=== PATIENT | male | born 1945 | race Caucasian/White ===

== ENCOUNTER 2020-09-02 09:21 | Outpatient (NON) | payer MEDICARE, SELFPAY ==
[2020-09-04 18:20] LABS: SARS-CoV-2 RNA PCR Negative
== END 2020-09-02 09:22 ==
PROVIDERS: PCP Family Medicine; Visit Provider Family Medicine
DX: Z20.828 Contact with and (suspected) exposure to other viral communicable diseases (principal); J06.9 Acute upper respiratory infection, unspecified
CPT/HCPCS: 87635; C9803; U0003

== ENCOUNTER 2021-10-31 19:15 | Emergency (ER) | payer MEDICARE, SELFPAY ==
--- NOTE | 2021-10-31 19:25 | ED.NAVMDI ---
HPI - Nausea/Vomiting/Diarrhea General Chief complaint: Nausea/Vomiting/Diarrhea Stated complaint: Diarrhea Time Seen by Provider: 10/31/21 19:25 Source: patient and RN notes reviewed Mode of arrival: ambulatory Limitations: no limitations History of Present Illness HPI Narrative: Hunter is a 75-year-old male patient who ambulated into the [facility]. Patient states he has had been having bouts of diarrhea since before . Patient states he usually has diarrhea for couple days, then will go several days without diarrhea and the cycle repeats. Patient states he is had no change in his medications. No change in eating and drinking. He has denies any health issues except for hypertension and high cholesterol. Patient states he has not went to his primary care physician. Patient denies any abdominal pain. Patient states his diarrhea is normal in color. He denies any tarry or red stools. MD elicited complaint: diarrhea Related Data Home Medications Medication Instructions Recorded Confirmed citalopram 20 mg PO DAILY 10/31/21 10/31/21 lisinopril-hydrochlorothiazide 1 tablet PO DAILY 10/31/21 10/31/21 simvastatin 40 mg PO DAILY 10/31/21 10/31/21 Allergies Allergy/AdvReac Type Severity Reaction Status Date / Time BLUEBERRIES Allergy Severe Anaphylactic Uncoded 10/31/21 19:22 Shock GOOSBERRIES Allergy Severe Anaphylactic Uncoded 10/31/21 19:22 Shock Review of Systems Review of Systems: CONSTITUTIONAL: Denies body aches, fever, chills, or sweats. EYES: Denies visual changes, redness, or discharge. ENT: Denies rhinorrhea, congestion, sore throat, or otalgia. CARDIOVASCULAR: Denies chest pain, palpitations, or edema. RESPIRATORY: Denies cough or dyspnea. GASTROINTESTINAL: Denies abdominal pain, nausea, vomiting, + diarrhea. GENITOURINARY: Denies dysuria or hematuria. SKIN: Denies rash, itching, or wounds. MUSCULOSKELETAL: Denies back pain, joint pain, or myalgia. NEUROLOGIC: Denies headache, numbness, tingling, or weakness. PSYCH: Denies depression or anxiety. All systems reviewed & are unremarkable except as noted in HPI and below PMFSH Comments At time of signature, I have reviewed and agree with nursing past medical, surgical, social and family history unless otherwise noted. Please see nursing chart for further information. There is no relevant family history pertinent to the presenting complaint Exam Narrative: GENERAL: Well-appearing, well-nourished, and in no acute distress. HEAD: Normocephalic, atraumatic. EYES: EOMI. No redness or drainage. Conjunctivae normal. ENT: Mucous membranes pink and moist. Nares clear. No rhinorrhea. TMs normal bilaterally. Throat normal. Uvula midline. NECK: Normal AROM. Supple. No lymphadenopathy. CHEST: No respiratory distress. Clear to auscultation. HEART: Regular rate and rhythm. No murmur appreciated. Normal peripheral pulses. ABDOMEN: Soft, nontender, nondistended, hyperactive bowel sounds. MUSCULOSKELETAL: No bony tenderness. EXTREMITIES: Normal range of motion. No edema. SKIN: Warm, dry, no rash. Capillary refill normal. Normal skin turgor. NEURO: No focal deficits. Alert and oriented x3. Gait steady. PSYCH: Normal affect. No signs of depression or anxiety. Course Vital Signs Vital signs: Vital Signs Temperature 36.6 C 10/31/21 19:26 Pulse Rate 68 10/31/21 19:26 Respiratory Rate 16 10/31/21 19:26 Blood Pressure 171/60 H 10/31/21 19:26 Pulse Oximetry 98 10/31/21 19:26 Temperature 36.6 C 10/31/21 19:26 Pulse Rate 68 10/31/21 19:26 Respiratory Rate 16 10/31/21 19:26 Blood Pressure 171/60 H 10/31/21 19:26 Pulse Oximetry 98 10/31/21 19:26 Reviewed. Pt has been instructed to follow up with his PCP regarding his elevated blood pressure today. MDM - Nausea/Vomiting/Diarrhea MDM Narrative Medical decision making narrative: Patient has had ongoing episodes of diarrhea since before Thanksgiving. Patient de
[2021-10-31 19:26] VITALS: BP 171/60; PULSE 68; RESP 16; TEMP 36.6; O2SAT 98
== END 2021-10-31 19:40 | disposition home or self-care (01) ==
PROVIDERS: Emergency Provider Nurse Practitioner Family; PCP Family Medicine
DX: R19.7 Diarrhea, unspecified (principal)
CPT/HCPCS: 99211; G0463

== ENCOUNTER 2021-11-18 01:17 | Day surgery (SDC) | payer MEDICARE, SELFPAY ==
[2021-11-06 14:03] VITALS: BMI 26.6
[2021-11-18 07:16] VITALS: BP 125/65; PULSE 55; RESP 18; TEMP 36.6; O2SAT 99
[2021-11-18] MEDS: LACTATED RINGERS 1,000 ML 150 ML IV CONT (07:18)
--- NOTE | 2021-11-18 07:34 | WPDANESEPPF ---
Anes - Initial Pre Proc Eval Procedure: Operation Date: 11/18/21 08:30 Proposed Procedures p Colonoscopy - Jamarcus Joshi MD Date/Time: 11/18/21 07:34 Surgeon: Jamarcus Joshi MD Pre Op Diagnosis: diarrhea Patient Data Age: 75 Gender: M Height: 1.75 m Weight: 80.1 kg Last Vital Signs Temp 36.6 C 11/18/21 07:16 Pulse 55 L 11/18/21 07:16 Resp 18 11/18/21 07:16 BP 125/65 11/18/21 07:16 Pulse Ox 99 11/18/21 07:16 Allergies Allergy/AdvReac Type Severity Reaction Status Date / Time BLUEBERRIES Allergy Severe Anaphylactic Uncoded 11/18/21 07:15 Shock GOOSBERRIES Allergy Severe Anaphylactic Uncoded 11/18/21 07:15 Shock Home Medications Medication Instructions Recorded Confirmed Type citalopram 20 mg PO DAILY 10/31/21 11/18/21 History lisinopril-hydrochlorothiazide 1 tablet PO DAILY 10/31/21 11/18/21 History simvastatin 40 mg PO DAILY 10/31/21 11/18/21 History triamcinolone acetonide 1 applic TOPICAL BID PRN 11/06/21 11/18/21 History Patient hx anesthesia problems: none Family hx anesthesia problems: none Results Review: All pre-operative results and documents have been reviewed as part of the pre-operative evaluation. [facility] Past Medical History Medical History (Updated 11/18/21 @ 07:35 by Rey Hair MD) HTN (hypertension) Hyperlipidemia Rheumatoid arthritis Social History Social History (Updated 11/18/21 @ 07:35 by Rey Hair MD) Smoking status: Former smoker Alcohol intake: former Substance use: never Substance use type: does not use Living arrangements: with family Spiritual care concerns: No Anes - Eval Final PreProcedure Day of Procedure 11/18/21 07:34 Patient weight: normal Heart: regular rate and rhythm Lungs: clear to auscultation Airway: Mallampati scale class II Neurological: alert and oriented Last oral intake: >/= 8 hours ASA classification: III Emergent: no Anesthetic plan: proceed Anesthesia type and monitoring: general GIVS and standard monitoring Results Review: All pre-operative results and documents have been reviewed as part of the pre-operative evaluation. Informed Consent: The patient's anesthetic plan and its attendant risks and benefits were discussed with the patient/family/POA. Questions were solicited and answers provided to the satisfaction of the patient/family/POA.
--- NOTE | 2021-11-18 07:53 | WPDGICN ---
Assessment and Plan Assessment and plan (1) History of colon polyps: Code(s): Z86.010 - Personal history of colonic polyps Status: Acute Assessment and Plan: Patient has a history of colon polyps most recently 5 years ago. Plan is for surveillance colonoscopy at this time. Further recommendations will be given after endoscopy. (2) Diarrhea: Code(s): R19.7 - Diarrhea, unspecified Status: Acute Assessment and Plan: Patient had recent bout of diarrhea that is now resolved. This will be assessed as well at the time of colonoscopy. High-fiber diet is advised. Further recommendations will be given after endoscopy. GI Consult Note Consult date/time: 11/18/21 07:53 HPI: Sebastian De La O is a 75 year old male Presents for colonoscopy. Patient has a history of colon polyps 5 years ago. For this reason he presents for screening colonoscopy. Patient reports that he had episode of diarrhea that began in September. He went to the emergency room for this in October. He initially noticed this intermittently in the more persistently until it resolved over the last several weeks. He states that his most recent bowel movements have been normal. He denies any pain. He has had no bleeding. Family history is noncontributory. Patient denies any recent change in medicines. He has had no recent travel. Patient is referred for surveillance colonoscopy because of colon polyps but also because of this recent episode of diarrhea. Review of Systems Review of Systems: All systems reviewed & are unremarkable except as noted in HPI and below PMFSH Past Medical History Medical History (Updated 11/18/21 @ 07:55 by Jamarcus Joshi MD) HTN (hypertension) Hyperlipidemia Rheumatoid arthritis Social History Social History (Updated 11/18/21 @ 07:35 by Rey Hair MD) Smoking status: Former smoker Alcohol intake: former Substance use: never Substance use type: does not use Living arrangements: with family Spiritual care concerns: No Meds Home Medications and Allergies Home Medications Medication Instructions Recorded Confirmed Type citalopram 20 mg PO DAILY 10/31/21 11/18/21 History lisinopril-hydrochlorothiazide 1 tablet PO DAILY 10/31/21 11/18/21 History simvastatin 40 mg PO DAILY 10/31/21 11/18/21 History triamcinolone acetonide 1 applic TOPICAL BID PRN 11/06/21 11/18/21 History Allergies Allergy/AdvReac Type Severity Reaction Status Date / Time BLUEBERRIES Allergy Severe Anaphylactic Uncoded 11/18/21 07:15 Shock GOOSBERRIES Allergy Severe Anaphylactic Uncoded 11/18/21 07:15 Shock Vital Signs Vital Signs - 24 hr 11/18/21 07:16 Temperature 98 F Pulse Rate 55 L Respiratory Rate 18 Blood Pressure 125/65 Pulse Oximetry 99 Exam Narrative: Physical exam reveals patient to be alert. Vital signs stable. HEENT exam is unremarkable. Patient is anicteric. Lungs are clear. Chest is somewhat barrel chested. Abdomen bowel sounds are present soft nontender with no organomegaly. Digital external rectal exam is normal.
[2021-11-18 08:45] VITALS: BP 94/52; PULSE 69; RESP 21; O2SAT 96
[2021-11-18 08:55] VITALS: BP 149/67; PULSE 69; RESP 24; O2SAT 100
[2021-11-18 09:05] VITALS: BP 137/73; PULSE 62; RESP 19; O2SAT 98
== END 2021-11-18 09:22 | disposition home or self-care (01) ==
PROVIDERS: PCP Family Medicine; Visit Provider Internal Medicine Gastroenterology
PROC: 0DJD8ZZ Inspection of Lower Intestinal Tract, Via Natural or Artificial Opening Endoscopic (ICD-10-PCS; CPT 45378; principal; 2021-11-18 08:30)
DX: R19.7 Diarrhea, unspecified (principal); K64.8 Other hemorrhoids; K52.89 Other specified noninfective gastroenteritis and colitis; Z86.010 Personal history of colon polyps; I10 Essential (primary) hypertension; E78.5 Hyperlipidemia, unspecified; M06.9 Rheumatoid arthritis, unspecified; Z87.891 Personal history of nicotine dependence
CPT/HCPCS: 45380; 88305; J2704; J7120

== ENCOUNTER 2024-01-20 11:15 | Outpatient (CLI) | payer MEDICARE, SELFPAY ==
[2024-01-20 11:57] LABS: Parathyroid Intact 97.8 pg/mL (7.5-53.5)
[2024-01-20 12:14] LABS: Vitamin D 25 Hydroxy 27.4 ng/mL
== END 2024-01-20 11:16 | disposition home or self-care (01) ==
LOC: ANHLAB 11:18
PROVIDERS: PCP Family Medicine; Visit Provider Family Medicine
DX: E83.52 Hypercalcemia (principal)
CPT/HCPCS: 36415; 82306; 83970

== ENCOUNTER 2024-01-26 08:37 | Outpatient (CLI) | payer MEDICARE, SELFPAY ==
--- NOTE | ~2024-01-26 | NM_ITS ---
EXAMINATION: NM parathyroid imaging w spect DATE: 01/26/2024 12:33 INDICATION: Hyperparathyroidism, unspecified. TECHNIQUE: 19.43 mCi Tc99m sestamibi was administered intravenously. Anterior images of the neck were obtained immediately. Delayed images could not be obtained because of the patient's condition. COMPARISON: CT cervical spine 01/26/2024 FINDINGS: There is focal increased activity overlying the right thyroid lobe correlating with the are a of a 13 x 12 mm mass in right tracheoesophageal groove seen by CT. IMPRESSION: 1. Focal increased activity overlying the right thyroid lobe correlating with the area of a 13 x 12 m m mass in right tracheoesophageal groove seen by CT, which may be a parathyroid adenoma. Specificity is decreased by the lack of delayed images. Reviewed, dictated and finalized at location A. IMPRESSION: 1. Focal increased activity overlying the right thyroid lobe correlating with t he area of a 13 x 12 mm mass in right tracheoesophageal groove seen by CT, whic h may be a parathyroid adenoma. Specificity is decreased by the lack of delayed images.
[2024-01-26 09:47] VITALS: BP 178/62; RESP 16; O2SAT 100
== END 2024-01-26 08:38 | disposition home or self-care (01) ==
PROVIDERS: PCP Family Medicine; Visit Provider Family Medicine
DX: E21.3 Hyperparathyroidism, unspecified (principal)
CPT/HCPCS: 78071; A9500

== ENCOUNTER 2024-01-26 09:39 | Emergency (ER) | payer MEDICARE, SELFPAY ==
[2024-01-26] VITALS (12 sets, daily range): BP systolic 148–168; BP diastolic 66–85; PULSE 43–64; RESP 14–20; TEMP 36.8; O2SAT 96–100
--- NOTE | ~2024-01-26 | CT_ITS ---
EXAMINATION: CT brain wo con DATE: 01/26/2024 10:38 INDICATION: Status post fall. TECHNIQUE: Computed tomography (CT) of the head was performed without intravenous contrast. The dose- length product was 681.00 mGy-cm. Automated exposure control and iterative reconstruction technique w ere employed. COMPARISON: None FINDINGS: Hyperdensity along the interhemispheric fissure is most likely related to calcification or vascularity rather than hemorrhage. Normal brain parenchymal volume. No ventriculomegaly or midline s hift. There are scattered mild periventricular and subcortical white matter changes, most likely rela flynn to small vessel ischemic disease (microangiopathy). There is intracranial atherosclerosis. Basila r cisterns are patent. There is mucosal thickening of the maxillary, ethmoid and frontal sinuses. Mas toids are pneumatized. No depressed skull fractures. There is subtle area of ill-defined hyperdensity in the left frontal lobe, axial image 47. IMPRESSION: 1. Subtle focal hyperdensity left frontal lobe, image 47. Focal parenchymal mass or hemorrhage is not excluded. Irregular hyperdense appearance to the interhemispheric fissure, most likely benign calcif ication or vascularity. Hemorrhage is less favored. Consider correlation with MRI of the brain. 2: Reviewed, dictated and finalized at location B. IMPRESSION: 1. Subtle focal hyperdensity left frontal lobe, image 47. Focal parenchymal mas s or hemorrhage is not excluded. Irregular hyperdense appearance to the interhe mispheric fissure, most likely benign calcification or vascularity. Hemorrhage is less favored. Consider correlation with MRI of the brain. 2:
--- NOTE | ~2024-01-26 | XR_ITS ---
XR chest 2V 01/26/2024 10:42 Indication: Syncope. Status post fall. Procedure: AP and lateral views of the chest Comparison: 04/09/2007 Findings: Heart size normal. No focal air space disease, pulmonary edema, pleural effusion or suspect ed pneumothorax. Impression: 1: No acute cardiopulmonary disease. Reviewed, dictated and finalized at location B. Impression: 1: No acute cardiopulmonary disease.
--- NOTE | ~2024-01-26 | CT_ITS ---
EXAMINATION: CT cervical spine wo con DATE: 01/26/2024 10:39 INDICATION: Head injury. TECHNIQUE: Computed tomography (CT) of the cervical spine was performed without intravenous contrast. Automated exposure control and iterative reconstruction technique were employed. The dose-length pro duct was 462.23 mGy-cm. COMPARISON: None FINDINGS: There are nodules in the thyroid measuring up to 2.2 cm. There is 5 degrees dextrocurvature of cervical spine. There are bridging endplate osteophytes from C2 to C4 and from C7 to at least T2, consistent with diffuse idiopathic skeletal hyperostosis (DISH). There is a benign bone island in T1 . There is moderately decreased disc height at C4-C5 and C5-C6. The following disc levels are specifi enma discussed: C2-C3: There is no uncovertebral joint hypertrophy. There is ankylosis of the facet joints without hy pertrophy. There is no neural foraminal stenosis. There is no central canal stenosis. C3-C4: There is mild bilateral uncovertebral joint hypertrophy. There is ankylosis of the facet joint s without hypertrophy. There is mild right neural foraminal stenosis. There is no central canal steno sis. C4-C5: There is severe bilateral uncovertebral joint osteoarthritis. There is severe bilateral facet joint osteoarthritis. There is mild bilateral neural foraminal stenosis. There is mild central canal stenosis. C5-C6: There is severe bilateral uncovertebral joint osteoarthritis. There is severe bilateral facet joint osteoarthritis. There is mild bilateral neural foraminal stenosis. There is mild central canal stenosis. C6-C7: There is no uncovertebral joint osteoarthritis. There is moderate bilateral facet joint osteoa rthritis. There is no neural foraminal stenosis. There is no central canal stenosis. C7-T1: There is no uncovertebral joint osteoarthritis. There is mild right and severe left facet join t osteoarthritis. There is mild left neural foraminal stenosis. There is no central canal stenosis. IMPRESSION: 1. No fracture. 2. Moderate cervical spondylosis. 3. DISH. 4. Multinodular goiter. Consider thyroid ultrasound for risk stratification. Reviewed, dictated and finalized at location A.
--- NOTE | 2024-01-26 09:47 | ECG_ITS ---
Measurements Intervals [place] Rate: 54 P: 257 IA: 146 QRS: 66 QRSD: 134 T: 55 QT: 449 QTc: 428 Interpretive Statements ECTOPIC ATRIAL BRADYCARDIA ATRIAL PREMATURE COMPLEX RIGHT BUNDLE BRANCH BLOCK ABNORMAL ECG NO PREVIOUS ECG AVAILABLE FOR COMPARISON Electronically Signed On 01-26-2024 10:20:11 CDT by Leonel Kowalski D.O.
--- NOTE | 2024-01-26 09:51 | ED.FALL ---
HPI - Fall General Chief Complaint: Fall Stated Complaint: fall Time Seen by Provider: 01/26/24 09:48 Source: patient and other (RN) Mode of arrival: other (rapid response from NM) Limitations: altered mental status History of Present Illness HPI Narrative: This is a 78 year old male that presents to the ER for a syncopal episode today. Patient had a parathyroid nuclear medicine scan at our hospital. After this scan he stood up and they report he looked confused, he then passed out and hit his head. Alert soon after, although patient is confused. Unsure why he is in the hospital. Does not remember what happened. Denies chest pain, shortness of breath. Related Data Home Medications Medication Instructions Recorded Confirmed triamcinolone acetonide 0.1 % 1 applic topical BID PRN Rash 11/06/21 01/20/24 topical cream Allergies Allergy/AdvReac Type Severity Reaction Status Date / Time BLUEBERRIES Allergy Severe Anaphylactic Uncoded 01/20/24 10:00 Shock GOOSBERRIES Allergy Severe Anaphylactic Uncoded 01/20/24 10:00 Shock Review of Systems Review of Systems: ROS unobtainable: Yes unobtainable due to mental status PMFSH Past Medical History Medical History Arthropathic psoriasis, unspecified GERD (gastroesophageal reflux disease) HTN (hypertension) Hypercalcemia Hyperlipidemia Major depressive disorder, recurrent, in partial remission Other abnormal glucose Paresthesia of both feet Psoriasis, unspecified Pure hypercholesterolemia, unspecified Rheumatoid arthritis Urge incontinence of urine Surgical History Surgical History History of appendectomy History of hernia repair left abdomen 12/06/2003 right abdomen 08/2011 History of tonsillectomy and adenoidectomy Family History Family History Father Heart disease Mother Diabetes mellitus Grandparent Heart disease Social History Social History (Updated 01/20/24 @ 10:03 by Nataly Horowitz MA) Smoking status: Former smoker Tobacco type: cigarettes Second hand tobacco smoke exposure: No Alcohol intake: former Substance use: never Substance use type: does not use Do You Feel Safe in your Home?: Yes Lack of Transportation: No Lack of Food: Never True Current Housing: I Have Housing Concerned About Future Housing: No Difficulty Paying Gas/Electric Bills: No Difficulty Paying for Meds: No Currently Unemployed: YES Education: High School Diploma/GED Difficulty w/ Childcare or Family Care: No Living arrangements: with family Occupation/Education: retired Gender identity (if verbalized by the patient): Male Sexual Orientation (if Verbalized by the Patient): Straight or Heterosexual Spiritual care concerns: No Exam Narrative: GENERAL: Well-appearing, well-nourished, and in no acute distress. HEAD: Normocephalic. 3cm linear laceration into subcutaneous tissue to the posterior scalp EYES: PERRLA and EOMI. ENT: Nares clear, no rhinorrhea or epistaxis. Mucous membranes moist. Oropharynx without tonsillar hypertrophy exudate or other lesions. Bilateral TMs pearly vega non-bulging NECK: Supple. No adenopathy or masses. C collar in place CHEST: Clear to auscultation. No respiratory distress. No wheezes rales or rhonchi HEART: Regular rate and rhythm. No murmur heard. Normal peripheral pulses. ABDOMEN: Soft, nontender, nondistended, normal active bowel sounds. EXTREMITIES: Normal range of motion. No edema. SKIN: Warm, dry, no rash. NEURO: No focal deficits. Alert and oriented x1. CN II-XII grossly intact PSYCH: Normal mood and affect Course Course Emergency Course: I was able to eventually get ahold of patient's son and update him on his father Consultations Consultation #1: Dr. Morrell at [facility] accepts patient to th
[2024-01-26 10:14] LABS: Basophils Percent Auto 0.3 % (0.2-1.2); Eosinophils Absolute Auto 0.1 K/mm3 (0-0.3); Eosinophils Percent Auto 1.9 % (0-4.4); Hematocrit 48.7 % (42.0-52.0); Hemoglobin 15.8 g/dL (14.0-18.0); Immature Granulocyte Absolute 0.03 K/mm3 (0.00-0.031); Immature Granulocyte Percent A 0.4 % (0-0.5); Lymphocytes Absolute Auto 1.95 K/mm3 (0.9-3.2); Lymphocytes Percent Auto 26.4 % (18.3-44.2); Mean Corpuscular HGB Conc 32.4 g/dl (32-36); Mean Corpuscular Hemoglobin 28.5 pg (26-34); Mean Corpuscular Volume 87.9 fl (80-100); Mean Platelet Volume 11.5 fl (7.4-10.4); Monocytes Absolute Auto 0.8 K/mm3 (0.1-0.6); Monocytes Percent Auto 10.4 % (2.6-8.5); Neutrophils Absolute Auto 4.5 K/mm3 (1.3-6.7); Neutrophils Percent Auto 60.6 % (45.5-73.1); Platelet Count Result 201 k/mm3 (150-375); Red Blood Count 5.54 M/mm3 (4.6-6.20); Red Cell Distribution Width 13.6 % (11.5-14.5); White Blood Count 7.4 K/mm3 (4.5-10.0)
[2024-01-26] MEDS: TETANUS,DIPHTHERIA,AC PERTUSSIS ADULT (0.5 ML) BOOSTRIX IM (10:15)
[2024-01-26 10:28] LABS: Alanine Aminotransferase 19 U/L (6-50); Albumin Level 4.7 g/dL (3.5-5.1); Alkaline Phosphatase 108 U/L (38-126); Anion Gap 7 mmol/L (4-12); Aspartate Amino Transferase 27 U/L (17-59); Bilirubin,Total 0.7 mg/dL (0.2-1.3); Blood Urea Nitrogen 24 mg/dL (9-20); Calcium 11.3 mg/dL (8.4-10.2); Carbon Dioxide 32 mmol/L (22-30); Chloride 99 mmol/L (98-107); Estimated CRCL calculation 63 ml/min; Estimated Glomerular Filt Rate > 60; Glucose 99 mg/dL (65-110); Potassium 4.2 mmol/L (3.4-5.0); Sodium 138 mmol/L (137-145)
[2024-01-26 10:31] LABS: INR 0.9; Prothrombin Time 12.8 Seconds (11.1-14.7)
[2024-01-26 10:32] LABS: Partial Thromboplastin Time 28.4 Seconds (22.3-36.8)
[2024-01-26 10:39] LABS: Troponin I < 0.012 ng/mL (0.000-0.034)
== END 2024-01-26 12:28 | disposition short-term general hospital (02) ==
PROVIDERS: Emergency Medicine; Emergency Provider Physician Assistant; PCP Family Medicine
DX: R55 Syncope and collapse (principal); S01.01XA Laceration without foreign body of scalp, initial encounter; R93.0 Abnormal findings on diagnostic imaging of skull and head, not elsewhere classified; Z23 Encounter for immunization; I10 Essential (primary) hypertension; E78.00 Pure hypercholesterolemia, unspecified; M06.9 Rheumatoid arthritis, unspecified; L40.50 Arthropathic psoriasis, unspecified; K21.9 Gastro-esophageal reflux disease without esophagitis; Z87.891 Personal history of nicotine dependence; M47.812 Spondylosis without myelopathy or radiculopathy, cervical region; E04.2 Nontoxic multinodular goiter; M48.12 Ankylosing hyperostosis [Forestier], cervical region; M48.13 Ankylosing hyperostosis [Forestier], cervicothoracic region; I49.1 Atrial premature depolarization; I45.10 Unspecified right bundle-branch block; W18.39XA Other fall on same level, initial encounter
CPT/HCPCS: 12002; 36415; 70450; 71046; 72125; 78071; 80053; 84484; 85025; 85610; 85730; 90471; 90715; 93005; 99285; A9500; L0140

== ENCOUNTER 2024-03-01 14:36 | Emergency (ER) | payer MEDICARE, SELFPAY ==
[2024-03-01] VITALS (16 sets, daily range): BP systolic 103–141; BP diastolic 40–64; PULSE 55–83; RESP 12–21; TEMP 36.2–36.8; O2SAT 97–100
--- NOTE | 2024-03-01 14:41 | ECG_ITS ---
SEE SCANNED COPY FOR CONFIRMED REPORT. MTDD
[2024-03-01 15:07] LABS: Basophils Absolute Auto 0.1 K/mm3 (0.0-0.1); Basophils Percent Auto 0.9 % (0.2-1.2); Eosinophils Absolute Auto 0.2 K/mm3 (0-0.3); Eosinophils Percent Auto 2.6 % (0-4.4); Hematocrit 41.2 % (42.0-52.0); Hemoglobin 13.5 g/dL (14.0-18.0); Immature Granulocyte Absolute 0.02 K/mm3 (0.00-0.031); Immature Granulocyte Percent A 0.3 % (0-0.5); Lymphocytes Absolute Auto 1.19 K/mm3 (0.9-3.2); Lymphocytes Percent Auto 20.7 % (18.3-44.2); Mean Corpuscular HGB Conc 32.8 g/dl (32-36); Mean Corpuscular Hemoglobin 28.8 pg (26-34); Mean Corpuscular Volume 87.8 fl (80-100); Mean Platelet Volume 11.7 fl (7.4-10.4); Monocytes Absolute Auto 0.7 K/mm3 (0.1-0.6); Neutrophils Absolute Auto 3.7 K/mm3 (1.3-6.7); Neutrophils Percent Auto 63.5 % (45.5-73.1); Platelet Count Result 192 k/mm3 (150-375); Red Blood Count 4.69 M/mm3 (4.6-6.20); Red Cell Distribution Width 13.5 % (11.5-14.5); White Blood Count 5.8 K/mm3 (4.5-10.0)
[2024-03-01] MEDS: MECLIZINE HCL 25 MG TABLET PO (15:08)
[2024-03-01 15:17] LABS: Alanine Aminotransferase 19 U/L (6-50); Albumin Level 4.6 g/dL (3.5-5.1); Alkaline Phosphatase 108 U/L (38-126); Anion Gap 11 mmol/L (4-12); Aspartate Amino Transferase 26 U/L (17-59); Bilirubin,Total 0.5 mg/dL (0.2-1.3); Blood Urea Nitrogen 25 mg/dL (9-20); Calcium 10.8 mg/dL (8.4-10.2); Carbon Dioxide 24 mmol/L (22-30); Chloride 103 mmol/L (98-107); Estimated CRCL calculation 67 ml/min; Estimated Glomerular Filt Rate > 60; Glucose 77 mg/dL (65-110); Potassium 3.8 mmol/L (3.4-5.0); Sodium 138 mmol/L (137-145)
[2024-03-01 15:18] LABS: Prothrombin Time 13.4 Seconds (11.1-14.7)
[2024-03-01 15:20] LABS: Partial Thromboplastin Time 25.6 Seconds (22.3-36.8)
[2024-03-01] MEDS: SODIUM CHLORIDE 0.9% IV 1,000 ML 999 ML IV CONT (15:56)
--- NOTE | 2024-03-01 17:10 | PC.NURSE ---
updated orthostatic bp per MD verbal order: 1700; hr 70 and bp 120/54 1705; hr 74 and bp 122/56 1707; hr 78 and bp 122/55 states dizziness and feeling slighting off balance. denies sense of room spinning, n/v, or vision changes
--- NOTE | 2024-03-01 17:11 | ED.GENADULT ---
HPI - General Adult General Chief complaint: Arrhythmia/Palpitations Stated complaint: unknown Time Seen by Provider: 03/01/24 14:40 History of Present Illness HPI narrative: Patient is a 78-year-old male who presents ER with dizziness spinning and makes him unsteady. Worse with lying back or standing up. No loss of consciousness. No numbness or weakness in an arm or leg. No chest pain/chest pressure. No racing of the heart. No ringing in the ears. No weakness or numbness to an arm or leg. Related Data Home Medications Medication Instructions Recorded Confirmed triamcinolone acetonide 0.1 % 1 applic topical BID PRN Rash 11/06/21 01/31/24 topical cream meclizine 25 mg tablet 25 mg PO BID PRN 01/31/24 01/31/24 pantoprazole 40 mg tablet,delayed 40 mg PO QAM 01/31/24 01/31/24 release Allergies Allergy/AdvReac Type Severity Reaction Status Date / Time BLUEBERRIES Allergy Severe Anaphylactic Uncoded 01/31/24 15:25 Shock GOOSBERRIES Allergy Severe Anaphylactic Uncoded 01/31/24 15:25 Shock Review of Systems Review of Systems: All systems reviewed & are unremarkable except as noted in HPI and below Constitutional: Constitutional: Reports no additional constitutional complaints ENT: Reports dizziness, Denies nasal congestion and Denies sore throat Cardiovascular: Cardiovascular: Reports no additional cardiovascular complaints Respiratory: Respiratory: Reports no additional respiratory complaints Gastrointestinal: Gastrointestinal: Reports no additional gastrointestinal complaints Musculoskeletal: Musculoskeletal: Reports no additional musculoskeletal complaints [facility] Past Medical History Medical History Arthropathic psoriasis, unspecified GERD (gastroesophageal reflux disease) HTN (hypertension) Hypercalcemia Hyperlipidemia Major depressive disorder, recurrent, in partial remission Other abnormal glucose Paresthesia of both feet Psoriasis, unspecified Pure hypercholesterolemia, unspecified Rheumatoid arthritis Urge incontinence of urine Surgical History Surgical History History of appendectomy History of hernia repair left abdomen 12/06/2003 right abdomen 08/2011 History of tonsillectomy and adenoidectomy Family History Family History Father Heart disease Mother Diabetes mellitus Grandparent Heart disease Social History Social History (Updated 01/20/24 @ 10:03 by Nataly Horowitz MA) Smoking status: Former smoker Tobacco type: cigarettes Second hand tobacco smoke exposure: No Alcohol intake: former Substance use: never Substance use type: does not use Do You Feel Safe in your Home?: Yes Lack of Transportation: No Lack of Food: Never True Current Housing: I Have Housing Concerned About Future Housing: No Difficulty Paying Gas/Electric Bills: No Difficulty Paying for Meds: No Currently Unemployed: YES Education: High School Diploma/GED Difficulty w/ Childcare or Family Care: No Living arrangements: with family Occupation/Education: retired Gender identity (if verbalized by the patient): Male Sexual Orientation (if Verbalized by the Patient): Straight or Heterosexual Spiritual care concerns: No Exam Narrative: GENERAL: Well-appearing, well-nourished, and in no acute distress. HEAD: Normocephalic, atraumatic. EYES: PERRL and EOMI. ENT: Mucous membranes moist. TMs normal bilaterally. NECK: Supple. CHEST: Clear to auscultation. No respiratory distress. HEART: Regular rate and rhythm. Normal peripheral pulses. ABDOMEN: Soft, nontender, nondistended. EXTREMITIES: Normal range of motion. No edema. SKIN: Warm, dry, no rash. NEURO: Alert and oriented x3. PSYCH: Normal mood and affect. Course Course Emergency Course: Patient
== END 2024-03-01 18:05 | disposition home or self-care (01) ==
PROVIDERS: Emergency Provider Emergency Medicine; PCP Family Medicine
DX: R42 Dizziness and giddiness (principal); I95.1 Orthostatic hypotension; I10 Essential (primary) hypertension; E78.00 Pure hypercholesterolemia, unspecified; M06.9 Rheumatoid arthritis, unspecified; L40.50 Arthropathic psoriasis, unspecified; K21.9 Gastro-esophageal reflux disease without esophagitis; Z87.891 Personal history of nicotine dependence; I45.10 Unspecified right bundle-branch block; R94.31 Abnormal electrocardiogram [ECG] [EKG]
CPT/HCPCS: 36415; 80053; 85025; 85610; 85730; 93005; 96360; 99283; A9270; J7030

== ENCOUNTER 2024-03-03 13:25 | Emergency (ER) | payer MEDICARE, SELFPAY ==
[2024-03-03] VITALS (12 sets, daily range): BP systolic 97–167; BP diastolic 55–81; PULSE 66–79; RESP 13–20; TEMP 36.3–36.6; O2SAT 97–100
--- NOTE | ~2024-03-03 | XR_ITS ---
XR chest 2V 03/03/2024 14:16 Indication: AICD fired. Procedure: 2 view chest Comparison: 01/26/2024 Findings: Heart size normal. No focal air space disease, pulmonary edema, pleural effusion or suspect ed pneumothorax. The lungs are hyperinflated which is consistent with, but not diagnostic of chronic obstructive pulmonary disease. No acute osseous abnormality. Impression: 1: No acute cardiopulmonary disease. Reviewed, dictated and finalized at location B. Impression: 1: No acute cardiopulmonary disease.
--- NOTE | 2024-03-03 13:54 | ECG_ITS ---
SEE SCANNED COPY FOR CONFIRMED REPORT MTDD
[2024-03-03 14:07] LABS: Basophils Percent Auto 0.5 % (0.2-1.2); Eosinophils Absolute Auto 0.2 K/mm3 (0-0.3); Hematocrit 38.8 % (42.0-52.0); Hemoglobin 13.1 g/dL (14.0-18.0); Immature Granulocyte Absolute 0.02 K/mm3 (0.00-0.031); Immature Granulocyte Percent A 0.4 % (0-0.5); Lymphocytes Absolute Auto 0.93 K/mm3 (0.9-3.2); Lymphocytes Percent Auto 16.4 % (18.3-44.2); Mean Corpuscular HGB Conc 33.8 g/dl (32-36); Mean Corpuscular Hemoglobin 29.2 pg (26-34); Mean Corpuscular Volume 86.6 fl (80-100); Mean Platelet Volume 11.9 fl (7.4-10.4); Monocytes Absolute Auto 0.6 K/mm3 (0.1-0.6); Monocytes Percent Auto 10.1 % (2.6-8.5); Neutrophils Absolute Auto 3.9 K/mm3 (1.3-6.7); Neutrophils Percent Auto 69.6 % (45.5-73.1); Platelet Count Result 193 k/mm3 (150-375); Red Blood Count 4.48 M/mm3 (4.6-6.20); Red Cell Distribution Width 13.3 % (11.5-14.5); White Blood Count 5.7 K/mm3 (4.5-10.0)
[2024-03-03 14:19] LABS: Alanine Aminotransferase 19 U/L (6-50); Albumin Level 4.4 g/dL (3.5-5.1); Alkaline Phosphatase 97 U/L (38-126); Anion Gap 8 mmol/L (4-12); Aspartate Amino Transferase 24 U/L (17-59); Bilirubin,Total 0.6 mg/dL (0.2-1.3); Blood Urea Nitrogen 21 mg/dL (9-20); Calcium 10.9 mg/dL (8.4-10.2); Carbon Dioxide 26 mmol/L (22-30); Chloride 105 mmol/L (98-107); Estimated CRCL calculation 67 ml/min; Estimated Glomerular Filt Rate > 60; Glucose 116 mg/dL (65-110); Sodium 139 mmol/L (137-145)
[2024-03-03 14:26] LABS: INR 1.1; Partial Thromboplastin Time 28.9 Seconds (22.3-36.8); Prothrombin Time 14.2 Seconds (11.1-14.7)
[2024-03-03 14:28] LABS: NT Pro B Type Natriuretic Pept 460 pg/mL (19.9-100)
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
[2024-03-03 15:42] LABS: Troponin I < 0.012 ng/mL (0.000-0.034)
[2024-03-03 17:09] LABS: Troponin I 0.013 ng/mL (0.000-0.034)
== END 2024-03-03 18:30 | disposition short-term general hospital (02) ==
PROVIDERS: Emergency Provider Emergency Medicine; PCP Family Medicine
DX: I49.5 Sick sinus syndrome (principal); I10 Essential (primary) hypertension; E78.00 Pure hypercholesterolemia, unspecified; M06.9 Rheumatoid arthritis, unspecified; L40.50 Arthropathic psoriasis, unspecified; K21.9 Gastro-esophageal reflux disease without esophagitis; N39.41 Urge incontinence; Z87.891 Personal history of nicotine dependence; Z95.810 Presence of automatic (implantable) cardiac defibrillator; I45.10 Unspecified right bundle-branch block
CPT/HCPCS: 36415; 71046; 80053; 83880; 84484; 85025; 85610; 85730; 93005; 99285

== ENCOUNTER 2024-03-11 10:30 | Emergency (ER) | payer MEDICARE, SELFPAY ==
--- NOTE | ~2024-03-11 | XR_ITS ---
XR chest 1V portable DATE: 03/11/2024 12:27 INDICATION: Dizziness. Pacemaker insertion. TECHNIQUE: Portable upright AP chest on 03/11/2024 at 1218 hours COMPARISON: 03/20/2024 PA and lateral chest FINDINGS: Right-sided dual-lead transvenous pacemaker device has been placed since 03/03/2024. One lead overlies the right atrium, the other the central mid to upper heart, not necessarily in position whe re one might expect overlying the right ventricular apex. Clinical correlation is advised. More accur ate determination of pacemaker leads may be obtained by CT thorax if clinically indicated. Normal heart size. No pulmonary infiltrate or consolidation, pleural effusion or pulmonary vascular congestion or pneumo thorax. There is osteopenia. Bilateral rotator cuff atrophy is suggested. IMPRESSION: Right-sided pacemaker placement since 03/03/2024; recommend clinical correlation and possib le CT thorax for assessment of pacemaker lead position No active cardiopulmonary disease Reviewed, dictated and finalized at location A. IMPRESSION: Right-sided pacemaker placement since 03/03/2024; recommend clinical correlation and possible CT thorax for assessment of pacemaker lead position No active cardiopulmonary disease
[2024-03-11 10:35] VITALS: BP 130/68; PULSE 69; PULSE 78; RESP 17; TEMP 36.6; O2SAT 100
--- NOTE | 2024-03-11 10:44 | ECG_ITS ---
SEE SCANNED COPY FOR CONFIRMED REPORT MTDD
[2024-03-11 11:07] LABS: Basophils Percent Auto 0.6 % (0.2-1.2); Eosinophils Absolute Auto 0.1 K/mm3 (0-0.3); Eosinophils Percent Auto 2.5 % (0-4.4); Hematocrit 41.6 % (42.0-52.0); Hemoglobin 13.5 g/dL (14.0-18.0); Immature Granulocyte Absolute 0.02 K/mm3 (0.00-0.031); Immature Granulocyte Percent A 0.4 % (0-0.5); Lymphocytes Absolute Auto 0.78 K/mm3 (0.9-3.2); Lymphocytes Percent Auto 15.3 % (18.3-44.2); Mean Corpuscular HGB Conc 32.5 g/dl (32-36); Mean Corpuscular Volume 89.3 fl (80-100); Mean Platelet Volume 11.8 fl (7.4-10.4); Monocytes Absolute Auto 0.7 K/mm3 (0.1-0.6); Monocytes Percent Auto 13.1 % (2.6-8.5); Neutrophils Absolute Auto 3.5 K/mm3 (1.3-6.7); Neutrophils Percent Auto 68.1 % (45.5-73.1); Platelet Count Result 173 k/mm3 (150-375); Red Blood Count 4.66 M/mm3 (4.6-6.20); Red Cell Distribution Width 13.2 % (11.5-14.5); White Blood Count 5.1 K/mm3 (4.5-10.0)
[2024-03-11 11:24] LABS: Alanine Aminotransferase 34 U/L (6-50); Albumin Level 4.4 g/dL (3.5-5.1); Alkaline Phosphatase 90 U/L (38-126); Anion Gap 7 mmol/L (4-12); Aspartate Amino Transferase 29 U/L (17-59); Bilirubin,Total 0.6 mg/dL (0.2-1.3); Blood Urea Nitrogen 31 mg/dL (9-20); Calcium 11.6 mg/dL (8.4-10.2); Carbon Dioxide 31 mmol/L (22-30); Chloride 101 mmol/L (98-107); Estimated CRCL calculation 60 ml/min; Estimated Glomerular Filt Rate > 60; Glucose 93 mg/dL (65-110); Potassium 4.6 mmol/L (3.4-5.0); Sodium 139 mmol/L (137-145)
--- NOTE | 2024-03-11 11:26 | ED.DIZZY ---
HPI - Dizziness General Chief Complaint: Dizziness Stated Complaint: sent by dietetic technician Time Seen by Provider: 03/11/24 10:45 Source: patient Mode of arrival: ambulatory Limitations: no limitations History of Present Illness HPI Narrative: This is a 78-year-old male who presents to the ED with chief complaint of dizziness ongoing since late December and continuing this week. Patient reports he was at [facility] this week for pacemaker placement on Wednesday for sick sinus syndrome. He reports that the dizziness continues despite having the pacemaker in place. He called his doctor there and they encouraged him to go to the ER since the pacemaker should be helping with dizziness if it was due to the sick sinus syndrome. He reports he has been told he has heart murmur in the past but is unsure what this is. Denies any associated chest pain or shortness of breath. He states the dizziness gets worse when he gets up in takes his 1st few steps. Denies syncope, numbness or weakness of the extremities, speech change or vision change. Denies any falls. Denies fevers, chills, abdominal pain, nausea, vomiting, diarrhea. Related Data Home Medications Medication Instructions Recorded Confirmed triamcinolone acetonide 0.1 % 1 applic topical BID PRN Rash 11/06/21 01/31/24 topical cream meclizine 25 mg tablet 25 mg PO BID PRN 01/31/24 01/31/24 pantoprazole 40 mg tablet,delayed 40 mg PO QAM 01/31/24 01/31/24 release Allergies Allergy/AdvReac Type Severity Reaction Status Date / Time BLUEBERRIES Allergy Severe Anaphylactic Uncoded 01/31/24 15:25 Shock GOOSBERRIES Allergy Severe Anaphylactic Uncoded 01/31/24 15:25 Shock Review of Systems Review of Systems: All systems as dictated in HPI [facility] Past Medical History Medical History Arthropathic psoriasis, unspecified GERD (gastroesophageal reflux disease) HTN (hypertension) Hypercalcemia Hyperlipidemia Major depressive disorder, recurrent, in partial remission Other abnormal glucose Paresthesia of both feet Psoriasis, unspecified Pure hypercholesterolemia, unspecified Rheumatoid arthritis Urge incontinence of urine Surgical History Surgical History History of appendectomy History of hernia repair left abdomen 12/06/2003 right abdomen 08/2011 History of tonsillectomy and adenoidectomy Family History Family History Father Heart disease Mother Diabetes mellitus Grandparent Heart disease Social History Social History (Updated 01/20/24 @ 10:03 by Nataly Horowitz MA) Smoking status: Former smoker Tobacco type: cigarettes Second hand tobacco smoke exposure: No Alcohol intake: former Substance use: never Substance use type: does not use Do You Feel Safe in your Home?: Yes Lack of Transportation: No Lack of Food: Never True Current Housing: I Have Housing Concerned About Future Housing: No Difficulty Paying Gas/Electric Bills: No Difficulty Paying for Meds: No Currently Unemployed: YES Education: High School Diploma/GED Difficulty w/ Childcare or Family Care: No Living arrangements: with family Occupation/Education: retired Gender identity (if verbalized by the patient): Male Sexual Orientation (if Verbalized by the Patient): Straight or Heterosexual Spiritual care concerns: No Exam Narrative: GENERAL: Well-appearing, well-nourished, and in no acute distress. HEAD: Normocephalic, atraumatic. EYES: PERRLA and EOMI. ENT: Nares clear, no rhinorrhea or epistaxis. Mucous membranes moist. Oropharynx without tonsillar hypertrophy exudate or other lesions. NECK: Supple. No adenopathy or masses. CHEST: No respiratory distress. Clear to auscultation. No wheezes rales or rhonchi HEART: Regular rate and rhythm. Loud sys
[2024-03-11 12:28] LABS: NT Pro B Type Natriuretic Pept 102 pg/mL (19.9-100)
--- NOTE | 2024-03-11 12:30 | ECG_ITS ---
SEE SCANNED COPY FOR CONFIRMED REPORT MTDD
[2024-03-11 12:40] VITALS: BP 106/68; PULSE 73; RESP 18; O2SAT 100
[2024-03-11] MEDS: SODIUM CHLORIDE 0.9% IV 1,000 ML 999 ML IV CONT (12:40)
[2024-03-11 14:22] VITALS: BP 135/57; PULSE 66; RESP 16; O2SAT 98
[2024-03-11 15:16] VITALS: BP 132/57; PULSE 77; RESP 17; O2SAT 100
[2024-03-11 16:25] VITALS: BP 132/61; PULSE 75; RESP 18; TEMP 36.8; O2SAT 98
--- NOTE | 2024-03-11 16:33 | PC.NURSE ---
Yady at [facility] called for report, states they will return phone call in 30 minutes for report
== END 2024-03-11 17:17 | disposition short-term general hospital (02) ==
PROVIDERS: Family Medicine; Emergency Provider Physician Assistant; PCP Family Medicine
DX: R55 Syncope and collapse (principal); I49.5 Sick sinus syndrome; I35.0 Nonrheumatic aortic (valve) stenosis; I10 Essential (primary) hypertension; E78.00 Pure hypercholesterolemia, unspecified; M06.9 Rheumatoid arthritis, unspecified; L40.50 Arthropathic psoriasis, unspecified; K21.9 Gastro-esophageal reflux disease without esophagitis; N39.41 Urge incontinence; Z95.0 Presence of cardiac pacemaker; Z87.891 Personal history of nicotine dependence; I45.10 Unspecified right bundle-branch block; I44.0 Atrioventricular block, first degree
CPT/HCPCS: 36415; 71045; 80053; 83880; 85025; 93005; 96360; 99285; J7030

== ENCOUNTER 2024-10-04 21:42 | Emergency (ER) | payer MEDICARE, SELFPAY ==
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
[2024-10-04 21:51] VITALS: BP 174/82; PULSE 89; RESP 20; TEMP 36.7; O2SAT 97
[2024-10-05 01:21] VITALS: BP 186/79; PULSE 79; RESP 17; O2SAT 99
--- NOTE | 2024-10-05 02:17 | PC.NURSE ---
Dolores with xray, stated pt refused xray of knees. LOU Garner notified. No further orders at this time.
[2024-10-05 04:00] VITALS: BP 136/74; PULSE 80; RESP 18; O2SAT 99
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
[2024-10-05 06:16] VITALS: BP 133/54; PULSE 62; RESP 17; O2SAT 98
== END 2024-10-05 07:23 | disposition home or self-care (01) ==
PROVIDERS: Emergency Provider Emergency Medicine; PCP Family Medicine
DX: S20.211A Contusion of right front wall of thorax, initial encounter (principal); I35.0 Nonrheumatic aortic (valve) stenosis; Q23.81 Bicuspid aortic valve; I10 Essential (primary) hypertension; E78.5 Hyperlipidemia, unspecified; M06.9 Rheumatoid arthritis, unspecified; K21.9 Gastro-esophageal reflux disease without esophagitis; N39.41 Urge incontinence; Z95.0 Presence of cardiac pacemaker; Z87.891 Personal history of nicotine dependence; Z79.84 Long term (current) use of oral hypoglycemic drugs; Z79.899 Other long term (current) drug therapy; W01.198A Fall on same level from slipping, tripping and stumbling with subsequent striking against other object, initial encounter
CPT/HCPCS: 71250; 74176; 99284

== ENCOUNTER 2024-12-31 08:17 | Emergency (ER) | payer MEDICARE, SELFPAY ==
[2024-12-31 08:53] VITALS: PULSE 80; RESP 19; TEMP 36.6; O2SAT 100
[2024-12-31 09:04] LABS: Basophils Percent Auto 0.4 % (0.2-1.2); Eosinophils Absolute Auto 0.1 K/mm3 (0-0.3); Eosinophils Percent Auto 1.9 % (0-4.4); Hematocrit 45.5 % (42.0-52.0); Hemoglobin 15.3 g/dL (14.0-18.0); Immature Granulocyte Absolute 0.02 K/mm3 (0.00-0.031); Immature Granulocyte Percent A 0.4 % (0-0.5); Lymphocytes Absolute Auto 0.64 K/mm3 (0.9-3.2); Lymphocytes Percent Auto 13.4 % (18.3-44.2); Mean Corpuscular HGB Conc 33.6 g/dl (32-36); Mean Corpuscular Hemoglobin 28.9 pg (26-34); Monocytes Absolute Auto 0.3 K/mm3 (0.1-0.6); Monocytes Percent Auto 6.5 % (2.6-8.5); Neutrophils Absolute Auto 3.7 K/mm3 (1.3-6.7); Neutrophils Percent Auto 77.4 % (45.5-73.1); Platelet Count Result 178 k/mm3 (150-375); Red Blood Count 5.29 M/mm3 (4.6-6.20); Red Cell Distribution Width 14.2 % (11.5-14.5); White Blood Count 4.8 K/mm3 (4.5-10.0)
[2024-12-31] MEDS: MECLIZINE HCL 25 MG TABLET PO (09:12)
--- NOTE | 2024-12-31 09:12 | PC.NURSE ---
CT notified that pt. is ready for scan and an extra green top is at bedside.
[2024-12-31 09:13] LABS: Alanine Aminotransferase 21 U/L (6-50); Albumin Level 4.2 g/dL (3.5-5.1); Alkaline Phosphatase 146 U/L (38-126); Anion Gap 9 mmol/L (4-12); Aspartate Amino Transferase 21 U/L (17-59); Bilirubin,Total 0.6 mg/dL (0.2-1.3); Blood Urea Nitrogen 16 mg/dL (9-20); Calcium 10.9 mg/dL (8.4-10.2); Carbon Dioxide 29 mmol/L (22-30); Chloride 103 mmol/L (98-107); Estimated CRCL calculation 94 ml/min; Estimated Glomerular Filt Rate > 60; Glucose 100 mg/dL (65-110); Partial Thromboplastin Time 27.2 Seconds (22.3-36.8); Potassium 4.4 mmol/L (3.4-5.0); Prothrombin Time 13.7 Seconds (11.1-14.7); Sodium 141 mmol/L (137-145)
[2024-12-31 09:24] LABS: Troponin I < 0.012 ng/mL (0.000-0.034)
--- NOTE | 2024-12-31 10:49 | ED.GENADULT ---
HPI - General Adult General Chief complaint: Dizziness Stated complaint: heart is acting up again Time Seen by Provider: 12/31/24 08:25 History of Present Illness HPI narrative: Patient is a 79-year-old male who presents ER with dizziness. Woke up this morning around 7:00 a.m. and had dizziness that lasted persistently for over an hour. Reports he has had this intermittently over last 3 days. He is concerned he may be having issues with his heart because before he got his pacemaker he would have similar symptoms. No chest pain or chest pressure. No weakness or numbness in arm or leg. Denies history of CVA. Has known aortic stenosis. Related Data Home Medications ?Medication ?Instructions ?Recorded ?Confirmed ?Last Taken ?Type triamcinolone acetonide 0.1 % 1 applic topical BID PRN Rash 11/06/21 11/28/24 Unknown History topical cream empagliflozin 10 mg tablet 10 mg PO DAILY 03/28/24 11/28/24 Unknown History (Jardiance) Allergies Allergy/AdvReac Type Severity Reaction Status Date / Time COVID-19 (SARS-CoV-2) AdvReac Fatigued Verified 12/31/24 08:57 vaccine, taina BLUEBERRIES Allergy Severe Anaphylactic Uncoded 12/31/24 08:57 Shock GOOSBERRIES Allergy Severe Anaphylactic Uncoded 12/31/24 08:57 Shock Review of Systems Review of Systems: All systems reviewed & are unremarkable except as noted in HPI and below Constitutional: Constitutional: Reports no additional constitutional complaints Cardiovascular: Cardiovascular: Reports no additional cardiovascular complaints Respiratory: Respiratory: Reports no additional respiratory complaints Gastrointestinal: Gastrointestinal: Reports no additional gastrointestinal complaints Neurologic: Reports system reviewed and no additional complaints, except as documented [facility] Past Medical History Medical History Aortic stenosis due to bicuspid aortic valve Presence of permanent cardiac pacemaker Urge incontinence of urine Hypercalcemia Paresthesia of both feet GERD (gastroesophageal reflux disease) Arthropathic psoriasis, unspecified Pure hypercholesterolemia, unspecified Other abnormal glucose Psoriasis, unspecified Major depressive disorder, recurrent, in partial remission Hyperlipidemia HTN (hypertension) Rheumatoid arthritis Surgical History Surgical History History of hernia repair left abdomen 12/06/2003 right abdomen 08/2011 History of appendectomy History of tonsillectomy and adenoidectomy Family History Family History Father Heart disease Mother Diabetes mellitus Grandparent Heart disease Social History Social History Smoking status: Former smoker Tobacco type: cigarettes Second hand tobacco smoke exposure: No Alcohol intake: former Substance use: never Substance use type: does not use Do You Feel Safe in your Home?: Yes Lack of Transportation: No Lack of Food: Never True Current Housing: I Have Housing Concerned About Future Housing: No Difficulty Paying Gas/Electric Bills: No Difficulty Paying for Meds: No Currently Unemployed: YES Education: High School Diploma/GED Difficulty w/ Childcare or Family Care: No Living arrangements: with family Occupation/Education: retired Gender identity (if verbalized by the patient): Male Sexual Orientation (if Verbalized by the Patient): Straight or Heterosexual Spiritual care concerns: No Exam Narrative: GENERAL: Well-appearing, well-nourished, and in no acute distress. HEAD: Normocephalic, atraumatic. EYES: PERRL and EOMI. ENT: Mucous membranes moist. CHEST: Clear to auscultation. No respiratory distress. HEART: Regular rate and rhythm. Normal peripheral pulses. ABDOMEN: Soft, nontender, nondistended. EXTREMITIES: Normal range of motion. No edema. SKIN: Warm, dry, no rash. NEURO: No focal deficits. See NIH stroke scale. Alert and oriented x3. PSYCH: Normal mood and affect. Course Course Emergency Course: 1053: Dr. Kee with [facility] neurology contacted due to TIA sx and abnormal CTA. NIHSS 0 at this time and has no symptoms. Recommends giving the patient a full-dose aspirin here in then starting him on a baby aspirin for home. Patient should continue simvastatin. They will contact the patient to schedule outpatient follow-up. He does not feel patient needs admission or observation. Patient feels comfortable with this plan. Vital Signs Vital signs: Vital Signs Temperature 98 F 12/31/24 08:53 Pulse Rate 80 12/31/24 08:53 Respiratory Rate 19 12/31/24 08:53 Pulse Oximetry 100 12/31/24 08:53 Oxygen Delivery Room Air 12/31/24 08:53 Temperature 98 F 12/31/24 08:53 Pulse Rate 80 12/31/24 08:53 Respiratory Rate 19 12/31/24 08:53 Pulse Oximetry 100 12/31/24 08:53 Oxygen Delivery Room Air 12/31/24 08:53 Medical Decision Making Vital Signs Vital Signs: Vital Signs Temperature 98 F 12/31/24 08:53 Pulse Rate 80 12/31/24 08:53 Respiratory Rate 19 12/31/24 08:53 Pulse Oximetry 100 12/31/24 08:53 Oxygen Delivery Room Air 12/31/24 08:53 Temperature 98 F 12/31/24 08:53 Pulse Rate 80 12/31/24 08:53 Respiratory Rate 19 12/31/24 08:53 Pulse Oximetry 100 12/31/24 08:53 Oxygen Delivery Room Air 12/31/24 08:53 Lab Data 12/31/24 08:53 12/31/24 08:53 Labs: Lab Results 12/31/24 Range/Units 08:53 WBC 4.8 (4.5-10.0) K/mm3 RBC 5.29 (4.6-6.20) M/mm3 Hgb 15.3 (14.0-18.0) g/dL Hct 45.5 (42.0-52.0) % MCV 86.0 (80-100) fl MCH 28.9 (26-34) pg MCHC 33.6 (32-36) g/dl RDW 14.2 (11.5-14.5) % Plt Count 178 (150-375) k/mm3 MPV 11.0 H (7.4-10.4) fl Immature Gran % (Auto) 0.4 (0-0.5) % Neut % (Auto) 77.4 H (45.5-73.1) % Lymph % (Auto) 13.4 L (18.3-44.2) % Cecil % (Auto) 6.5 (2.6-8.5) % Eos % (Auto) 1.9 (0-4.4) % Baso % (Auto) 0.4 (0.2-1.2) % Lymph # (Auto) 0.64 L (0.9-3.2) K/mm3 Cecil # (Auto) 0.3 (0.1-0.6) K/mm3 Eos # (Auto) 0.1 (0-0.3) K/mm3 Baso # (Auto) 0.0 (0.0-0.1) K/mm3 Abs Immat Gran (auto) 0.02 (0.00-0.031) K/mm3 Absolute Neuts (auto) 3.7 (1.3-6.7) K/mm3 Absolute Nucleated RBC 0.000 (0.0-0.012) K/mm3 Nucleated RBC % 0.0 (0.0-0.2) % PT 13.7 (11.1-14.7) Seconds INR 1.0 APTT 27.2 (22.3-36.8) Seconds Sodium 141 (137-145) mmol/L Potassium 4.4 (3.4-5.0) mmol/L Chloride 103 (98-107) mmol/L Carbon Dioxide 29 (22-30) mmol/L Anion Gap 9 (4-12) mmol/L BUN 16 D (9-20) mg/dL Creatinine 0.64 L (0.7-1.3) mg/dL Estim Creat Clear Calc 94 ml/min Estimated GFR > 60 (59 - ) Glucose 100 (65-110) mg/dL Calcium 10.9 H (8.4-10.2) mg/dL Total Bilirubin 0.6 (0.2-1.3) mg/dL AST 21 (17-59) U/L ALT 21 (6-50) U/L Alkaline Phosphatase 146 H (38-126) U/L Troponin I < 0.012 (0.000-0.034) ng/mL Total Protein 7.0 (6.3-8.2) g/dL Albumin 4.2 (3.5-5.1) g/dL Imaging Data Radiologist's impression: ITS Impressions Head/Neck CTA 12/31/24 09:43 Impression: Focal 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 No No significant stenosis. No large vessel occlusion. Chest X-Ray 12/31/24 10:13 Impression: Clear lungs. Pacemaker device. ECG Data EKG #1: ECG completion date: 12/31/24 ECG completion time: 09:02 EKG Interpretation: normal rate (67), RBBB and other (Atrial pacemaker) Discharge Plan Discharge Clinical Impression: Brain TIA Patient Disposition: Home, Self-Care Condition: Stable Instructions: Transient Ischemic Attack (ED) Additional Instructions: If you develop recurrent dizziness, you have weakness or numbness in arm or leg, or you have any additional concerns as recommended he return to the ER. Specifically you would likely receive better care at [facility] given her history of a narrowed aortic valve, they also have the ability to perform MRIs on patient's with pacemakers. Patient Language: Cook Islander Prescriptions: New aspirin 81 mg capsule 81 mg PO DAILY Qty: 60 0RF No Action Jardiance 10 mg tablet 10 mg PO DAILY citalopram 20 mg tablet 20 mg PO DAILY Qty: 90 1RF simvastatin 40 mg tablet 40 mg PO DAILY Qty: 90 1RF triamcinolone acetonide 0.1 % cream 1 applic TOPICAL BID PRN (Reason: Rash) Patient Comments: for psoriasis Follow-up/Referrals: franci kee [Other] - 1 Week Baljit Conley MD [Primary Care Provider] - Quality Stroke Scale Stroke Scale 1: Stroke scale date:: 12/31/24 Stroke scale time:: 08:45 1a Level of consciousness: alert-0 1b Level of consciousness questions: answers both correctly-0 1c Level of consciousness commands: obeys both correctly-0 2 Best gaze: normal-0 3 Visual: no visual loss-0 4 Facial palsy: normal-0 5a Motor: left arm: no drift-0 5b Motor: right arm: no drift-0 6a Motor: left leg: no drift-0 6b Motor: right leg: no drift-0 7 Limb ataxia: absent-0 8 Sensory: normal-0 9 Best language: no aphasia-0 10 Dysarthria: normal-0 11 Extinction and inattention: no abnormality-0 Level:: 0
[2024-12-31 11:03] LABS: Estimated CRCL calculation 86 ml/min; Estimated Glomerular Filt Rate > 60
[2024-12-31] MEDS: ASPIRIN 325 MG TABLET PO (11:23)
[2024-12-31 11:32] VITALS: BP 138/76; PULSE 72; RESP 18; TEMP 36.8; O2SAT 100
[2024-12-31 11:33] VITALS: BP 138/76; PULSE 72; RESP 18; O2SAT 100
[2024-12-31 11:54] VITALS: BP 138/76; PULSE 72; RESP 18; TEMP 36.8; O2SAT 100
== END 2024-12-31 11:54 | disposition home or self-care (01) ==
PROVIDERS: Emergency Provider Emergency Medicine; PCP Family Medicine
DX: G45.9 Transient cerebral ischemic attack, unspecified (principal); I35.0 Nonrheumatic aortic (valve) stenosis; I10 Essential (primary) hypertension; E78.00 Pure hypercholesterolemia, unspecified; L40.50 Arthropathic psoriasis, unspecified; M06.9 Rheumatoid arthritis, unspecified; K21.9 Gastro-esophageal reflux disease without esophagitis; Q23.81 Bicuspid aortic valve; Z95.0 Presence of cardiac pacemaker; Z87.891 Personal history of nicotine dependence; Z79.84 Long term (current) use of oral hypoglycemic drugs; Z79.899 Other long term (current) drug therapy; I45.10 Unspecified right bundle-branch block
CPT/HCPCS: 36415; 70496; 70498; 71046; 80053; 84484; 85025; 85610; 85730; 93005; 99284; A9270; Q9967

== ENCOUNTER 2025-01-07 08:57 | Observation (INO) | payer MEDICARE, SELFPAY ==
[2025-01-07] VITALS (21 sets, daily range): BP systolic 107–157; BP diastolic 52–86; PULSE 60–84; RESP 12–20; TEMP 36.4–37.2; O2SAT 94–100; BMI 22.2
--- NOTE | ~2025-01-07 | NM_ITS ---
EXAMINATION: NM parathyroid imaging w spect DATE: 01/10/2025 12:48 INDICATION: Hyperparathyroidism. TECHNIQUE: 21.1 mCi Tc99m sestamibi was administered intravenously. Anterior images of the neck were obtained immediately and at 3 hours. SPECT images of the neck were obtained. COMPARISON: Ultrasound 01/09/2025, parathyroid scintigraphy 01/26/2024, CTA 12/31/2024 FINDINGS: There is persistent activity in the area of the thyroid bilaterally that is slightly greate r on the right. IMPRESSION: 1. Persistent activity in the area of the thyroid bilaterally that is slightly greater on the right. This finding may be seen with parathyroid hyperplasia or bilateral adenomas. Reviewed, dictated and finalized at location B.
--- NOTE | ~2025-01-07 | XR_ITS ---
Clinical Indication: Dizziness PA and lateral views of the chest: Comparison: 12/31/2024 Findings: The lungs are clear, without evidence of focal consolidation or pleural effusion. Cardiome diastinal silhouette is stable, with pacemaker device. Bones and soft tissues are unremarkable. Impression: Clear lungs. Reviewed, dictated and finalized at location . Impression: Clear lungs.
--- NOTE | ~2025-01-07 | US_ITS ---
EXAMINATION: US soft tissue head and neck DATE: 01/09/2025 11:50 INDICATION: Hypercalcemia. Hyperparathyroidism. TECHNIQUE: Multiple grayscale and Doppler ultrasound images of the head and neck were obtained. COMPARISON: Neck CTA 12/31/24, parathyroid scintigraphy 01/26/2024 FINDINGS: Posterior to the right thyroid lobe, there is a 12 x 10 x 11 mm hypoechoic mass. At the pos terior margin of the left thyroid lobe, there is a 12 mm mixed cystic and solid, isoechoic, wider emerita n tall nodule with ill-defined margin without echogenic foci (TR2). In the right thyroid lobe, there is a 2.1 cm mixed cystic and solid, hypoechoic, taller than wide nodule with ill-defined margin and m acrocalcifications (TI-RADS TR4). IMPRESSION: 1. 12 mm mass posterior to the right thyroid lobe suspicious for a parathyroid adenoma. Consider para thyroid scintigraphy. 2. Thyroid nodules. Consider ultrasound-guided fine-needle aspiration of the 2.1 cm right thyroid nod ule. Reviewed, dictated and finalized at location B. IMPRESSION: 1. 12 mm mass posterior to the right thyroid lobe suspicious for a parathyroid adenoma. Consider parathyroid scintigraphy. 2. Thyroid nodules. Consider ultrasound-guided fine-needle aspiration of the 2. 1 cm right thyroid nodule.
--- NOTE | ~2025-01-07 | CT_ITS ---
Non-contrast Head CT History: Dizziness COMPARISON: 12/31/2024 Technique: Axial non-contrast imaging of the brain was performed. Dose reduction technique was used on this scan by utilizing automated exposure control and iterative reconstruction technique. The dose -length product (DLP) was 681.00 mGy-cm. Findings: There is no evidence of intracranial hemorrhage, mass lesion, or acute infarct. There is m ild is hypodensity in the periventricular white matter. The ventricles and subarachnoid spaces are n ormal in size. The calvarium appears normal. There is mild bilateral maxillary sinus disease. The re maining visualized paranasal sinuses and mastoid air cells are clear. Impression: No acute abnormality seen. Mild chronic microvascular ischemic change in the periventricular white matter. Reviewed, dictated and finalized at location . Impression: No acute abnormality seen. Mild chronic microvascular ischemic change in the periventricular white matter.
--- OUTSIDE RECORDS SUMMARY | 2025-01-07 08:59 | XMS_ITS | Referral Summary ---
Author Organization [facility] Address [address] [place] [address] Care Team Providers Care Governor Assembler Hydraulic Name Role Phone Baljit Conley MD Primary Care Provider [phone] Source Comments [facility],non-owned Affiliates and Associated Physician Practices is amultiple site organization consisting of ambulatory clinics and hospital sitesin [place], [place], [place] and [place]. This disclosure is being madepursuant to the Care Everywhere program and may not contain all information available regarding this patient. Last updated 18.[facility] Encounters Date Type Department Care Team Description 12/12/2024 1:10 PM MAINTENANCE MGR Clinical Support [facility] - Cardiology [address] [facility] [address] [place] [address] SSS (sick sinus syndrome) ([facility]) 11/03/2024 Telephone [facility] - Centralized Scheduling [address] [place] [address] Ro Rodriguez MD Reschedule Appointment (Dr. Ro Rodriguez closed the clinic on this date. Please reschedule to the first available. Left a voicemail message to call [phone] to reschedule. 11/03/24 JLM/) from Last 3 Months Allergies Active Allergy Reactions Criticality Noted Date Comments Blueberry Flavor Other 01/26/2024 Body Turns red gooseberry [Other] Itching Medications * Be aware that medications may not be up to date on this document. Alwaysverify current medications with the patient. Medication Sig Dispensed Refills Start Date End Date Status triamcinolone acetonide (Kenalog) 0.1 % cream Apply to affected area 2 times daily as needed for Other (psoriasis rash) Active lisinopril-hydroC HLOROthiazide (Prinzide; Zestoretic) 20-25 MG tablet Take 1 (one) tablet by mouth once daily Active empagliflozin (Jardiance) 10 MG tabletIndications :Diastolic dysfunction,Prima ry hypertension,Bicu spid aortic valve Take 1 (one) tablet by mouth once daily 90 tablet 3 03/16/2024 Active citalopram (CeleXA) 20 MG tablet TAKE ONE TABLET BY MOUTH ONCE DAILY 30 tablet 01/28/2024 01/27/2025 Active simvastatin (Zocor) 40 MG tablet TAKE ONE TABLET BY MOUTH AT BEDTIME 30 tablet 01/28/2024 01/27/2025 Active meclizine (Antivert) 25 MG tablet TAKE ONE TABLET BY MOUTH 2 TIMES A DAY NEEDED FOR DIZZINESS 60 tablet 01/28/2024 01/27/2025 Active pantoprazole EC (Protonix) 40 MG tablet Take 1 (one) tablet by mouth once daily for 30 days 30 tablet 03/07/2024 06/15/2024 Discontinued (No Pharm No AVS) Active Problems Problem Noted Date Diagnosed Date SSS (sick sinus syndrome) 04/02/2024 Bicuspid aortic valve 04/02/2024 Dyslipidemia 04/02/2024 S/P placement of cardiac pacemaker 04/02/2024 Assessment & Plan (06/15/2024 3:51 PM CDT): Remote transmissions are working. Latest transmission with appropriate function. In person devic check in 3 months. Moderate aortic stenosis 03/11/2024 Assessment & Plan (06/15/2024 3:36 PM CDT): Moderately severe stenosis. Last echo 05/17/[address] Rodriguez. He has declined to participate in the EXPAND study. Currently asymptomatic. Will repeat the echo in 6 months. Sinus arrhythmia 03/03/2024 Scalp laceration 01/27/2024 Hematemesis with nausea 01/26/2024 HTN (hypertension) Assessment & Plan (06/15/2024 3:50 PM CDT): Near goal. Pt states he is not currently taking any antihypertensive medications. Depression Syncope Head trauma Hypercalcemia Social History Tobacco Use Types Packs/Day Years Used Date Smoking Tobacco: Former Cigarettes 1 7 Smokeless Tobacco: Never Tobacco Cessation:Counseling Given: Not Answered Alcohol Use Standard Drinks/Week Comments Not Currently 0 (1 standard drink = 0.6 oz pur e alcohol) AUDIT-C Answer Date Recorded Q1: How often do you have a drink containing alcohol? Never 03/11/2024 Q2: How many drinks containi ng alcohol do you have on a typical day when you are drinking? Patient does not drink Q3: How often do you have si x or more drinks on one occasion? Never 03/11/2024 Overall Financial Resource Strain (CARDIA) Answe r Date Recorded How hard is it for you to pa y for the very basics like food, housing, medical care, and heating? Not hard at all 03/11/2024 [facility] Occupat ional Health - Occupational Stress Questionnaire Answer Date Recorded Do you feel stress - tense, restless, nervous, or anxious, or unable to sleep at night because your mind is troubled all the time - these days? Not at all 03/11/2024 Hunger Vital Sign Answer Date Recorded Within the past 12 months, y ou worried that your food would run out before you got the money to buy more. Never true 03/11/20 24 Within the past 12 months, t he food you bought just didn't last and you didn't have money to get more. Never true 03/11/2024 PRAPARE - Transportation Answer Date Re corded In the past 12 months, has l ack of transportation kept you from medical appointments or from getting medications? No 03/01 In the past 12 months, has l ack of transportation kept you from meetings, work, or from getting things needed for daily living? No 03/11/2024 Housing Stability Vital Sign Answer Michele e Recorded In the last 12 months, was t here a time when you were not able to pay the mortgage or rent on time? No 03/11/2024 In the last 12 months, how many places have you lived? 1 03/11/2024 In the last 12 months, was t here a time when you did not have a steady place to sleep or slept in a usp (including now)? No 03/11/2024 Sex and Gender Information Value Date Recorded Sex Assigned at Not on file Gender Identity Not on file Sexual Orientation Not on file Last Filed Vital Signs Vital Sign Reading Time Taken Comments Blood Pressure 138/70 09/13/2024 10:30 AM MAINTENANCE MGR Pulse 90 09/13/2024 10:30 AM MAINTENANCE MGR Temperature 36.8 C (98.3 F) 03/13/2024 11:47 AM CDT Respiratory Rate 20 03/13/2024 11:47 AM CDT Oxygen Saturation 96% 09/13/2024 10:30 AM MAINTENANCE MGR Inhaled Oxygen Concentration - - Weight 77.1 kg (170 lb) 09/13/2024 10:30 AM MAINTENANCE MGR Height 175.3 cm (5' 9 ) 09/13/2024 10:30 AM MAINTENANCE MGR Body Mass Index 25.1 09/13/2024 10:30 AM MAINTENANCE MGR Functional Status Functional Status Response Date of Assess ment Is person deaf or have serious hearing difficult y? Yes 03/11/2024 Is person blind or have serious difficulty seein g? No 03/11/2024 Does person have serious dif ficulty walking/climbing stairs? Yes 03/11/2024 Does person have difficulty dressing/bathing? No 03/11/2024 Does person have difficulty doing errands alone? No 03/11/2024 Cognitive Status Response Date of Assessm ent Does person have difficulty concentrating/remembering/making decisions? No 03/11/2024 Plan of Treatment Upcoming Encounters Date Type Department Care Team (Late st Contact Info) Description 03/09/2025 11:20 AM CDT Office Visit [facility] - Cardiology [facility], [address] [phone] [facility] [address] 03/13/2025 1:10 AM CDT Clinical Support [facility] - Cardiology [address] [place] [address], [address] [phone] 03/29/2025 11:00 AM CDT [facility] [address] [place] [address], [address] [phone] Omid May MD [address] [place] [address] 06/12/2025 1:10 AM CDT Clinical Support [facility] - Cardiology [address] [place] [phone] Medical Devices Implanted Type Area Residential Installer Device Identifier Shelf Expiration Date Model / Serial / Lot Lead Cp Nv Pace 52cm Strd Elut Pltn Nina - [id number] Implanted:Qty: 1 on 03/06/2024 by Omid May MD at [facility] [employer] [id number] 10/21/2025 5076-52 / [id number] / NA Lead Cp Nv Pace 45cm Strd Elut Pltn Nina - [id number] Implanted:Qty: 1 on 03/06/2024 by Omid May MD at [facility] [employer] [id number] 11/29/2025 5076-45 / [id number] / NA Pacemkr [place] [employer] Crd - [id number] Implanted:Qty: 1 on 03/06/2024 by Omid May MD at [facility] Right: Chest [employer] [id number] 07/29/2025 [id number] / [id number] / NA Procedures Procedure Name Priority Date/Time Associated Diagnosis Comments [place] PM/ICD REMOTE TECH SERV Routine 12/17/2024 6:48 PM MAINTENANCE MGR SSS (sick sinus syndrome) (HCC) [place] PM DEVICE INTERROGATE REMOTE Routine 12/17/2024 6:48 PM MAINTENANCE MGR SSS (sick sinus syndrome) (HCC) CARDIAC PROCEDURE ORDER 12/10/2024 from Last 3 Months Results * [place] PM DEVICE INTERROGATE REMOTE, [place] PM/ICD REMOTE TECH SERV (12/17/2024 6:48 PM MAINTENANCE MGR) Narrative Omid May MD - 12/17/2024 6:48 PM MAINTENANCE MGR Omid May MD 12/17/2024 6:50 PM Dear Sebastian De La O, I reviewed the remote interrogation of your device. Your device's sensing and capture thresholds are appropriate and stable. Lead impedances for your device: Atrial lead: 456 ohms RV lead: 418 ohms You are currently paced: Atrial: 99.6 % Ventricle: 0.3 % During this most recent monitored period (09/10/2024 to 12/10/2024), you had no sustained arrhythmias. The estimated remaining battery life for your device is 12.1 years. Device function is normal, and no programming changes are required. Please call our offices if you have any further questions. Sincerely, Omid May 12/17/2024 Omid May MD PROCEDURE/MINOR SURG ICAL ORDERABLES * CARDIAC PROCEDURE ORDER (12/10/2024) Narrative 12/10/2024 Ordered by an unspecified provider. Scanned Document CARDIAC SERVICES ORD ERABLES from Last 3 Months Advance Directives * Full Code (Latest Code Status on File) Date Activated Date Inactivated Comments 03/11/2024 7:51 PM 03/13/2024 1:57 PM * Full Code Date Activated Date Inactivated Comments 03/03/2024 8:04 PM 03/07/2024 12:02 PM * Full Code Date Activated Date Inactivated Comments 01/26/2024 11:17 PM 01/28/2024 6:00 PM Care Teams Governor Assembler Hydraulic Relationship Specialty Start Date End Date Baljit Conley MD [address] [place] [id number] PCP - General 11/19/21
--- OUTSIDE RECORDS SUMMARY | 2025-01-07 08:59 | XMS_ITS | Referral Summary ---
Author Organization [facility] [address] Address [address] [place] [address] Care Team Providers Care Millwork Estimator Name Role Phone Baljit Conley MD Primary Care Provider [phone] Allergies Active Allergy Reactions Criticality Noted Date Comments Blueberry Itching Low 04/24/2024 Covid-19 Vacc,Mrna(Moderna)-Pf Other (See comments) Low 04/24/2024 Passed out x 17 hrs Emblica Officinalis (Malaysian Gooseberry) Itching Low 04/24/2024 Medications citalopram (CeleXA) 20 mg tablet Take 1 tablet (20 mg total) by mouth daily Active Jardiance 10 mg tablet Take 1 tablet (10 mg total) by mouth daily Active lisinopril-hydr oCHLOROthiazide (ZESTORETIC) 20-25 mg per tablet Take 1 tablet by mouth daily Active simvastatin (ZOCOR) 40 mg tablet Take 1 tablet (40 mg total) by mouth daily Active triamcinolone (KENALOG) 0.1 % cream Apply topically 2 (two) times a day as needed Active Active Problems Problem Noted Date Diagnosed Date Sensorineural hearing loss (SNHL) of both ears 0 04/24/2024 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 Gender Identity Not on file Sexual Orientation Not on file Last Filed Vital Signs Vital Sign Reading Time Taken Comments Blood Pressure - - Pulse - - Temperature - - Respiratory Rate 20 04/24/2024 10:43 AM CDT Oxygen Saturation - - Inhaled Oxygen Concentration - - Weight 73.5 kg (162 lb) 04/24/2024 10:43 AM CDT Height 175.3 cm (5' 9 ) 04/24/2024 10:43 AM CDT Body Mass Index 23.92 04/24/2024 10:43 AM CDT Plan of Treatment Not on file Insurance MEDICARE [employer] [facility] MEDICARE Address: [facility] [address] [place] [address] Care Teams Millwork Estimator Relationship Specialty Start Date End Date Baljit Conley MD [address] [place] [address] [place] [address] PCP - General Family Medicine 03/30/24
--- OUTSIDE RECORDS SUMMARY | 2025-01-07 08:59 | XMS_ITS | Clinical Summary ---
Author Organization [facility] Address [address] [place] [address] Care Team Providers Care Shot Examiner Name Role Phone Baljit Conley MD Primary Care Provider [phone] Source Comments [facility],non-owned Affiliates and Associated Physician Practices is amultiple site organization consisting of ambulatory clinics and hospital sitesin [place], [place], [place] and [place]. This disclosure is being madepursuant to the Care Everywhere program and may not contain all information available regarding this patient. Last updated 18.[facility] Allergies Active Allergy Reactions Criticality Noted Date [...] antihypertensive medications. 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 Ro Rodriguez closed the clinic on this date. Please reschedule to the first available. Left a voicemail message to call [phone] to reschedule. 11/03/24 JLM/) from Last 3 Months Family History Medical History Relation Name Comments CAD (Coronary Artery Disease) Father Diabetes - Type 1 Mother Relation Name Status Comments Father Mother Social History Tobacco Use Types Packs/Day Years [...] and heating? Not hard at all 03/11/2024 [facility] [place] [facility] - Occupational Stress [...] place to sleep or slept in a nursing home (including now)? No 03/11/2024 Sex and Gender Information Value Date Recorded Sex Assigned at Not on file Gender Identity Not on file Sexual Orientation Not on file Last Filed Vital Signs Vital Sign Reading Time Taken Comments Blood Pressure 138/70 09/13/2024 10:30 AM ELECTRIC MOTOR ASSEMBLER Pulse 90 09/13/2024 10:30 AM ELECTRIC MOTOR ASSEMBLER Temperature 36.8 C (98.3 F) 03/13/2024 11:47 AM CDT Respiratory Rate 20 03/13/2024 11:47 AM CDT Oxygen Saturation 96% 09/13/2024 10:30 AM ELECTRIC MOTOR ASSEMBLER Inhaled Oxygen Concentration - - Weight 77.1 kg (170 lb) 09/13/2024 10:30 AM ELECTRIC MOTOR ASSEMBLER Height 175.3 cm (5' 9 ) 09/13/2024 10:30 AM ELECTRIC MOTOR ASSEMBLER Body Mass Index 25.1 09/13/2024 10:30 AM ELECTRIC MOTOR ASSEMBLER Plan of Treatment Upcoming Encounters Date Type Department Care Team (Late st Contact Info) Description 03/09/2025 11:20 AM CDT [facility] [address] [place] [address], [address] [phone] Ro Rodriguez MD [address] [place] [id number] 03/13/2025 1:10 AM CDT Clinical Support [facility] - Cardiology [facility] [address] [facility], [address] [phone] 03/29/2025 11:00 AM CDT Office Visit [facility] - Cardiology [facility] [address] [facility], [address] [phone] Omid May MD [facility] [address] [facility], [address] [address] 06/12/2025 1:10 AM CDT Clinical Support [facility] - Cardiology [address] [place] [address], [address] [address] Health Maintenance Due Date Last Done Comments HEPATITIS C SCREENING 11/25/1964 DTAP/TDAP/TD VACCINES (1 - Tdap) 1965 PNEUMOCOCCAL VACCINE 50+ (1 of 1 - PCV) 1996 ZOSTER VACCINE (1 of 2) 1996 Respiratory Syncytial Virus (RSV) Vaccine Pt: or over 60 yrs (1 - 1-dose 75+ series) 2021 COVID-19 VACCINE ( season) 2024 08/19/2023, 07/24/2022, 02/05/2022, Additional history exists INFLUENZA VACCINE (#1) 2024 , 07/17/2022, 08/11/2021, Additional history exists DEPRESSION SCREENING 11/01/2024 MEDICARE AWV CALENDAR YEAR 2024 HEPATITIS B VACCINE Aged Out No longe r eligible based on patient's age to complete this topic HIB VACCINE Aged Out No longer eligi ble based on patient's age to complete this topic HPV VACCINE Aged Out No longer eligi ble based on patient's age to complete this topic MENINGOCOCCAL (Group B) VACCINE Aged Out No longer eligible based on patient's age to complete this topic MENINGOCOCCAL VACCINE Aged Out No dar emre eligible based on patient's age to complete this topic Medical Devices Implanted Type Area Utility Sales Representative Device Identifier Shelf Expiration Date Model / Serial / Lot Lead Cp Nv Pace 52cm Strd Elut Pltn Nina - [id number] Implanted:Qty: 1 on 03/06/2024 by Omid May MD at [facility] [employer] [id number] 10/21/2025 5076-52 / [id number] / NA Lead Cp Nv Pace 45cm Strd Elut Pltn Nina - [id number] Implanted:Qty: 1 on 03/06/2024 by Omid May MD at [facility] [employer] [id number] 11/29/2025 5076-45 / [id number] / NA [employer] [place] [employer] [facility] - [id number] Implanted:Qty: 1 on 03/06/2024 by Omid May MD at [facility] Right: Chest [employer] [id number] 07/29/2025 [id number] / [id number] / NA Procedures Procedure Name Priority Date/Time Associated Diagnosis Comments CA PM/ICD REMOTE TECH SERV Routine 12/17/2024 6:48 PM ELECTRIC MOTOR ASSEMBLER SSS (sick sinus syndrome) (HCC) CA PM DEVICE INTERROGATE REMOTE Routine 12/17/2024 6:48 PM ELECTRIC MOTOR ASSEMBLER SSS (sick sinus syndrome) (HCC) CARDIAC PROCEDURE ORDER 12/10/2024 from Last 3 Months Results * CA PM DEVICE INTERROGATE REMOTE, CA PM/ICD REMOTE TECH SERV (12/17/2024 6:48 PM ELECTRIC MOTOR ASSEMBLER) Narrative Omid May MD - 12/17/2024 6:48 PM ELECTRIC MOTOR ASSEMBLER Omid May MD 12/17/2024 6:50 PM Dear Sebastian De La O I reviewed the remote interrogation of your [...] 11:17 PM 01/28/2024 6:00 PM Care Teams Shot Examiner Relationship Specialty Start Date End Date Baljit Conley MD [address] [place] [address] [place] [address] PCP - General 11/19/21
--- OUTSIDE RECORDS SUMMARY | 2025-01-07 08:59 | XMS_ITS | Patient Health Summary ---
Author Organization [facility] Address [address] [place] [address] Care Team Providers Care Automation Test Engineer Name Role Phone Baljit Conley MD Primary Care Provider [phone] Note from [facility],non-owned Affiliates and Associated Physician Practices is amultiple site organization consisting of ambulatory clinics and hospital sitesin [place], [place], [place] and [place]. This disclosure is being madepursuant to the Care Everywhere program and may not contain all information available regarding this patient. Last updated 18.[facility] [place] Allergies * Blueberry Flavor(Other) * gooseberry [Other](Itching) Medications * Be aware that medications may not be up to date on this document. Alwaysverify current medications with the patient. * triamcinolone acetonide (Kenalog) 0.1 % cream Apply to affected area 2 times daily as needed for Other (psoriasis rash) * lisinopril-hydroCHLOROthiazide (Prinzide; Zestoretic) 20-25 MG tablet Take 1 (one) tablet by mouth once daily * empagliflozin (Jardiance) 10 MG tablet(Started 03/16/2024) Take 1 (one) tablet by mouth once daily 3 refills by 03/16/2025 * citalopram (CeleXA) 20 MG tablet(Started 01/28/2024) TAKE ONE TABLET BY MOUTH ONCE DAILY * simvastatin (Zocor) 40 MG tablet(Started 01/28/2024) TAKE ONE TABLET BY MOUTH AT BEDTIME * meclizine (Antivert) 25 MG tablet(Started 01/28/2024) TAKE ONE TABLET BY MOUTH 2 TIMES A DAY NEEDED FOR DIZZINESS Ended Medications* pantoprazole EC (Protonix) 40 MG tablet(Started 03/07/2024) (Discontinued) Take 1 (one) tablet by mouth once daily for 30 days Active Problems Problem Noted Date Diagnosed Date SSS (sick sinus syndrome) 04/02/2024 Bicuspid aortic valve 04/02/2024 Dyslipidemia 04/02/2024 S/P placement of cardiac pacemaker 04/02/2024 Moderate aortic stenosis 03/11/2024 Sinus arrhythmia 03/03/2024 Scalp laceration 01/27/2024 Hematemesis with nausea 01/26/2024 HTN (hypertension) Depression Syncope Head trauma Hypercalcemia Social History [...] and heating? Not hard at all 03/11/2024 [facility] - Occupational Stress [...] place to sleep or slept in a prison (including now)? No 03/11/2024 Sex and Gender Information Value Date Recorded Sex Assigned at Not on file Gender Identity Not on file Sexual Orientation Not on file Last Filed Vital Signs Vital Sign Reading Time Taken Comments Blood Pressure 138/70 09/13/2024 10:30 AM DISTILLERY LABORER Pulse 90 09/13/2024 10:30 AM DISTILLERY LABORER Temperature 36.8 C (98.3 F) 03/13/2024 11:47 AM CDT Respiratory Rate 20 03/13/2024 11:47 AM CDT Oxygen Saturation 96% 09/13/2024 10:30 AM DISTILLERY LABORER Inhaled Oxygen Concentration - - Weight 77.1 kg (170 lb) 09/13/2024 10:30 AM DISTILLERY LABORER Height 175.3 cm (5' 9 ) 09/13/2024 10:30 AM DISTILLERY LABORER Body Mass Index 25.1 09/13/2024 10:30 AM DISTILLERY LABORER Medical Devices Implanted Type Area Insole Department Worker Device Identifier Shelf Expiration Date Model / Serial / Lot Lead Cp Nv Pace 52cm Strd Elut Pltn Nina - [id number] Implanted:Qty: 1 on 03/06/2024 by Omid May MD at [facility] [employer] [id number] 10/21/2025 5076-52 / [id number] / NA Lead Cp Nv Pace 45cm Strd Elut Pltn Nina - [id number] Implanted:Qty: 1 on 03/06/2024 by Omid May MD at [facility] [employer] [id number] 11/29/2025 5076-45 / [id number] / NA Pacemkr [place] [employer] [facility] - [id number] Implanted:Qty: 1 on 03/06/2024 by Omid May MD at [facility] Right: Chest [employer] [id number] 07/29/2025 [id number] / [id number] / NA Procedures * MO PM/ICD REMOTE TECH SERV(Performed 12/17/2024) Performed for SSS (sick sinus syndrome) (HCC) * MO PM DEVICE INTERROGATE REMOTE(Performed 12/17/2024) Performed for SSS (sick sinus syndrome) (HCC) * CARDIAC PROCEDURE ORDER(Performed 12/10/2024) * MO PM/ICD REMOTE TECH SERV(Performed 09/15/2024) Performed for SSS (sick sinus syndrome) (HCC) * MO PM DEVICE INTERROGATE REMOTE(Performed 09/15/2024) Performed for SSS (sick sinus syndrome) (HCC) * ECHO COMPLETE(Performed 09/13/2024) Performed for Bicuspid aortic valve, Severe aortic stenosis, S/P placement of cardiac pacemaker * CARDIAC PROCEDURE ORDER(Performed 09/10/2024) * ECHO COMPLETE(Performed 05/17/2024) Performed for Bicuspid aortic valve (HCC), Diastolic dysfunction * CARDIAC PROCEDURE ORDER(Performed 04/06/2024) * MO REMOTE 30 DAY ECG REV/REPORT(Performed 03/20/2024) Performed for Syncope, unspecified syncope type * PROC IMPLANT WEAR CARDIAC DEVICE EVAL(Performed 03/16/2024) Performed for Pacemaker * GLUCOSE - POINT OF CARE(Performed 03/13/2024) * MAGNESIUM BLOOD(Performed 03/13/2024) * RENAL FUNCTION PANEL(Performed 03/13/2024) * CBC W/O DIFFERENTIAL(Performed 03/13/2024) * EKG 12-LEAD(Performed 03/12/2024) Performed for Severe aortic stenosis * XR CHEST 1VW PORTABLE(Performed 03/12/2024) Performed for Severe aortic stenosis * PHOSPHORUS BLOOD(Performed 03/12/2024) * MAGNESIUM BLOOD(Performed 03/12/2024) * CBC W/O DIFFERENTIAL(Performed 03/12/2024) * BASIC METABOLIC PANEL (CALCIUM TOTAL)(Performed 03/12/2024) * TROPONIN-I HIGH SENSITIVE REFLEX 1HOUR(Performed 03/11/2024) * TROPONIN-I HIGH SENSITIVE BASELINE + 1HR(Performed 03/11/2024) * B-TYPE NATRIURETIC PEPTIDE(Performed 03/11/2024) * PHOSPHORUS BLOOD(Performed 03/11/2024) * MAGNESIUM BLOOD(Performed 03/11/2024) * CBC W AUTO DIFFERENTIAL(Performed 03/11/2024) * COMPREHENSIVE METABOLIC PANEL(Performed 03/11/2024) * EKG 12-LEAD(Performed 03/11/2024) Performed for Severe aortic stenosis * CARDIAC PROCEDURE ORDER(Performed 03/08/2024) * CARDIAC PROCEDURE ORDER(Performed 03/08/2024) * CBC W/O DIFFERENTIAL(Performed 03/07/2024) * MAGNESIUM BLOOD(Performed 03/07/2024) * RENAL FUNCTION PANEL(Performed 03/07/2024) * ELECTROPHYSIOLOGY PROCEDURE(Performed 03/06/2024) Performed for Sinus arrhythmia * CBC W/O DIFFERENTIAL(Performed 03/06/2024) * MAGNESIUM BLOOD(Performed 03/06/2024) * RENAL FUNCTION PANEL(Performed 03/06/2024) * CBC W/O DIFFERENTIAL(Performed 03/05/2024) * MAGNESIUM BLOOD(Performed 03/05/2024) * RENAL FUNCTION PANEL(Performed 03/05/2024) * CBC W/O DIFFERENTIAL(Performed 03/04/2024) * MAGNESIUM BLOOD(Performed 03/04/2024) * RENAL FUNCTION PANEL(Performed 03/04/2024) * XR CHEST 1VW PORTABLE(Performed 03/03/2024) Performed for Sinus arrhythmia * CBC W AUTO DIFFERENTIAL(Performed 03/03/2024) * PHOSPHORUS BLOOD(Performed 03/03/2024) * MAGNESIUM BLOOD(Performed 03/03/2024) * COMPREHENSIVE METABOLIC PANEL(Performed 03/03/2024) * EKG 12-LEAD(Performed 03/03/2024) Performed for Sinus arrhythmia * CARDIAC PROCEDURE ORDER(Performed 03/03/2024) * CARDIAC PROCEDURE ORDER(Performed 03/03/2024) * CARDIAC PROCEDURE ORDER(Performed 03/03/2024) * CARDIAC PROCEDURE ORDER(Performed 03/03/2024) * CARDIAC PROCEDURE ORDER(Performed 03/03/2024) * CARDIAC PROCEDURE ORDER(Performed 03/03/2024) * CARDIAC PROCEDURE ORDER(Performed 03/02/2024) * CARDIAC PROCEDURE ORDER(Performed 03/01/2024) * CARDIAC PROCEDURE ORDER(Performed 02/29/2024) * CARDIAC PROCEDURE ORDER(Performed 02/28/2024) * CARDIAC PROCEDURE ORDER(Performed 02/28/2024) * CARDIAC PROCEDURE ORDER(Performed 02/28/2024) * CARDIAC PROCEDURE ORDER(Performed 02/28/2024) * CARDIAC PROCEDURE ORDER(Performed 02/28/2024) * CARDIAC PROCEDURE ORDER(Performed 02/28/2024) * CARDIAC PROCEDURE ORDER(Performed 02/28/2024) * CARDIAC PROCEDURE ORDER(Performed 02/28/2024) * CARDIAC PROCEDURE ORDER(Performed 02/28/2024) * CARDIAC PROCEDURE ORDER(Performed 02/28/2024) * CARDIAC PROCEDURE ORDER(Performed 02/28/2024) * CARDIAC PROCEDURE ORDER(Performed 02/28/2024) * CARDIAC PROCEDURE ORDER(Performed 02/28/2024) * CARDIAC PROCEDURE ORDER(Performed 02/28/2024) * CARDIAC PROCEDURE ORDER(Performed 02/28/2024) * CARDIAC PROCEDURE ORDER(Performed 02/28/2024) * CARDIAC PROCEDURE ORDER(Performed 02/28/2024) * CARDIAC PROCEDURE ORDER(Performed 02/28/2024) * CARDIAC PROCEDURE ORDER(Performed 02/28/2024) * CARDIAC PROCEDURE ORDER(Performed 02/28/2024) * CARDIAC PROCEDURE ORDER(Performed 02/25/2024) * CARDIAC PROCEDURE ORDER(Performed 02/25/2024) * CARDIAC PROCEDURE ORDER(Performed 02/25/2024) * CARDIAC PROCEDURE ORDER(Performed 02/24/2024) * CARDIAC PROCEDURE ORDER(Performed 02/24/2024) * CARDIAC PROCEDURE ORDER(Performed 02/24/2024) * CARDIAC PROCEDURE ORDER(Performed 02/22/2024) * CARDIAC PROCEDURE ORDER(Performed 02/21/2024) * CARDIAC PROCEDURE ORDER(Performed 02/21/2024) * CARDIAC PROCEDURE ORDER(Performed 02/21/2024) * CARDIAC PROCEDURE ORDER(Performed 02/16/2024) * CARDIAC PROCEDURE ORDER(Performed 02/16/2024) * CARDIAC PROCEDURE ORDER(Performed 02/04/2024) * TSH REFLEX FREE T4(Performed 01/28/2024) Performed for Syncope, unspecified syncope type * CBC W AUTO DIFFERENTIAL(Performed 01/28/2024) Performed for Hematemesis with nausea * MAGNESIUM BLOOD(Performed 01/28/2024) Performed for Hematemesis with nausea * PHOSPHORUS BLOOD(Performed 01/28/2024) Performed for Hematemesis with nausea * BASIC METABOLIC PANEL (CALCIUM TOTAL)(Performed 01/28/2024) Performed for Hematemesis with nausea * CBC W/O DIFFERENTIAL(Performed 01/27/2024) Performed for Hematemesis with nausea * EKG 12-LEAD(Performed 01/27/2024) Performed for Syncope, unspecified syncope type * ECHO COMPLETE W CONTRAST W BUBBLE STUDY(Performed 01/27/2024) Performed for Fall, initial encounter * EKG 12-LEAD(Performed 01/27/2024) Performed for Fall, initial encounter * BLOOD TYPE VERIFICATION(Performed 01/27/2024) * CBC W AUTO DIFFERENTIAL(Performed 01/27/2024) Performed for Hematemesis with nausea * MAGNESIUM BLOOD(Performed 01/27/2024) Performed for Hematemesis with nausea * PHOSPHORUS BLOOD(Performed 01/27/2024) Performed for Hematemesis with nausea * BASIC METABOLIC PANEL (CALCIUM TOTAL)(Performed 01/27/2024) Performed for Hematemesis with nausea * PHOSPHORUS BLOOD(Performed 01/27/2024) Performed for Hematemesis with nausea * MAGNESIUM BLOOD(Performed 01/27/2024) Performed for Hematemesis with nausea * COMPREHENSIVE METABOLIC PANEL(Performed 01/27/2024) Performed for Hematemesis with nausea * CBC W AUTO DIFFERENTIAL(Performed 01/27/2024) Performed for Hematemesis with nausea * LDH BLOOD(Performed 01/27/2024) * LIPASE BLOOD(Performed 01/27/2024) * TEG 6S PLATELET MAPPING(Performed 01/27/2024) * MRI BRAIN WO CONTRAST(Performed 01/26/2024) Performed for Fall, initial encounter * EKG 12-LEAD(Performed 01/26/2024) Performed for Fall, initial encounter * CT LUMBAR SPINE WO CONTRAST(Performed 01/26/2024) Performed for Fall, initial encounter * CT THORACIC SPINE WO CONTRAST(Performed 01/26/2024) Performed for Fall, initial encounter * CT CHEST ABDOMEN PELVIS W CONT(Performed 01/26/2024) Performed for Fall, initial encounter * CT CERVICAL SPINE WO CONTRAST(Performed 01/26/2024) Performed for Fall, initial encounter * CT HEAD WO CONTRAST(Performed 01/26/2024) Performed for Fall, initial encounter * XR PELVIS 1 OR 2VW(Performed 01/26/2024) Performed for Fall, initial encounter * XR CHEST 1VW PORTABLE(Performed 01/26/2024) Performed for Fall, initial encounter * TYPE + SCREEN PANEL(Performed 01/26/2024) * TEG 6 GLOBAL HEMOSTASIS W/ LYSIS(Performed 01/26/2024) * PT-INR SLH(Performed 01/26/2024) * CBC W AUTO DIFFERENTIAL(Performed 01/26/2024) * ALCOHOL ETHYL BLOOD(Performed 01/26/2024) Results * MO PM DEVICE INTERROGATE REMOTE, MO PM/ICD REMOTE TECH SERV (12/17/2024 6:48 PM DISTILLERY LABORER) Narrative Omid May MD - 12/17/2024 6:48 PM DISTILLERY LABORER Omid May MD 12/17/2024 6:50 PM Dear [...] ICAL ORDERABLES * CARDIAC PROCEDURE ORDER (12/10/2024) Only the most recent of47 resultswithin the time period is included. Narrative 12/10/2024 Ordered by an unspecified provider. Scanned Document CARDIAC SERVICES ORD ERABLES * MO PM DEVICE INTERROGATE REMOTE, MO PM/ICD REMOTE TECH SERV (09/15/2024 3:34 AM DISTILLERY LABORER) Narrative Omid May MD - 09/15/2024 3:34 AM DISTILLERY LABORER Omid May MD 09/15/2024 3:35 AM Dear Sebastian De La O, I reviewed the remote interrogation of your device. Your device's sensing and capture thresholds are appropriate and stable. Lead impedances for your device: Atrial lead: 456 ohms RV lead: 418 ohms You are currently paced 97.1% in the atrial and 0.5% in the ventricle. During this most recent monitored period (05/19/2024 to 09/10/2024), you had no sustained arrhythmias. The estimated remaining battery life for your device is 12.4 years. Device function is normal, and no programming changes are required. Please call our offices if you have any further questions. Sincerely, Omid May 09/15/2024 Omid May MD PROCEDURE/MINOR SURG ICAL ORDERABLES * ECHO COMPLETE (09/13/2024 10:38 AM DISTILLERY LABORER) Only the most recent of3 resultswithin the time period is included. RVOT diam Doppler 2.513 cm SSM CV FUJI PACS PV VTI 24.326 cm SSM CV FUJ I PACS Aortic annulus 2.395 cm SSM C V FUJI PACS MO VTI 59.192 cm SSM CV FUJ I PACS LA size 4.759 cm SSM CV FUJ I PACS ST junction 3.607 cm SSM CV F UJI PACS RV-ramirez basal diam 3.078 cm SSM CV FUJI PACS RV-ramirez mid diam 3.125 cm SSM CV FUJI PACS MO Decel [place] 194.153 cm/s2 SSM C V FUJI PACS MO PEAK END DIASTOLIC VELOCITY 159.174 cm/s SSM CV FUJI PACS LA vol index 0.05 l/m SSM CV FUJI PACS Myocardial strain charge 2 unitless SSM CV FUJI PACS MV lat a' nils 11.828 cm/s SSM CV FUJI PACS MV lat S' nils 7.933 cm/s SSM CV FUJI PACS IVSd 2D 1.495 cm SSM CV FUJ I PACS LVIDd 4.996 cm SSM CV FUJ I PACS LVIDs 3.369 cm SSM CV FUJ I PACS LVOT diam 2.15 cm SSM CV FUJ I PACS LVPWd 1.405 cm SSM CV FUJ I PACS LV biplane EF 68.944 % SSM CV FUJI PACS LV A2C EF 69.054 % SSM CV FUJ I PACS LV A4C EF 69.669 % SSM CV FUJ I PACS LV EDV A2C 126.282 ml SSM CV FU JI PACS LV EDV A4C 126.835 ml SSM CV FU JI PACS LV ESV A2C 39.079 ml SSM CV FU JI PACS LV ESV A4C 38.471 ml SSM CV FU JI PACS LVOT pk nils 109.857 cm/s SSM CV F UJI PACS LVOT VTI 24.258 cm SSM CV [facility] I PACS RVIDd 2.99 cm SSM CV [facility] I PACS RVOT pk nils 104.261 cm/s SSM CV F UJI PACS RVOT VTI 18.95 cm SSM CV [facility] I PACS LA vol BP 97.729 ml SSM CV [facility] I PACS RA area 18.229 cm [facility] AR DECEL TIME 3.221 s [facility] AV PHT 0.934 s SSM CV [facility] I PACS AV pk nils regurg 269.083 cm/s [facility] mn grad 17.004 mmHg SSM CV FU PACS AV pk nils 285.193 cm/s SSM CV [facility] I PACS AV VTI 66.968 cm SSM CV [facility] I PACS MV A pk nils 100.15 cm/s SSM CV F U PACS MV E pk nils 81.633 cm/s SSM CV F U PACS MV E' lateral nils 5.825 cm/s [facility] MV mn grad 1.246 mmHg SSM CV FU PACS MV VTI 25.201 cm SSM CV [facility] I PACS PV pk nils 117.682 cm/s SSM CV [facility] I PACS TAPSE 1.816 cm SSM CV [facility] I PACS TR pk nils 237.99 cm/s SSM CV [facility] I PACS Ascending aorta 3.576 cm [facility] IVC Diam Expiration 1.652 cm [facility] Sinus of Valsalva 3.646 cm SSM CV FUJI PACS Anatomical Region Laterality Modality Ultrasound 09/13/2024 11:1 1 AM DISTILLERY LABORER Narrative 09/13/2024 10:42 PM DISTILLERY LABORER Summary * Findings consistent with calcified AV, functionally bicuspid AV, moderate not severe , satisfactory mitral valve function, normal LV systolic dysfunction, diastolic dysfunction, large LA, and elevated pressures, fair pulmonary vascular function, normal RV, modest TR and MO and mild mixed PAH. Demand pacemaker noted. * Compared to the study from 09/14/2023, is newly recognized. AV is bicuspid. is moderate. AR is minimal. Other structures and function unchanged. * The left ventricle is normal in size, with normal systolic function and an estimated ejection fraction of 64 % by biplane method of disks. Left ventricular wall motion is normal. * Right ventricle is normal in size with normal systolic function. * The left ventricle is normal in size. * Left ventricular systolic function is normal with an estimated ejection fraction of 64 % by biplane method of disks. * Left ventricular segmental wall motion is normal. * The left ventricular mass is moderately increased with concentric hypertrophy. Mass index 157 gm/M2. RWT 0.56. * The left ventricular diastolic function is consistent with grade II diastolic dysfunction and increased left atrial filling pressure. Average E/e' ratio > 17. * The right ventricle is normal in size. * Right ventricular systolic function is normal. * Right ventricular wall thickness is normal. * A pacemaker wire is seen in the right ventricle. No clots or debris. * The left atrium is moderately-severely dilated with a left atrial volume index of 50 ml/m2 by BP MOD. * The right atrium is normal in size. * The aortic valve is functionally bicuspid and moderately calcified. * Moderate decreased mobility of the coronary cusps. * There is moderate aortic valve stenosis with a peak velocity of 3 m/s, mean gradient of 17 mmHg, and aortic valve area of 1.31 cm2. Valve area index 0.7 cm2/M2. Stroke volume index 45 ml/M2. Cardiac index 3 L/min/M2. * There is no aortic valve regurgitation. * The mitral valve is thickened and displaying restricted posterior leaflet motion. * Mitral valve area by 2D Planimetry is 3.99 cm2. * There is trace mitral valve regurgitation. * Mitral valve regurgitant volume by pulsed Doppler quantitative flow method is 0.15 ml. * Tricuspid valve area by Pressure Halftime Method is 5.67 cm2. * There is trace tricuspid valve regurgitation. * No pulmonary hypertension, estimated pulmonary arterial systolic pressure is 26 mmHg. Normal PVR of 1.5 Wood units. * There is mild pulmonic regurgitation. * Pulmonary valve regurgitant volume by PISA is mild, 6 ml. * Pulmonary valve area by Continuity Equation is 3.9 cm2. * Estimated pulmonary arterial end diastolic pressure 13 mmHg. * Estimated pulmonary arterial mean pressure 21 mmHg. * The ascending aorta is normal in size measuring 3.6 cm with an index of 1.8 cm/m2. * Normal inferior vena cava with < 50% collapse upon inspiration consistent with normal right atrial pressure, 3 mmHg. * There is no pericardial effusion. Patient Info Name: Sebastian De La O Age: 78 years : 1945 Gender: Male Ht: 69 in Wt: 170 lb BSA: 1.95 m2 HR: 60 bpm BP: 142 / 72 mmHg Exam Date: 09/13/2024 11:11 AM Patient Status: O Study Site: [facility] Primary Location: [facility] Info Exam Type: ECHO COMPLETE Indications Q23.81 - Bicuspid aortic valve Z95.0 - S/P placement of cardiac pacemaker I35.0 - Severe aortic stenosis Procedure(s) * A complete 2D, color Doppler, spectral Doppler, and M-Mode transthoracic echocardiogram was performed. Staff Referring Physician: Jarad Araiza Ordering Provider: Jarad Araiza Chair: Grace Du Left Ventricle The left ventricle is normal in size. Left ventricular systolic function is normal with an estimated ejection fraction of 64 % by biplane method of disks. Left ventricular segmental wall motion is normal. The left ventricular mass is moderately increased with concentric hypertrophy. Mass index 157 gm/M2. RWT 0.56. The left ventricular diastolic function is consistent with grade II diastolic dysfunction and increased left atrial filling pressure. Average E/e' ratio > 17. Right Ventricle The right ventricle is normal in size. Right ventricular systolic function is normal. Right ventricular wall thickness is normal. A pacemaker wire is seen in the right ventricle. No clots or debris. Ventricular Septum Intact interventricular septum visualized by 2D and color Doppler imaging. Left Atrium The left atrium is moderately-severely dilated with a left atrial volume index of 50 ml/m2 by BP MOD. No mass or thrombus formation in the left atrium. Right Atrium The right atrium is normal in size. No mass or thrombus formation in the right atrium. Atrial Septum Intact interatrial septum visualized by 2D and color Doppler imaging. Aortic Valve The aortic valve is functionally bicuspid and moderately calcified. Moderate decreased mobility of the coronary cusps. There is no aortic valve regurgitation. There is moderate aortic valve stenosis with a peak velocity of 3 m/s, mean gradient of 17 mmHg, and aortic valve area of 1.31 cm2. Valve area index 0.7 cm2/M2. Stroke volume index 45 ml/M2. Cardiac index 3 L/min/M2. Pulmonic Valve The pulmonic valve is normal. There is no pulmonic valve stenosis. There is mild pulmonic regurgitation. Pulmonary valve area by Continuity Equation is 3.9 cm2. Estimated pulmonary arterial end diastolic pressure 13 mmHg. Estimated pulmonary arterial mean pressure 21 mmHg. Pulmonary valve effective regurgitant orifice by PISA is mild, 0.10 cm2. Pulmonary valve regurgitant volume by PISA is mild, 6 ml. Mitral Valve The mitral valve is thickened and displaying restricted posterior leaflet motion. There is no mitral valve stenosis. There is trace mitral valve regurgitation. Mitral valve diastolic mean gradient is 1 mmHg. Mitral valve area by 2D Planimetry is 3.99 cm2. Mitral valve regurgitant volume by pulsed Doppler quantitative flow method is 0.15 ml. Mitral valve regurgitant fraction by pulsed Doppler quantitative flow method is 0 %. Tricuspid Valve The tricuspid valve is normal. There is trace tricuspid valve regurgitation. There is no significant tricuspid valve stenosis. Tricuspid valve diastolic mean gradient is 1 mmHg. Tricuspid valve area by Pressure Halftime Method is 5.67 cm2. No pulmonary hypertension, estimated pulmonary arterial systolic pressure is 26 mmHg. Normal PVR of 1.5 Wood units. Inferior Vena Cava The inferior vena cava is normal in size (< 2.1 cm). Normal inferior vena cava with < 50% collapse upon inspiration consistent with normal right atrial pressure, 3 mmHg. Pericardium/Pleural There is no pericardial effusion. Aorta The aortic root at the sinus of Valsalva is normal in size. The ascending aorta is normal in size. The aortic root at the sinus of Valsalva is normal in size measuring 3.6 cm with an index of 1.9 cm/m2. The ascending aorta is normal in size measuring 3.6 cm with an index of 1.8 cm/m2. The descending aortic arch is normal in size measuring 3.0 cm. Wall Motion Scoring Index: 1.00 Measurements Left Ventricular Outflow Tract Name Value Normal LVOT 2D LVOT Diameter 2.1 cm LVOT Area 3.6 cm2 LVOT Doppler LVOT Peak Velocity 1.1 m/s LVOT Peak Gradient 5 mmHg LVOT Mean Velocity 79.40 cm/s LVOT Mean Gradient 3 mmHg LVOT VTI 24.3 cm LVOT VTI/AV VTI Ratio 0.4 LVOT Stroke Volume 88 ml LVOT Stroke Volume Index 45 ml/m2 35-58 LVOT CO 4.7 l/min LVOT CI 2.4 l/min/m2 Pulmonic Valve Name Value Normal PV 2D RVOT Diameter (2D) 2.5 cm 1.7-2.7 RVOT Doppler RVOT Peak Velocity 1.0 m/s RVOT Peak Gradient 4 mmHg RVOT Mean Gradient 3 mmHg PV Doppler PV Peak Velocity 1.2 m/s PV Peak Gradient 6 mmHg PV Mean Gradient 3 mmHg PV Area (Cont Eq VTI) 3.86 cm2 PV Area Index (Cont Eq VTI) 1.98 cm2/m2 PV Area (Cont Eq Nils) 4.4 cm2 PV Area Index (Cont Eq Nils) 2.26 cm2/m2 PV Accel Time 51.38 ms PV Regurgitation Doppler MO End Diastolic Velocity 1.6 m/s MO End Diastolic Gradient 10 mmHg Mitral Valve Name Value Normal MV 2D/MM MV Area (Planimetry) 3.99 cm2 4.00-5.00 MV Annulus Diameter (PLAX) 2.2 cm MV Annulus Diameter (2C) 3.0 cm MV Annulus Diameter (4C) 3.0 cm <=4.4 MV Doppler MV Peak Gradient 4 mmHg MV Mean Gradient 1 mmHg MV DI (VTI) 1.04 MV Decel Time (CW) 256 ms MV PHT 74 ms MV Area (PHT) 2.97 cm2 4.00-5.00 MV Area (Cont Eq VTI) 3.49 cm2 MV Regurgitation Doppler MR Volume (Cont Eq) 0 ml MR Fraction (Cont Eq) 0 % MV Diastolic Function MV E Peak Velocity 0.8 m/sec MV A Peak Velocity 1.0 m/sec MV E/A 0.8 MV Decel Time (PW) 256 ms MV A Wave Duration 148 ms MV Annular TDI MV Septal s' Velocity 7 cm/s MV Septal e' Velocity 4 cm/s >=8 MV Septal a' Velocity 8 cm/s MV E/e' (Septal) 20 <=8 MV A/a' (Septal) 12 MV Lateral s' Velocity 8 cm/s MV Lateral e' Velocity 6 cm/s >=10 MV Lateral a' Velocity 12 cm/s MV E/e' (Lateral) 14 <=8 MV A/a' (Lateral) 8 MV e' Average 5 cm/s MV E/e' (Average) 17 Tricuspid Valve Name Value Normal TV 2D TV Annulus Diameter (4C) 2.7 cm TV Doppler TV Peak Velocity 0.7 m/s TV Peak Gradient 2 mmHg TV Mean Gradient 1 mmHg TV PHT 39 ms TV Area (PHT) 5.67 cm2 TV Regurgitation Doppler TR Peak Velocity 2.4 m/s TR Peak Gradient 23 mmHg TR ERO (PISA) 0.04 cm2 TR Volume (PISA) 3 ml Estimated PAP/RSVP RA Pressure 3 mmHg <=5 PA Systolic Pressure 26 mmHg <35 RV Systolic Pressure 26 mmHg <36 TV Diastolic Function TV E Peak Velocity 0.7 m/sec TV A Peak Velocity 0.7 m/sec TV E/A 1.0 0.8-2.0 TV Decel Time 134 ms >=120 TV Annular TDI TV Lateral Marija s' Velocity 13 cm/s 10-19 Pulmonary Vessels Name Value Normal Pulmonary Artery Doppler PA End Diastolic Pressure for MO 13 mmHg Pulmonary Veins Pulm Vein Peak Systolic Velocity 43.9 cm/s Pulm Vein Peak Diastolic Velocity 39.1 cm/s Pulm Vein S/D Velocity Ratio 1 Pulm Vein Ar Velocity 21.9 cm/s Pulm Vein Ar Dur - MV A Dur 39 ms Aorta Name Value Normal Ascending Aorta Ao Annulus Diameter 2.4 cm 2.3-2.9 Ao Annulus Diam Index 1.2 cm/m2 1.2-1.4 Sinus of Valsalva Diameter 3.6 cm 2.8-4.0 Sinus of Valsalva Index 1.9 cm/m2 1.3-2.1 Ao Sinotub Junction Diameter 3.6 cm 2.6-3.2 Asc Ao Diameter 3.6 cm 2.2-3.8 Asc Ao Diameter Index 1.8 cm/m2 1.1-1.9 Mid Asc Ao Diameter 3.6 cm Thoracic Aorta Ao Arch Diameter 3.1 cm Distal Transverse Arch Diameter 3.0 cm Desc Ao Diameter 2.4 cm Septae/Shunt/Generic Name Value Normal Qp/Qs Qp/Qs 1.1 Miscellaneous Measurements CW Doppler of antegrade systolic flow in proximal descending aorta VTI 25.47 cm CW Doppler of antegrade systolic flow in proximal descending aorta Mean Velocity 80.76 cm/s CW Doppler of antegrade systolic flow in proximal descending aorta Peak Gradient 7 mmHg PW Doppler of antegrade systolic flow in proximal descending aorta Peak Velocity 61.15 cm/s PW Doppler of antegrade systolic flow in proximal descending aorta Mean Gradient 1 mmHg CW Doppler of antegrade systolic flow in proximal descending aorta Peak Velocity 131.25 cm/s CW Doppler of antegrade systolic flow in proximal descending aorta Mean Gradient 3 mmHg PW Doppler of antegrade systolic flow in proximal descending aorta VTI 17.64 cm PW Doppler of antegrade systolic flow in proximal descending aorta Mean Velocity 44.75 cm/s PW Doppler of antegrade systolic flow in proximal descending aorta Peak Gradient 1 mmHg Venous Name Value Normal IVC/SVC IVC Diameter 1.7 cm <=2.1 IVC Diameter (Insp 2D) 0.7 cm IVC Diameter Percent Change (2D) 55 % >=50 Aortic Valve Name Value Normal AV 2D/MM AV Area (Planimetry) 1.32 cm2 >=3.00 AV Cusp Sep (MM) 0.6 cm AV Doppler AV Peak Velocity 2.85 m/s AV Peak Gradient 33 mmHg AV Mean Gradient 17 mmHg AV VTI 67 cm AV Area (Cont Eq VTI) 1.31 cm2 >=2.00 AV Area (Cont Eq Nils) 1.40 cm2 AV DI (VTI) 0.36 AV DI (Nils) 0.39 AV Regurgitation 2D AR Jet Height 0.4 cm LVOT Area 3.63 cm2 AV Regurgitation Doppler AR Decel Time 3,221 ms AR PHT 934 ms AR Vena Contracta 3.25 mm AR Fraction (Cont Eq) 0 % AR Volume (Cont Eq) 0 ml Ventricles Name Value Normal LV Dimensions 2D/MM IVS Diastolic Thickness (2D) 1.5 cm 0.6-1.0 LVID Diastole (2D) 5.0 cm 4.2-5.8 LVPW Diastolic Thickness (2D) 1.4 cm 0.6-1.0 LVID Systole (2D) 3.4 cm 2.5-4.0 LV Systolic Endo Area 7 cm2 LV Diastolic Endo Area 28 cm2 LV Systolic Epic Area 34 cm2 LV Diastolic Epic Area 62 cm2 LV Mass (2D Cubed) 306 g 88-224 LV Mass Index (2D Cubed) 157 g/m2 49-115 Relative Wall Thickness (2D) 0.56 <=0.42 LV Fractional Shortening/Ejection Fraction 2D/MM LV Fractional Shortening (2D) 33 % 25-43 LV EF (2D Teicholz) 61 % 52-72 LV Diastolic Volume (4C MOD) 127 ml LV EF (4C MOD) 70 % LV Diastolic Volume (2C MOD) 126 ml LV EF (2C MOD) 69 % LV Diastolic Volume (BP MOD) 130 ml 62-150 LV Diastolic Volume Index (BP MOD) 67 ml/m2 34-74 LV Systolic Volume (BP MOD) 40 ml 21-61 LV Systolic Volume Index (BP MOD) 21 ml/m2 11-31 LV EF (BP MOD) 69 % 52-72 LV Diastolic Length (4C) 9.3 cm LV Systolic Length (4C) 7.4 cm LV End Diastolic Volume (BP A-L) 217 ml LV End Systolic Volume (BP A-L) 42 ml LV EF (BP A-L) 80 % LV Stroke Volume (4C MOD) 88 ml RV Dimensions 2D/MM RVID Diastole (2D) 3.0 cm 2.5-3.5 RVID Systole (2D) 1.9 cm RV Diastolic Wall Thickness (2D) 0.6 cm 0.1-0.5 RV Systolic Wall Thickness (2D) 0.8 cm RV Basal Diastolic Dimension 3.1 cm 2.5-4.1 RV Mid-Cavity Diastolic Dimension 3.1 cm 1.9-3.5 RV Diastolic Length (4C) 8.2 cm 5.9-8.3 RV Diastolic Area (4C) 19 cm2 10-24 RV Systolic Area (4C) 9 cm2 3-15 TAPSE 1.8 cm >=1.7 RV Fractional Shortening 2D RV FAC (4C) 53 % >=35 Atria Name Value Normal LA Dimensions LA Dimension (2D) 4.8 cm 3.0-4.1 LA Dimen Index (2D) 2.4 cm/m2 LA Volume (BP MOD) 98 ml LA Volume Index (BP MOD) 50 ml/m2 16-34 RA Dimensions RA Area (4C) 18 cm2 <=18 RA Area (4C) Index 9 cm2/m2 RA ESV (4C MOD) 51 ml 18-32 RA ESV Index (4C MOD) 26 ml/m2 16-34 Report Signatures Finalized by Rudolph Groves MD on 09/13/2024 10:42 PM Procedure Note Rudolph Groves MD - 09/13/2024 Summary * Findings consistent with calcified AV, functionally bicuspid AV,moderate not severe , satisfactory mitral valve function, normal LV systolic dysfunction, diastolic dysfunction, large LA, and elevated pressures,fair pulmonary vascular function, normal RV, modest TR and MO and mild mixedPAH. Demand pacemaker noted. * Compared to the study from 09/14/2023, is newly recognized. Yury bicuspid. is moderate. AR is minimal. Other structures and function unchanged. * The left ventricle is normal in size, with normal systolic functionand an estimated ejection fraction of 64 % by biplane method of disks. Left ventricular wall motion is normal. * Right ventricle is normal in size with normal systolic function. * The left ventricle is normal in size. * Left ventricular systolic function is normal with an estimatedejection fraction of 64 % by biplane method of disks. * Left ventricular segmental wall motion is normal. * The left ventricular mass is moderately increased with concentric hypertrophy. Mass index 157 gm/M2. RWT 0.56. * The left ventricular diastolic function is consistent with grade II diastolic dysfunction and increased left atrial filling pressure. AverageE/e' ratio > 17. * The right ventricle is normal in size. * Right ventricular systolic function is normal. * Right ventricular wall thickness is normal. * A pacemaker wire is seen in the right ventricle. No clots or debris. * The left atrium is moderately-severely dilated with a left atrialvolume index of 50 ml/m2 by BP MOD. * The right atrium is normal in size. * The aortic valve is functionally bicuspid and moderately calcified. * Moderate decreased mobility of the coronary cusps. * There is moderate aortic valve stenosis with a peak velocity of 3m/s, mean gradient of 17 mmHg, and aortic valve area of 1.31 cm2. Valve areaindex 0.7 cm2/M2. Stroke volume index 45 ml/M2. Cardiac index 3 L/min/M2. * There is no aortic valve regurgitation. * The mitral valve is thickened and displaying restricted posteriorleaflet motion. * Mitral valve area by 2D Planimetry is 3.99 cm2. * There is trace mitral valve regurgitation. * Mitral valve regurgitant volume by pulsed Doppler quantitative flowmethod is 0.15 ml. * Tricuspid valve area by Pressure Halftime Method is 5.67 cm2. * There is trace tricuspid valve regurgitation. * No pulmonary hypertension, estimated pulmonary arterial systolicpressure is 26 mmHg. Normal PVR of 1.5 Wood units. * There is mild pulmonic regurgitation. * Pulmonary valve regurgitant volume by PISA is mild, 6 ml. * Pulmonary valve area by Continuity Equation is 3.9 cm2. * Estimated pulmonary arterial end diastolic pressure 13 mmHg. * Estimated pulmonary arterial mean pressure 21 mmHg. * The ascending aorta is normal in size measuring 3.6 cm with an indexof 1.8 cm/m2. * Normal inferior vena cava with < 50% collapse upon inspirationconsistent with normal right atrial pressure, 3 mmHg. * There is no pericardial effusion. Patient Info Name: Sebastian De La O Age: 78 years : 1945 Gender: Male Ht: 69 in Wt: 170 lb BSA: 1.95 m2 HR: 60 bpm BP: 142 / 72 mmHg Exam Date: 09/13/2024 11:11 AM Patient Status: O Study Site: [facility] Primary Location: [facility] Info Exam Type: ECHO COMPLETE Indications Q23.81 - Bicuspid aortic valve Z95.0 - S/P placement of cardiac pacemaker I35.0 - Severe aortic stenosis Procedure(s) * A complete 2D, color Doppler, spectral Doppler, and M-Modetransthoracic echocardiogram was performed. Staff Referring Physician: Jarad Araiza Ordering Provider: Jarad Araiza Chair: Grace Du Left Ventricle The left ventricle is normal in size. Left ventricular systolic functionis normal with an estimated ejection fraction of 64 % by biplane method ofdisks. Left ventricular segmental wall motion is normal. The left ventricularmass is moderately increased with concentric hypertrophy. Mass index 157 gm/M2.RWT 0.56. The left ventricular diastolic function is consistent with gradeII diastolic dysfunction and increased left atrial filling pressure. AverageE/e' ratio > 17. Right Ventricle The right ventricle is normal in size. Right ventricular systolicfunction is normal. Right ventricular wall thickness is normal. A pacemaker wireis seen in the right ventricle. No clots or debris. Ventricular Septum Intact interventricular septum visualized by 2D and color Dopplerimaging. Left Atrium The left atrium is moderately-severely dilated with a left atrialvolume index of 50 ml/m2 by BP MOD. No mass or thrombus formation in the leftatrium. Right Atrium The right atrium is normal in size. No mass or thrombus formation inthe right atrium. Atrial Septum Intact interatrial septum visualized by 2D and color Doppler imaging. Aortic Valve The aortic valve is functionally bicuspid and moderately calcified.Moderate decreased mobility of the coronary cusps. There is no aortic valve regurgitation. There is moderate aortic valve stenosis with a peakvelocity of 3 m/s, mean gradient of 17 mmHg, and aortic valve area of 1.31 cm2. Valvearea index 0.7 cm2/M2. Stroke volume index 45 ml/M2. Cardiac index 3L/min/M2. Pulmonic Valve The pulmonic valve is normal. There is no pulmonic valve stenosis. Thereis mild pulmonic regurgitation. Pulmonary valve area by Continuity Equationis 3.9 cm2. Estimated pulmonary arterial end diastolic pressure 13 mmHg. Estimated pulmonary arterial mean pressure 21 mmHg. Pulmonary valveeffective regurgitant orifice by PISA is mild, 0.10 cm2. Pulmonary valveregurgitant volume by PISA is mild, 6 ml. Mitral Valve The mitral valve is thickened and displaying restricted posteriorleaflet motion. There is no mitral valve stenosis. There is trace mitral valve regurgitation. Mitral valve diastolic mean gradient is 1 mmHg. Mitralvalve area by 2D Planimetry is 3.99 cm2. Mitral valve regurgitant volume bypulsed Doppler quantitative flow method is 0.15 ml. Mitral valve regurgitantfraction by pulsed Doppler quantitative flow method is 0 %. Tricuspid Valve The tricuspid valve is normal. There is trace tricuspid valveregurgitation. There is no significant tricuspid valve stenosis. Tricuspid valvediastolic mean gradient is 1 mmHg. Tricuspid valve area by Pressure Halftime Methodis 5.67 cm2. No pulmonary hypertension, estimated pulmonary arterialsystolic pressure is 26 mmHg. Normal PVR of 1.5 Wood units. Inferior Vena Cava The inferior vena cava is normal in size (< 2.1 cm). Normal inferiorvena cava with < 50% collapse upon inspiration consistent with normal rightatrial pressure, 3 mmHg. Pericardium/Pleural There is no pericardial effusion. Aorta The aortic root at the sinus of Valsalva is normal in size. Theascending aorta is normal in size. The aortic root at the sinus of Valsalva isnormal in size measuring 3.6 cm with an index of 1.9 cm/m2. The ascending aorta is normal in size measuring 3.6 cm with an index of 1.8 cm/m2. Thedescending aortic arch is normal in size measuring 3.0 cm. Wall Motion Scoring Index: 1.00 Measurements Left Ventricular Outflow Tract Name Value Normal LVOT 2D LVOT Diameter 2.1 cm LVOT Area 3.6 cm2 LVOT Doppler LVOT Peak Velocity 1.1 m/s LVOT Peak Gradient 5 mmHg LVOT Mean Velocity 79.40 cm/s LVOT Mean Gradient 3 mmHg LVOT VTI 24.3 cm LVOT VTI/AV VTI Ratio 0.4 LVOT Stroke Volume 88 ml LVOT Stroke Volume Index 45 ml/m2 35-58 LVOT CO 4.7 l/min LVOT CI 2.4 l/min/m2 Pulmonic Valve Name Value Normal PV 2D RVOT Diameter (2D) 2.5 cm 1.7-2.7 RVOT Doppler RVOT Peak Velocity 1.0 m/s RVOT Peak Gradient 4 mmHg RVOT Mean Gradient 3 mmHg PV Doppler PV Peak Velocity 1.2 m/s PV Peak Gradient 6 mmHg PV Mean Gradient 3 mmHg PV Area (Cont Eq VTI) 3.86 cm2 PV Area Index (Cont Eq VTI) 1.98 cm2/m2 PV Area (Cont Eq Nils) 4.4 cm2 PV Area Index (Cont Eq Nils) 2.26 cm2/m2 PV Accel Time 51.38 ms PV Regurgitation Doppler MO End Diastolic Velocity 1.6 m/s MO End Diastolic Gradient 10 mmHg Mitral Valve Name Value Normal MV 2D/MM MV Area (Planimetry) 3.99 cm2 4.00-5.00 MV Annulus Diameter (PLAX) 2.2 cm MV Annulus Diameter (2C) 3.0 cm MV Annulus Diameter (4C) 3.0 cm <=4.4 MV Doppler MV Peak Gradient 4 mmHg MV Mean Gradient 1 mmHg MV DI (VTI) 1.04 MV Decel Time (CW) 256 ms MV PHT 74 ms MV Area (PHT) 2.97 cm2 4.00-5.00 MV Area (Cont Eq VTI) 3.49 cm2 MV Regurgitation Doppler MR Volume (Cont Eq) 0 ml MR Fraction (Cont Eq) 0 % MV Diastolic Function MV E Peak Velocity 0.8 m/sec MV A Peak Velocity 1.0 m/sec MV E/A 0.8 MV Decel Time (PW) 256 ms MV A Wave Duration 148 ms MV Annular TDI MV Septal s' Velocity 7 cm/s MV Septal e' Velocity 4 cm/s >=8 MV Septal a' Velocity 8 cm/s MV E/e' (Septal) 20 <=8 MV A/a' (Septal) 12 MV Lateral s' Velocity 8 cm/s MV Lateral e' Velocity 6 cm/s >=10 MV Lateral a' Velocity 12 cm/s MV E/e' (Lateral) 14 <=8 MV A/a' (Lateral) 8 MV e' Average 5 cm/s MV E/e' (Average) 17 Tricuspid Valve Name Value Normal TV 2D TV Annulus Diameter (4C) 2.7 cm TV Doppler TV Peak Velocity 0.7 m/s TV Peak Gradient 2 mmHg TV Mean Gradient 1 mmHg TV PHT 39 ms TV Area (PHT) 5.67 cm2 TV Regurgitation Doppler TR Peak Velocity 2.4 m/s TR Peak Gradient 23 mmHg TR ERO (PISA) 0.04 cm2 TR Volume (PISA) 3 ml Estimated PAP/RSVP RA Pressure 3 mmHg <=5 PA Systolic Pressure 26 mmHg <35 RV Systolic Pressure 26 mmHg <36 TV Diastolic Function TV E Peak Velocity 0.7 m/sec TV A Peak Velocity 0.7 m/sec TV E/A 1.0 0.8-2.0 TV Decel Time 134 ms >=120 TV Annular TDI TV Lateral Marija s' Velocity 13 cm/s 10-19 Pulmonary Vessels Name Value Normal Pulmonary Artery Doppler PA End Diastolic Pressure for MO 13 mmHg Pulmonary Veins Pulm Vein Peak Systolic Velocity 43.9 cm/s Pulm Vein Peak Diastolic Velocity 39.1 cm/s Pulm Vein S/D Velocity Ratio 1 Pulm Vein Ar Velocity 21.9 cm/s Pulm Vein Ar Dur - MV A Dur 39 ms Aorta Name Value Normal Ascending Aorta Ao Annulus Diameter 2.4 cm 2.3-2.9 Ao Annulus Diam Index 1.2 cm/m2 1.2-1.4 Sinus of Valsalva Diameter 3.6 cm 2.8-4.0 Sinus of Valsalva Index 1.9 cm/m2 1.3-2.1 Ao Sinotub Junction Diameter 3.6 cm 2.6-3.2 Asc Ao Diameter 3.6 cm 2.2-3.8 Asc Ao Diameter Index 1.8 cm/m2 1.1-1.9 Mid Asc Ao Diameter 3.6 cm Thoracic Aorta Ao Arch Diameter 3.1 cm Distal Transverse Arch Diameter 3.0 cm Desc Ao Diameter 2.4 cm Septae/Shunt/Generic Name Value Normal Qp/Qs Qp/Qs 1.1 Miscellaneous Measurements CW Doppler of antegrade systolic flow in proximal descending aorta VTI 25.47 cm CW Doppler of antegrade systolic flow in proximal descending aorta Mean Velocity 80.76 cm/s CW Doppler of antegrade systolic flow in proximal descending aorta Peak Gradient 7 mmHg PW Doppler of antegrade systolic flow in proximal descending aorta Peak Velocity 61.15 cm/s PW Doppler of antegrade systolic flow in proximal descending aorta Mean Gradient 1 mmHg CW Doppler of antegrade systolic flow in proximal descending aorta Peak Velocity 131.25 cm/s CW Doppler of antegrade systolic flow in proximal descending aorta Mean Gradient 3 mmHg PW Doppler of antegrade systolic flow in proximal descending aorta VTI 17.64 cm PW Doppler of antegrade systolic flow in proximal descending aorta Mean Velocity 44.75 cm/s PW Doppler of antegrade systolic flow in proximal descending aorta Peak Gradient 1 mmHg Venous Name Value Normal IVC/SVC IVC Diameter 1.7 cm <=2.1 IVC Diameter (Insp 2D) 0.7 cm IVC Diameter Percent Change (2D) 55 % >=50 Aortic Valve Name Value Normal AV 2D/MM AV Area (Planimetry) 1.32 cm2 >=3.00 AV Cusp Sep (MM) 0.6 cm AV Doppler AV Peak Velocity 2.85 m/s AV Peak Gradient 33 mmHg AV Mean Gradient 17 mmHg AV VTI 67 cm AV Area (Cont Eq VTI) 1.31 cm2 >=2.00 AV Area (Cont Eq Nils) 1.40 cm2 AV DI (VTI) 0.36 AV DI (Nils) 0.39 AV Regurgitation 2D AR Jet Height 0.4 cm LVOT Area 3.63 cm2 AV Regurgitation Doppler AR Decel Time 3,221 ms AR PHT 934 ms AR Vena Contracta 3.25 mm AR Fraction (Cont Eq) 0 % AR Volume (Cont Eq) 0 ml Ventricles Name Value Normal LV Dimensions 2D/MM IVS Diastolic Thickness (2D) 1.5 cm 0.6-1.0 LVID Diastole (2D) 5.0 cm 4.2-5.8 LVPW Diastolic Thickness (2D) 1.4 cm 0.6-1.0 LVID Systole (2D) 3.4 cm 2.5-4.0 LV Systolic Endo Area 7 cm2 LV Diastolic Endo Area 28 cm2 LV Systolic Epic Area 34 cm2 LV Diastolic Epic Area 62 cm2 LV Mass (2D Cubed) 306 g 88-224 LV Mass Index (2D Cubed) 157 g/m2 49-115 Relative Wall Thickness (2D) 0.56 <=0.42 LV Fractional Shortening/Ejection Fraction 2D/MM LV Fractional Shortening (2D) 33 % 25-43 LV EF (2D Teicholz) 61 % 52-72 LV Diastolic Volume (4C MOD) 127 ml LV EF (4C MOD) 70 % LV Diastolic Volume (2C MOD) 126 ml LV EF (2C MOD) 69 % LV Diastolic Volume (BP MOD) 130 ml 62-150 LV Diastolic Volume Index (BP MOD) 67 ml/m2 34-74 LV Systolic Volume (BP MOD) 40 ml 21-61 LV Systolic Volume Index (BP MOD) 21 ml/m2 11-31 LV EF (BP MOD) 69 % 52-72 LV Diastolic Length (4C) 9.3 cm LV Systolic Length (4C) 7.4 cm LV End Diastolic Volume (BP A-L) 217 ml LV End Systolic Volume (BP A-L) 42 ml LV EF (BP A-L) 80 % LV Stroke Volume (4C MOD) 88 ml RV Dimensions 2D/MM RVID Diastole (2D) 3.0 cm 2.5-3.5 RVID Systole (2D) 1.9 cm RV Diastolic Wall Thickness (2D) 0.6 cm 0.1-0.5 RV Systolic Wall Thickness (2D) 0.8 cm RV Basal Diastolic Dimension 3.1 cm 2.5-4.1 RV Mid-Cavity Diastolic Dimension 3.1 cm 1.9-3.5 RV Diastolic Length (4C) 8.2 cm 5.9-8.3 RV Diastolic Area (4C) 19 cm2 10-24 RV Systolic Area (4C) 9 cm2 3-15 TAPSE 1.8 cm >=1.7 RV Fractional Shortening 2D RV FAC (4C) 53 % >=35 Atria Name Value Normal LA Dimensions LA Dimension (2D) 4.8 cm 3.0-4.1 LA Dimen Index (2D) 2.4 cm/m2 LA Volume (BP MOD) 98 ml LA Volume Index (BP MOD) 50 ml/m2 16-34 RA Dimensions RA Area (4C) 18 cm2 <=18 RA Area (4C) Index 9 cm2/m2 RA ESV (4C MOD) 51 ml 18-32 RA ESV Index (4C MOD) 26 ml/m2 16-34 Report Signatures Finalized by Rudolph Groves MD on 09/13/2024 10:42 PM Jarad Araiza APRN-[employer] * MO REMOTE 30 DAY ECG REV/REPORT (03/20/2024 3:23 PM CDT) Narrative Omid May MD - 03/20/2024 3:23 PM CDT Omid May MD 03/20/2024 3:28 PM Read Date: 03/20/2024 Patient name: Sebastian De La O Patient : 1945 Patient Age: [age] year old EVENT MONITOR REPORT: Indication for placement: Syncope and collapse Requesting MD: Omid May Duration of monitorin02/04/2024 to 03/04/2024 Available tracings are adequate for interpretation for 25d 21h 29m. 1. The mean average HR overall was: 63 bpm 2. The fastest HR noted was: 139 bpm 3. The slowest HR noted was: 38 bpm and occurred on 02/14 at 1106 pm 4. 27,747 premature ventricular complexes (PVCs) occurred (1% of 2.3 million complexes). 25,222 premature atrial contractions (PACs) occurred 1% of the time. 5. Atrial fibrillation was not detected. Atrial fibrillation burden was 0 %. 6. Numerous pauses > 3 seconds Patient transmitted 52 manually-triggered recordings and reported rapid or fast heart beat, flutter or skipped beats, lightheadedness, passed out, and chest pain or pressure and these tracings demonstrated sinus rhythm with rare ventricular ectopy. Other recordings demonstrated sinus rhythm with with long sinus pauses. Final Interpretation: No sustained arrhythmias. Numerous pauses, at times in early afternoon. Omid May MD PROCEDURE/MINOR SURG ICAL ORDERABLES * Implant Device Check (Office) (03/16/2024 11:37 AM CDT) Narrative Sil Rojas APRN-CNP - 03/16/2024 11:37 AM CDT Sil Rojas APRN-CNP 03/16/2024 11:49 AM Sil Rojas APRN-BOBY PROCEDURE/SHERRI R SURGICAL ORDERABLES * GLUCOSE - POINT OF CARE (03/13/2024 8:33 AM CDT) Glucose WB/POC 106 70 - 115 mg/dL 03/13/2024 10:58 AM CDT [facility] Specimen Type Cap Fingerstick 2023 10:58 AM CDT [facility] Blood BLOOD SPECIMEN / Unknown 03/13/2024 8:33 AM CDT 03/13/2024 10:58 AM CDT Mj Curry MD LAB - POINT OF CARE ORDERABLES Performing Organization Address City/[facility]/ZIP Co de Phone Number [facility] [address] [place] [address], [facility] [phone] * (ABNORMAL) CBC W/O DIFFERENTIAL (03/13/2024 2:59 AM CDT) Only the most recent of7 resultswithin the time period is included. WBC 5.3 4.0 - 10.7 x10E9/L 03/13/2024 4:31 AM [facility] RBC Count 4.27(L) 4.30 - 5.80 x10E12/L 03/13/2024 4:31 AM [facility] Hemoglobin 12.3(L) 13.3 - 17.5 g/dL 03/13/2024 4:31 AM [facility] Hematocrit 36.5(L) 38.7 - 51.1 % 03/13/2024 4:31 AM [facility] MCV 85.5 80.0 - 98.0 fL 03/13/2024 4:31 AM [facility] MCH 28.8 26.7 - 33.6 pg 03/13/2024 4:31 AM [facility] MCHC 33.7 31.7 - 36.3 g/dL 03/13/2024 4:31 AM [facility] RDW-CV 13.2 11.3 - 14.8 % 03/13/2024 4:31 AM [facility] Platelet Count 149(L) 150 - 420 x10E9/L 03/13/2024 4:31 AM [facility] MPV 11.6(H) 7.8 - 11.4 fL 03/13/2024 4:31 AM [facility] Blood BLOOD SPECIMEN / Unknown Lab Venipuncture / Unknown 03/13/2024 2:59 AM CDT 03/13/2024 3:51 AM CDT Mj Curry MD LAB - HEMATO LOGY ORDERABLES [facility] [address] [place] [address] [phone] * (ABNORMAL) RENAL FUNCTION PANEL (03/13/2024 2:59 AM CDT) Only the most recent of5 resultswithin the time period is included. BUN 21 7 - 26 mg/dL 03/13/2024 4:25 AM [facility] Creatinine 0.88 0.71 - 1.16 mg/dL 03/13/2024 4:25 AM [facility] Sodium 139 136 - 145 mmol/L 03/13/2024 4:25 AM [facility] Potassium 3.7 3.5 - 4.5 mmol/L 03/13/2024 4:25 AM [facility] Chloride 105 98 - 107 mmol/L 03/13/2024 4:25 AM [facility] CO2 24 22 - 29 mmol/L 03/13/2024 4:25 AM [facility] Glucose 114 70 - 115 mg/dL 03/13/2024 4:25 AM [facility] Albumin 3.1(L) 3.4 - 5.0 g/dL 03/13/2024 4:25 AM [facility] Calcium 10.7(H) 8.4 - 10.2 mg/dL 03/13/2024 4:25 AM [facility] Phosphorus 2.8 2.8 - 5.1 mg/dL 03/13/2024 4:25 AM [facility] Anion Gap 10 6 - 16 03/13/2024 4:25 AM [facility] BUN/Creatinine Ratio 24(H) 7 - 23 03/13/2024 4:25 AM [facility] Osmolality Calculated 292 275 - 295 mOsm/kg 03/13/2024 4:25 AM [facility] eGFR by CKD-EPI 89(L) >=90 mL/min/1.7 3 m2 03/13/2024 4:25 AM [facility] Blood BLOOD SPECIMEN / Unknown Lab Venipuncture / Unknown 03/13/2024 2:59 AM CDT 03/13/2024 3:51 AM CDT Mj Curry MD LAB - CHEMIS TRY ORDERABLES [address] [address], [facility] [phone] * MAGNESIUM BLOOD (03/13/2024 2:59 AM CDT) Only the most recent of11 resultswithin the time period is included. Magnesium 1.7 1.6 - 2.6 mg/dL 03/13/2024 4:25 AM CDT [facility] Blood BLOOD SPECIMEN / Unknown Lab Venipuncture / Unknown 03/13/2024 2:59 AM CDT 03/13/2024 3:51 AM CDT Mj Curry MD LAB - CHEMIS TRY ORDERABLES Performing Organization Address City/[facility]/ZIP Co de Phone Number [address] [address], [facility] [phone] * EKG 12-LEAD (03/12/2024 8:20 AM CDT) Only the most recent of6 resultswithin the time period is included. Ventricular Rate 66 BPM [facility] Atrial Rate 66 BPM [facility] P-R Interval 232 ms [facility] QRS Duration ms 130 ms [facility] Q-T Interval ms 430 ms [facility] QTC Calculation (Bezet) 450 ms [facility] Calculated P [place] 18 degrees [facility] MUSE Calculated R [place] 57 degrees [facility] MUSE Calculated T [place] 33 degrees [facility] MUSE Interpretation EKG SINUS RHYTHM WITH SINUS ARRHYTHMIA WITH 1ST DEGREE A-V BLOCK RIGHT BUNDLE BRANCH BLOCK ABNORMAL ECG WHEN COMPARED WITH ECG OF 11-MAR-2024 18:13, No change from last ECG Confirmed by JAY CASAS MD ([id number]) on 03/12/2024 8:52:51 PM [facility] 03/12/2024 8:20 AM CDT 03/12/2024 8:52 PM CDT Mj Curry MD ECG ORDERABL ES [facility] MUSE * XR CHEST 1VW PORTABLE (03/12/2024 5:56 AM CDT) Only the most recent of3 resultswithin the time period is included. Anatomical Region Laterality Modality Chest Radiographic Jessica ging 03/13/2024 7:24 AM CDT Narrative 03/13/2024 4:53 PM CDT PROCEDURE: XR CHEST 1VW PORTABLE, DATE/TIME OF EXAM: 03/12/2024 5:56 AM, LOCATION [facility] INDICATION: I35.0: Severe aortic stenosis ADDITIONAL CLINICAL INFORMATION: Ordering Provider Reason For Exam: sob COMPARISON: Chest radiograph dated 03/03/2024. FINDINGS/IMPRESSION: *Interval placement of right chest wall electronic cardiac device with 2 subclavian approach leads terminating in the right atrium and right ventricle. There is no focal consolidation, pleural effusion, or pneumothorax. The superior mediastinal contours and cardiac silhouette are normal. No acute osseous abnormality. Report dictated by Angel Perez MD, (residential worker). Carolyn Hogue MD have personally reviewed and interpreted this examination/study. > Interpreting Provider: Carolyn Dickens MD on 03/13/2024 4:53 PM Procedure Note Carolyn Dickens MD - 03/13/2024 PROCEDURE: XR CHEST 1VW PORTABLE, DATE/TIME OF EXAM: 03/12/2024 5:56AM, LOCATION [facility] INDICATION: I35.0: Severe aortic stenosis ADDITIONAL CLINICAL INFORMATION: Ordering Provider Reason For Exam: sob COMPARISON: Chest radiograph dated 03/03/2024. FINDINGS/IMPRESSION: *Interval placement of right chest wall electronic cardiac device with 2 subclavian approach leads terminating in the right atrium and right ventricle. There is no focal consolidation, pleural effusion, or pneumothorax. The superior mediastinal contours and cardiac silhouette are normal. No acute osseous abnormality. Report dictated by Angel Perez MD, (residential worker). Carolyn Hogue MD have personally reviewed and interpreted this examination/study. > Interpreting Provider: Carolyn Dickens MD on 03/13/2024 4:53 PM Mj Curry MD DIAGNOSTIC I MAGING ORDERABLES * (ABNORMAL) BASIC METABOLIC PANEL (CALCIUM TOTAL) (03/12/2024 4:44 AM CDT) Only the most recent of3 resultswithin the time period is included. BUN 23 7 - 26 mg/dL 03/12/2024 5:47 AM [facility] Creatinine 0.82 0.71 - 1.16 mg/dL 03/12/2024 5:47 AM [facility] Sodium 141 136 - 145 mmol/L 03/12/2024 5:47 AM [facility] Potassium 4.0 3.5 - 4.5 mmol/L 03/12/2024 5:47 AM [facility] Chloride 108(H) 98 - 107 mmol/L 03/12/2024 5:47 AM [facility] CO2 25 22 - 29 mmol/L 03/12/2024 5:47 AM [facility] Glucose 103 70 - 115 mg/dL 03/12/2024 5:47 AM [facility] Calcium 10.5(H) 8.4 - 10.2 mg/dL 03/12/2024 5:47 AM [facility] Anion Gap 8 6 - 16 03/12/2024 5:47 AM [facility] BUN/Creatinine Ratio 28(H) 7 - 23 03/12/2024 5:47 AM [facility] Osmolality Calculated 296(H) 275 - 295 mOsm/kg 03/12/2024 5:47 AM [facility] eGFR by CKD-EPI 90 >=90 mL/min/1.7 3 m2 03/12/2024 5:47 AM [facility] Blood BLOOD SPECIMEN / Unknown Lab Venipuncture / Unknown 03/12/2024 4:44 AM CDT 03/12/2024 5:18 AM T Mj Curry MD LAB - CHEMIS TRY ORDERABLES [facility] [address] [place] [phone], [facility] [phone] * PHOSPHORUS BLOOD (03/12/2024 4:44 AM CDT) Only the most recent of6 resultswithin the time period is included. Phosphorus 3.4 2.8 - 5.1 mg/dL 03/12/2024 6:14 AM CDT [facility] Blood BLOOD SPECIMEN / Unknown Lab Venipuncture / Unknown 03/12/2024 4:44 AM CDT 03/12/2024 5:18 AM CDT Mj Curry MD LAB - CHEMIS TRY ORDERABLES [address] [address], [facility] [phone] * TROPONIN-I HIGH SENSITIVE REFLEX 1HOUR (03/11/2024 9:37 PM CDT) Troponin I High Sensitive 21 <=35 ng/L 03/11/2024 10:20 PM CDT [facility] Delta Troponin I HS 2 <6 ng/L 03/11/2024 10:20 PM CDT [facility] Blood BLOOD SPECIMEN / Unknown Lab Venipuncture / Unknown 03/11/2024 9:37 PM CDT 03/11/2024 9:45 PM CDT Mj Curry MD LAB - CHEMIS TRY ORDERABLES [address] [address], [facility] [phone] * TROPONIN-I HIGH SENSITIVE BASELINE + 1HR (03/11/2024 8:26 PM CDT) Troponin I High Sensitive 19 <=35 ng/L 03/11/2024 9:32 PM CDT [facility] Blood BLOOD SPECIMEN / Unknown Lab Venipuncture / Unknown 03/11/2024 8:26 PM CDT 03/11/2024 8:56 PM CDT Mj Curry MD LAB - CHEMIS TRY ORDERABLES [facility] [address] [place] [address], [facility] [phone] * (ABNORMAL) CBC W AUTO DIFFERENTIAL (03/11/2024 8:26 PM CDT) Only the most recent of6 resultswithin the time period is included. WBC 5.7 4.0 - 10.7 x10E9/L 03/11/2024 9:07 PM [facility] RBC Count 4.39 4.30 - 5.80 x10E12/L 03/11/2024 9:07 PM [facility] Hemoglobin 12.7(L) 13.3 - 17.5 g/dL 03/11/2024 9:07 PM [facility] Hematocrit 37.0(L) 38.7 - 51.1 % 03/11/2024 9:07 PM [facility] MCV 84.3 80.0 - 98.0 fL 03/11/2024 9:07 PM [facility] MCH 28.9 26.7 - 33.6 pg 03/11/2024 9:07 PM [facility] MCHC 34.3 31.7 - 36.3 g/dL 03/11/2024 9:07 PM [facility] RDW-CV 13.0 11.3 - 14.8 % 03/11/2024 9:07 PM [facility] Platelet Count 164 150 - 420 x10E9/L 03/11/2024 9:07 PM [facility] MPV 11.7(H) 7.8 - 11.4 fL 03/11/2024 9:07 PM [facility] Neutrophil % 61.5 41.0 - 74.0 % 03/11/2024 9:07 PM [facility] Lymphocyte % 20.5 17.0 - 47.0 % 03/11/2024 9:07 PM [facility] Monocyte % 13.6(H) 3.0 - 11.0 % 03/11/2024 9:07 PM [facility] Eosinophil % 3.4 0.0 - 7.0 % 03/11/2024 9:07 PM [facility] Basophil % 0.5 0.0 - 1.6 % 03/11/2024 9:07 PM [facility] Immature Granulocytes % 0.5 0.0 - 1.0 % 03/11/2024 9:07 PM [facility] Neutrophil Absolute 3.48 1.60 - 7.50 x10E9/L 03/11/2024 9:07 PM [facility] Lymphocyte Absolute 1.16 1.00 - 4.40 x10E9/L 03/11/2024 9:07 PM [facility] Monocyte Absolute 0.77 0.15 - 1.00 x10E9/L 03/11/2024 9:07 PM [facility] Eosinophil Absolute 0.19 0.00 - 0.60 x10E9/L 03/11/2024 9:07 PM [facility] Basophil Absolute 0.03 0.00 - 0.13 x10E9/L 03/11/2024 9:07 PM [facility] Blood BLOOD SPECIMEN / Unknown Lab Venipuncture / Unknown 03/11/2024 8:26 PM CDT 03/11/2024 8:57 PM CDT Mj Curry MD LAB - HEMATO LOGY ORDERABLES [facility] [address] [place] [address] [phone] * B-TYPE NATRIURETIC PEPTIDE (03/11/2024 8:26 PM CDT) BNP 64 <100 pg/mL 03/11/2024 9:43 PM [facility] Comment: A decision threshold of 100 pg/mL has been demonstrated to provide the maximal combination of sensitivity, specificity and predictive value for the diagnosis of congestive heart failure (CHF). Virtually all patients with no evidence of CHF have BNP values less than 100 pg/mL. A BNP value greater than 100 pg/mL is consistent with the diagnosis of CHF in the appropriate clinical setting. In a study of 693 patients (male and female) with diagnosed CHF, the following values were determined based on the NYHA functional classification system: NYHA Functional Class Mean Valule (pg/mL) % >100 pg/mL I 320 58.1 II 432 73.0 III 656 79.0 IV 1635 98.3 Blood BLOOD SPECIMEN / Unknown Lab Venipuncture / Unknown 03/11/2024 8:26 PM CDT 03/11/2024 8:56 PM CDT Mj Curry MD LAB - CHEMIS TRY ORDERABLES [facility] [address] [place] [address], [facility] [phone] * (ABNORMAL) COMPREHENSIVE METABOLIC PANEL (03/11/2024 8:26 PM CDT) Only the most recent of3 resultswithin the time period is included. BUN 24 7 - 26 mg/dL 03/11/2024 9:28 PM [facility] Creatinine 0.75 0.71 - 1.16 mg/dL 03/11/2024 9:28 PM [facility] Sodium 140 136 - 145 mmol/L 03/11/2024 9:28 PM [facility] Potassium 4.2 3.5 - 4.5 mmol/L 03/11/2024 9:28 PM [facility] Chloride 106 98 - 107 mmol/L 03/11/2024 9:28 PM [facility] CO2 23 22 - 29 mmol/L 03/11/2024 9:28 PM [facility] Glucose 70 70 - 115 mg/dL 03/11/2024 9:28 PM [facility] Calcium 10.7(H) 8.4 - 10.2 mg/dL 03/11/2024 9:28 PM [facility] Protein Total 6.3 6.0 - 8.3 g/dL 03/11/2024 9:28 PM [facility] Albumin 3.5 3.4 - 5.0 g/dL 03/11/2024 9:28 PM [facility] Bilirubin Total 0.5 0.2 - 1.2 mg/dL 03/11/2024 9:28 PM [facility] Alkaline Phosphatase 85 40 - 150 U/L 03/11/2024 9:28 PM [facility] ALT 25 5 - 55 U/L 03/11/2024 9:28 PM [facility] AST 21 5 - 34 U/L 03/11/2024 9:28 PM [facility] Anion Gap 11 6 - 16 03/11/2024 9:28 PM [facility] BUN/Creatinine Ratio 32(H) 7 - 23 03/11/2024 9:28 PM [facility] Osmolality Calculated 292 275 - 295 mOsm/kg 03/11/2024 9:28 PM [facility] Albumin/Globulin Ratio 1.3 1.1 - 2.3 03/11/2024 9:28 PM [facility] eGFR by CKD-EPI >90 >=90 mL/min/1.7 3 m2 03/11/2024 9:28 PM [facility] Blood BLOOD SPECIMEN / Unknown Lab Venipuncture / Unknown 03/11/2024 8:26 PM CDT 03/11/2024 8:56 PM CDT Mj Curry MD LAB - CHEMIS TRY ORDERABLES [facility] [address] [place] [phone], [facility] [phone] * CCL PACEMAKER IMPLANT DUAL CHAMBER (03/06/2024 11:11 AM CDT) Anatomical Region Laterality Modality X-Ray Angiograph y Narrative 03/06/2024 11:22 AM CDT . Procedure Details Estimated Blood Loss: 10 mL Procedure Details and Comments: ELECTROPHYSIOLOGY STUDY REPORT: Dual Chamber PPM Procedures performed: 1. Dual chamber pacemaker implantation Indications: 1. Sinus Node Dysfunction Risks and benefits of the procedure were discussed with the patient and informed consent was obtained. Medications given: 1) Ancef 2 g IV Operators: Dr. Omid May Procedure time: 1 hour 7 min Fluoroscopic time: 8.8 min Procedure Description: Using fluoroscopic guidance the axillary vein was punctured percutaneously under ultrasound guidance and cannulated using the modified Seldinger technique, leaving a guidewire in place. A 4cm long oblique incision was made through the skin and subcutaneous tissue, exposing the pectoral fascia and muscle beneath. A pocket was fashioned for the pulse generator in the subcutaneous space. Hemostasis was readily achieved with electrocautery. Another access was then obtained under fluoroscopic guidance. A peel-away sheath was inserted over one guidewire and the ventricular lead was positioned in the RV apex using fluoroscopic guidance and subsequently screwed into place; satisfactory pacing thresholds and R waves were obtained as described below. A second peel-away sheath was inserted over the remaining guidewire and the atrial lead was then positioned and screwed into place within the right atrial appendage; satisfactory pacing thresholds and P waves were obtained as described below. The leads were secured in place at their entry to the vein using 0-0 Ethibond suture. Ten-volt pacing was used temporarily and assessment made for diaphragmatic stimulation; there was none. The previously-formed pocket was irrigated with antibiotic saline solution as was the rest of the incision. After this, the leads were connected securely to the pulse generator and wrapped carefully behind the generator, and the generator placed in the pocket. A securing suture was used to affix the generator to the subjacent tissue. Hemostasis was assured one last time and the pocket closed. The pectoral fascia was closed with 2-0 Vicryl suture in a running mattress fashion. The subcutaneous and subcuticular layers were closed with 2-0 and 4-0 Vicryl suture using a running stitch. Mastisol and Steri-strips were used to cover the incision. Sponge and needle counts were correct at the end. Generator: [employer] Model: W1DR01 SN: [id number] Atrial lead: Model: 5076-45 SN: [id number] Ventricular: Model: 5076-52 SN: [id number] Measured data: Amplitude: Threshold @ 0.4 ms: Impedance: RA: 3.5 mV 0.75 Volts 589 Ohms RV: 15.0 mV 0.75 Volts 1026 Ohms Final pacemaker parameter programming: The pacing mode is set to AAIR<->DDDR, with lower rate of 60 ppm, upper tracking rate of 130 ppm, upper activity rate of 130 ppm, paced/sensed AV delay of 180/150 ms, respectively. Outputs are as follows: atrial: 3.5V @ 0.4 ms, 0.3 mV sensitivity; ventricular: 3.5V @ 0.4 ms, 1.2 mV sensitivity. Complications: None Summary: 1. Successful implant of a dual chamber permanent pacemaker. Recommendations: 1. Arm immobilization overnight 2. IV antibiotics overnight, then Keflex 500mg PO TID X 3 days 3. Chest X-ray today and in the morning. 4. Device interrogation in the morning. 5. Follow up for wound check in 1 week. Mj Curry MD CV ELECTROPH YSIOLOGY CUPID PROCS * TSH REFLEX FREE T4 (01/28/2024 4:03 AM CDT) TSH 0.793 0.350 - 4.940 uIU/mL 01/28/2024 5:34 AM CDT [facility] Blood BLOOD SPECIMEN / Unknown Lab Venipuncture / Unknown 01/28/2024 4:03 AM CDT 01/28/2024 4:46 AM CDT Jersey Martins MD LAB - CHEMISTRY [facility] [address] [place] [address], [place] [phone] * BLOOD TYPE VERIFICATION (01/27/2024 4:24 AM CDT) ABO Rh O NEG 01/27/2024 4:5 4 AM CDT [facility] Blood Bank BLOOD SPECIMEN / Unknown Lab Venipuncture / Unknown 01/27/2024 4:24 AM CDT 01/27/2024 4:28 AM CDT Jamarcus Nelson MD LAB - BLOOD BANK ORD TAWNYA [facility] [address] [place] [phone], [place] [phone] * TEG 6S PLATELET MAPPING (01/27/2024 12:40 AM CDT) TEGPLM (Max Amplitude) [place] 64.9 53.0 - 68.0 mm 01/27/2024 1:49 AM CDT [facility] TEGPLM (Max Amplitude) ACTF 16.2 2.0 - 19.0 mm 01/27/2024 1:49 AM CDT [facility] TEGPLM (Max Amplitude) ADP 63.3 45.0 - 69.0 mm 01/27/2024 1:49 AM CDT [facility] TEGPLM (Max Amplitude) AA 64.7 51.0 - 71.0 mm 01/27/2024 1:49 AM CDT [facility] TEGPLM %Inhibition ADP 3.3 0.0 - 17.0 % 01/27/2024 1:49 AM CDT [facility] TEGPLM %Inhibition AA 0.4 0.0 - 11.0 % 01/27/2024 1:49 AM CDT [facility] TEGPLM %Aggregation ADP 96.7 83.0 - 100.0 % 01/27/2024 1:49 AM CDT [facility] TEGPLM % Aggregation AA 99.6 89.0 - 100.0 % 01/27/2024 1:49 AM CDT [facility] Blood BLOOD SPECIMEN / Unknown Venipuncture / Unknown 01/27/2024 12:40 AM CDT 01/27/2024 12:45 AM CDT Sree Delgadillo MD LAB - HEMATOLOGY ORD ERABLES [facility] [address] [place] [phone], [facility] [phone] * LIPASE BLOOD (01/27/2024 12:40 AM CDT) Lipase 15 8 - 78 U/L 01/27/2024 1:15 AM CDT [facility] Blood BLOOD SPECIMEN / Unknown Venipuncture / Unknown 01/27/2024 12:40 AM CDT 01/27/2024 12:46 AM CDT Narrative [facility] - 01/27/2024 1:15 AM CDT Lipase results from the [employer] Alinity analyzer may not be comparable with other methodologies. Mason Jerome MD LAB - CHEMISTRY [facility] Performing Organization Address City/[facility]/ZIP Co de Phone Number [facility] [address] [place] [phone], [place] [phone] * LDH BLOOD (01/27/2024 12:40 AM CDT) LDH Total 156 125 - 243 Units/L 01/27/2024 1:15 AM CDT [facility] Blood BLOOD SPECIMEN / Unknown Venipuncture / Unknown 01/27/2024 12:40 AM CDT 01/27/2024 12:46 AM CDT Mason Jerome MD LAB - CHEMISTRY [facility] Performing Organization Address [facility] Co de Phone Number [address] [address], [place] [phone] * MRI BRAIN WO CONTRAST (01/26/2024 8:56 PM CDT) Anatomical Region Laterality Modality Head Magnetic Resonan ce 01/27/2024 6:21 AM CDT Impressions 01/27/2024 6:25 AM CDT IMPRESSION: 1. No evidence of restricted diffusion to suggest an acute infarction. > Interpreting Provider: Velia Espitia MD on 01/27/2024 6:25 AM Narrative 01/27/2024 6:25 AM CDT PROCEDURE: MRI BRAIN WO CONTRAST, DATE/TIME OF EXAM: 01/26/2024 8:56 PM, LOCATION [facility] INDICATION: W19.XXXA: Fall, initial encounter ADDITIONAL CLINICAL INFORMATION: Ordering Provider Reason For Exam: ABNL CT, ? mass Technologist Note: None. Additional: None. EXAMINATION: Magnetic resonance imaging (MRI) of the brain without contrast TECHNIQUE: MRI of the brain was performed without contrast according to standard protocol. COMPARISON: CT of the head from 01/26/2024. FINDINGS: No evidence of acute or chronic hemorrhage is identified. No evidence of acute cerebral infarction is seen. There is mild cerebral volume loss with associated ex vacuo ventricular dilatation. No mass effect or midline shift is seen. Periventricular, subcortical, and pontine white matter FLAIR hyperintensities likely represent sequelae of chronic small vessel ischemic disease. The pituitary height measures approximately 4.6 mm. The corpus callosum and sella appear otherwise grossly unremarkable. The posterior fossa, brainstem, and craniocervical junction appear grossly unremarkable. The visualized portions of the orbits appear grossly unremarkable. Retained secretions with minimal bubbly appearance and air-fluid level in the maxillary sinuses. Opacification of a few and ethmoid air cells. Mild mucosal thickening in the remaining paranasal sinuses. Suspected trace fluid signal in few mastoid air cells on the left. The remaining mastoid air cells appear grossly clear. Normal flow voids are demonstrated in the carotid arteries and basilar artery. The calvarium and visualized cervical spine appear normal. Procedure Note Velia Espitia MD - 01/27/2024 PROCEDURE: MRI BRAIN WO CONTRAST, DATE/TIME OF EXAM: 01/26/2024 8:56PM, LOCATION [facility] INDICATION: W19.XXXA: Fall, initial encounter ADDITIONAL CLINICAL INFORMATION: Ordering Provider Reason For Exam: ABNL CT, ? mass Technologist Note: None. Additional: None. EXAMINATION: Magnetic resonance imaging (MRI) of the brain withoutcontrast TECHNIQUE: MRI of the brain was performed without contrast according to standard protocol. COMPARISON: CT of the head from 01/26/2024. FINDINGS: No evidence of acute or chronic hemorrhage is identified. No evidence of acute cerebral infarction is seen. There is mild cerebral volume losswith associated ex vacuo ventricular dilatation. No mass effect or midlineshift is seen. Periventricular, subcortical, and pontine white matter FLAIR hyperintensities likely represent sequelae of chronic small vesselischemic disease. The pituitary height measures approximately 4.6 mm. The corpus callosum and sella appear otherwise grossly unremarkable. The posterior fossa, brainstem, and craniocervical junction appear grosslyunremarkable. The visualized portions of the orbits appear grossly unremarkable.Retained secretions with minimal bubbly appearance and air-fluid level in the maxillary sinuses. Opacification of a few and ethmoid air cells. Mild mucosal thickening in the remaining paranasal sinuses. Suspected trace fluid signal in few mastoid air cells on the left. The remaining mastoid air cells appear grossly clear. Normal flow voids are demonstrated inthe carotid arteries and basilar artery. The calvarium and visualizedcervical spine appear normal. IMPRESSION: 1. No evidence of restricted diffusion to suggest an acute infarction. > Interpreting Provider: Velia Espitia MD on 01/27/2024 6:25 AM Jamarcus Nelson MD MR ORDERABLES * CT CHEST ABDOMEN PELVIS W CONT - Abdomen-pelvis trauma, blunt or penetrating (01/26/2024 1:36 PM CDT) Anatomical Region Laterality Modality Chest, Abdomen, Pelvis Computed Tomography 01/26/2024 1:36 PM CDT Impressions 01/26/2024 6:35 PM CDT Impression: 1.Subtle left gluteal soft tissue stranding consistent with contusion. 2.No other acute visceral, vascular, or osseus injury identified in the chest, abdomen, or pelvis. 3.Multiple thyroid nodules, with the largest measuring up to 1.9 cm in the right lobe. Consider thyroid ultrasound for further characterization if clinically indicated. 4.Focal gallbladder wall thickening may represent adenomyomatosis. Underlying neoplasm cannot be excluded. Recommend right upper quadrant ultrasound as an outpatient for further characterization. 5.Increased trabeculation of the bilateral iliac bones may represent early Paget disease. 6.Prostatomegaly. Recommend correlation with PSA. > Dictated by Emmett Hernandez MD(residential worker). > Dictated by Emmett Hernandez MD (Commercial Cleaner) 01/26/2024 1:36 PM IJennifer MD have personally reviewed and interpreted this examination/study. > Interpreting Provider: Jennifer Guy MD on 01/26/2024 6:35 PM Narrative 01/26/2024 6:35 PM CDT PROCEDURE: CT CHEST ABDOMEN PELVIS W CONT, DATE/TIME OF EXAM: 01/26/2024 1:38 PM, LOCATION [facility] INDICATION: Trauma ADDITIONAL CLINICAL INFORMATION: Syncopal episode with subsequent ground-level fall. COMPARISON: None. TECHNIQUE: CT of the chest, abdomen, and pelvis was performed after the uneventful administration of 100 mL of Isovue 370 intravenous contrast according to standard protocol. Findings: Chest: Lower Neck and Axillae: 1.9 cm heterogenous nodule with peripheral calcification in the right thyroid lobe (series 3 image 15). Multiple, other subcentimeter hypoattenuating predominant nodules are seen in the bilateral thyroid lobes. No axillary or supraclavicular lymphadenopathy. Lungs: No pulmonary parenchymal or airway process is present. No suspicious pulmonary nodules are identified. No pleural fluid or pneumothorax is present. Calcified granuloma in the right upper lobe. Heart and Pericardium: The cardiac chambers are normal in size. No pericardial fluid or thickening is present. The coronary arteries are mildly atherosclerotic. Aortic valve is atherosclerotic. Mediastinum and Ghazal: No mediastinal mass or hemorrhage is present. Mildly prominent subcentimeter mediastinal lymph nodes are seen; however, there are no enlarged lymph nodes are present. There is a calcified paratracheal lymph node. Thoracic Vasculature: Mild scattered atherosclerosis of the thoracic aorta. Abdomen/pelvis: Liver: Normal. Gallbladder and Bile Ducts: Focal wall thickening of the gallbladder wall at the fundus (series 10 image 56). No gallstones. No pericholecystic fluid. Spleen: Normal. Pancreas: Normal. Adrenals: Normal. Kidneys: Multiple subcentimeter hypoattenuating lesions in both kidneys are too small to characterize, but likely represent cysts. Gastrointestinal: Small hiatal hernia. The stomach is partially decompressed. The small and large bowel are unremarkable. Mesentery/Peritoneum/Retroperitoneum: No free intraperitoneal air. No free fluid in the abdomen or pelvis. Tiny calcification is seen inferior to the gallbladder and may represent a calcified lymph node. Bladder: Normal. Reproductive Organs: The prostate is enlarged, measuring up to 6 cm transversely. Abdominal Vasculature: Atherosclerotic calcification of the aorta and its branch vessels. Bones: Bone windows demonstrate no suspicious lytic or blastic lesions. The visible osseous structures are intact. Degenerative changes are seen in the spine. Increased trabeculation in the bilateral iliac bones. Soft tissues: Subtle left gluteal soft tissue stranding. No hematoma. Multiple surgical clips are seen along the anterior abdomen. Procedure Note Erlinda Guy MD - 01/26/2024 PROCEDURE: CT CHEST ABDOMEN PELVIS W CONT, DATE/TIME OF EXAM:01/26/2024 1:38 PM, LOCATION [facility] INDICATION: Trauma ADDITIONAL CLINICAL INFORMATION: Syncopal episode with subsequent ground-level fall. COMPARISON: None. TECHNIQUE: CT of the chest, abdomen, and pelvis was performed after the uneventful administration of 100 mL of Isovue 370 intravenous contrast according to standard protocol. Findings: Chest: Lower Neck and Axillae: 1.9 cm heterogenous nodule with peripheral calcification in the right thyroid lobe (series 3 image 15). Multiple, other subcentimeter hypoattenuating predominant nodules are seen in the bilateral thyroid lobes. No axillary or supraclavicular lymphadenopathy. Lungs: No pulmonary parenchymal or airway process is present. No suspicious pulmonary nodules are identified. No pleural fluid or pneumothorax is present. Calcified granuloma in the right upper lobe. Heart and Pericardium: The cardiac chambers are normal in size. No pericardial fluid orthickening is present. The coronary arteries are mildly atherosclerotic. Aorticvalve is atherosclerotic. Mediastinum and Ghazal: No mediastinal mass or hemorrhage is present. Mildly prominent subcentimeter mediastinal lymph nodes are seen; however, there are no enlarged lymph nodes are present. There is a calcified paratracheallymph node. Thoracic Vasculature: Mild scattered atherosclerosis of the thoracic aorta. Abdomen/pelvis: Liver: Normal. Gallbladder and Bile Ducts: Focal wall thickening of the gallbladder wall at the fundus (series 10 image 56). No gallstones. No pericholecystic fluid. Spleen: Normal. Pancreas: Normal. Adrenals: Normal. Kidneys: Multiple subcentimeter hypoattenuating lesions in both kidneys are too small to characterize, but likely represent cysts. Gastrointestinal: Small hiatal hernia. The stomach is partially decompressed. The smalland large bowel are unremarkable. Mesentery/Peritoneum/Retroperitoneum: No free intraperitoneal air. No free fluid in the abdomen or pelvis.Tiny calcification is seen inferior to the gallbladder and may represent a calcified lymph node. Bladder: Normal. Reproductive Organs: The prostate is enlarged, measuring up to 6 cm transversely. Abdominal Vasculature: Atherosclerotic calcification of the aorta and its branch vessels. Bones: Bone windows demonstrate no suspicious lytic or blastic lesions. The visible osseous structures are intact. Degenerative changes are seen inthe spine. Increased trabeculation in the bilateral iliac bones. Soft tissues: Subtle left gluteal soft tissue stranding. No hematoma. Multiplesurgical clips are seen along the anterior abdomen. Impression: 1.Subtle left gluteal soft tissue stranding consistent with contusion. 2.No other acute visceral, vascular, or osseus injury identified in the chest, abdomen, or pelvis. 3.Multiple thyroid nodules, with the largest measuring up to 1.9 cm inthe right lobe. Consider thyroid ultrasound for further characterization if clinically indicated. 4.Focal gallbladder wall thickening may represent adenomyomatosis. Underlying neoplasm cannot be excluded. Recommend right upper quadrant ultrasound as an outpatient for further characterization. 5.Increased trabeculation of the bilateral iliac bones may representearly Paget disease. 6.Prostatomegaly. Recommend correlation with PSA. > Dictated by Emmett Hernandez MD(residential worker). > Dictated by Emmett Hernandez MD (Commercial Cleaner) 01/26/2024 1:36 PM Jennifer Hogue MD have personally reviewed and interpreted this examination/study. > Interpreting Provider: Jennifer Guy MD on 01/26/2024 6:35 PM Sree Delgadillo MD CT ORDERABLES * CT LUMBAR SPINE WO CONTRAST - T/L-spine trauma, Spine fracture (01/26/2024 1:36 PM CDT) Anatomical Region Laterality Modality Spine Computed Tomogra phy 01/26/2024 1:41 PM CDT Impressions 01/26/2024 2:35 PM CDT IMPRESSION: 1.Right parieto-occipital scalp hematoma. 2.No acute intracranial process. 3.No evidence of acute fracture in the cervical, thoracic, or lumbar spine. 4.A partially calcified 1.8 cm nodule in the right lobe of the thyroid gland. Recommend a nonemergent thyroid sonogram to further evaluate. > Dictated by Isac Shafer DO (resident advisor) Steve Hogue MD have personally reviewed and interpreted this examination/study. > Interpreting Provider: Steve Neumann MD on 01/26/2024 2:35 PM Narrative 01/26/2024 2:35 PM CDT PROCEDURE: CT HEAD WO CONTRAST, CT LUMBAR SPINE WO CONTRAST, CT THORACIC SPINE WO CONTRAST, CT CERVICAL SPINE WO CONTRAST, DATE/TIME OF EXAM: 01/26/2024 1:38 PM, LOCATION [facility] INDICATION: Trauma COMPARISON: None. TECHNIQUE: CT of the head and cervical spine was performed without contrast according to standard protocol. Reformatted axial, sagittal, and coronal images of the thoracic and lumbar spine were obtained by the technologist from a concurrently performed body CT and sent to the workstation for review. FINDINGS: Head: No acute intra- or extra-axial fluid collections are identified. There is mild cerebral volume loss with associated ex vacuo ventricular dilatation. The basilar cisterns are patent. No mass effect or midline shift is seen. The vega-white matter differentiation is normal. Periventricular white matter hypoattenuation is indicative of chronic small vessel ischemic disease. There is vascular calcification of the carotid siphons. No acute calvarial fracture is identified. The orbits appear normal. Frothy secretions noted within the maxillary sinuses bilaterally. Partial opacification of the ethmoid air cells. The frontal and sphenoid sinuses are clear. The mastoid air cells are clear. Right parieto-occipital scalp hematoma. Cervical spine: Grade 1 anterolisthesis of 6 on C7. Vertebral bodies are normal in height without evidence of acute fracture. Other than middle atlantoaxial joint osteoarthritis, the craniocervical junction appears normal. There is mild to moderate degenerative disc disease. No central canal stenosis is seen. There are varying degrees of advanced facet osteoarthritis. There are varying degrees of advanced uncovertebral joint osteoarthritis with the same degree of neural foraminal stenosis at these levels. There is a partially calcified nodule in the right lobe of thyroid gland measuring approximately 1.8 cm. Recommend a thyroid sonogram to further evaluate. Thoracic spine: Following ossification anterior to the thoracic vertebral bodies consistent with diffuse idiopathic skeletal hyperostosis. Slightly nodular thoracic kyphosis. Vertebral bodies are normal in height without evidence of acute fracture. There is mild degenerative disc disease. No central canal stenosis is seen. There is mild facet osteoarthritis at multiple levels. No neural foraminal stenosis is seen. There is atherosclerotic calcification of the thoracic aorta and its branch vessels. There is a 5 mm calcified nodule in the right upper lobe of the lung. Lumbar spine: Mild levocurvature. Vertebral bodies are normal in height without evidence of acute fracture. There is mild degenerative disc disease. No central canal stenosis is seen. There is mild facet osteoarthritis at multiple levels. There are varying degrees of neural foraminal stenosis at multiple levels. Atherosclerosis of the aorta and its branches. 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 Procedure Note Steve Neumann MD - 01/26/2024 PROCEDURE: CT HEAD WO CONTRAST, CT LUMBAR SPINE WO CONTRAST, CTTHORACIC SPINE WO CONTRAST, CT CERVICAL SPINE WO CONTRAST, DATE/TIME OF EXAM: 01/26/2024 1:38 PM, LOCATION [facility] INDICATION: Trauma COMPARISON: None. TECHNIQUE: CT of the head and cervical spine was performed withoutcontrast according to standard protocol. Reformatted axial, sagittal, and coronal images of the thoracic and lumbar spine were obtained by thetechnologist from a concurrently performed body CT and sent to the workstation for review. FINDINGS: Head: No acute intra- or extra-axial fluid collections are identified. Thereis mild cerebral volume loss with associated ex vacuo ventriculardilatation. The basilar cisterns are patent. No mass effect or midline shift isseen. The vega-white matter differentiation is normal. Periventricular white matter hypoattenuation is indicative of chronic small vessel ischemic disease. There is vascular calcification of the carotid siphons. Noacute calvarial fracture is identified. The orbits appear normal. Frothy secretions noted within the maxillary sinuses bilaterally. Partial opacification of the ethmoid air cells. The frontal and sphenoid sinuses are clear. The mastoid air cells are clear. Right parieto-occipital scalp hematoma. Cervical spine: Grade 1 anterolisthesis of 6 on C7. Vertebral bodies are normal inheight without evidence of acute fracture. Other than middle atlantoaxial joint osteoarthritis, the craniocervical junction appears normal. There ismild to moderate degenerative disc disease. No central canal stenosis isseen. There are varying degrees of advanced facet osteoarthritis. There are varying degrees of advanced uncovertebral joint osteoarthritis with the same degree of neural foraminal stenosis at these levels. There is a partially calcified nodule in the right lobe of thyroid gland measuring approximately 1.8 cm. Recommend a thyroid sonogram to further evaluate. Thoracic spine: Following ossification anterior to the thoracic vertebral bodiesconsistent with diffuse idiopathic skeletal hyperostosis. Slightly nodular thoracic kyphosis. Vertebral bodies are normal in height without evidence ofacute fracture. There is mild degenerative disc disease. No central canal stenosis is seen. There is mild facet osteoarthritis at multiple levels.No neural foraminal stenosis is seen. There is atheroscleroticcalcification of the thoracic aorta and its branch vessels. There is a 5 mm calcified nodule in the right upper lobe of the lung. Lumbar spine: Mild levocurvature. Vertebral bodies are normal in height withoutevidence of acute fracture. There is mild degenerative disc disease. No central canal stenosis is seen. There is mild facet osteoarthritis at multiple levels. There are varying degrees of neural foraminal stenosis atmultiple levels. Atherosclerosis of the aorta and its branches. 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 IMPRESSION: 1.Right parieto-occipital scalp hematoma. 2.No acute intracranial process. 3.No evidence of acute fracture in the cervical, thoracic, or lumbarspine. 4.A partially calcified 1.8 cm nodule in the right lobe of the thyroid gland. Recommend a nonemergent thyroid sonogram to further evaluate. > Dictated by Isac Shafer DO (resident advisor) Steve Hogue MD have personally reviewed and interpreted this examination/study. > Interpreting Provider: Steve Neumann MD on 01/26/2024 2:35 PM Sree Delgadillo MD CT ORDERABLES * CT THORACIC SPINE WO CONTRAST - T/L-spine trauma, spine fracture (01/26/2024 1:36 PM CDT) Anatomical Region Laterality Modality Spine Computed Tomogra phy 01/26/2024 1:41 PM CDT Impressions 01/26/2024 2:35 PM CDT IMPRESSION: 1.Right parieto-occipital scalp hematoma. 2.No acute intracranial process. 3.No evidence of acute fracture in the cervical, thoracic, or lumbar spine. 4.A partially calcified 1.8 cm nodule in the right lobe of the thyroid gland. Recommend a nonemergent thyroid sonogram to further evaluate. > Dictated by Isac Shafer DO (resident advisor) Steve Hogue MD have personally reviewed and interpreted this examination/study. > Interpreting Provider: Steve Neumann MD on 01/26/2024 2:35 PM Narrative 01/26/2024 2:35 PM CDT PROCEDURE: CT HEAD WO CONTRAST, CT LUMBAR SPINE WO CONTRAST, CT THORACIC SPINE WO CONTRAST, CT CERVICAL SPINE WO CONTRAST, DATE/TIME OF EXAM: 01/26/2024 1:38 PM, LOCATION [facility] INDICATION: Trauma COMPARISON: None. TECHNIQUE: CT of the head and cervical spine was performed without contrast according to standard protocol. Reformatted axial, sagittal, and coronal images of the thoracic and lumbar spine were obtained by the technologist from a concurrently performed body CT and sent to the workstation for review. FINDINGS: Head: No acute intra- or extra-axial fluid collections are identified. There is mild cerebral volume loss with associated ex vacuo ventricular dilatation. The basilar cisterns are patent. No mass effect or midline shift is seen. The vega-white matter differentiation is normal. Periventricular white matter hypoattenuation is indicative of chronic small vessel ischemic disease. There is vascular calcification of the carotid siphons. No acute calvarial fracture is identified. The orbits appear normal. Frothy secretions noted within the maxillary sinuses bilaterally. Partial opacification of the ethmoid air cells. The frontal and sphenoid sinuses are clear. The mastoid air cells are clear. Right parieto-occipital scalp hematoma. Cervical spine: Grade 1 anterolisthesis of 6 on C7. Vertebral bodies are normal in height without evidence of acute fracture. Other than middle atlantoaxial joint osteoarthritis, the craniocervical junction appears normal. There is mild to moderate degenerative disc disease. No central canal stenosis is seen. There are varying degrees of advanced facet osteoarthritis. There are varying degrees of advanced uncovertebral joint osteoarthritis with the same degree of neural foraminal stenosis at these levels. There is a partially calcified nodule in the right lobe of thyroid gland measuring approximately 1.8 cm. Recommend a thyroid sonogram to further evaluate. Thoracic spine: Following ossification anterior to the thoracic vertebral bodies consistent with diffuse idiopathic skeletal hyperostosis. Slightly nodular thoracic kyphosis. Vertebral bodies are normal in height without evidence of acute fracture. There is mild degenerative disc disease. No central canal stenosis is seen. There is mild facet osteoarthritis at multiple levels. No neural foraminal stenosis is seen. There is atherosclerotic calcification of the thoracic aorta and its branch vessels. There is a 5 mm calcified nodule in the right upper lobe of the lung. Lumbar spine: Mild levocurvature. Vertebral bodies are normal in height without evidence of acute fracture. There is mild degenerative disc disease. No central canal stenosis is seen. There is mild facet osteoarthritis at multiple levels. There are varying degrees of neural foraminal stenosis at multiple levels. Atherosclerosis of the aorta and its branches. 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 Procedure Note Steve Neumann MD - 01/26/2024 PROCEDURE: CT HEAD WO CONTRAST, CT LUMBAR SPINE WO CONTRAST, CTTHORACIC SPINE WO CONTRAST, CT CERVICAL SPINE WO CONTRAST, DATE/TIME OF EXAM: 01/26/2024 1:38 PM, LOCATION [facility] INDICATION: Trauma COMPARISON: None. TECHNIQUE: CT of the head and cervical spine was performed withoutcontrast according to standard protocol. Reformatted axial, sagittal, and coronal images of the thoracic and lumbar spine were obtained by thetechnologist from a concurrently performed body CT and sent to the workstation for review. FINDINGS: Head: No acute intra- or extra-axial fluid collections are identified. Thereis mild cerebral volume loss with associated ex vacuo ventriculardilatation. The basilar cisterns are patent. No mass effect or midline shift isseen. The vega-white matter differentiation is normal. Periventricular white matter hypoattenuation is indicative of chronic small vessel ischemic disease. There is vascular calcification of the carotid siphons. Noacute calvarial fracture is identified. The orbits appear normal. Frothy secretions noted within the maxillary sinuses bilaterally. Partial opacification of the ethmoid air cells. The frontal and sphenoid sinuses are clear. The mastoid air cells are clear. Right parieto-occipital scalp hematoma. Cervical spine: Grade 1 anterolisthesis of 6 on C7. Vertebral bodies are normal inheight without evidence of acute fracture. Other than middle atlantoaxial joint osteoarthritis, the craniocervical junction appears normal. There ismild to moderate degenerative disc disease. No central canal stenosis isseen. There are varying degrees of advanced facet osteoarthritis. There are varying degrees of advanced uncovertebral joint osteoarthritis with the same degree of neural foraminal stenosis at these levels. There is a partially calcified nodule in the right lobe of thyroid gland measuring approximately 1.8 cm. Recommend a thyroid sonogram to further evaluate. Thoracic spine: Following ossification anterior to the thoracic vertebral bodiesconsistent with diffuse idiopathic skeletal hyperostosis. Slightly nodular thoracic kyphosis. Vertebral bodies are normal in height without evidence ofacute fracture. There is mild degenerative disc disease. No central canal stenosis is seen. There is mild facet osteoarthritis at multiple levels.No neural foraminal stenosis is seen. There is atheroscleroticcalcification of the thoracic aorta and its branch vessels. There is a 5 mm calcified nodule in the right upper lobe of the lung. Lumbar spine: Mild levocurvature. Vertebral bodies are normal in height withoutevidence of acute fracture. There is mild degenerative disc disease. No central canal stenosis is seen. There is mild facet osteoarthritis at multiple levels. There are varying degrees of neural foraminal stenosis atmultiple levels. Atherosclerosis of the aorta and its branches. 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 IMPRESSION: 1.Right parieto-occipital scalp hematoma. 2.No acute intracranial process. 3.No evidence of acute fracture in the cervical, thoracic, or lumbarspine. 4.A partially calcified 1.8 cm nodule in the right lobe of the thyroid gland. Recommend a nonemergent thyroid sonogram to further evaluate. > Dictated by Isac Shafer DO (resident advisor) Steve Hogue MD have personally reviewed and interpreted this examination/study. > Interpreting Provider: Steve Neumann MD on 01/26/2024 2:35 PM Sree Delgadillo MD CT ORDERABLES * CT CERVICAL SPINE WO CONTRAST - C-Spine Trauma, Spine fracture (01/26/2024 1:36 PM CDT) Anatomical Region Laterality Modality Spine Computed Tomogra phy 01/26/2024 1:41 PM CDT Impressions 01/26/2024 2:35 PM CDT IMPRESSION: 1.Right parieto-occipital scalp hematoma. 2.No acute intracranial process. 3.No evidence of acute fracture in the cervical, thoracic, or lumbar spine. 4.A partially calcified 1.8 cm nodule in the right lobe of the thyroid gland. Recommend a nonemergent thyroid sonogram to further evaluate. > Dictated by Isac Shafer DO (resident advisor) Steve Hogue MD have personally reviewed and interpreted this examination/study. > Interpreting Provider: Steve Neumann MD on 01/26/2024 2:35 PM Narrative 01/26/2024 2:35 PM CDT PROCEDURE: CT HEAD WO CONTRAST, CT LUMBAR SPINE WO CONTRAST, CT THORACIC SPINE WO CONTRAST, CT CERVICAL SPINE WO CONTRAST, DATE/TIME OF EXAM: 01/26/2024 1:38 PM, LOCATION [facility] INDICATION: Trauma COMPARISON: None. TECHNIQUE: CT of the head and cervical spine was performed without contrast according to standard protocol. Reformatted axial, sagittal, and coronal images of the thoracic and lumbar spine were obtained by the technologist from a concurrently performed body CT and sent to the workstation for review. FINDINGS: Head: No acute intra- or extra-axial fluid collections are identified. There is mild cerebral volume loss with associated ex vacuo ventricular dilatation. The basilar cisterns are patent. No mass effect or midline shift is seen. The vega-white matter differentiation is normal. Periventricular white matter hypoattenuation is indicative of chronic small vessel ischemic disease. There is vascular calcification of the carotid siphons. No acute calvarial fracture is identified. The orbits appear normal. Frothy secretions noted within the maxillary sinuses bilaterally. Partial opacification of the ethmoid air cells. The frontal and sphenoid sinuses are clear. The mastoid air cells are clear. Right parieto-occipital scalp hematoma. Cervical spine: Grade 1 anterolisthesis of 6 on C7. Vertebral bodies are normal in height without evidence of acute fracture. Other than middle atlantoaxial joint osteoarthritis, the craniocervical junction appears normal. There is mild to moderate degenerative disc disease. No central canal stenosis is seen. There are varying degrees of advanced facet osteoarthritis. There are varying degrees of advanced uncovertebral joint osteoarthritis with the same degree of neural foraminal stenosis at these levels. There is a partially calcified nodule in the right lobe of thyroid gland measuring approximately 1.8 cm. Recommend a thyroid sonogram to further evaluate. Thoracic spine: Following ossification anterior to the thoracic vertebral bodies consistent with diffuse idiopathic skeletal hyperostosis. Slightly nodular thoracic kyphosis. Vertebral bodies are normal in height without evidence of acute fracture. There is mild degenerative disc disease. No central canal stenosis is seen. There is mild facet osteoarthritis at multiple levels. No neural foraminal stenosis is seen. There is atherosclerotic calcification of the thoracic aorta and its branch vessels. There is a 5 mm calcified nodule in the right upper lobe of the lung. Lumbar spine: Mild levocurvature. Vertebral bodies are normal in height without evidence of acute fracture. There is mild degenerative disc disease. No central canal stenosis is seen. There is mild facet osteoarthritis at multiple levels. There are varying degrees of neural foraminal stenosis at multiple levels. Atherosclerosis of the aorta and its branches. 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 Procedure Note Steve Neumann MD - 01/26/2024 PROCEDURE: CT HEAD WO CONTRAST, CT LUMBAR SPINE WO CONTRAST, CTTHORACIC SPINE WO CONTRAST, CT CERVICAL SPINE WO CONTRAST, DATE/TIME OF EXAM: 01/26/2024 1:38 PM, LOCATION [facility] INDICATION: Trauma COMPARISON: None. TECHNIQUE: CT of the head and cervical spine was performed withoutcontrast according to standard protocol. Reformatted axial, sagittal, and coronal images of the thoracic and lumbar spine were obtained by thetechnologist from a concurrently performed body CT and sent to the workstation for review. FINDINGS: Head: No acute intra- or extra-axial fluid collections are identified. Thereis mild cerebral volume loss with associated ex vacuo ventriculardilatation. The basilar cisterns are patent. No mass effect or midline shift isseen. The vega-white matter differentiation is normal. Periventricular white matter hypoattenuation is indicative of chronic small vessel ischemic disease. There is vascular calcification of the carotid siphons. Noacute calvarial fracture is identified. The orbits appear normal. Frothy secretions noted within the maxillary sinuses bilaterally. Partial opacification of the ethmoid air cells. The frontal and sphenoid sinuses are clear. The mastoid air cells are clear. Right parieto-occipital scalp hematoma. Cervical spine: Grade 1 anterolisthesis of 6 on C7. Vertebral bodies are normal inheight without evidence of acute fracture. Other than middle atlantoaxial joint osteoarthritis, the craniocervical junction appears normal. There ismild to moderate degenerative disc disease. No central canal stenosis isseen. There are varying degrees of advanced facet osteoarthritis. There are varying degrees of advanced uncovertebral joint osteoarthritis with the same degree of neural foraminal stenosis at these levels. There is a partially calcified nodule in the right lobe of thyroid gland measuring approximately 1.8 cm. Recommend a thyroid sonogram to further evaluate. Thoracic spine: Following ossification anterior to the thoracic vertebral bodiesconsistent with diffuse idiopathic skeletal hyperostosis. Slightly nodular thoracic kyphosis. Vertebral bodies are normal in height without evidence ofacute fracture. There is mild degenerative disc disease. No central canal stenosis is seen. There is mild facet osteoarthritis at multiple levels.No neural foraminal stenosis is seen. There is atheroscleroticcalcification of the thoracic aorta and its branch vessels. There is a 5 mm calcified nodule in the right upper lobe of the lung. Lumbar spine: Mild levocurvature. Vertebral bodies are normal in height withoutevidence of acute fracture. There is mild degenerative disc disease. No central canal stenosis is seen. There is mild facet osteoarthritis at multiple levels. There are varying degrees of neural foraminal stenosis atmultiple levels. Atherosclerosis of the aorta and its branches. 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 IMPRESSION: 1.Right parieto-occipital scalp hematoma. 2.No acute intracranial process. 3.No evidence of acute fracture in the cervical, thoracic, or lumbarspine. 4.A partially calcified 1.8 cm nodule in the right lobe of the thyroid gland. Recommend a nonemergent thyroid sonogram to further evaluate. > Dictated by Isac Shafer DO (resident advisor) Steve Hogue MD have personally reviewed and interpreted this examination/study. > Interpreting Provider: Steve Neumann MD on 01/26/2024 2:35 PM Sree Delgadillo MD CT ORDERABLES * CT HEAD WO CONTRAST - Head Trauma, CSF leak, mental status changes (01/26/2024 1:36 PM CDT) Anatomical Region Laterality Modality Head Computed Tomogra phy 01/26/2024 1:41 PM CDT Impressions 01/26/2024 2:35 PM CDT IMPRESSION: 1.Right parieto-occipital scalp hematoma. 2.No acute intracranial process. 3.No evidence of acute fracture in the cervical, thoracic, or lumbar spine. 4.A partially calcified 1.8 cm nodule in the right lobe of the thyroid gland. Recommend a nonemergent thyroid sonogram to further evaluate. > Dictated by Isac Shafer DO (resident advisor) Steve Hogue MD have personally reviewed and interpreted this examination/study. > Interpreting Provider: Steve Neumann MD on 01/26/2024 2:35 PM Narrative 01/26/2024 2:35 PM CDT PROCEDURE: CT HEAD WO CONTRAST, CT LUMBAR SPINE WO CONTRAST, CT THORACIC SPINE WO CONTRAST, CT CERVICAL SPINE WO CONTRAST, DATE/TIME OF EXAM: 01/26/2024 1:38 PM, LOCATION [facility] INDICATION: Trauma COMPARISON: None. TECHNIQUE: CT of the head and cervical spine was performed without contrast according to standard protocol. Reformatted axial, sagittal, and coronal images of the thoracic and lumbar spine were obtained by the technologist from a concurrently performed body CT and sent to the workstation for review. FINDINGS: Head: No acute intra- or extra-axial fluid collections are identified. There is mild cerebral volume loss with associated ex vacuo ventricular dilatation. The basilar cisterns are patent. No mass effect or midline shift is seen. The vega-white matter differentiation is normal. Periventricular white matter hypoattenuation is indicative of chronic small vessel ischemic disease. There is vascular calcification of the carotid siphons. No acute calvarial fracture is identified. The orbits appear normal. Frothy secretions noted within the maxillary sinuses bilaterally. Partial opacification of the ethmoid air cells. The frontal and sphenoid sinuses are clear. The mastoid air cells are clear. Right parieto-occipital scalp hematoma. Cervical spine: Grade 1 anterolisthesis of 6 on C7. Vertebral bodies are normal in height without evidence of acute fracture. Other than middle atlantoaxial joint osteoarthritis, the craniocervical junction appears normal. There is mild to moderate degenerative disc disease. No central canal stenosis is seen. There are varying degrees of advanced facet osteoarthritis. There are varying degrees of advanced uncovertebral joint osteoarthritis with the same degree of neural foraminal stenosis at these levels. There is a partially calcified nodule in the right lobe of thyroid gland measuring approximately 1.8 cm. Recommend a thyroid sonogram to further evaluate. Thoracic spine: Following ossification anterior to the thoracic vertebral bodies consistent with diffuse idiopathic skeletal hyperostosis. Slightly nodular thoracic kyphosis. Vertebral bodies are normal in height without evidence of acute fracture. There is mild degenerative disc disease. No central canal stenosis is seen. There is mild facet osteoarthritis at multiple levels. No neural foraminal stenosis is seen. There is atherosclerotic calcification of the thoracic aorta and its branch vessels. There is a 5 mm calcified nodule in the right upper lobe of the lung. Lumbar spine: Mild levocurvature. Vertebral bodies are normal in height without evidence of acute fracture. There is mild degenerative disc disease. No central canal stenosis is seen. There is mild facet osteoarthritis at multiple levels. There are varying degrees of neural foraminal stenosis at multiple levels. Atherosclerosis of the aorta and its branches. 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 Procedure Note Steve Neumann MD - 01/26/2024 PROCEDURE: CT HEAD WO CONTRAST, CT LUMBAR SPINE WO CONTRAST, CTTHORACIC SPINE WO CONTRAST, CT CERVICAL SPINE WO CONTRAST, DATE/TIME OF EXAM: 01/26/2024 1:38 PM, LOCATION [facility] INDICATION: Trauma COMPARISON: None. TECHNIQUE: CT of the head and cervical spine was performed withoutcontrast according to standard protocol. Reformatted axial, sagittal, and coronal images of the thoracic and lumbar spine were obtained by thetechnologist from a concurrently performed body CT and sent to the workstation for review. FINDINGS: Head: No acute intra- or extra-axial fluid collections are identified. Thereis mild cerebral volume loss with associated ex vacuo ventriculardilatation. The basilar cisterns are patent. No mass effect or midline shift isseen. The vega-white matter differentiation is normal. Periventricular white matter hypoattenuation is indicative of chronic small vessel ischemic disease. There is vascular calcification of the carotid siphons. Noacute calvarial fracture is identified. The orbits appear normal. Frothy secretions noted within the maxillary sinuses bilaterally. Partial opacification of the ethmoid air cells. The frontal and sphenoid sinuses are clear. The mastoid air cells are clear. Right parieto-occipital scalp hematoma. Cervical spine: Grade 1 anterolisthesis of 6 on C7. Vertebral bodies are normal inheight without evidence of acute fracture. Other than middle atlantoaxial joint osteoarthritis, the craniocervical junction appears normal. There ismild to moderate degenerative disc disease. No central canal stenosis isseen. There are varying degrees of advanced facet osteoarthritis. There are varying degrees of advanced uncovertebral joint osteoarthritis with the same degree of neural foraminal stenosis at these levels. There is a partially calcified nodule in the right lobe of thyroid gland measuring approximately 1.8 cm. Recommend a thyroid sonogram to further evaluate. Thoracic spine: Following ossification anterior to the thoracic vertebral bodiesconsistent with diffuse idiopathic skeletal hyperostosis. Slightly nodular thoracic kyphosis. Vertebral bodies are normal in height without evidence ofacute fracture. There is mild degenerative disc disease. No central canal stenosis is seen. There is mild facet osteoarthritis at multiple levels.No neural foraminal stenosis is seen. There is atheroscleroticcalcification of the thoracic aorta and its branch vessels. There is a 5 mm calcified nodule in the right upper lobe of the lung. Lumbar spine: Mild levocurvature. Vertebral bodies are normal in height withoutevidence of acute fracture. There is mild degenerative disc disease. No central canal stenosis is seen. There is mild facet osteoarthritis at multiple levels. There are varying degrees of neural foraminal stenosis atmultiple levels. Atherosclerosis of the aorta and its branches. 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 IMPRESSION: 1.Right parieto-occipital scalp hematoma. 2.No acute intracranial process. 3.No evidence of acute fracture in the cervical, thoracic, or lumbarspine. 4.A partially calcified 1.8 cm nodule in the right lobe of the thyroid gland. Recommend a nonemergent thyroid sonogram to further evaluate. > Dictated by Isac Shafer DO (resident advisor) Steve Hogue MD have personally reviewed and interpreted this examination/study. > Interpreting Provider: Steve Neumann MD on 01/26/2024 2:35 PM Sree Delgadillo MD CT ORDERABLES * XR PELVIS 1 OR 2VW (01/26/2024 1:15 PM CDT) Anatomical Region Laterality Modality Pelvis Radiographic Jessica ging 01/26/2024 1:23 PM CDT Impressions 01/26/2024 2:48 PM CDT IMPRESSION: No acute fracture identified. Report dictated by José Grimes DO (residential worker). Carolina Hogue MD have personally reviewed and interpreted this examination/study. > Interpreting Provider: Carolina Draper MD on 01/26/2024 2:48 PM Narrative 01/26/2024 2:48 PM CDT PROCEDURE: XR PELVIS 1 OR 2VW, DATE/TIME OF EXAM: 01/26/2024 1:18 PM, LOCATION [facility] INDICATION: Trauma Fracture suspected ADDITIONAL CLINICAL INFORMATION: Ordering Provider Reason For Exam: Technologist Note: Additional: None. COMPARISON: None. FINDINGS: Herniorrhaphy tacks superimposes the pelvis. No acute fracture is identified. The femoral heads appear well-seated within their respective acetabula. The pubic symphysis is intact. Bone density and texture are normal. The sacroiliac joints are normal. Procedure Note Carolina Draper MD - 01/26/2024 PROCEDURE: XR PELVIS 1 OR 2VW, DATE/TIME OF EXAM: 01/26/2024 1:18 PM, LOCATION [facility] INDICATION: Trauma Fracture suspected ADDITIONAL CLINICAL INFORMATION: Ordering Provider Reason For Exam: Technologist Note: Additional: None. COMPARISON: None. FINDINGS: Herniorrhaphy tacks superimposes the pelvis. No acute fracture is identified. The femoral heads appear well-seated within their respective acetabula. The pubic symphysis is intact. Bone density and texture are normal. The sacroiliac joints are normal. IMPRESSION: No acute fracture identified. Report dictated by José Grimes DO (residential worker). ICarolina MD have personally reviewed and interpreted this examination/study. > Interpreting Provider: Carolina Draper MD on 01/26/2024 2:48 PM Sree Delgadillo MD DIAGNOSTIC IMAGING O RDERABLES * TEG 6 GLOBAL HEMOSTASIS W/ LYSIS (01/26/2024 1:12 PM CDT) Citrated Kaolin R (Reaction Time) 7.3 4.6 - 9.1 min 01/26/2024 2:32 PM CDT [facility] Citrated Kaolin LY30 (Lysis) 0.6 0.0 - 2.6 % 01/26/2024 2:32 PM CDT [facility] Citrated Functional Fibrinogen MA (Max Amplitude) 22.5 15.0 - 32.0 mm 01/26/2024 2:32 PM CDT [facility] Citrated RapidTEG MA (Max Amplitude) 65.3 52.0 - 70.0 mm 01/26/2024 2:32 PM CDT [facility] Blood BLOOD SPECIMEN / Unknown Venipuncture / Unknown 01/26/2024 1:12 PM CDT 01/26/2024 1:19 PM CDT Sree Delgadillo MD LAB - HEMATOLOGY ORD ERABLES [address] [address], [place] [phone] * PT-INR [facility] (01/26/2024 1:12 PM CDT) [facility] PT 13.0 12.1 - 14.8 Seconds 01/26/2024 1:46 PM CDT [facility] INR 1.0 See Comment 01/26/2024 1:46 PM CDT [facility] Comment:The suggested therap eutic range for standard coumadin (warfarin) therapy is an INR of 2.0-3.0. For high-risk patients (Mechanical Mitral Valve Prosthesis, etc.), the suggested prophylactic therapeutic range is an INR of 2.5-3.5. Blood BLOOD SPECIMEN / Unknown Venipuncture / Unknown 01/26/2024 1:12 PM CDT 01/26/2024 1:15 PM CDT Sree Delgadillo MD LAB - COAGULATION OR DERABLES [address] [address], [place] [phone] * TYPE + SCREEN PANEL (01/26/2024 1:12 PM CDT) [facility] Antibody Screen NEG 2:18 PM CDT [facility] LAB ABO Rh O NEG 01/26/2024 2:18 PM CDT [facility] Blood Bank BLOOD SPECIMEN / Unknown Venipuncture / Unknown 01/26/2024 1:12 PM CDT 01/26/2024 1:22 PM CDT Sree Delgadillo MD LAB - BLOOD BANK ORD ERABLES [facility] [address] [place] [address], [facility] [phone] * ALCOHOL ETHYL BLOOD (01/26/2024 1:12 PM CDT) [facility] Ethanol (mg/dL) <10 <10 mg/dL 1:47 PM CDT [facility] Ethanol Calculated (g/dL) <0.010 <=0.010 g/dL 01/26/2024 1:47 PM CDT [facility] Blood BLOOD SPECIMEN / Unknown Venipuncture / Unknown 01/26/2024 1:12 PM CDT 01/26/2024 1:26 PM CDT Narrative [facility] - 01/26/2024 1:47 PM CDT Ethanol Interp <10: None Detected. Depression of HOT BLAST WORKER: >100 mg/dl Potentially Critical: >250 mg/dl Potentially Fatal >400 mg/dl Ethanol in the patient's blood will contribute to the osmolar gap. Ethanol's contribution to the osmolar gap can be estimated by dividing the concentration of ethanol in mg/dL by 4.6. This test is for clinical use only and does not equal a DAVID for legal purposes. Sree Delgadillo MD LAB - CHEMISTRY [facility] Organization Address City/State/ZIP Co de Phone Number [facility] [address] [place] [address], [facility] [phone] Care Teams Automation Test Engineer Relationship Specialty Start Date End Date Baljit Conley MD [address] [place] [id number] PCP - General 11/19/21
--- OUTSIDE RECORDS SUMMARY | 2025-01-07 08:59 | XMS_ITS | Clinical Summary ---
Author Organization 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 Machine Operator Name Role Phone Baljit Conley MD Primary Care Provider [phone] Allergies Active Allergy Reactions Criticality Noted Date Comments Blueberry Itching Low 04/24/2024 Covid-19 Vacc,Mrna(Moderna)-Pf Other (See comments) Low 04/24/2024 Passed out x 17 hrs Emblica Officinalis (Bhutanese Gooseberry) Itching Low 04/24/2024 Medications citalopram (CeleXA) [...] with arthropathy 03/17/2014 Overview (02/05/2017): PSORIATIC ARTHROPATHY Surgical History Surgery Date Site/Laterality Comments TONSILLECTOMY Tonsillectomy APPENDECTOMY Appendectomy HERNIA REPAIR CARDIAC PACEMAKER PLACEMENT Medical History Medical History Date Comments Peptic ulcer peptic ulcer dis ease HL (hearing loss) Voice disorder Allergic rhinitis Anxiety Heart disease Tinnitus Dizziness Family History Medical History Relation Name Comments Diabetes Sister Relation Name Status Comments Sister Social History Tobacco Use Types Packs/Day Years [...] on file 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 Gender Identity Not on file Sexual Orientation Not on file Obstetrics History Last Filed Vital Signs Vital Sign Reading [...] 04/24/2024 10:43 AM CDT Plan of Treatment Health Maintenance Due Date Last Done Comments Depression Screening 1945 Fall Risk Assessment 1945 Hepatitis C Screening 1945 Hepatitis B Screening 1964 Zoster Vaccine (1 of 2) 1996 Well Visit 65+ 2011 Pneumococcal vaccine 65+ (2 of 2 - PPSV23) 05/14/2017 05/14/2016, 10/22/2015, 10/17/2015 Covid-19 Vaccine (2023-2 5 season) 2024 08/19/2023, 07/24/2022, 02/05/2022, Additional history exists Influenza Vaccine (#1) 2024 , 07/17/2022, 08/11/2021, Additional history exists DTaP/Tdap/Td Vaccine (2 - Td or Tdap) 01/25/2034 01/26/2024 Insurance [employer] Care Teams Black Top Spreader Machine Operator Relationship Specialty Start Date End Date Baljit Conley MD [address] [place] [address] [place] [id number] PCP - General Family Medicine 03/30/24
--- NOTE | 2025-01-07 09:10 | ECG_ITS ---
Test Date: 2025-01-07 09:33:58 Measurements Intervals [place] Rate: 62 P: 96 FL: 287 QRS: 61 QRSD: 139 T: 57 QT: 407 QTc: 415 Interpretive Statements ELECTRONIC ATRIAL PACEMAKER RIGHT BUNDLE BRANCH BLOCK [120+ ms QRS DURATION, UPRIGHT V1, 40+ ms S IN I/aVL/V4/V5/V6] POSSIBLE SEPTAL MYOCARDIAL INFARCTION , PROBABLY OLD [30 ms Q WAVE IN V1/V2] Compared to ECG 12/31/2024 09:02:41 Myocardial infarct finding now present Electronically Signed On 01-08-2025 11:10:18 CDT by Camden Copeland M.D.
--- OUTSIDE RECORDS SUMMARY | 2025-01-07 09:31 | XMS_ITS | Patient Health Summary ---
Author Organization [facility] Address [address] [place] [address] Care Team Providers Care Dictionary Editor Name Role Phone Baljit oCnley MD Primary Care Provider [phone] Note from [facility],non-owned Affiliates and Associated Physician Practices is amultiple site organization consisting of ambulatory clinics and hospital sitesin [place], [place], [place] and [place]. This disclosure is being madepursuant to the Care Everywhere program and may not contain all information available regarding this patient. Last updated 18.[facility] Evince Allergies * Blueberry Flavor(Other) * gooseberry [Other](Itching) [...] and heating? Not hard at all 03/11/2024 [facility] - Occupational Stress [...] place to sleep or slept in a long-term (including now)? No 03/11/2024 Sex and Gender Information Value Date Recorded Sex Assigned at Not on file Gender Identity Not on file Sexual Orientation Not on file Last Filed Vital Signs Vital Sign Reading Time Taken Comments Blood Pressure 138/70 09/13/2024 10:30 AM SURGICAL NURSE Pulse 90 09/13/2024 10:30 AM SURGICAL NURSE Temperature 36.8 C (98.3 F) 03/13/2024 11:47 AM CDT Respiratory Rate 20 03/13/2024 11:47 AM CDT Oxygen Saturation 96% 09/13/2024 10:30 AM SURGICAL NURSE Inhaled Oxygen Concentration - - Weight 77.1 kg (170 lb) 09/13/2024 10:30 AM SURGICAL NURSE Height 175.3 cm (5' 9 ) 09/13/2024 10:30 AM SURGICAL NURSE Body Mass Index 25.1 09/13/2024 10:30 AM SURGICAL NURSE Medical Devices Implanted Type Area Collar Separator Device Identifier Shelf Expiration Date Model / Serial / Lot Lead Cp Nv Pace 52cm Strd Elut Pltn Nina - [id number] Implanted:Qty: 1 on 03/06/2024 by Omid May MD at [facility] [employer] [id number] 10/21/2025 5076-52 / [id number] / NA Lead Cp Nv Pace 45cm Strd Elut Pltn Nina - [id number] Implanted:Qty: 1 on 03/06/2024 by Omid May MD at [facility] [employer] [id number] 11/29/2025 5076-45 / [id number] / NA Pacemkr [place] Wirelessly [facility] - [id number] Implanted:Qty: 1 on 03/06/2024 by Omid May MD at [facility] Right: Chest [employer] [id number] 07/29/2025 [id number] / [id number] / NA Procedures * UT PM/ICD REMOTE TECH SERV(Performed 12/17/2024) Performed for SSS (sick sinus syndrome) (HCC) * UT PM DEVICE INTERROGATE REMOTE(Performed 12/17/2024) Performed for SSS (sick sinus syndrome) (HCC) * CARDIAC PROCEDURE ORDER(Performed 12/10/2024) * UT PM/ICD REMOTE TECH SERV(Performed 09/15/2024) Performed for SSS (sick sinus syndrome) (HCC) * UT PM DEVICE INTERROGATE REMOTE(Performed 09/15/2024) Performed for SSS (sick sinus syndrome) (HCC) * ECHO COMPLETE(Performed 09/13/2024) Performed for Bicuspid aortic valve, Severe aortic stenosis, S/P placement of cardiac pacemaker * CARDIAC PROCEDURE ORDER(Performed 09/10/2024) * ECHO COMPLETE(Performed 05/17/2024) Performed for Bicuspid aortic valve (HCC), Diastolic dysfunction * CARDIAC PROCEDURE ORDER(Performed 04/06/2024) * UT REMOTE 30 DAY ECG REV/REPORT(Performed 03/20/2024) Performed [...] * ALCOHOL ETHYL BLOOD(Performed 01/26/2024) Results * UT PM DEVICE INTERROGATE REMOTE, UT PM/ICD REMOTE TECH SERV (12/17/2024 6:48 PM SURGICAL NURSE) Narrative Omid May MD - 12/17/2024 6:48 PM SURGICAL NURSE Omid May MD 12/17/2024 6:50 PM Dear [...] further questions. Sincerely, Omid May 12/17/2024 Omid Mya MD PROCEDURE/MINOR SURG ICAL ORDERABLES * CARDIAC PROCEDURE ORDER (12/10/2024) Only the most recent of47 resultswithin the time period is included. Narrative 12/10/2024 Ordered by an unspecified provider. Scanned Document CARDIAC SERVICES ORD ERABLES * UT PM DEVICE INTERROGATE REMOTE, UT PM/ICD REMOTE TECH SERV (09/15/2024 3:34 AM SURGICAL NURSE) Narrative Omid May MD - 09/15/2024 3:34 AM SURGICAL NURSE Omid May MD 09/15/2024 3:35 AM Dear [...] ORDERABLES * ECHO COMPLETE (09/13/2024 10:38 AM SURGICAL NURSE) Only the most recent of3 resultswithin the time period is included. RVOT diam Doppler 2.513 cm SSM CV FUJI PACS PV VTI 24.326 cm SSM CV FUJ I PACS Aortic annulus 2.395 cm SSM C V FUJI PACS UT VTI 59.192 cm SSM CV FUJ I PACS LA size 4.759 cm SSM CV FUJ I PACS ST junction 3.607 cm SSM CV F UJI PACS RV-ramirez basal diam 3.078 cm SSM CV FUJI PACS RV-ramirez mid diam 3.125 cm SSM CV FUJI PACS UT Decel Sullivan 194.153 cm/s2 SSM C V FUJI PACS UT PEAK END DIASTOLIC VELOCITY 159.174 cm/s SSM [...] PACS LVOT VTI 24.258 cm SSM CV [facility] I PACS RVIDd 2.99 cm SSM CV [facility] I PACS RVOT pk nils 104.261 cm/s SSM CV F UJI PACS RVOT VTI 18.95 cm SSM CV [facility] I PACS LA vol BP 97.729 ml SSM CV [facility] I PACS RA area 18.229 cm [facility] AR DECEL TIME 3.221 s [facility] P[facility] AV PHT 0.934 s SSM CV [facility] I PACS AV pk nils regurg 269.083 cm/s [facility] AV mn grad 17.004 mmHg SSM CV FU PACS AV pk nils 285.193 cm/s SSM CV [facility] I PACS AV VTI 66.968 cm SSM CV [facility] I PACS MV A pk nils 100.15 cm/s SSM CV F U PACS MV E pk nils 81.633 cm/s SSM CV F U PACS MV E' lateral nils 5.825 cm/s [facility] P[facility] MV mn grad 1.246 mmHg SSM CV FU PACS MV VTI 25.201 cm SSM CV [facility] I PACS PV pk nils 117.682 cm/s SSM CV [facility] I PACS TAPSE 1.816 cm SSM CV [facility] I PACS TR pk nils 237.99 cm/s SSM CV [facility] I PACS Ascending aorta 3.576 cm [facility] CV [facility] P[facility] IVC Diam Expiration 1.652 cm [facility] CV [facility] P[facility] Sinus of Valsalva 3.646 cm SSM CV FUJI PACS Anatomical Region Laterality Modality Ultrasound 09/13/2024 11:1 1 AM SURGICAL NURSE Narrative 09/13/2024 10:42 PM SURGICAL NURSE Summary * Findings consistent with calcified AV, functionally bicuspid AV, moderate not severe , satisfactory mitral valve function, normal LV systolic dysfunction, diastolic dysfunction, large LA, and elevated pressures, fair pulmonary vascular function, normal RV, modest TR and UT and mild mixed PAH. Demand pacemaker noted. [...] 11:11 AM Patient Status: O Study Site: [facility] Primary Location: [facility] Info Exam Type: ECHO COMPLETE Indications Q23.81 - Bicuspid aortic valve Z95.0 - S/P placement of cardiac pacemaker I35.0 - Severe aortic stenosis Procedure(s) * A complete 2D, color Doppler, spectral Doppler, and M-Mode transthoracic echocardiogram was performed. Staff Referring Physician: Jarad Araiza Ordering Provider: Jarad Araiza Acid Tank Liner: Grace Du Left Ventricle The left ventricle [...] Accel Time 51.38 ms PV Regurgitation Doppler UT End Diastolic Velocity 1.6 m/s UT End Diastolic Gradient 10 mmHg Mitral Valve [...] Artery Doppler PA End Diastolic Pressure for UT 13 mmHg Pulmonary Veins Pulm Vein Peak [...] vascular function, normal RV, modest TR and UT and mild mixedPAH. Demand pacemaker noted. * [...] 11:11 AM Patient Status: O Study Site: [facility] Primary Location: [facility] Info Exam Type: ECHO COMPLETE Indications Q23.81 - Bicuspid aortic valve Z95.0 - S/P placement of cardiac pacemaker I35.0 - Severe aortic stenosis Procedure(s) * A complete 2D, color Doppler, spectral Doppler, and M-Modetransthoracic echocardiogram was performed. Staff Referring Physician: Jarad Araiza Ordering Provider: Jarad Araiza Acid Tank Liner: Grace Du Left Ventricle The left ventricle [...] Accel Time 51.38 ms PV Regurgitation Doppler UT End Diastolic Velocity 1.6 m/s UT End Diastolic Gradient 10 mmHg Mitral Valve [...] Artery Doppler PA End Diastolic Pressure for UT 13 mmHg Pulmonary Veins Pulm Vein Peak [...] MD on 09/13/2024 10:42 PM Jarad Araiza APRN-[employer] MACHINE ASSEMBLER ECHO CUPID * UT REMOTE 30 DAY ECG REV/REPORT (03/20/2024 3:23 [...] - 115 mg/dL 03/13/2024 10:58 AM CDT [facility] Specimen Type Cap Fingerstick 2023 10:58 AM CDT [facility] Blood BLOOD SPECIMEN / Unknown 03/13/2024 8:33 AM CDT 03/13/2024 10:58 AM CDT Mj Curry MD LAB - POINT OF CARE ORDERABLES Performing Organization Address City/[facility]/ZIP Co de Phone Number [facility] [address] [place] [address], [facility] [phone] * (ABNORMAL) CBC W/O DIFFERENTIAL (03/13/2024 2:59 AM CDT) Only the most recent of7 resultswithin the time period is included. WBC 5.3 4.0 - 10.7 x10E9/L 03/13/2024 4:31 AM [facility] RBC Count 4.27(L) 4.30 - 5.80 x10E12/L 03/13/2024 4:31 AM [facility] Hemoglobin 12.3(L) 13.3 - 17.5 g/dL 03/13/2024 4:31 AM [facility] Hematocrit 36.5(L) 38.7 - 51.1 % 03/13/2024 4:31 AM [facility] MCV 85.5 80.0 - 98.0 fL 03/13/2024 4:31 AM [facility] MCH 28.8 26.7 - 33.6 pg 03/13/2024 4:31 AM [facility] MCHC 33.7 31.7 - 36.3 g/dL 03/13/2024 4:31 AM [facility] RDW-CV 13.2 11.3 - 14.8 % 03/13/2024 4:31 AM [facility] Platelet Count 149(L) 150 - 420 x10E9/L 03/13/2024 4:31 AM [facility] MPV 11.6(H) 7.8 - 11.4 fL 03/13/2024 4:31 AM [facility] Blood BLOOD SPECIMEN / Unknown Lab Venipuncture / Unknown 03/13/2024 2:59 AM CDT 03/13/2024 3:51 AM CDT Mj Curry MD LAB - HEMATO LOGY ORDERABLES [facility] [address] [place] [address] [phone] * (ABNORMAL) RENAL FUNCTION PANEL (03/13/2024 2:59 AM CDT) Only the most recent of5 resultswithin the time period is included. BUN 21 7 - 26 mg/dL 03/13/2024 4:25 AM [facility] Creatinine 0.88 0.71 - 1.16 mg/dL 03/13/2024 4:25 AM [facility] Sodium 139 136 - 145 mmol/L 03/13/2024 4:25 AM [facility] Potassium 3.7 3.5 - 4.5 mmol/L 03/13/2024 4:25 AM [facility] Chloride 105 98 - 107 mmol/L 03/13/2024 4:25 AM [facility] CO2 24 22 - 29 mmol/L 03/13/2024 4:25 AM [facility] Glucose 114 70 - 115 mg/dL 03/13/2024 4:25 AM [facility] Albumin 3.1(L) 3.4 - 5.0 g/dL 03/13/2024 4:25 AM [facility] Calcium 10.7(H) 8.4 - 10.2 mg/dL 03/13/2024 4:25 AM [facility] Phosphorus 2.8 2.8 - 5.1 mg/dL 03/13/2024 4:25 AM [facility] Anion Gap 10 6 - 16 03/13/2024 4:25 AM [facility] BUN/Creatinine Ratio 24(H) 7 - 23 03/13/2024 4:25 AM [facility] Osmolality Calculated 292 275 - 295 mOsm/kg 03/13/2024 4:25 AM [facility] eGFR by CKD-EPI 89(L) >=90 mL/min/1.7 3 m2 03/13/2024 4:25 AM [facility] Blood BLOOD SPECIMEN / Unknown Lab Venipuncture / Unknown 03/13/2024 2:59 AM CDT 03/13/2024 3:51 AM CDT Mj Curry MD LAB - CHEMIS TRY ORDERABLES [address] [address], [facility] [phone] * MAGNESIUM BLOOD (03/13/2024 2:59 AM CDT) Only the most recent of11 resultswithin the time period is included. Magnesium 1.7 1.6 - 2.6 mg/dL 03/13/2024 4:25 AM CDT [facility] Blood BLOOD SPECIMEN / Unknown Lab Venipuncture / Unknown 03/13/2024 2:59 AM CDT 03/13/2024 3:51 AM CDT Mj Curry MD LAB - CHEMIS TRY ORDERABLES Performing Organization Address City/[facility]/ZIP Co de Phone Number [address] [address], [facility] [phone] * EKG 12-LEAD (03/12/2024 8:20 AM CDT) Only the most recent of6 resultswithin the time period is included. Ventricular Rate 66 BPM [facility] MUSE Atrial Rate 66 BPM [facility] MUSE P-R Interval 232 ms [facility] MUSE QRS Duration ms 130 ms [facility] MUSE Q-T Interval ms 430 ms [facility] MUSE QTC Calculation (Bezet) 450 ms [facility] MUSE Calculated P [place] 18 degrees [facility] MUSE Calculated R [place] 57 degrees [facility] MUSE Calculated T [place] 33 degrees [facility] MUSE Interpretation EKG SINUS RHYTHM WITH SINUS ARRHYTHMIA WITH 1ST DEGREE A-V BLOCK RIGHT BUNDLE BRANCH BLOCK ABNORMAL ECG WHEN COMPARED WITH ECG OF 11-MAR-2024 18:13, No change from last ECG Confirmed by JAY CASAS MD ([id number]) on 03/12/2024 8:52:51 PM [facility] MUSE 03/12/2024 8:20 AM CDT 03/12/2024 [...] DATE/TIME OF EXAM: 03/12/2024 5:56 AM, LOCATION [facility] INDICATION: I35.0: Severe aortic stenosis ADDITIONAL CLINICAL [...] abnormality. Report dictated by Angel Perez MD, (sales vice president). Carolyn Hogue MD have personally reviewed and interpreted this examination/study. > Interpreting Provider: Carolyn Dickens MD on 03/13/2024 4:53 PM Procedure Note Carolyn Dickens MD - 03/13/2024 PROCEDURE: XR CHEST 1VW PORTABLE, DATE/TIME OF EXAM: 03/12/2024 5:56AM, LOCATION [facility] INDICATION: I35.0: Severe aortic stenosis ADDITIONAL CLINICAL [...] abnormality. Report dictated by Angel Perez MD, (sales vice president). Carolyn Hogue MD have personally reviewed and interpreted this examination/study. > Interpreting Provider: Carolyn Dickens MD on 03/13/2024 4:53 PM Mj Curry MD DIAGNOSTIC I MAGING ORDERABLES * (ABNORMAL) BASIC METABOLIC PANEL (CALCIUM TOTAL) (03/12/2024 4:44 AM CDT) Only the most recent of3 resultswithin the time period is included. BUN 23 7 - 26 mg/dL 03/12/2024 5:47 AM [facility] Creatinine 0.82 0.71 - 1.16 mg/dL 03/12/2024 5:47 AM [facility] Sodium 141 136 - 145 mmol/L 03/12/2024 5:47 AM [facility] Potassium 4.0 3.5 - 4.5 mmol/L 03/12/2024 5:47 AM [facility] Chloride 108(H) 98 - 107 mmol/L 03/12/2024 5:47 AM [facility] CO2 25 22 - 29 mmol/L 03/12/2024 5:47 AM [facility] Glucose 103 70 - 115 mg/dL 03/12/2024 5:47 AM [facility] Calcium 10.5(H) 8.4 - 10.2 mg/dL 03/12/2024 5:47 AM [facility] Anion Gap 8 6 - 16 03/12/2024 5:47 AM [facility] BUN/Creatinine Ratio 28(H) 7 - 23 03/12/2024 5:47 AM [facility] Osmolality Calculated 296(H) 275 - 295 mOsm/kg 03/12/2024 5:47 AM [facility] eGFR by CKD-EPI 90 >=90 mL/min/1.7 3 m2 03/12/2024 5:47 AM [facility] Blood BLOOD SPECIMEN / Unknown Lab Venipuncture / Unknown 03/12/2024 4:44 AM CDT 03/12/2024 5:18 AM T Mj Curry MD LAB - CHEMIS TRY ORDERABLES [facility] [address] [place] [address], [facility] [phone] * PHOSPHORUS BLOOD (03/12/2024 4:44 AM CDT) Only the most recent of6 resultswithin the time period is included. Phosphorus 3.4 2.8 - 5.1 mg/dL 03/12/2024 6:14 AM CDT [facility] Blood BLOOD SPECIMEN / Unknown Lab Venipuncture / Unknown 03/12/2024 4:44 AM CDT 03/12/2024 5:18 AM CDT Mj Curry MD LAB - CHEMIS TRY ORDERABLES [address] [address], [facility] [phone] * TROPONIN-I HIGH SENSITIVE REFLEX 1HOUR (03/11/2024 9:37 PM CDT) Troponin I High Sensitive 21 <=35 ng/L 03/11/2024 10:20 PM CDT [facility] Delta Troponin I HS 2 <6 ng/L 03/11/2024 10:20 PM CDT [facility] Blood BLOOD SPECIMEN / Unknown Lab Venipuncture / Unknown 03/11/2024 9:37 PM CDT 03/11/2024 9:45 PM CDT Mj Curry MD LAB - CHEMIS TRY ORDERABLES [address] [address], [facility] [phone] * TROPONIN-I HIGH SENSITIVE BASELINE + 1HR (03/11/2024 8:26 PM CDT) Troponin I High Sensitive 19 <=35 ng/L 03/11/2024 9:32 PM CDT [facility] Blood BLOOD SPECIMEN / Unknown Lab Venipuncture / Unknown 03/11/2024 8:26 PM CDT 03/11/2024 8:56 PM CDT Mj Curry MD LAB - CHEMIS TRY ORDERABLES [facility] [address] [place] [address], [facility] [phone] * (ABNORMAL) CBC W AUTO DIFFERENTIAL (03/11/2024 8:26 PM CDT) Only the most recent of6 resultswithin the time period is included. WBC 5.7 4.0 - 10.7 x10E9/L 03/11/2024 9:07 PM [facility] RBC Count 4.39 4.30 - 5.80 x10E12/L 03/11/2024 9:07 PM [facility] Hemoglobin 12.7(L) 13.3 - 17.5 g/dL 03/11/2024 9:07 PM [facility] Hematocrit 37.0(L) 38.7 - 51.1 % 03/11/2024 9:07 PM [facility] MCV 84.3 80.0 - 98.0 fL 03/11/2024 9:07 PM [facility] MCH 28.9 26.7 - 33.6 pg 03/11/2024 9:07 PM [facility] MCHC 34.3 31.7 - 36.3 g/dL 03/11/2024 9:07 PM [facility] RDW-CV 13.0 11.3 - 14.8 % 03/11/2024 9:07 PM [facility] Platelet Count 164 150 - 420 x10E9/L 03/11/2024 9:07 PM [facility] MPV 11.7(H) 7.8 - 11.4 fL 03/11/2024 9:07 PM [facility] Neutrophil % 61.5 41.0 - 74.0 % 03/11/2024 9:07 PM [facility] Lymphocyte % 20.5 17.0 - 47.0 % 03/11/2024 9:07 PM [facility] Monocyte % 13.6(H) 3.0 - 11.0 % 03/11/2024 9:07 PM [facility] Eosinophil % 3.4 0.0 - 7.0 % 03/11/2024 9:07 PM [facility] Basophil % 0.5 0.0 - 1.6 % 03/11/2024 9:07 PM [facility] Immature Granulocytes % 0.5 0.0 - 1.0 % 03/11/2024 9:07 PM [facility] Neutrophil Absolute 3.48 1.60 - 7.50 x10E9/L 03/11/2024 9:07 PM [facility] Lymphocyte Absolute 1.16 1.00 - 4.40 x10E9/L 03/11/2024 9:07 PM [facility] Monocyte Absolute 0.77 0.15 - 1.00 x10E9/L 03/11/2024 9:07 PM [facility] Eosinophil Absolute 0.19 0.00 - 0.60 x10E9/L 03/11/2024 9:07 PM [facility] Basophil Absolute 0.03 0.00 - 0.13 x10E9/L 03/11/2024 9:07 PM [facility] Blood BLOOD SPECIMEN / Unknown Lab Venipuncture / Unknown 03/11/2024 8:26 PM CDT 03/11/2024 8:57 PM CDT Mj Curry MD LAB - HEMATO LOGY ORDERABLES [facility] [address] [place] [address] [phone] * B-TYPE NATRIURETIC PEPTIDE (03/11/2024 8:26 PM CDT) BNP 64 <100 pg/mL 03/11/2024 9:43 PM [facility] Comment: A decision threshold of 100 [...] Curry MD LAB - CHEMIS TRY ORDERABLES [facility] [address] [place] [address], [facility] [phone] * (ABNORMAL) COMPREHENSIVE METABOLIC PANEL (03/11/2024 8:26 PM CDT) Only the most recent of3 resultswithin the time period is included. BUN 24 7 - 26 mg/dL 03/11/2024 9:28 PM [facility] Creatinine 0.75 0.71 - 1.16 mg/dL 03/11/2024 9:28 PM [facility] Sodium 140 136 - 145 mmol/L 03/11/2024 9:28 PM [facility] Potassium 4.2 3.5 - 4.5 mmol/L 03/11/2024 9:28 PM [facility] Chloride 106 98 - 107 mmol/L 03/11/2024 9:28 PM [facility] CO2 23 22 - 29 mmol/L 03/11/2024 9:28 PM [facility] Glucose 70 70 - 115 mg/dL 03/11/2024 9:28 PM [facility] Calcium 10.7(H) 8.4 - 10.2 mg/dL 03/11/2024 9:28 PM [facility] Protein Total 6.3 6.0 - 8.3 g/dL 03/11/2024 9:28 PM [facility] Albumin 3.5 3.4 - 5.0 g/dL 03/11/2024 9:28 PM [facility] Bilirubin Total 0.5 0.2 - 1.2 mg/dL 03/11/2024 9:28 PM [facility] Alkaline Phosphatase 85 40 - 150 U/L 03/11/2024 9:28 PM [facility] ALT 25 5 - 55 U/L 03/11/2024 9:28 PM [facility] AST 21 5 - 34 U/L 03/11/2024 9:28 PM [facility] Anion Gap 11 6 - 16 03/11/2024 9:28 PM [facility] BUN/Creatinine Ratio 32(H) 7 - 23 03/11/2024 9:28 PM [facility] Osmolality Calculated 292 275 - 295 mOsm/kg 03/11/2024 9:28 PM [facility] Albumin/Globulin Ratio 1.3 1.1 - 2.3 03/11/2024 9:28 PM [facility] eGFR by CKD-EPI >90 >=90 mL/min/1.7 3 m2 03/11/2024 9:28 PM [facility] Blood BLOOD SPECIMEN / Unknown Lab Venipuncture / Unknown 03/11/2024 8:26 PM CDT 03/11/2024 8:56 PM CDT Mj Curry MD LAB - CHEMIS TRY ORDERABLES [facility] [address] [place] [phone], [facility] [phone] * CCL PACEMAKER IMPLANT DUAL CHAMBER (03/06/2024 [...] counts were correct at the end. Generator: Ikro Model: [id number] SN: [id number] Atrial lead: Model: 5076-45 SN: [id number] Ventricular: Model: 5076-52 SN: [id number] Measured data: Amplitude: Threshold @ 0.4 ms: [...] - 4.940 uIU/mL 01/28/2024 5:34 AM CDT [facility] Blood BLOOD SPECIMEN / Unknown Lab Venipuncture / Unknown 01/28/2024 4:03 AM CDT 01/28/2024 4:46 AM CDT Jersey Martins MD LAB - CHEMISTRY RISHI GREENE [facility] [address] [place] [address], [place] [phone] * BLOOD TYPE VERIFICATION (01/27/2024 4:24 AM CDT) ABO Rh O NEG 01/27/2024 4:5 4 AM CDT [facility] Blood Bank BLOOD SPECIMEN / Unknown Lab Venipuncture / Unknown 01/27/2024 4:24 AM CDT 01/27/2024 4:28 AM CDT Jamarcus Nelson MD LAB - BLOOD BANK ORD TAWNYA [facility] [address] [place] [address], [place] [phone] * TEG 6S PLATELET MAPPING (01/27/2024 12:40 AM CDT) TEGPLM (Max Amplitude) Koalin 64.9 53.0 - 68.0 mm 01/27/2024 1:49 AM CDT [facility] TEGPLM (Max Amplitude) ACTF 16.2 2.0 - 19.0 mm 01/27/2024 1:49 AM CDT [facility] TEGPLM (Max Amplitude) ADP 63.3 45.0 - 69.0 mm 01/27/2024 1:49 AM CDT [facility] TEGPLM (Max Amplitude) AA 64.7 51.0 - 71.0 mm 01/27/2024 1:49 AM CDT [facility] TEGPLM %Inhibition ADP 3.3 0.0 - 17.0 % 01/27/2024 1:49 AM CDT [facility] TEGPLM %Inhibition AA 0.4 0.0 - 11.0 % 01/27/2024 1:49 AM CDT [facility] TEGPLM %Aggregation ADP 96.7 83.0 - 100.0 % 01/27/2024 1:49 AM CDT [facility] TEGPLM % Aggregation AA 99.6 89.0 - 100.0 % 01/27/2024 1:49 AM CDT [facility] Blood BLOOD SPECIMEN / Unknown Venipuncture / Unknown 01/27/2024 12:40 AM CDT 01/27/2024 12:45 AM CDT Sree Delgadillo MD LAB - HEMATOLOGY ORD ERABLES [facility] [address] [place] [id number], [facility] [phone] * LIPASE BLOOD (01/27/2024 12:40 AM CDT) Lipase 15 8 - 78 U/L 01/27/2024 1:15 AM CDT [facility] Blood BLOOD SPECIMEN / Unknown Venipuncture / Unknown 01/27/2024 12:40 AM CDT 01/27/2024 12:46 AM CDT Narrative [facility] - 01/27/2024 1:15 AM CDT Lipase results from the [employer] Al[employer] analyzer may not be comparable with other methodologies. Mason Jerome MD LAB - CHEMISTRY [facility] Performing Organization Address City/[facility]/ZIP Co de Phone Number [facility] [address] [place] [phone], [place] [phone] * LDH BLOOD (01/27/2024 12:40 AM CDT) LDH Total 156 125 - 243 Units/L 01/27/2024 1:15 AM CDT [facility] Blood BLOOD SPECIMEN / Unknown Venipuncture / Unknown 01/27/2024 12:40 AM CDT 01/27/2024 12:46 AM CDT Mason Jerome MD LAB - CHEMISTRY RISHI [facility]ENE Performing Organization Address [facility] Co de Phone Number [address] [address], [place] [phone] * MRI BRAIN WO CONTRAST (01/26/2024 8:56 [...] DATE/TIME OF EXAM: 01/26/2024 8:56 PM, LOCATION [facility] INDICATION: W19.XXXA: Fall, initial encounter ADDITIONAL CLINICAL [...] CONTRAST, DATE/TIME OF EXAM: 01/26/2024 8:56PM, LOCATION [facility] INDICATION: W19.XXXA: Fall, initial encounter ADDITIONAL CLINICAL [...] with PSA. > Dictated by Emmett Hernandez MD(sales vice president). > Dictated by Emmett Hernandez MD (Sawmill Manager) 01/26/2024 1:36 PM IJennifer MD have personally reviewed and interpreted this examination/study. > Interpreting Provider: Jennifer Guy MD on 01/26/2024 6:35 PM Narrative 01/26/2024 6:35 PM CDT PROCEDURE: CT CHEST ABDOMEN PELVIS W CONT, DATE/TIME OF EXAM: 01/26/2024 1:38 PM, LOCATION [facility] INDICATION: Trauma ADDITIONAL CLINICAL INFORMATION: Syncopal episode [...] CONT, DATE/TIME OF EXAM:01/26/2024 1:38 PM, LOCATION [facility] INDICATION: Trauma ADDITIONAL CLINICAL INFORMATION: Syncopal episode [...] with PSA. > Dictated by Emmett Hernandez MD(sales vice president). > Dictated by Emmett Hernandez MD (Sawmill Manager) 01/26/2024 1:36 PM Jennifer Hogue MD have [...] evaluate. > Dictated by Isac Shafer DO (residential support worker) Steve Hogue MD have personally reviewed and interpreted this examination/study. > Interpreting Provider: Steve Neumann MD on 01/26/2024 2:35 PM Narrative 01/26/2024 2:35 PM CDT PROCEDURE: CT HEAD WO CONTRAST, CT LUMBAR SPINE WO CONTRAST, CT THORACIC SPINE WO CONTRAST, CT CERVICAL SPINE WO CONTRAST, DATE/TIME OF EXAM: 01/26/2024 1:38 PM, LOCATION [facility] INDICATION: Trauma COMPARISON: None. TECHNIQUE: CT of [...] DATE/TIME OF EXAM: 01/26/2024 1:38 PM, LOCATION [facility] INDICATION: Trauma COMPARISON: None. TECHNIQUE: CT of [...] evaluate. > Dictated by Isac Shafer DO (residential support worker) Steve Hogue MD have personally reviewed and [...] evaluate. > Dictated by Isac Shafer DO (residential support worker) Steve Hogue MD have personally reviewed and interpreted this examination/study. > Interpreting Provider: Steve Neumann MD on 01/26/2024 2:35 PM Narrative 01/26/2024 2:35 PM CDT PROCEDURE: CT HEAD WO CONTRAST, CT LUMBAR SPINE WO CONTRAST, CT THORACIC SPINE WO CONTRAST, CT CERVICAL SPINE WO CONTRAST, DATE/TIME OF EXAM: 01/26/2024 1:38 PM, LOCATION [facility] INDICATION: Trauma COMPARISON: None. TECHNIQUE: CT of [...] DATE/TIME OF EXAM: 01/26/2024 1:38 PM, LOCATION [facility] INDICATION: Trauma COMPARISON: None. TECHNIQUE: CT of [...] evaluate. > Dictated by Isac Shafer DO (residential support worker) Steve Hogue MD have personally reviewed and [...] evaluate. > Dictated by Isac Shafer DO (residential support worker) Steve Hogue MD have personally reviewed and interpreted this examination/study. > Interpreting Provider: Steve Neumann MD on 01/26/2024 2:35 PM Narrative 01/26/2024 2:35 PM CDT PROCEDURE: CT HEAD WO CONTRAST, CT LUMBAR SPINE WO CONTRAST, CT THORACIC SPINE WO CONTRAST, CT CERVICAL SPINE WO CONTRAST, DATE/TIME OF EXAM: 01/26/2024 1:38 PM, LOCATION [facility] INDICATION: Trauma COMPARISON: None. TECHNIQUE: CT of [...] DATE/TIME OF EXAM: 01/26/2024 1:38 PM, LOCATION [facility] INDICATION: Trauma COMPARISON: None. TECHNIQUE: CT of [...] evaluate. > Dictated by Isac Shafer DO (residential support worker) Steve Hogue MD have personally reviewed and [...] evaluate. > Dictated by Isac Shafer DO (residential support worker) Steve Hogue MD have personally reviewed and interpreted this examination/study. > Interpreting Provider: Steve Neumann MD on 01/26/2024 2:35 PM Narrative 01/26/2024 2:35 PM CDT PROCEDURE: CT HEAD WO CONTRAST, CT LUMBAR SPINE WO CONTRAST, CT THORACIC SPINE WO CONTRAST, CT CERVICAL SPINE WO CONTRAST, DATE/TIME OF EXAM: 01/26/2024 1:38 PM, LOCATION [facility] INDICATION: Trauma COMPARISON: None. TECHNIQUE: CT of [...] DATE/TIME OF EXAM: 01/26/2024 1:38 PM, LOCATION [facility] INDICATION: Trauma COMPARISON: None. TECHNIQUE: CT of [...] evaluate. > Dictated by Isac Shafer DO (residential support worker) Steve Hogue MD have personally reviewed and interpreted this examination/study. > Interpreting Provider: Steve Neumann MD on 01/26/2024 2:35 PM Sree Delgadillo MD CT ORDERABLES * XR PELVIS 1 OR 2VW (01/26/2024 1:15 PM CDT) Anatomical Region Laterality Modality Pelvis Radiographic Jessica ging 01/26/2024 1:23 PM CDT Impressions 01/26/2024 2:48 PM CDT IMPRESSION: No acute fracture identified. Report dictated by José Grimes DO (sales vice president). Carolina Hogue MD have personally reviewed and interpreted this examination/study. > Interpreting Provider: Carolina Draper MD on 01/26/2024 2:48 PM Narrative 01/26/2024 2:48 PM CDT PROCEDURE: XR PELVIS 1 OR 2VW, DATE/TIME OF EXAM: 01/26/2024 1:18 PM, LOCATION [facility] INDICATION: Trauma Fracture suspected ADDITIONAL CLINICAL INFORMATION: [...] DATE/TIME OF EXAM: 01/26/2024 1:18 PM, LOCATION [facility] INDICATION: Trauma Fracture suspected ADDITIONAL CLINICAL INFORMATION: [...] identified. Report dictated by José Grimes DO (sales vice president). ICarolina MD have personally reviewed and interpreted this examination/study. > Interpreting Provider: Carolina Draper MD on 01/26/2024 2:48 PM Sree Delgadillo MD DIAGNOSTIC IMAGING O RDERABLES * TEG 6 GLOBAL HEMOSTASIS W/ LYSIS (01/26/2024 1:12 PM CDT) Citrated Kaolin R (Reaction Time) 7.3 4.6 - 9.1 min 01/26/2024 2:32 PM CDT [facility] Citrated Kaolin LY30 (Lysis) 0.6 0.0 - 2.6 % 01/26/2024 2:32 PM CDT [facility] Citrated Functional Fibrinogen MA (Max Amplitude) 22.5 15.0 - 32.0 mm 01/26/2024 2:32 PM CDT [facility] Citrated RapidTEG MA (Max Amplitude) 65.3 52.0 - 70.0 mm 01/26/2024 2:32 PM CDT [facility] Blood BLOOD SPECIMEN / Unknown Venipuncture / Unknown 01/26/2024 1:12 PM CDT 01/26/2024 1:19 PM CDT Sree Delgadillo MD LAB - HEMATOLOGY ORD ERABLES [address] [address], [place] [phone] * PT-INR [facility] (01/26/2024 1:12 PM CDT) [facility] PT 13.0 12.1 - 14.8 Seconds 01/26/2024 1:46 PM CDT [facility] INR 1.0 See Comment 01/26/2024 1:46 PM CDT [facility] Comment:The suggested therap eutic range for standard coumadin (warfarin) therapy is an INR of 2.0-3.0. For high-risk patients (Mechanical Mitral Valve Prosthesis, etc.), the suggested prophylactic therapeutic range is an INR of 2.5-3.5. Blood BLOOD SPECIMEN / Unknown Venipuncture / Unknown 01/26/2024 1:12 PM CDT 01/26/2024 1:15 PM CDT Sree Delgadillo MD LAB - COAGULATION OR DERABLES [address] [address], [place] [phone] * TYPE + SCREEN PANEL (01/26/2024 1:12 PM CDT) [facility] Antibody Screen NEG 2:18 PM CDT [facility] BLOOD BANK LAB ABO Rh O NEG 01/26/2024 2:18 PM CDT [facility] BLOOD BANK LAB Blood Bank BLOOD SPECIMEN / Unknown Venipuncture / Unknown 01/26/2024 1:12 PM CDT 01/26/2024 1:22 PM CDT Sree Delgadillo MD LAB - BLOOD BANK ORD ERABLES [facility] BLOOD BANK LAB [address] [place] [phone], [facility] [phone] * ALCOHOL ETHYL BLOOD (01/26/2024 1:12 PM CDT) [facility] Ethanol (mg/dL) <10 <10 mg/dL 1:47 PM CDT [facility] Ethanol Calculated (g/dL) <0.010 <=0.010 g/dL 01/26/2024 1:47 PM CDT [facility] Blood BLOOD SPECIMEN / Unknown Venipuncture / Unknown 01/26/2024 1:12 PM CDT 01/26/2024 1:26 PM CDT Narrative [facility] - 01/26/2024 1:47 PM CDT Ethanol Interp <10: None Detected. Depression of SAFETY SPEC: >100 mg/dl Potentially Critical: >250 mg/dl Potentially [...] Delgadillo MD LAB - CHEMISTRY [facility] Organization Address City/State/ZIP Co de Phone Number [facility] [address] [place] [address], [facility] [phone] Care Teams Dictionary Editor Relationship Specialty Start Date End Date Baljit Conley MD [address] [place] [id number] PCP - General 11/19/21
--- OUTSIDE RECORDS SUMMARY | 2025-01-07 09:31 | XMS_ITS | Referral Summary ---
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
--- OUTSIDE RECORDS SUMMARY | 2025-01-07 09:31 | XMS_ITS | Clinical Summary ---
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
--- OUTSIDE RECORDS SUMMARY | 2025-01-07 09:31 | XMS_ITS | Clinical Summary ---
Author Organization [facility] [place]: [place] Address [address] [place] [address] Care Team Providers Care Cargo Services Coordinator Name Role Phone Baljit Conley MD Primary Care Provider [phone] Source Comments [facility]: [place],non-owned Affiliates and Associated Physician Practices is amultiple site organization consisting of ambulatory clinics and hospital sitesin [place], [place], [place] and [place]. This disclosure is being madepursuant to the Care Everywhere program and may not contain all information available regarding this patient. Last updated 18.[facility]: [place] Allergies Active Allergy Reactions Criticality Noted Date [...] Department Care Team Description 12/12/2024 1:10 PM CLIENT DELIVERY SPECIALIST Clinical Support [facility] - Cardiology [address] [facility], [facility] [address] [place] [address] SSS (sick sinus syndrome) ([facility]) 11/03/2024 Telephone [facility] - Centralized Scheduling [address] [place] [address] Ro Rodriguez MD Reschedule Appointment (Dr. Ro Rodriguez closed the clinic on this date. Please reschedule to the first available. Left a voicemail message to call [phone] to reschedule. 11/03/24 JLM/) from Last 3 [...] and heating? Not hard at all 03/11/2024 [facility] [place] of Occupat ional Health - Occupational Stress [...] place to sleep or slept in a residential (including now)? No 03/11/2024 Sex and Gender Information Value Date Recorded Sex Assigned at Not on file Gender Identity Not on file Sexual Orientation Not on file Last Filed Vital Signs Vital Sign Reading Time Taken Comments Blood Pressure 138/70 09/13/2024 10:30 AM CLIENT DELIVERY SPECIALIST Pulse 90 09/13/2024 10:30 AM CLIENT DELIVERY SPECIALIST Temperature 36.8 C (98.3 F) 03/13/2024 11:47 AM CDT Respiratory Rate 20 03/13/2024 11:47 AM CDT Oxygen Saturation 96% 09/13/2024 10:30 AM CLIENT DELIVERY SPECIALIST Inhaled Oxygen Concentration - - Weight 77.1 kg (170 lb) 09/13/2024 10:30 AM CLIENT DELIVERY SPECIALIST Height 175.3 cm (5' 9 ) 09/13/2024 10:30 AM CLIENT DELIVERY SPECIALIST Body Mass Index 25.1 09/13/2024 10:30 AM CLIENT DELIVERY SPECIALIST Plan of Treatment Upcoming Encounters Date Type Department Care Team (Late st Contact Info) Description 03/09/2025 11:20 AM CDT [facility] [address] [place] [address], [address] [address] Ro Rodriguez MD [address] [place] [address] 03/13/2025 1:10 AM CDT Clinical Support [facility] - Cardiology [facility] [address] [facility], [address] [address] 03/29/2025 11:00 AM CDT Office Visit [facility] - Cardiology [facility] [address] [facility], [address] [address] Omid May MD [facility], [address] [address] 06/12/2025 1:10 AM CDT Clinical Support [facility] - Cardiology [address] [place] [address], [address] [address] Health Maintenance Due Date Last Done Comments [...] this topic Medical Devices Implanted Type Area Editor Map Device Identifier Shelf Expiration Date Model / Serial / Lot Lead Cp Nv Pace 52cm Strd Elut Pltn Nina - [id number] Implanted:Qty: 1 on 03/06/2024 by Omid May MD at [facility] [employer] [id number] 10/21/2025 5076-52 / [id number] / NA Lead Cp Nv Pace 45cm Strd Elut Pltn Nina - [id number] Implanted:Qty: 1 on 03/06/2024 by Omid May MD at [facility] [employer] [id number] 11/29/2025 5076-45 / [id number] / NA [employer] [place] [employer]lessly [facility] - [id number] Implanted:Qty: 1 on 03/06/2024 by Omid May MD at [facility] Right: Chest [employer] [id number] 07/29/2025 [id number] / [id number] / NA Procedures Procedure Name Priority Date/Time Associated Diagnosis Comments [place] PM/ICD REMOTE TECH SERV Routine 12/17/2024 6:48 PM CLIENT DELIVERY SPECIALIST SSS (sick sinus syndrome) (HCC) [place] PM DEVICE INTERROGATE REMOTE Routine 12/17/2024 6:48 PM CLIENT DELIVERY SPECIALIST SSS (sick sinus syndrome) (HCC) CARDIAC PROCEDURE ORDER 12/10/2024 from Last 3 Months Results * [place] PM DEVICE INTERROGATE REMOTE, [place] PM/ICD REMOTE TECH SERV (12/17/2024 6:48 PM CLIENT DELIVERY SPECIALIST) Narrative Omid May MD - 12/17/2024 6:48 PM CLIENT DELIVERY SPECIALIST Omid May MD 12/17/2024 6:50 PM Dear [...] 11:17 PM 01/28/2024 6:00 PM Care Teams Cargo Services Coordinator Relationship Specialty Start Date End Date Baljit Conley MD [address] [place] [address] [place] [address] PCP - General 11/19/21
--- OUTSIDE RECORDS SUMMARY | 2025-01-07 09:31 | XMS_ITS | Referral Summary ---
Author Organization [facility] [place] Address [address] [place] [address] Care Team Providers Care Calibration Engineer Name Role Phone Baljit Conley MD Primary Care Provider [phone] Source Comments [facility] [place],non-owned Affiliates and Associated Physician Practices is amultiple site organization consisting of ambulatory clinics and hospital sitesin [place], [place], [place] and [place]. This disclosure is being madepursuant to the Care Everywhere program and may not contain all information available regarding this patient. Last updated 18.[facility] [place] Encounters Date Type Department Care Team Description 12/12/2024 1:10 PM PROMOTIONAL MARKETING ANALYST Clinical Support [facility] - Cardiology [address] [facility] [address] [place] [address] SSS (sick sinus syndrome) ([facility]) 11/03/2024 Telephone [facility] - Centralized Scheduling [address] [place] [address] Ro Rodriguez MD Reschedule Appointment (Dr. Ro Rodriguez closed the clinic on this date. Please reschedule to the first available. Left a voicemail message to call [phone] to reschedule. 11/03/24 JLM/) from Last 3 [...] and heating? Not hard at all 03/11/2024 [facility] [place] of Occupat ional Health - Occupational Stress [...] place to sleep or slept in a senior care (including now)? No 03/11/2024 Sex and Gender Information Value Date Recorded Sex Assigned at Not on file Gender Identity Not on file Sexual Orientation Not on file Last Filed Vital Signs Vital Sign Reading Time Taken Comments Blood Pressure 138/70 09/13/2024 10:30 AM PROMOTIONAL MARKETING ANALYST Pulse 90 09/13/2024 10:30 AM PROMOTIONAL MARKETING ANALYST Temperature 36.8 C (98.3 F) 03/13/2024 11:47 AM CDT Respiratory Rate 20 03/13/2024 11:47 AM CDT Oxygen Saturation 96% 09/13/2024 10:30 AM PROMOTIONAL MARKETING ANALYST Inhaled Oxygen Concentration - - Weight 77.1 kg (170 lb) 09/13/2024 10:30 AM PROMOTIONAL MARKETING ANALYST Height 175.3 cm (5' 9 ) 09/13/2024 10:30 AM PROMOTIONAL MARKETING ANALYST Body Mass Index 25.1 09/13/2024 10:30 AM PROMOTIONAL MARKETING ANALYST Functional Status Functional Status Response Date of [...] Office Visit [facility] - Cardiology [facility], [address] [phone] Ro Rodriguez MD [facility] [address] 03/13/2025 1:10 AM CDT Clinical Support [facility] - Cardiology [address] [place] [address], [address] [address] 03/29/2025 11:00 AM CDT [facility] [address] [place] [address], [address] [phone] Omid May MD [address] [place] [address] 06/12/2025 1:10 AM CDT Clinical Support [facility] - Cardiology [address] [place] [phone] Medical Devices Implanted Type Area Medical Csr Device Identifier Shelf Expiration Date Model / Serial / Lot Lead Cp Nv Pace 52cm Strd Elut Pltn Nina - [id number] Implanted:Qty: 1 on 03/06/2024 by Omid May MD at [facility] [employer] [id number] 10/21/2025 5076-52 / [id number] / NA Lead Cp Nv Pace 45cm Strd Elut Pltn Nina - [id number] Implanted:Qty: 1 on 03/06/2024 by Omid May MD at [facility] [employer] [id number] 11/29/2025 5076-45 / [id number] / NA [employer] [place] [employer] Crd - [id number] Implanted:Qty: 1 on 03/06/2024 by Omid May MD at [facility] Right: Chest [employer] [id number] 07/29/2025 [id number] / [id number] / NA Procedures Procedure Name Priority Date/Time Associated Diagnosis Comments [place] PM/ICD REMOTE TECH SERV Routine 12/17/2024 6:48 PM PROMOTIONAL MARKETING ANALYST SSS (sick sinus syndrome) (HCC) [place] PM DEVICE INTERROGATE REMOTE Routine 12/17/2024 6:48 PM PROMOTIONAL MARKETING ANALYST SSS (sick sinus syndrome) (HCC) CARDIAC PROCEDURE ORDER 12/10/2024 from Last 3 Months Results * [place] PM DEVICE INTERROGATE REMOTE, [place] PM/ICD REMOTE TECH SERV (12/17/2024 6:48 PM PROMOTIONAL MARKETING ANALYST) Narrative Omid May MD - 12/17/2024 6:48 PM PROMOTIONAL MARKETING ANALYST Omid May MD 12/17/2024 6:50 PM Dear [...] 11:17 PM 01/28/2024 6:00 PM Care Teams Calibration Engineer Relationship Specialty Start Date End Date Baljit Conley MD [address] [place] [address] PCP - General 11/19/21
[2025-01-07 09:39] LABS: Basophils Percent Auto 0.6 % (0.2-1.2); Eosinophils Absolute Auto 0.2 K/mm3 (0-0.3); Eosinophils Percent Auto 3.8 % (0-4.4); Hematocrit 45.5 % (42.0-52.0); Hemoglobin 14.9 g/dL (14.0-18.0); Immature Granulocyte Absolute 0.02 K/mm3 (0.00-0.031); Immature Granulocyte Percent A 0.4 % (0-0.5); Lymphocytes Percent Auto 21.3 % (18.3-44.2); Mean Corpuscular HGB Conc 32.7 g/dl (32-36); Mean Corpuscular Hemoglobin 28.9 pg (26-34); Mean Corpuscular Volume 88.3 fl (80-100); Mean Platelet Volume 11.2 fl (7.4-10.4); Monocytes Absolute Auto 0.5 K/mm3 (0.1-0.6); Monocytes Percent Auto 11.1 % (2.6-8.5); Neutrophils Absolute Auto 2.9 K/mm3 (1.3-6.7); Neutrophils Percent Auto 62.8 % (45.5-73.1); Platelet Count Result 184 k/mm3 (150-375); Red Blood Count 5.15 M/mm3 (4.6-6.20); Red Cell Distribution Width 14.1 % (11.5-14.5); White Blood Count 4.7 K/mm3 (4.5-10.0)
--- NOTE | 2025-01-07 09:40 | ED_ITS ---
HPI - Dizziness General Chief Complaint: Dizziness Stated Complaint: dizzy Time Seen by Provider: 01/07/25 09:16 Source: patient Mode of arrival: ambulatory Limitations: no limitations History of Present Illness HPI Narrative: 79 years old white male drove himself to the emergency room complaining of head feels weird, feeling like going to pass out when stand up from sitting position and turn around, if you stand up and walk for a while then turn around no problem, symptom worse when he get up from sitting position or turning head to right or left. Patient was seen in our emergency room 1 week ago for the same symptom and was told if you are not improvement come back. History of head injury December 2023, rheumatoid arthritis, pacemaker, hyperlipidemia. Currently patient main complaint is his head feeling funny Related Data Home Medications ?Medication ?Instructions ?Recorded ?Confirmed ?Last Taken ?Type triamcinolone acetonide 0.1 % 1 applic topical BID PRN Rash 11/06/21 11/28/24 Unknown History topical cream empagliflozin 10 mg tablet 10 mg PO DAILY 03/28/24 11/28/24 Unknown History (Jardiance) Allergies Allergy/AdvReac Type Severity Reaction Status Date / Time COVID-19 (SARS-CoV-2) AdvReac Fatigued Verified 01/07/25 09:19 vaccine, taina BLUEBERRIES Allergy Severe Anaphylactic Uncoded 01/07/25 09:19 Shock GOOSBERRIES Allergy Severe Anaphylactic Uncoded 01/07/25 09:19 Shock Review of Systems 2 Review of Systems: All systems reviewed & are unremarkable except as noted in HPI and below PMFSH Past Medical History Medical History Aortic stenosis due to bicuspid aortic valve Presence of permanent cardiac pacemaker Urge incontinence of urine Hypercalcemia Paresthesia of both feet GERD (gastroesophageal reflux disease) Arthropathic psoriasis, unspecified Pure hypercholesterolemia, unspecified Other abnormal glucose Psoriasis, unspecified Major depressive disorder, recurrent, in partial remission Hyperlipidemia HTN (hypertension) Rheumatoid arthritis Surgical History Surgical History History of hernia repair left abdomen 12/06/2003 right abdomen 08/2011 History of appendectomy History of tonsillectomy and adenoidectomy Family History Family History Father Heart disease Mother Diabetes mellitus Grandparent Heart disease Social History Social History Smoking status: Former smoker Tobacco type: cigarettes Second hand tobacco smoke exposure: No Alcohol intake: former Substance use: never Substance use type: does not use Do You Feel Safe in your Home?: Yes Lack of Transportation: No Lack of Food: Never True Current Housing: I Have Housing Concerned About Future Housing: No Difficulty Paying Gas/Electric Bills: No Difficulty Paying for Meds: No Currently Unemployed: YES Education: High School Diploma/GED Difficulty w/ Childcare or Family Care: No Living arrangements: with family Occupation/Education: retired Gender identity (if verbalized by the patient): Male Sexual Orientation (if Verbalized by the Patient): Straight or Heterosexual Spiritual care concerns: No Exam 2 Narrative: General appearance: Well-developed, well-nourished Skin: Normal color Head: Normocephalic, nontraumatic Eyes: Clear conjunctiva ENT: Oropharynx normal, ears normal, nose normal Neck: Supple, nontender Chest and respiratory: Airway patent, no respiratory distress, no accessory muscle use Heart: Regular rate/rhythm Abdomen: Soft, nontender, no organomegaly, quiet bowel sounds Vascular: Normal peripheral pulses, normal capillary refill. Musculoskeletal: Normal range of motion, nontender back Neurologic: Alert and oriented ?3, SUPPLY CHAIN COORDINATOR is normal as tested, no gross motor deficit Course Vital Signs Vital signs: Vital Signs Temperature 36.4 C 01/07/25 09:13 Pulse Rate 65 01/07/25 09:13 Respiratory Rate 15 01/07/25 09:13 Blood Pressure 127/86 01/07/25 09:13 Pulse Oximetry 100 01/07/25 09:13 Oxygen Delivery Room Air 01/07/25 09:13 Temperature 36.4 C 01/07/25 09:13 Pulse Rate 69 01/07/25 10:15 Respiratory Rate 12 01/07/25 09:50 Blood Pressure 131/60 01/07/25 10:15 Pulse Oximetry 100 01/07/25 09:50 Oxygen Delivery Room Air 01/07/25 09:13 MDM - Dizziness MDM Narrative Medical decision making narrative: Patient came with funny feeling in the head, feeling passing out sometime when he stand up and try to walk Vital signs are stable Physical examination unremarkable Differential diagnosis orthostatic hypotension, electrolyte imbalance, dehydration, cardiac arrhythmia, posterior circulation stroke, anxiety/depression Blood workup today includes CBC, CMP, troponin showed no significant abnormality Chest x-ray showed no acute abnormality, CT head without contrast showed no acute abnormalities. Differential Diagnosis Differential diagnosis: Likely other (As above) Medical Records Attestation: I reviewed the patient's medical records. Lab Data Attestation: I reviewed the patient's lab results. 01/07/25 09:33 01/07/25 09:33 Labs: Lab Results 01/07/25 01/07/25 Range/Units 09:33 11:12 WBC 4.7 (4.5-10.0) K/mm3 RBC 5.15 (4.6-6.20) M/mm3 Hgb 14.9 (14.0-18.0) g/dL Hct 45.5 (42.0-52.0) % MCV 88.3 (80-100) fl MCH 28.9 (26-34) pg MCHC 32.7 (32-36) g/dl RDW 14.1 (11.5-14.5) % Plt Count 184 (150-375) k/mm3 MPV 11.2 H (7.4-10.4) fl Immature Gran % (Auto) 0.4 (0-0.5) % Neut % (Auto) 62.8 (45.5-73.1) % Lymph % (Auto) 21.3 (18.3-44.2) % Yates % (Auto) 11.1 H (2.6-8.5) % Eos % (Auto) 3.8 (0-4.4) % Baso % (Auto) 0.6 (0.2-1.2) % Lymph # (Auto) 1.00 (0.9-3.2) K/mm3 Yates # (Auto) 0.5 (0.1-0.6) K/mm3 Eos # (Auto) 0.2 (0-0.3) K/mm3 Baso # (Auto) 0.0 (0.0-0.1) K/mm3 Abs Immat Gran (auto) 0.02 (0.00-0.031) K/mm3 Absolute Neuts (auto) 2.9 (1.3-6.7) K/mm3 Absolute Nucleated RBC 0.000 (0.0-0.012) K/mm3 Nucleated RBC % 0.0 (0.0-0.2) % Sodium 140 (137-145) mmol/L Potassium 4.3 (3.4-5.0) mmol/L Chloride 103 (98-107) mmol/L Carbon Dioxide 31 H (22-30) mmol/L Anion Gap 6 (4-12) mmol/L BUN 17 (9-20) mg/dL Creatinine 0.72 (0.7-1.3) mg/dL Estim Creat Clear Calc 73 ml/min Estimated GFR > 60 (59 - ) Glucose 84 (65-110) mg/dL Calcium 10.7 H (8.4-10.2) mg/dL Total Bilirubin 0.3 (0.2-1.3) mg/dL AST 20 (17-59) U/L ALT 21 (6-50) U/L Alkaline Phosphatase 133 H (38-126) U/L Total Protein 7.0 (6.3-8.2) g/dL Albumin 4.2 (3.5-5.1) g/dL Urine Color Pending Urine Appearance Pending Urine pH Pending Ur Specific [place] Pending Urine Protein Pending Urine Glucose (UA) Pending Urine Ketones Pending Ur Blood (Man) Pending Urine Nitrate Pending Urine Bilirubin Pending Urine Urobilinogen Pending Leukocyte Esterase Rfl Pending Imaging Data Radiologist's impression: Impressions Chest X-Ray 01/07/25 09:27 Impression: Clear lungs. Head CT 01/07/25 10:08 Impression: No acute abnormality seen. Mild chronic microvascular ischemic change in the periventricular white matter. ECG Data EKG #1: Attestation: I personally reviewed and interpreted this ECG as follows: ECG completion date: 01/07/25 Interpretation: Electronic atrial pacemaker, right bundle-branch block, septal myocardial infarction-indeterminate age Discharge Plan Discharge Clinical Impression: Near syncope, Dizziness Patient Disposition: Still a Patient Condition: Stable Patient Language: Grenadian Prescriptions: No Action Jardiance 10 mg tablet 10 mg PO DAILY citalopram 20 mg tablet 20 mg PO DAILY Qty: 90 1RF simvastatin 40 mg tablet 40 mg PO DAILY Qty: 90 1RF triamcinolone acetonide 0.1 % cream 1 applic TOPICAL BID PRN (Reason: Rash) Patient Comments: for psoriasis aspirin 81 mg capsule 81 mg PO DAILY Qty: 60 0RF Follow-up/Referrals: Baljit Conley MD [Primary Care Provider] -
[2025-01-07 09:49] LABS: Alanine Aminotransferase 21 U/L (6-50); Albumin Level 4.2 g/dL (3.5-5.1); Alkaline Phosphatase 133 U/L (38-126); Anion Gap 6 mmol/L (4-12); Aspartate Amino Transferase 20 U/L (17-59); Bilirubin,Total 0.3 mg/dL (0.2-1.3); Blood Urea Nitrogen 17 mg/dL (9-20); Calcium 10.7 mg/dL (8.4-10.2); Carbon Dioxide 31 mmol/L (22-30); Chloride 103 mmol/L (98-107); Estimated CRCL calculation 73 ml/min; Estimated Glomerular Filt Rate > 60; Glucose 84 mg/dL (65-110); Potassium 4.3 mmol/L (3.4-5.0); Sodium 140 mmol/L (137-145)
[2025-01-07 11:26] LABS: Add Urine Microscopic? YES; Appearance Urine Cloudy (Clear); Bacteria Urine None Seen /hpf; Bilirubin Urine Negative (Negative); Blood Urine Negative (Negative); Color Urine Yellow (Yellow); Glucose Urine UA 3+ mg/dL (Negative); Ketones Urine Negative (Negative); Leukocyte Esterase Ur Negative LEU/UL (Negative); Nitrate Urine Negative (Negative); Non Pathogenic Casts 0-2; Protein Urine Negative (Negative); RBC Urine 0-2 /hpf (0-2); Specific Grav Ur 1.016 (1.001-1.035); Squamous Epithelial Cell Urine None Seen /hpf (Few); Urobilinogen Urine 0.2 mg/dL (<2.0); WBC Urine 0-5 /hpf (0-3); pH Urine 6.5 (5.0-9.0)
--- NOTE | 2025-01-07 12:13 | PM.IMHP ---
H&P: HPI History of Present Illness Date/Time: 01/07/25 12:13 Chief Complaint: Dizziness Narrative: 71-year-old male medical history of hypertension, hyperlipidemia, pacemaker, and bicuspid aortic valve complains of dizziness and feel like passing out whenever he moves positions. Patient states that the 1st time he felt this way he had passed out over year ago and ended up with a pacemaker. He states that off and on for the last year he has been complaining of dizziness and does know was causing it. In the ED the patient's calcium is high at 10.7, alkaline phos of 133, UA is noninfective, head CT shows no acute process. Chest x-ray shows no acute. EKG shows atrial paced with a right bundle branch block. Pacemaker interrogated with no acute events today. Review of Systems Review of Systems: 12 systems were reviewed and are negative except for as per HPI. [facility] Past Medical History Medical History Aortic stenosis due to bicuspid aortic valve Presence of permanent cardiac pacemaker Urge incontinence of urine Hypercalcemia Paresthesia of both feet GERD (gastroesophageal reflux disease) Arthropathic psoriasis, unspecified Pure hypercholesterolemia, unspecified Other abnormal glucose Psoriasis, unspecified Major depressive disorder, recurrent, in partial remission Hyperlipidemia HTN (hypertension) Rheumatoid arthritis Surgical History Surgical History History of hernia repair left abdomen 12/06/2003 right abdomen 08/2011 History of appendectomy History of tonsillectomy and adenoidectomy Family History Family History Father Heart disease Mother Diabetes mellitus Grandparent Heart disease Social History Social History Smoking status: Former smoker Second hand tobacco smoke exposure: No Alcohol intake: former Substance use: never Substance use type: does not use Do You Feel Safe in your Home?: Yes Lack of Transportation: No Lack of Food: Never True Current Housing: I Have Housing Concerned About Future Housing: No Difficulty Paying Gas/Electric Bills: No Difficulty Paying for Meds: No Currently Unemployed: No Education: High School Diploma/GED Difficulty w/ Childcare or Family Care: No Living arrangements: with family Occupation/Education: retired Gender identity (if verbalized by the patient): Male Sexual Orientation (if Verbalized by the Patient): Straight or Heterosexual Spiritual care concerns: No Meds Home Medications and Allergies Home Medications ?Medication ?Instructions ?Recorded ?Confirmed ?Type triamcinolone acetonide 0.1 % 1 applic topical BID PRN Rash 11/06/21 01/07/25 History topical cream empagliflozin 10 mg tablet 10 mg PO DAILY 03/28/24 01/07/25 History (Jardiance) citalopram 20 mg tablet 20 mg PO DAILY #90 tabs 10/06/24 01/07/25 Rx simvastatin 40 mg tablet 40 mg PO DAILY #90 tabs 10/06/24 01/07/25 Rx aspirin 81 mg capsule 81 mg PO DAILY #60 caps 12/31/24 01/07/25 Rx calcium polycarbophil 625 mg 1,250 mg PO BID 01/07/25 01/07/25 History tablet (FiberCon) cholecalciferol (vitamin D3) 25 25 mcg PO DAILY 01/07/25 01/07/25 History mcg (1,000 unit) capsule (Vitamin D3) Allergies Allergy/AdvReac Type Severity Reaction Status Date / Time blueberry Allergy Unknown Anaphylaxis Verified 01/07/25 18:04 COVID-19 (SARS-CoV-2) AdvReac Fatigued Verified 01/07/25 18:04 vaccine, taina GOOSBERRIES Allergy Severe Anaphylactic Uncoded 01/07/25 18:04 Shock Vital Signs Vital Signs - 24 hr 01/07/25 09:13 01/07/25 09:37 01/07/25 09:50 Temperature 97.6 F Pulse Rate 65 68 60 Respiratory Rate 15 12 Blood Pressure 127/86 135/58 L Pulse Oximetry 100 100 Oxygen Delivery Room Air 01/07/25 09:51 01/07/25 10:13 01/07/25 10:13 Temperature Pulse Rate 60 60 76 Respiratory Rate 17 Blood Pressure 135/58 L 141/64 H 135/64 Pulse Oximetry 99 Oxygen Delivery 01/07/25 10:15 01/07/25 11:01 01/07/25 11:55 Temperature Pulse Rate 69 65 74 Respiratory Rate 16 16 Blood Pressure 131/60 138/66 135/68 Pulse Oximetry 99 97 Oxygen Delivery Exam Narrative: General: well appearing, appears stated age. HEENT: normocephalic, atraumatic. Mucous membranes moist. EOMI, PERRLA, bilateral sclera anicteric, no conjunctival injection. Neck supple without JVD, lymphadenopathy, or bruit. Respiratory: clear to ascultation bilaterally. No rales/rhonic/wheezes. Cardiovascular: Regular rate and rhythm, normal S1-S2 upon ascultation. No murmurs, rubs, or clicks. PMI is nondisplaced, capillary refill less than 3 second. Abdomen: Soft, round, no pulsatile masses, nondistended and nontender. No rebound, no guarding. No CVA tenderness, no hepatosplenomegaly. Bowel sounds present to all four quadrants. No high pitch or tinkling sounds, resonant to percussion. Extremities: No cyanosis, clubbing, or edema present. Pulses are palpable 2/2. Active ROM to all four extremities. Neuro: Alert and orientated x 4. PERRLA. Cranial nerves 2-12 intact without focal deficit. Skin: Warm, dry, and intact, without rash, erythema, or lesion. Psych: pleasant, cooperative, normal speech, normal affect, no hallucinations, no dysarthia H&P: Results Labs Labs: Short CBC 01/07/25 Range/Units 09:33 WBC 4.7 (4.5-10.0) K/mm3 Hgb 14.9 (14.0-18.0) g/dL Hct 45.5 (42.0-52.0) % Plt Count 184 (150-375) k/mm3 BMP 01/07/25 09:33 Sodium 140 Potassium 4.3 Chloride 103 Carbon Dioxide 31 H BUN 17 Creatinine 0.72 Glucose 84 Calcium 10.7 H Liver Function 01/07/25 Range/Units 09:33 Total Bilirubin 0.3 (0.2-1.3) mg/dL AST 20 (17-59) U/L ALT 21 (6-50) U/L Alkaline Phosphatase 133 H (38-126) U/L Albumin 4.2 (3.5-5.1) g/dL Urine 01/07/25 Range/Units 11:12 Urine Color Yellow (Yellow) Urine Appearance Cloudy H (Clear) Urine pH 6.5 (5.0-9.0) Ur Specific [place] 1.016 (1.001-1.035) Urine Protein Negative (Negative) mg/dL Urine Glucose (UA) 3+ H (Negative) mg/dL Assessment and Plan Assessment and plan (1) Near syncope: Code(s): R55 - Syncope and collapse Status: Acute Assessment and Plan: Echo with bubble study pending Orthostatic vital signs pending Interrogate pacemaker with no acute events today, 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 (2) HTN (hypertension): Qualifiers: Hypertension type: primary hypertension Qualified Code(s): I10 - Essential (primary) hypertension Code(s): I10 - Essential (primary) hypertension Status: Acute Assessment and Plan: Hold BP meds for now due to soft pressures (3) Presence of permanent cardiac pacemaker: Code(s): Z95.0 - Presence of cardiac pacemaker Status: Acute Assessment and Plan: Interrogate pacemaker no acute events noted today Restart statin and Jardiance Quality VTE Prophylaxis VTE prophylaxis: mechanical ordered and pharmacologic ordered Hospitalist MIPS Advance Care Plan I have confirmed that the patient's Advanced Care Plan is present, code status is documented, or surrogate decision maker is listed in patient medical record.: Yes Medication Reconciliation I have utilized all available resources to obtain, update and review the patients current medications (includes all prescriptions, OTC, herbals, cannabis, and nutritional supplements).: Yes
--- NOTE | 2025-01-07 17:35 | ADMGEN ---
This patient, Sebastian De La O, was admitted to 3 Med Surg Room 326-01. Patient/family oriented to hospital policies and general routines including ID bracelet, bed and alarms, visiting hours, pain management, procedures, bathroom and other care routines, personal items, smoking policy, room service/diet, and visiting hours. Information on how to activate the Rapid Response Team has been discussed. Patient/Family are encouraged to report perceived risks to care and to ask questions if they do not understand what they are told or what they should do.
[2025-01-08] VITALS (9 sets, daily range): BP systolic 120–148; BP diastolic 55–73; PULSE 60–85; RESP 16–20; TEMP 36.2–37.1; O2SAT 98–100; BMI 22.2
--- NOTE | 2025-01-08 | ECHO_ITS ---
Patient Info Name: Sebastian De La O Age: 79 years : 1945 Gender: Male Ht: 69 in Wt: 164 lbs BSA: 1.91 m2 HR: 62 bpm BP: 148 / 64 mmHg Heart Rhythm: Sinus Rhythm Technical Quality: Good Exam Date: 01/08/2025 12:09 PM Exam Location: Echo Lab Patient Status: Inpatient Admit Date: 01/07/2025 Staff Ordering Physician: Melba Sinclair APRN Bond Writer: Shiela Burns RDCS Attending Provider: Carolina Carter MD Referring Physician: Yahir PARK; Exam Type: CA echo doppler w bubble study Study Info Indications R55 - Syncope and collapse Complete two-dimensional, color flow and Doppler transthoracic echocardiogram is performed with agitated saline. Contrast/Agitated Saline Contrast/Ag. Saline: Agitated Saline Amount: 20.00 ml Existing IV Access: Yes IV Access Condition: patent with no signs of infiltration Summary 1. Left ventricular chamber dimension is normal. 2. Left ventricular systolic function is normal, estimated at 65-70%. 3. The left ventricular diastolic function is grade I diastolic dysfunction. 4. E/e' 10 is mildly elevated. 5. Linear artifact in right ventricle suggestive of catheter(s), pacemaker lead(s), or ICD lead(s). 6. Left atrial chamber dimension is mildly enlarged. 7. Linear artifact in the right atrium suggestive of catheter(s), pacemaker lead(s), or ICD lead(s). 8. The aortic valve is bicuspid. 9. There is severe aortic valve sclerosis. 10. There is moderate aortic valve stenosis with a peak velocity of 288 cm/s, mean gradient of 16 mmHg, and aortic valve area of 1.3 cm2. 11. There is mild aortic valve regurgitation. 12. There is trace tricuspid valve regurgitation. 13. No pulmonary hypertension, estimated pulmonary arterial systolic pressure is 23 mmHg. Left Ventricle E/e' 10 is mildly elevated. Left ventricular chamber dimension is normal. Left ventricular systolic function is normal, estimated at 65-70%. The left ventricular diastolic function is grade I diastolic dysfunction. Right Ventricle Right ventricular systolic function is normal and with normal TAPSE 1.9 cm. Linear artifact in right ventricle suggestive of catheter(s), pacemaker lead(s), or ICD lead(s). Right ventricular chamber dimension is normal. Left Atria Left atrial chamber dimension is mildly enlarged. Right Atria Linear artifact in the right atrium suggestive of catheter(s), pacemaker lead(s), or ICD lead(s). Right atrial chamber dimension is normal. Atrial Septum Intact interatrial septum visualized by 2D and agitated saline imaging. Aortic Valve The aortic valve is bicuspid. There is severe aortic valve sclerosis. There is moderate aortic valve stenosis with a peak velocity of 288 cm/s, mean gradient of 16 mmHg, and aortic valve area of 1.3 cm2. There is mild aortic valve regurgitation. Pulmonic Valve There is no pulmonic regurgitation. Mitral Valve There is no mitral valve stenosis. There is no mitral valve regurgitation. Tricuspid Valve There is trace tricuspid valve regurgitation. No pulmonary hypertension, estimated pulmonary arterial systolic pressure is 23 mmHg. Pericardium/Pleural There is no pericardial effusion. Inferior Vena Cava Normal inferior vena cava with >50% collapse upon inspiration consistent with normal right atrial pressure, 5 mmHg. Aorta The aortic root size at the sinus of Valsalva is normal. Left Ventricular Outflow Tract Name Value Normal LVOT 2D LVOT Diameter 2.0 cm LVOT Doppler LVOT Peak Gradient 5 mmHg LVOT Mean Gradient 2 mmHg LVOT VTI 24 cm LVOT VTI/AV VTI Ratio 0.4 LVOT Stroke Volume 78 ml LVOT CO 4.7 l/min LVOT CI 2.5 l/min/m2 Pulmonic Valve Name Value Normal RVOT Doppler RVOT Peak Gradient 4 mmHg PV Doppler PV Peak Gradient 6 mmHg Mitral Valve Name Value Normal MV Doppler MV Decel [place] 204 cm/s2 MV PHT 93 ms MV Area (PHT) 2.4 cm2 4.0-5.0 MV Diastolic Function MV E Peak Velocity 65 cm/s MV A Peak Velocity 96 cm/s MV E/A 0.7 MV Decel Time 319 ms MV Annular TDI MV E/e' (Septal) 10.9 <=8.0 MV E/e' (Lateral) 10.2 <=8.0 MV E/e' (Average) 10.6 Tricuspid Valve Name Value Normal TV Regurgitation Doppler TR Peak Velocity 214 cm/s TR Peak Gradient 18 mmHg Estimated PAP/RSVP RA Pressure 5 mmHg <=5 PA Systolic Pressure 23 mmHg <36 RV Systolic Pressure 23 mmHg <36 Aorta Name Value Normal Ascending Aorta Ao Root Diameter (MM) 3.3 cm Ao Root Diam Index (MM) 1.7 cm/m2 Aortic Valve Name Value Normal AV Doppler AV Peak Velocity 288 cm/s AV Peak Gradient 33 mmHg AV Mean Gradient 16 mmHg AV VTI 58 cm AV Area (Cont Eq VTI) 1.3 cm2 >=3.0 AV Area (Cont Eq Nils) 1.3 cm2 AV Regurgitation 2D LVOT Area 3.3 cm2 Ventricles Name Value Normal LV Dimensions 2D/MM IVS Diastolic Thickness (2D) 1.0 cm 0.6-1.0 LVID Diastole (2D) 4.2 cm 4.2-5.8 LVIW Diastolic Thickness (2D) 1.0 cm 0.6-1.0 LVID Systole (2D) 2.9 cm 2.5-4.0 LVOT Diameter 2.0 cm LV Mass (2D Cubed) 139.21 g 88.00-224.00 LV Mass Index (2D Cubed) 73 g/m2 49-115 Relative Wall Thickness (2D) 0.49 LV Fractional Shortening/Ejection Fraction 2D/MM LV Fractional Shortening (2D) 32 % 25-43 LV EF (2D Teicholz) 60 % 52-72 LV Diastolic Volume (4C MOD) 90 ml LV EF (4C MOD) 77 % LV Diastolic Volume (2C MOD) 69 ml LV EF (2C MOD) 74 % LV Diastolic Volume (BP MOD) 83 ml 62-150 LV Diastolic Volume Index (BP MOD) 44 ml/m2 34-74 LV Systolic Volume (BP MOD) 20 ml 21-61 LV Systolic Volume Index (BP MOD) 10 ml/m2 11-31 LV EF (BP MOD) 76 % 52-72 LV Diastolic Length (4C) 7.7 cm LV Systolic Length (4C) 6.0 cm LV Stroke Volume (4C MOD) 69 ml Atria Name Value Normal LA Dimensions LA Dimension (MM) 4.8 cm 3.0-4.1 LA Volume (4C A-L) 72 ml LA Volume (BP A-L) 73 ml RA Dimensions RA Area (4C) 13.8 cm2 <=18.0 Report Signatures
[2025-01-08 06:15] LABS: Basophils Percent Auto 0.6 % (0.2-1.2); Eosinophils Absolute Auto 0.2 K/mm3 (0-0.3); Eosinophils Percent Auto 4.3 % (0-4.4); Hematocrit 45.4 % (42.0-52.0); Hemoglobin 14.9 g/dL (14.0-18.0); Immature Granulocyte Absolute 0.01 K/mm3 (0.00-0.031); Immature Granulocyte Percent A 0.2 % (0-0.5); Lymphocytes Percent Auto 23.7 % (18.3-44.2); Mean Corpuscular HGB Conc 32.8 g/dl (32-36); Mean Corpuscular Hemoglobin 28.8 pg (26-34); Mean Corpuscular Volume 87.8 fl (80-100); Mean Platelet Volume 11.2 fl (7.4-10.4); Monocytes Absolute Auto 0.6 K/mm3 (0.1-0.6); Monocytes Percent Auto 11.9 % (2.6-8.5); Neutrophils Absolute Auto 2.8 K/mm3 (1.3-6.7); Neutrophils Percent Auto 59.3 % (45.5-73.1); Platelet Count Result 178 k/mm3 (150-375); Red Blood Count 5.17 M/mm3 (4.6-6.20); Red Cell Distribution Width 14.1 % (11.5-14.5); White Blood Count 4.6 K/mm3 (4.5-10.0)
[2025-01-08 06:24] LABS: Anion Gap 5 mmol/L (4-12); Blood Urea Nitrogen 14 mg/dL (9-20); Calcium 10.6 mg/dL (8.4-10.2); Carbon Dioxide 30 mmol/L (22-30); Chloride 104 mmol/L (98-107); Estimated CRCL calculation 73 ml/min; Estimated Glomerular Filt Rate > 60; Glucose 93 mg/dL (65-110); Sodium 139 mmol/L (137-145)
[2025-01-08] MEDS: ENOXAPARIN 40 MG/0.4 ML SYRINGE SUB-Q (09:12)
[2025-01-08] MEDS: SIMVASTATIN 20 MG TABLET 40 MG PO (09:13)
[2025-01-08] MEDS: ASPIRIN 81 MG CHEWABLE TABLET PO (09:13)
[2025-01-08] MEDS: EMPAGLIFLOZIN 10 MG TABLET PO (09:13)
[2025-01-08] MEDS: CITALOPRAM HYDROBROMIDE 20 MG TABLET PO (09:13)
--- NOTE | 2025-01-08 12:49 | PM.IMPN ---
Progress Note: A&P Assessment and Plan (1) Major depressive disorder, recurrent, in partial remission: Code(s): F33.41 - Major depressive disorder, recurrent, in partial remission Status: Acute (2) HTN (hypertension): Qualifiers: Hypertension type: primary hypertension Qualified Code(s): I10 - Essential (primary) hypertension Code(s): I10 - Essential (primary) hypertension Status: Acute (3) Hyperparathyroidism: Code(s): E21.3 - Hyperparathyroidism, unspecified Status: Acute (4) Arthropathic psoriasis, unspecified: Code(s): L40.50 - Arthropathic psoriasis, unspecified Status: Acute (5) Near syncope: Code(s): R55 - Syncope and collapse Status: Acute (6) Dizziness: Code(s): R42 - Dizziness and giddiness Status: Acute Plan 71-year-old male medical history of hypertension, hyperlipidemia, pacemaker, and bicuspid aortic valve complains of dizziness and feel like passing out whenever he moves positions. Patient states that the 1st time he felt this way he had passed out over year ago and ended up with a pacemaker. He states that off and on for the last year he has been complaining of dizziness and does know was causing it. In the ED the patient's calcium is high at 10.7, alkaline phos of 133, UA is noninfective, head CT shows no acute process. Chest x-ray shows no acute. EKG shows atrial paced with a right bundle branch block. Pacemaker interrogated with no acute events today. (1) Near syncope: Code(s): R55 - Syncope and collapse Status: Acute Assessment and Plan: Pacemaker interrogated with no acute events Echo with bubble study pending Orthostatic vital signs pending Interrogate pacemaker with no acute events Patient has intermittent lightheadedness, patient had a recent diarrhea. Patient feels nauseous before the near-syncope monitor worker (2) HTN (hypertension): Qualifiers: Hypertension type: primary hypertension Qualified Code(s): I10 - Essential (primary) hypertension Code(s): I10 - Essential (primary) hypertension Status: Acute Assessment and Plan: Hold BP meds for now due to soft pressures (3) Presence of permanent cardiac pacemaker: Code(s): Z95.0 - Presence of cardiac pacemaker Status: Acute Assessment and Plan: Interrogate pacemaker no acute events noted today Restart statin and Jardiance Hypercalcemia Patient has chronic hypercalcemia Follow-up parathyroid hormone, TSH Subjective Date/time seen: 01/08/25 12:49 Interval history: I saw examined patient today,. Feels better, still has intermittent lightheadedness when patient stand up and walking. monitor worker shows no significant arrhythmia Exam Narrative: GENERAL: Pleasant, in no acute distress. Well-nourished. - EYES: EOMI. Anicteric. - HENT: Moist mucous membranes. - LUNGS: Clear to auscultation bilaterally, no wheezing, rhonchi, or rales. - CARDIOVASCULAR: Regular rate and rhythm. No murmur. No JVD. - ABDOMEN: Soft, non-tender and non-distended. No palpable masses. - EXTREMITIES: No edema. Peripheral pulses 2+. Non-tender. - NEUROLOGIC: No focal neurological deficits. CN II-XII grossly intact. - PSYCHIATRIC: Awake, Alert and oriented x 3. Appropriate mood and affect. - SKIN: No rashes or lesions. Warm. - LYMPH: No cervical lymphadenopathy. Objective Data Vital Signs Vital Signs: Vital Signs - 24 hr 01/07/25 13:01 01/07/25 13:04 01/07/25 14:01 Temperature Pulse Rate 64 69 68 Respiratory Rate 19 18 15 Blood Pressure 131/67 131/67 132/65 Pulse Oximetry 96 97 97 Oxygen Delivery 01/07/25 14:34 01/07/25 15:01 01/07/25 15:31 Temperature Pulse Rate 60 62 66 Respiratory Rate 19 20 19 Blood Pressure 112/52 L 119/54 L 119/57 L Pulse Oximetry 94 99 95 Oxygen Delivery 01/07/25 16:30 01/07/25 19:01 01/07/25 19:02 Temperature 97.6 F 97.6 F Pulse Rate 72 71 76 Respiratory Rate 18 20 20 Blood Pressure 157/67 H 154/82 H 153/75 H Pulse Oximetry 97 99 100 Oxygen Delivery 01/07/25 19:03 01/07/25 20:00 01/07/25 20:00 Temperature 97.6 F Pulse Rate 71 84 84 Respiratory Rate 20 20 Blood Pressure 143/83 H Pulse Oximetry 99 99 Oxygen Delivery Room Air 01/07/25 20:36 01/08/25 00:00 01/08/25 04:00 Temperature 98.9 F Pulse Rate 73 61 60 Respiratory Rate 18 Blood Pressure 107/71 Pulse Oximetry 100 Oxygen Delivery 01/08/25 04:40 01/08/25 08:00 01/08/25 09:10 Temperature 98.8 F Pulse Rate 62 62 Respiratory Rate 16 Blood Pressure 148/64 H Pulse Oximetry 98 Oxygen Delivery Room Air 01/08/25 12:00 Temperature Pulse Rate 85 Respiratory Rate Blood Pressure Pulse Oximetry Oxygen Delivery Intake/Output Intake/Output: Intake & Output 01/05/25 01/06/25 01/08/25 01/08/25 23:59 23:59 00:59 23:59 Intake Total 765 Balance 765 Meds/Results Medications: Active Medications Generic Name Dose Route Start Last Admin Trade Name Freq PRN Reason Stop Dose Admin Acetaminophen 650 mg 01/07/25 12:16 Acetaminophen 325 Mg Tablet PO Q4H PRN Mild Pain (1-3) or Fever Aspirin 81 mg 01/08/25 08:00 01/08/25 09:13 Aspirin 81 Mg Chewable Tablet PO 81 mg DAILY@0800 FLORECITA Administration Citalopram Hydrobromide 20 mg 01/08/25 09:00 01/08/25 09:13 Citalopram Hydrobromide 20 Mg Tablet PO 20 mg DAILY FLORECITA Administration Empagliflozin 10 mg 01/08/25 09:00 01/08/25 09:13 Empagliflozin 10 Mg Tablet PO 10 mg DAILY FLORECITA Administration Enoxaparin Sodium 40 mg 01/08/25 09:00 01/08/25 09:12 Enoxaparin 40 Mg/0.4 Ml Syringe SUB-Q 40 mg DAILY FLORECITA Administration Perflutren Lipid Microsphere 0 ml 01/07/25 12:21 Perflutren Lipid Microspheres 1.5 Ml Vial Diluted To 10 Ml Total Volume IV PUSH 01/10/25 12:21 ONCE PRN adequate visualization Protocol Simvastatin 40 mg 01/08/25 09:00 01/08/25 09:13 Simvastatin 20 Mg Tablet PO 40 mg DAILY FLORECITA Administration Radiology Results: ITS Impressions Chest X-Ray 01/07/25 09:27 Impression: Clear lungs. Head CT 01/07/25 10:08 Impression: No acute abnormality seen. Mild chronic microvascular ischemic change in the periventricular white matter. Labs Labs: Laboratory Results - last 24 hr 01/08/25 05:56 WBC 4.6 RBC 5.17 Hgb 14.9 Hct 45.4 MCV 87.8 MCH 28.8 MCHC 32.8 RDW 14.1 Plt Count 178 MPV 11.2 H Immature Gran % (Auto) 0.2 Neut % (Auto) 59.3 Lymph % (Auto) 23.7 [place] % (Auto) 11.9 H Eos % (Auto) 4.3 Baso % (Auto) 0.6 Lymph # (Auto) 1.10 [place] # (Auto) 0.6 Eos # (Auto) 0.2 Baso # (Auto) 0.0 Abs Immat Gran (auto) 0.01 Absolute Neuts (auto) 2.8 Absolute Nucleated RBC 0.000 Nucleated RBC % 0.0 Sodium 139 Potassium 4.0 Chloride 104 Carbon Dioxide 30 Anion Gap 5 BUN 14 Creatinine 0.69 L Estim Creat Clear Calc 73 Estimated GFR > 60 Glucose 93 Calcium 10.6 H
[2025-01-08] MEDS: SODIUM CHLORIDE 0.9% IV 1,000 ML 125 ML IV CONT (17:06)
[2025-01-09] VITALS (12 sets, daily range): BP systolic 122–149; BP diastolic 56–67; PULSE 56–87; RESP 16–18; TEMP 36.5–36.8; O2SAT 97–100
[2025-01-09] MEDS: SODIUM CHLORIDE 0.9% IV 1,000 ML 125 ML IV CONT ×3 (01:10→17:42)
[2025-01-09] MEDS: EMPAGLIFLOZIN 10 MG TABLET PO (08:46)
[2025-01-09] MEDS: CITALOPRAM HYDROBROMIDE 20 MG TABLET PO (08:46)
[2025-01-09] MEDS: ASPIRIN 81 MG CHEWABLE TABLET PO (08:46)
[2025-01-09] MEDS: SIMVASTATIN 20 MG TABLET 40 MG PO (08:46)
[2025-01-09] MEDS: ENOXAPARIN 40 MG/0.4 ML SYRINGE SUB-Q (08:47)
--- NOTE | 2025-01-09 10:25 | PM.IMPN ---
Progress Note: A&P Assessment and Plan (1) Major depressive disorder, recurrent, in partial remission: Code(s): F33.41 - Major depressive disorder, recurrent, in partial remission Status: Acute (2) HTN (hypertension): Qualifiers: Hypertension type: primary hypertension Qualified Code(s): I10 - Essential (primary) hypertension Code(s): I10 - Essential (primary) hypertension Status: Acute (3) Hyperparathyroidism: Code(s): E21.3 - Hyperparathyroidism, unspecified Status: Acute (4) Arthropathic psoriasis, unspecified: Code(s): L40.50 - Arthropathic psoriasis, unspecified Status: Acute (5) Near syncope: Code(s): R55 - Syncope and collapse Status: Acute (6) Dizziness: Code(s): R42 - Dizziness and giddiness Status: Acute Plan 71-year-old male medical history of hypertension, hyperlipidemia, pacemaker, and bicuspid aortic valve complains of dizziness and feel like passing out whenever he moves positions. Patient states that the 1st time he felt this way he had passed out over year ago and ended up with a pacemaker. He states that off and on for the last year he has been complaining of dizziness and does know was causing it. In the ED the patient's calcium is high at 10.7, alkaline phos of 133, UA is noninfective, head CT shows no acute process. Chest x-ray shows no acute. EKG shows atrial paced with a right bundle branch block. Pacemaker interrogated with no acute events today. (1) Near syncope: Code(s): R55 - Syncope and collapse Status: Acute Assessment and Plan: Pacemaker interrogated with no acute events Echo 1. Left ventricular chamber dimension is normal. 2. Left ventricular systolic function is normal, estimated at 65-70%. 3. The left ventricular diastolic function is grade I diastolic dysfunction. 4. E/e' 10 is mildly elevated. 5. Linear artifact in right ventricle suggestive of catheter(s), pacemaker lead(s), or ICD lead(s). 6. Left atrial chamber dimension is mildly enlarged. 7. Linear artifact in the right atrium suggestive of catheter(s), pacemaker lead(s), or ICD lead(s). 8. The aortic valve is bicuspid. 9. There is severe aortic valve sclerosis. 10. There is moderate aortic valve stenosis with a peak velocity of 288 cm/s, mean gradient of 16 mmHg, and aortic valve area of 1.3 cm2. 11. There is mild aortic valve regurgitation. 12. There is trace tricuspid valve regurgitation. 13. No pulmonary hypertension, estimated pulmonary arterial systolic pressure is 23 mmHg. Orthostatic test is negative orthostatic hypertension Interrogate pacemaker with no acute events Patient has intermittent lightheadedness, patient had a recent diarrhea. 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 12 mm mass posterior to the right thyroid lobe suspicious for a parathyroid adenoma. Consider parathyroid scintigraphy. 2. Thyroid nodules. Consider ultrasound-guided fine-needle aspiration of the 2.1 cm right thyroid nodule. pending NM parathyroid scintigraphy. Subjective Date/time seen: 01/09/25 10:25 Interval history: I saw examined patient today,. Feels better,, patient still feeling not good, denies focal weakness, still has intermittent lightheadedness. Patient denies palpitation school lunch monitor shows no significant arrhythmia Exam Narrative: GENERAL: Pleasant, in no acute distress. Well-nourished. - EYES: EOMI. Anicteric. - HENT: Moist mucous membranes. - LUNGS: Clear to auscultation bilaterally, no wheezing, rhonchi, or rales. - CARDIOVASCULAR: Regular rate and rhythm. No murmur. No JVD. - ABDOMEN: Soft, non-tender and non-distended. No palpable masses. - EXTREMITIES: No edema. Peripheral pulses 2+. Non-tender. - NEUROLOGIC: No focal neurological deficits. CN II-XII grossly intact. - PSYCHIATRIC: Awake, Alert and oriented x 3. Appropriate mood and affect. - SKIN: No rashes or lesions. Warm. - LYMPH: No cervical lymphadenopathy. Objective Data Vital Signs Vital Signs: Vital Signs - 24 hr 01/08/25 12:00 01/08/25 14:00 01/08/25 16:00 Temperature 97.2 F L Pulse Rate 85 76 70 Respiratory Rate 18 Blood Pressure 135/73 Pulse Oximetry Oxygen Delivery 01/08/25 20:00 01/08/25 20:00 01/08/25 22:00 Temperature 97.5 F L 97.5 F L Pulse Rate 64 61 78 Respiratory Rate 20 20 Blood Pressure 120/57 L 137/55 L Pulse Oximetry 98 100 Oxygen Delivery 01/09/25 00:00 01/09/25 04:00 01/09/25 06:00 Temperature 98.3 F Pulse Rate 62 60 73 Respiratory Rate 18 Blood Pressure 122/56 L Pulse Oximetry 97 Oxygen Delivery 01/09/25 08:00 01/09/25 08:45 Temperature Pulse Rate 61 Respiratory Rate Blood Pressure Pulse Oximetry Oxygen Delivery Room Air Intake/Output Intake/Output: Intake & Output 01/06/25 01/08/25 01/08/25 01/09/25 23:59 00:59 23:59 23:59 Intake Total 1245 2680 Output Total 1500 850 Balance -255 1830 Meds/Results Medications: Active Medications Generic Name Dose Route Start Last Admin Trade Name Freq PRN Reason Stop Dose Admin Acetaminophen 650 mg 01/07/25 12:16 Acetaminophen 325 Mg Tablet PO Q4H PRN Mild Pain (1-3) or Fever Aspirin 81 mg 01/08/25 08:00 01/09/25 08:46 Aspirin 81 Mg Chewable Tablet PO 81 mg DAILY@0800 FLORECITA Administration Citalopram Hydrobromide 20 mg 01/08/25 09:00 01/09/25 08:46 Citalopram Hydrobromide 20 Mg Tablet PO 20 mg DAILY FLORECITA Administration Empagliflozin 10 mg 01/08/25 09:00 01/09/25 08:46 Empagliflozin 10 Mg Tablet PO 10 mg DAILY FLORECITA Administration Enoxaparin Sodium 40 mg 01/08/25 09:00 01/09/25 08:47 Enoxaparin 40 Mg/0.4 Ml Syringe SUB-Q 40 mg DAILY FLORECITA Administration Sodium Chloride 1,000 mls @ 125 mls/hr 01/08/25 13:05 01/09/25 08:47 Normal Saline Iv IV CONT 125 mls/hr .Q8H FLORECITA Administration Perflutren Lipid Microsphere 0 ml 01/07/25 12:21 Perflutren Lipid Microspheres 1.5 Ml Vial Diluted To 10 Ml Total Volume IV PUSH 01/10/25 12:21 ONCE PRN adequate visualization Protocol Simvastatin 40 mg 01/08/25 09:00 01/09/25 08:46 Simvastatin 20 Mg Tablet PO 40 mg DAILY FLORECITA Administration Radiology Results: ITS Impressions Chest X-Ray 01/07/25 09:27 Impression: Clear lungs. Head CT 01/07/25 10:08 Impression: No acute abnormality seen. Mild chronic microvascular ischemic change in the periventricular white matter. Labs Labs: Laboratory Results - last 24 hr 01/08/25 05:53 TSH (Reflex) 1.770 PTH Intact 82.0 H
--- NOTE | 2025-01-09 23:04 | PC.NURSE ---
Transfer patient received from room 326. Report received from LINCOLN Partida.
[2025-01-10] VITALS (11 sets, daily range): BP systolic 121–149; BP diastolic 60–66; PULSE 60–81; RESP 16–18; TEMP 36.4–36.9; O2SAT 97–100
[2025-01-10] MEDS: SODIUM CHLORIDE 0.9% IV 1,000 ML 125 ML IV CONT ×2 (01:09→08:32)
--- NOTE | 2025-01-10 07:51 | PM.IMPN ---
Progress Note: A&P Assessment and Plan (1) Major depressive disorder, recurrent, in partial remission: Code(s): F33.41 - Major depressive disorder, recurrent, in partial remission Status: Acute (2) HTN (hypertension): Qualifiers: Hypertension type: primary hypertension Qualified Code(s): I10 - Essential (primary) hypertension Code(s): I10 - Essential (primary) hypertension Status: Acute (3) Hyperparathyroidism: Code(s): E21.3 - Hyperparathyroidism, unspecified Status: Acute (4) Arthropathic psoriasis, unspecified: Code(s): L40.50 - Arthropathic psoriasis, unspecified Status: Acute (5) Near syncope: Code(s): R55 - Syncope and collapse Status: Acute (6) Dizziness: Code(s): R42 - Dizziness and giddiness Status: Acute Plan 71-year-old male medical history of hypertension, hyperlipidemia, pacemaker, and bicuspid aortic valve complains of dizziness and feel like passing out whenever he moves positions. Patient states that the 1st time he felt this way he had passed out over year ago and ended up with a pacemaker. He states that off and on for the last year he has been complaining of dizziness and does know was causing it. In the ED the patient's calcium is high at 10.7, alkaline phos of 133, UA is noninfective, head CT shows no acute process. Chest x-ray shows no acute. EKG shows atrial paced with a right bundle branch block. Pacemaker interrogated with no acute events today. Near syncope: Code(s): R55 - Syncope and collapse Status: Acute Assessment and Plan: Pacemaker interrogated with no acute events Echo 1. Left ventricular chamber dimension is normal. 2. Left ventricular systolic function is normal, estimated at 65-70%. 3. The left ventricular diastolic function is grade I diastolic dysfunction. 4. E/e' 10 is mildly elevated. 5. Linear artifact in right ventricle suggestive of catheter(s), pacemaker lead(s), or ICD lead(s). 6. Left atrial chamber dimension is mildly enlarged. 7. Linear artifact in the right atrium suggestive of catheter(s), pacemaker lead(s), or ICD lead(s). 8. The aortic valve is bicuspid. 9. There is severe aortic valve sclerosis. 10. There is moderate aortic valve stenosis with a peak velocity of 288 cm/s, mean gradient of 16 mmHg, and aortic valve area of 1.3 cm2. 11. There is mild aortic valve regurgitation. 12. There is trace tricuspid valve regurgitation. 13. No pulmonary hypertension, estimated pulmonary arterial systolic pressure is 23 mmHg. 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 12 mm mass posterior to the right thyroid lobe suspicious for a parathyroid adenoma. Consider parathyroid scintigraphy. 2. Thyroid nodules. Consider ultrasound-guided fine-needle aspiration of the 2.1 cm right thyroid nodule. pending NM parathyroid scintigraphy. Consult general surgeon for evaluation treatment HTN (hypertension): Qualifiers: Hypertension type: primary hypertension Qualified Code(s): I10 - Essential (primary) hypertension Code(s): I10 - Essential (primary) hypertension Status: Acute Assessment and Plan: Hold BP meds for now due to soft pressures Presence of permanent cardiac pacemaker: Code(s): Z95.0 - Presence of cardiac pacemaker Status: Acute Assessment and Plan: Interrogate pacemaker no acute events noted today Restart statin and Jardiance Subjective Date/time seen: 01/10/25 07:51 Interval history: I saw examined patient today, patient feels better today, denies lightheadedness, patient also denies chest pain palpitation abdomen pain nausea vomiting. Exam Narrative: GENERAL: Pleasant, in no acute distress. Well-nourished. - EYES: EOMI. Anicteric. - HENT: Moist mucous membranes. - LUNGS: Clear to auscultation bilaterally, no wheezing, rhonchi, or rales. - CARDIOVASCULAR: Regular rate and rhythm. No murmur. No JVD. - ABDOMEN: Soft, non-tender and non-distended. No palpable masses. - EXTREMITIES: No edema. Peripheral pulses 2+. Non-tender. - NEUROLOGIC: No focal neurological deficits. CN II-XII grossly intact. - PSYCHIATRIC: Awake, Alert and oriented x 3. Appropriate mood and affect. - SKIN: No rashes or lesions. Warm. - LYMPH: No cervical lymphadenopathy. Objective Data Vital Signs Vital Signs: Vital Signs - 24 hr 01/09/25 08:00 01/09/25 08:45 01/09/25 12:00 Temperature Pulse Rate 61 84 Respiratory Rate Blood Pressure Pulse Oximetry Oxygen Delivery Room Air 01/09/25 14:00 01/09/25 16:00 01/09/25 16:45 Temperature 98 F Pulse Rate 69 56 L 86 Respiratory Rate 18 Blood Pressure 141/66 H 149/67 H Pulse Oximetry 100 99 Oxygen Delivery 01/09/25 16:50 01/09/25 20:02 01/09/25 20:50 Temperature Pulse Rate 87 61 67 Respiratory Rate 16 Blood Pressure 143/67 H Pulse Oximetry 98 98 Oxygen Delivery Room Air 01/09/25 21:57 01/10/25 00:00 01/10/25 04:00 Temperature 97.7 F Pulse Rate 67 60 61 Respiratory Rate 16 Blood Pressure 137/60 Pulse Oximetry 98 Oxygen Delivery 01/10/25 04:50 Temperature 97.6 F Pulse Rate 74 Respiratory Rate 18 Blood Pressure 148/66 H Pulse Oximetry 100 Oxygen Delivery Intake/Output Intake/Output: Intake & Output 01/08/25 01/08/25 01/09/25 01/10/25 00:59 23:59 23:59 23:59 Intake Total 1245 5160 1171.3 Output Total 1500 2800 1400 Balance -255 2360 -228.7 Meds/Results Medications: Active Medications Generic Name Dose Route Start Last Admin Trade Name Freq PRN Reason Stop Dose Admin Acetaminophen 650 mg 01/07/25 12:16 Acetaminophen 325 Mg Tablet PO Q4H PRN Mild Pain (1-3) or Fever Aspirin 81 mg 01/08/25 08:00 01/09/25 08:46 Aspirin 81 Mg Chewable Tablet PO 81 mg DAILY@0800 FLORECITA Administration Citalopram Hydrobromide 20 mg 01/08/25 09:00 01/09/25 08:46 Citalopram Hydrobromide 20 Mg Tablet PO 20 mg DAILY FLORECITA Administration Empagliflozin 10 mg 01/08/25 09:00 01/09/25 08:46 Empagliflozin 10 Mg Tablet PO 10 mg DAILY FLORECITA Administration Enoxaparin Sodium 40 mg 01/08/25 09:00 01/09/25 08:47 Enoxaparin 40 Mg/0.4 Ml Syringe SUB-Q 40 mg DAILY FLORECITA Administration Sodium Chloride 1,000 mls @ 125 mls/hr 01/08/25 13:05 01/10/25 01:09 Normal Saline Iv IV CONT 125 mls/hr .Q8H FLORECITA Administration Perflutren Lipid Microsphere 0 ml 01/07/25 12:21 Perflutren Lipid Microspheres 1.5 Ml Vial Diluted To 10 Ml Total Volume IV PUSH 01/10/25 12:21 ONCE PRN adequate visualization Protocol Simvastatin 40 mg 01/08/25 09:00 01/09/25 08:46 Simvastatin 20 Mg Tablet PO 40 mg DAILY FLORECITA Administration Radiology Results: ITS Impressions Chest X-Ray 01/07/25 09:27 Impression: Clear lungs. Head CT 01/07/25 10:08 Impression: No acute abnormality seen. Mild chronic microvascular ischemic change in the periventricular white matter. Head/Neck Ultrasound 01/09/25 12:20 IMPRESSION: 1. 12 mm mass posterior to the right thyroid lobe suspicious for a parathyroid adenoma. Consider parathyroid scintigraphy. 2. Thyroid nodules. Consider ultrasound-guided fine-needle aspiration of the 2.1 cm right thyroid nodule.
[2025-01-10] MEDS: EMPAGLIFLOZIN 10 MG TABLET PO (08:29)
[2025-01-10] MEDS: SIMVASTATIN 20 MG TABLET 40 MG PO (08:29)
[2025-01-10] MEDS: ENOXAPARIN 40 MG/0.4 ML SYRINGE SUB-Q (08:29)
[2025-01-10] MEDS: CITALOPRAM HYDROBROMIDE 20 MG TABLET PO (08:29)
[2025-01-10] MEDS: ASPIRIN 81 MG CHEWABLE TABLET PO (08:29)
[2025-01-11] VITALS (8 sets, daily range): BP systolic 124–176; BP diastolic 60–70; PULSE 60–98; RESP 16–18; TEMP 36.4–36.8; O2SAT 97–100
[2025-01-11] MEDS: CITALOPRAM HYDROBROMIDE 20 MG TABLET PO (08:05)
[2025-01-11] MEDS: ASPIRIN 81 MG CHEWABLE TABLET PO (08:05)
[2025-01-11] MEDS: EMPAGLIFLOZIN 10 MG TABLET PO (08:06)
[2025-01-11] MEDS: ENOXAPARIN 40 MG/0.4 ML SYRINGE SUB-Q (08:06)
[2025-01-11] MEDS: SIMVASTATIN 20 MG TABLET 40 MG PO (08:06)
--- NOTE | 2025-01-11 08:18 | P.PNIM_ITS ---
Progress Note: A&P Assessment and Plan (1) Major depressive disorder, recurrent, in partial remission: Code(s): F33.41 - Major depressive disorder, recurrent, in partial remission Status: Acute (2) HTN (hypertension): Qualifiers: Hypertension type: primary hypertension Qualified Code(s): I10 - Essential (primary) hypertension Code(s): I10 - Essential (primary) hypertension Status: Acute (3) Hyperparathyroidism: Code(s): E21.3 - Hyperparathyroidism, unspecified Status: Acute (4) Arthropathic psoriasis, unspecified: Code(s): L40.50 - Arthropathic psoriasis, unspecified Status: Acute (5) Near syncope: Code(s): R55 - Syncope and collapse Status: Acute (6) Dizziness: Code(s): R42 - Dizziness and giddiness Status: Acute Plan 71-year-old male medical history of hypertension, hyperlipidemia, pacemaker, and bicuspid aortic valve complains of dizziness and feel like passing out whenever he moves positions. Patient states that the 1st time he felt this way he had passed out over year ago and ended up with a pacemaker. He states that off and on for the last year he has been complaining of dizziness and does know was causing it. In the ED the patient's calcium is high at 10.7, alkaline phos of 133, UA is noninfective, head CT shows no acute process. Chest x-ray shows no acute. EKG shows atrial paced with a right bundle branch block. Pacemaker interrogated with no acute events today. Near syncope: Code(s): R55 - Syncope and collapse Status: Acute Assessment and Plan: Pacemaker interrogated with no acute events Echo 1. Left ventricular chamber dimension is normal. 2. Left ventricular systolic function is normal, estimated at 65-70%. 3. The left ventricular diastolic function is grade I diastolic dysfunction. 4. E/e' 10 is mildly elevated. 5. Linear artifact in right ventricle suggestive of catheter(s), pacemaker lead(s), or ICD lead(s). 6. Left atrial chamber dimension is mildly enlarged. 7. Linear artifact in the right atrium suggestive of catheter(s), pacemaker lead(s), or ICD lead(s). 8. The aortic valve is bicuspid. 9. There is severe aortic valve sclerosis. 10. There is moderate aortic valve stenosis with a peak velocity of 288 cm/s, mean gradient of 16 mmHg, and aortic valve area of 1.3 cm2. 11. There is mild aortic valve regurgitation. 12. There is trace tricuspid valve regurgitation. 13. No pulmonary hypertension, estimated pulmonary arterial systolic pressure is 23 mmHg. Orthostatic test is negative orthostatic hypertension Interrogate pacemaker with no acute events Patient had intermittent lightheadedness, patient had a recent diarrhea before the admission Patient feels nauseous before the near-syncope cardiac monitor: No significant arrhythmia related syncope Possible vasovagal syncope Hypercalcemia Patient has chronic hypercalcemia Follow-up parathyroid hormone: 82 high TSH wnl Neck ultrasound showed 1. 12 mm mass posterior to the right thyroid lobe suspicious for a parathyroid adenoma. Consider parathyroid scintigraphy. 2. Thyroid nodules. Consider ultrasound-guided fine-needle aspiration of the 2.1 cm right thyroid nodule. NM parathyroid scintigraphy: Persistent activity in the area of the thyroid bilaterally that is slightly greater on the right. This finding may be seen with parathyroid hyperplasia or bilateral adenomas. Refer patient to ENT Dr. Jeronimo for f/u, discussed with the patient and give him the ENT phone for making an appointment Discontinue calcium and vitamin-D supplement HTN (hypertension): Qualifiers: Hypertension type: primary hypertension Qualified Code(s): I10 - Essential (primary) hypertension Code(s): I10 - Essential (primary) hypertension Status: Acute Assessment and Plan: Hold BP meds for now due to soft pressures now BP is stable Presence of permanent cardiac pacemaker: Code(s): Z95.0 - Presence of cardiac pacemaker Status: Acute Assessment and Plan: Interrogate pacemaker no acute events noted today Restart statin and Jardiance Subjective Date/time seen: 01/11/25 08:18 Interval history: I saw examined patient today, patient feels better today, denies lightheadedness, patient also denies chest pain palpitation abdomen pain nausea vomiting. Exam Narrative: GENERAL: Pleasant, in no acute distress. Well-nourished. - EYES: EOMI. Anicteric. - HENT: Moist mucous membranes. - LUNGS: Clear to auscultation bilateral ly, no wheezing, rhonchi, or rales. - CARDIOVASCULAR: Regular rate and rhyth m. No murmur. No JVD. - ABDOMEN: Soft, non-tender and non-dist ended. No palpable masses. - EXTREMITIES: No edema. Peripheral puls es 2+. Non-tender. - NEUROLOGIC: No focal neurological defi cits. CN II-XII grossly intact. - PSYCHIATRIC: Awake, Alert and oriented x 3. Appropriate mood and affect. - SKIN: No rashes or lesions. Warm. - LYMPH: No cervical lymphadenopathy. Objective Data Vital Signs Vital Signs: Vital Signs - 24 hr 01/10/25 12:00 01/10/25 14:00 01/10/25 14:00 Temperature 98.5 F Pulse Rate 80 69 69 Respiratory Rate 16 Blood Pressure 121/61 121/61 Pulse Oximetry 97 Oxygen Delivery Fraction of Inspired Oxygen 01/10/25 14:00 01/10/25 14:44 01/10/25 16:00 Temperature Pulse Rate 74 81 80 Respiratory Rate Blood Pressure 129/62 126/61 Pulse Oximetry Oxygen Delivery Fraction of Inspired Oxygen 01/10/25 19:31 01/10/25 20:00 01/10/25 21:19 Temperature 97.7 F Pulse Rate 63 68 Respiratory Rate 16 Blood Pressure 149/60 H Pulse Oximetry 98 98 Oxygen Delivery Room Air Fraction of Inspired Oxygen 01/11/25 00:00 01/11/25 04:00 01/11/25 04:52 Temperature 97.5 F L Pulse Rate 67 67 81 Respiratory Rate 18 Blood Pressure 176/65 H Pulse Oximetry 100 Oxygen Delivery Fraction of Inspired Oxygen 01/11/25 07:49 01/11/25 07:50 01/11/25 07:51 Temperature 98.3 F 98.3 F 98.3 F Pulse Rate 80 86 84 Respiratory Rate 16 16 16 Blood Pressure 139/60 139/66 124/70 Pulse Oximetry 97 100 98 Oxygen Delivery Fraction of Inspired Oxygen Intake/Output Intake/Output: Intake & Output 01/08/25 01/09/25 01/10/25 01/11/25 23:59 23:59 23:59 23:59 Intake Total 1245 5160 3124.2 350 Output Total 1500 2800 4550 400 Balance -255 2360 -1425.8 -50 Meds/Results Medications: Active Medications Generic Name Dose Route Start Last Admin Trade Name Freq PRN Reason Stop Dose Admin Acetaminophen 650 mg 01/07/25 12:16 Acetaminophen 325 Mg Tablet PO Q4H PRN Mild Pain (1-3) or Fever Aspirin 81 mg 01/08/25 08:00 01/11/25 08:05 Aspirin 81 Mg Chewable Tablet PO 81 mg DAILY@0800 FLORECITA Administration Citalopram Hydrobromide 20 mg 01/08/25 09:00 01/11/25 08:05 Citalopram Hydrobromide 20 Mg Tablet PO 20 mg DAILY FLORECITA Administration Empagliflozin 10 mg 01/08/25 09:00 01/11/25 08:06 Empagliflozin 10 Mg Tablet PO 10 mg DAILY FLORECITA Administration Enoxaparin Sodium 40 mg 01/08/25 09:00 01/11/25 08:06 Enoxaparin 40 Mg/0.4 Ml Syringe SUB-Q 40 mg DAILY FLORECITA Administration Simvastatin 40 mg 01/08/25 09:00 01/11/25 08:06 Simvastatin 20 Mg Tablet PO 40 mg DAILY FLORECITA Administration Radiology Results: ITS Impressions Chest X-Ray 01/07/25 09:27 Impression: Clear lungs. Head CT 01/07/25 10:08 Impression: No acute abnormality seen. Mild chronic microvascular ischemic change in the periventricular white matter. Head/Neck Ultrasound 01/09/25 12:20 IMPRESSION: 1. 12 mm mass posterior to the right thyroid lobe suspicious for a parathyroid adenoma. Consider parathyroid scintigraphy. 2. Thyroid nodules. Consider ultrasound-guided fine-needle aspiration of the 2.1 cm right thyroid nodule. SPECT Scan Nuclear Medicine 01/10/25 12:54 IMPRESSION: 1. Persistent activity in the area of the thyroid bilaterally that is slightly greater on the right. This finding may be seen with parathyroid hyperplasia or bilateral adenomas.
--- NOTE | 2025-01-11 11:51 | P.DS_ITS ---
DS: Admitting Diagnosis Discharge Date 01/11/25 Admitting Diagnosis (1) Major depressive disorder, recurrent, in partial remission: Code(s): F33.41 - Major depressive disorder, recurrent, in partial remission Status: Acute (2) HTN (hypertension): Qualifiers: Hypertension type: primary hypertension Qualified Code(s): I10 - E ssential (primary) hypertension Code(s): I10 - Essential (primary) hypertension Status: Acute (3) Hyperparathyroidism: Code(s): E21.3 - Hyperparathyroidism, unspecified Status: Acute (4) Arthropathic psoriasis, unspecified: Code(s): L40.50 - Arthropathic psoriasis, unspecified Status: Acute (5) Near syncope: Code(s): R55 - Syncope and collapse Status: Acute (6) Dizziness: Code(s): R42 - Dizziness and giddiness Status: Acute DS: Discharge Diagnosis Discharge Diagnosis (1) Major depressive disorder, recurrent, in partial remission: Code(s): F33.41 - Major depressive disorder, recurrent, in partial remission Status: Acute (2) HTN (hypertension): Qualifiers: Hypertension type: primary hypertension Qualified Code(s): I10 - Essential (primary) hypertension Code(s): I10 - Essential (primary) hypertension Status: Acute (3) Hyperparathyroidism: Code(s): E21.3 - Hyperparathyroidism, unspecified Status: Acute (4) Arthropathic psoriasis, unspecified: Code(s): L40.50 - Arthropathic psoriasis, unspecified Status: Acute (5) Near syncope: Code(s): R55 - Syncope and collapse Status: Acute (6) Dizziness: Code(s): R42 - Dizziness and giddiness Status: Acute DS: Summary Hospital Course Hospital Course: 71-year-old male medical history of hypertension, hyperlipidemia, pacemaker, and bicuspid aortic valve complains of dizziness and feel like passing out whenever he moves positions. Patient states that the 1st time he felt this way he had passed out over year ago and ended up with a pacemaker. He states that off and on for the last year he has been complaining of dizziness and does know was causing it. In the ED the patient's calcium is high at 10.7, alkaline phos of 133, UA is noninfective, head CT shows no acute process. Chest x-ray shows no acute. EKG shows atrial paced with a right bundle branch block. Pacemaker interrogated with no acute events today. The following med issues have been addressed during hospitalization Near syncope: Code(s): R55 - Syncope and collapse Status: Acute Assessment and Plan: Pacemaker interrogated with no acute events Echo 1. Left ventricular chamber dimension is normal. 2. Left ventricular systolic function is normal, estimated at 65-70%. 3. The left ventricular diastolic function is grade I diastolic dysfunction. 4. E/e' 10 is mildly elevated. 5. Linear artifact in right ventricle suggestive of catheter(s), pacemaker lead(s), or ICD lead(s). 6. Left atrial chamber dimension is mildly enlarged. 7. Linear artifact in the right atrium suggestive of catheter(s), pacemaker lead(s), or ICD lead(s). 8. The aortic valve is bicuspid. 9. There is severe aortic valve sclerosis. 10. There is moderate aortic valve stenosis with a peak velocity of 288 cm/s, mean gradient of 16 mmHg, and aortic valve area of 1.3 cm2. 11. There is mild aortic valve regurgitation. 12. There is trace tricuspid valve regurgitation. 13. No pulmonary hypertension, estimated pulmonary arterial systolic pressure is 23 mmHg. Orthostatic test is negative orthostatic hypertension Interrogate pacemaker with no acute events Patient had intermittent lightheadedness, patient had a recent diarrhea before the admission Patient felt nauseous before the near-syncope engine monitor: No significant arrhythmia related syncope Possible vasovagal syncope Hypercalcemia Patient has chronic hypercalcemia Follow-up parathyroid hormone: 82 high TSH wnl Neck ultrasound showed 1. 12 mm mass posterior to the right thyroid lobe suspicious for a parathyroid adenoma. Consider parathyroid scintigraphy. 2. Thyroid nodules. Consider ultrasound-guided fine-needle aspiration of the 2.1 cm right thyroid nodule. NM parathyroid scintigraphy: Persistent activity in the area of the thyroid bilaterally that is slightly greater on the right. This finding may be seen with parathyroid hyperplasia or bilateral adenomas. Refer patient to ENT Dr. Jeronimo for f/u, discussed with the patient and give him the ENT phone for making an appointment Discontinue calcium and vitamin-D supplement HTN (hypertension): Qualifiers: Hypertension type: primary hypertension Qualified Code(s): I10 - Essential (primary) hypertension Code(s): I10 - Essential (primary) hypertension Status: Acute Assessment and Plan: Hold BP meds for now due to soft pressures now BP is stable Presence of permanent cardiac pacemaker: Code(s): Z95.0 - Presence of cardiac pacemaker Status: Acute Assessment and Plan: Interrogate pacemaker no acute events noted today Restart statin and Jardiance Time Spent with Patient Time attestation: Total time spent providing and/or coordinating discharge services: Exam Narrative: GENERAL: Pleasant, in no acute distress. Well-nourished. - EYES: EOMI. Anicteric. - HENT: Moist mucous membranes. - LUNGS: Clear to auscultation bilateral ly, no wheezing, rhonchi, or rales. - CARDIOVASCULAR: Regular rate and rhyth m. No murmur. No JVD. - ABDOMEN: Soft, non-tender and non-dist ended. No palpable masses. - EXTREMITIES: No edema. Peripheral puls es 2+. Non-tender. - NEUROLOGIC: No focal neurological defi cits. CN II-XII grossly intact. - PSYCHIATRIC: Awake, Alert and oriented x 3. Appropriate mood and affect. - SKIN: No rashes or lesions. Warm. - LYMPH: No cervical lymphadenopathy. Discharge Plan Discharge Attending physician on discharge: Hoda Galicia Consulting providers: Joy Reza; Jennifer Donald Discharging Clinician: Hoda Galicia Anticipated Discharge Date/Time: 01/11/25 11:56 Patient Disposition: Home, Self-Care Activity: as tolerated Diet: as tolerated and heart healthy Patient Instructions: Antibiotic Form, Pain Management in Older Adults (DC) Patient Language: Kosovan Stand Alone Forms: General Discharge Information Follow-up/Referrals: Maximo Jeronimo MD [Physician] - (Patient has hyperparathyroidism and hypercalcemia) Baljit Conley MD [Primary Care Provider] - (See PCP in 1 week) Discharge Medications: Continued Jardiance 10 mg tablet 10 mg PO DAILY citalopram 20 mg tablet 20 mg PO DAILY Qty: 90 1RF simvastatin 40 mg tablet 40 mg PO DAILY Qty: 90 1RF triamcinolone acetonide 0.1 % cream 1 applic TOPICAL BID PRN (Reason: Rash) Patient Comments: for psoriasis aspirin 81 mg capsule 81 mg PO DAILY Qty: 60 0RF Discontinued cholecalciferol (vitamin D3) [Vitamin D3] 25 mcg (1,000 unit) capsule 25 mcg PO DAILY calcium polycarbophil [FiberCon] 625 mg tablet 1,250 mg PO BID Date of admission: 01/07/25 11:18 Primary Care Provider: Baljit Conley Admitting Provider: Carolina Carter Attending physician on admission: Carolina Carter Condition: Stable
== END 2025-01-11 12:50 | disposition home or self-care (01) ==
LOC: ANHED 11:04 → ANH3MEDSUR 22:34 → ANH2MED 01-10 14:15 → ANH3MEDSUR 01-12 07:05
PROVIDERS: Nurse Practitioner Gerontology; Admitting Provider Family Medicine; Emergency Provider Emergency Medicine; PCP Family Medicine; Visit Provider Hospitalist
DX: R42 Dizziness and giddiness (principal); R55 Syncope and collapse; E83.52 Hypercalcemia; I10 Essential (primary) hypertension; Z95.0 Presence of cardiac pacemaker; I45.10 Unspecified right bundle-branch block; I35.0 Nonrheumatic aortic (valve) stenosis; Q23.81 Bicuspid aortic valve; F33.41 Major depressive disorder, recurrent, in partial remission; K21.9 Gastro-esophageal reflux disease without esophagitis; E78.00 Pure hypercholesterolemia, unspecified; L40.50 Arthropathic psoriasis, unspecified; M06.9 Rheumatoid arthritis, unspecified; Z87.891 Personal history of nicotine dependence; Z79.82 Long term (current) use of aspirin; Z79.84 Long term (current) use of oral hypoglycemic drugs; Z79.899 Other long term (current) drug therapy; Z88.7 Allergy status to serum and vaccine
CPT/HCPCS: 36415; 70450; 71046; 76536; 78071; 80048; 80053; 81001; 83970; 84443; 85025; 93005; 93306; 96360; 96361; 96372; 96375; 97165; 99285; A9270; A9500; G0378; J1650; J7030

== ENCOUNTER 2025-04-10 12:39 | Emergency (ER) | payer MEDICARE, SELFPAY ==
[2025-04-10 12:51] VITALS: BP 165/67; PULSE 94; RESP 18; TEMP 37.3; O2SAT 99
[2025-04-10] MEDS: LIDO 1%/EPINEPHRINE 1:100,000 20 ML VIAL 4 ML INFILTRATE (13:16)
--- OUTSIDE RECORDS SUMMARY | 2025-04-10 13:29 | XMS_ITS | Clinical Summary ---
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 This disclosure is being madepursuant to the Care Everywhere program and may not contain all information available regarding this patient. Last updated 18.[facility] [employer] Allergies Active Allergy Reactions Criticality Noted Date Comments Covid-19 Mrna Vacc (Moderna) Anaphylaxis High 03/20/2025 Blackberry Flavor Anaphylaxis High 03/20/2025 Blueberry Flavor Other,Anaphylaxis High 01/26/2024 Body Turns red gooseberry [Other] Itching Oxybutynin Chloride Rash Medium 03/20/2025 Medications * Be aware that medications may not be up to date on this document. Alwaysverify current medications with the patient. triamcinolone acetonide (Kenalog) 0.1 % cream Apply to affected area 2 times daily as needed for Other (psoriasis rash) Active lisinopril-hydr oCHLOROthiazide (Prinzide; Zestoretic) 20-25 MG tablet Take 1 (one) tablet by mouth once daily Active empagliflozin (Jardiance) 10 MG tabletIndicatio ns:Diastolic dysfunction,Cristal dontrell hypertension,Bi cuspid aortic valve (HCC) Take 1 (one) tablet by mouth once daily 90 tablet 3 4 Active citalopram (CeleXA) 20 MG tablet TAKE ONE TABLET BY MOUTH ONCE DAILY 30 tablet 4 Active simvastatin (Zocor) 40 MG tablet TAKE ONE TABLET BY MOUTH AT BEDTIME 30 tablet 4 Active meclizine (Antivert) 25 MG tablet TAKE ONE TABLET BY MOUTH 2 TIMES A DAY NEEDED FOR DIZZINESS 60 tablet 4 Active aspirin EC (Ecotrin) 81 MG tablet Take 1 (one) tablet by mouth once daily 5 Active famotidine (Pepcid) 10 MG tablet Take 1 (one) tablet by mouth 2 times daily 5 Active trospium (Sanctura) 20 MG tablet Take 1 (one) tablet by mouth 5 Active pantoprazole EC (Protonix) 40 MG tablet Take 1 (one) tablet by mouth once daily for 30 days 30 tablet 4 06/15/20 24 Discontinu ed(No Pharm No AVS) Active Problems Problem Noted [...] Encounters Date Type Department Care Team Description 03/29/2025 12:00 PM CDT Ancillary Procedure [facility] - Echosonography [address] [facility], [address] [phone] Moderate aortic stenosis 03/29/2025 11:00 AM CDT Office Visit [facility] - Cardiology [address] [facility], [address] [phone] Omid May MD SSS (sick sinus syndrome) (HCC) (Primary Dx) 03/29/2025 Travel 03/13/2025 1:10 AM CDT Clinical Support [facility] - Cardiology [address] [facility], [address] [address] SSS (sick sinus syndrome) (HCC) ; S/P placement of cardiac pacemaker 03/09/2025 11:20 AM CDT Office Visit [facility] - Cardiology [address] [facility], [address] [phone] Ro Rodriguez MD Moderate aortic stenosis (Primary Dx) 03/09/2025 Travel from Last 3 Months Family History Medical [...] and heating? Not hard at all 03/11/2024 [facility] [place] [facility] Occupat ional Health - Occupational Stress [...] at Not on file Legal Sex Male 9:35 AM ROD GREASER Gender Identity Not on file Sexual Orientation Not on file Last Filed Vital Signs Vital Sign Reading Time Taken Comments Blood Pressure 128/72 03/29/2025 11:07 AM CDT Pulse 82 03/29/2025 11:07 AM CDT Temperature 36.8 C (98.3 F) 03/13/2024 11:47 AM CDT Respiratory Rate 20 03/13/2024 11:47 AM CDT Oxygen Saturation 98% 03/29/2025 11:07 AM CDT Inhaled Oxygen Concentration - - Weight 74.8 kg (165 lb) 03/29/2025 11:07 AM CDT Height 175.3 cm (5' 9) 03/29/2025 11:07 AM CDT Body Mass Index 24.37 03/29/2025 11:07 AM CDT Plan of Treatment Upcoming Encounters Date Type Department Care Team (Late st Contact Info) Description 06/12/2025 1:10 AM CDT Clinical Support [facility] - Cardiology [address] [facility], [address] [phone] 09/04/2025 1:00 AM ROD GREASER Clinical Support [facility] - Cardiology [address] [facility], [address] [phone] 12/04/2025 1:00 AM ROD GREASER Clinical Support [facility] - Cardiology [address] [facility], [address] [phone] 03/05/2026 1:00 AM CDT Clinical Support [facility] - Cardiology [address] [facility], [address] [phone] 04/04/2026 11:00 AM CDT Office Visit [facility] - Cardiology [address] [facility], [address] [phone] Omid May MD [address] [facility], [address] [address] Health Maintenance Due Date Last Done Comments HEPATITIS C SCREENING 11/25/1964 DTAP/TDAP/TD VACCINES (1 - Tdap) 1965 PNEUMOCOCCAL VACCINE 50+ (1 of 1 - PCV) 1996 ZOSTER VACCINE (1 of 2) 1996 Respiratory Syncytial Virus (RSV) Vaccine Pt: or over 60 yrs (1 - 1-dose 75+ series) 2021 COVID-19 VACCINE ( season) 2024 08/19/2023, 07/24/2022, 02/05/2022, Additional history exists DEPRESSION SCREENING 11/01/2024 MEDICARE AWV CALENDAR YEAR 2024 INFLUENZA VACCINE (Season Ended) 2025 08/17/2023, 07/17/2022, 08/11/2021, Additional history exists HEPATITIS B VACCINE Aged Out No longe r eligible based on patient's age to complete this topic HIB VACCINE Aged Out No longer eligi ble based on patient's age to complete this topic HPV VACCINE Aged Out No longer eligi ble based on patient's age to complete this topic MENINGOCOCCAL (Group B) VACCINE SHARED DECISION-MAKING Aged Out No longer eligible based on patient's age to complete this topic MENINGOCOCCAL GROUPS A/C/Y/W VACCINE Aged Out No longer eligible based on patient's age to complete this topic Medical Devices Implanted Type 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 Device Identifier Shelf Expiration Date Model / Serial / Lot Lead Cp Nv Pace 52cm Strd Elut Pltn Nina - [id number] Implanted:Qty: 1 on 03/06/2024 by Omid May MD at [facility] [employer] [id number] 10/21/2025 5076-52 / [id number] / NA Lead Cp Nv Pace 45cm Strd Elut Pltn Nina - [id number] Implanted:Qty: 1 on 03/06/2024 by Omid May MD at [facility] [employer] [id number] 11/29/2025 5076-45 / [id number] / NA Pacemkr Kiara Wirelessly Crd - [id number] Implanted:Qty: 1 on 03/06/2024 by Omid May MD at [facility] Right: Chest [employer] [id number] 07/29/2025 [id number] / [id number] / NA Procedures Procedure Name Priority Date/Time Associated Diagnosis Comments CARDIAC PROCEDURE ORDER 04/03/2025 ECHO COMPLETE Routine 03/29/2025 12:42 PM CDT Moderate aortic stenosis CARDIAC PROCEDURE ORDER 03/29/2025 [place] PM/ICD REMOTE TECH SERV Routine 03/26/2025 10:17 PM CDT SSS (sick sinus syndrome) (HCC) S/P placement of cardiac pacemaker [place] PM DEVICE INTERROGATE REMOTE Routine 03/26/2025 10:17 PM CDT SSS (sick sinus syndrome) (HCC) S/P placement of cardiac pacemaker CARDIAC PROCEDURE ORDER 03/10/2025 from Last 3 Months Results * CARDIAC PROCEDURE ORDER (04/03/2025) Only the most recent of3 resultswithin the time period is included. Narrative 04/03/2025 Ordered by an unspecified provider. us Scanned Document CARDIAC SERVICES ORDERABLES Fin al Result * ECHO COMPLETE (03/29/2025 12:42 PM CDT) LV biplane EF 58.263 % SSM CV FUJI PACS LV A2C EF 56.853 % SSM CV FUJ I PACS LV A4C EF 61.093 % SSM CV FUJ I PACS LV EDV A2C 74.135 ml SSM CV FU JI PACS LV EDV A4C 63.897 ml SSM CV FU JI PACS LV ESV A2C 31.987 ml SSM CV FU JI PACS LV ESV A4C 24.86 ml SSM CV FU JI PACS LVOT pk grad 3.907 mmHg SSM CV FUJI PACS LVOT pk nils 107.526 cm/s SSM CV F UJI PACS LVOT VTI 22.533 cm SSM CV FUJ I PACS RVIDd 4.221 cm SSM CV FUJ I PACS RVOT pk nils 54.273 cm/s SSM CV F UJI PACS RVOT VTI 12.152 cm SSM CV FUJ I PACS LA vol BP 72.942 ml SSM CV FUJ I PACS RA area 19.396 cm SSM CV FUJI PACS AV area pk nils 1.068 cm SSM CV FUJI PACS AV area cont VTI 1.1 cm SSM CV FUJI PACS AR DECEL TIME 1.591 s SSM CV FUJI PACS AV PHT 0.462 s SSM CV FUJ I PACS AV pk nils regurg 394.977 cm/s SSM CV FUJI PACS AV pk grad 39.073 mmHg SSM CV FU JI PACS AV mn grad 21.736 mmHg SSM CV FU JI PACS AV pk nils 312.543 cm/s SSM CV FUJ I PACS AV VTI 69.284 cm SSM CV FUJ I PACS MV A pk nils 84.589 cm/s SSM CV F UJI PACS MV E pk nils 77.026 cm/s SSM CV F UJI PACS MV E' lateral nils 9.005 cm/s SS M CV FUJI PACS MV pk nils regurg 495.291 cm/s SSM CV FUJI PACS MR VTI 157.982 cm SSM CV FUJ I PACS MV mn grad 1.199 mmHg SSM CV FU JI PACS MV VTI 27.657 cm SSM CV FUJ I PACS PV pk nils 102.46 cm/s SSM CV FUJ I PACS TAPSE 2.497 cm SSM CV FUJ I PACS TR pk nils 264.666 cm/s SSM CV FUJ I PACS Ascending aorta 3.441 cm SSM CV FUJI PACS IVC Diam Expiration 1.239 cm SSM CV FUJI PACS Sinus of Valsalva 3.297 cm SS M CV FUJI PACS AV area index 0.576 cm /m SSM CV FUJI PACS LA vol index 0.038 l/m SSM CV FUJI PACS Dimensionless Index 0.325 unitless SSM CV FUJI PACS Myocardial strain charge 1 unitless SSM CV FUJI PACS IVSd 2D 0.934 cm SSM CV FUJ I PACS LVIDd 4.45 cm SSM CV FUJ I PACS LVIDs 2.854 cm SSM CV FUJ I PACS LVOT diam 1.988 cm SSM CV FUJ I PACS LVPWd 0.901 cm SSM CV FUJ I PACS Anatomical Region Laterality Modality Ultrasound 03/29/2025 12:2 0 PM CDT Narrative 03/29/2025 3:04 PM CDT Summary * The left ventricle is normal in size. * Left ventricular segmental wall motion is normal. * Left ventricular systolic function is normal with an estimated ejection fraction of 58% by biplane method of disks. * The left ventricular diastolic function is indeterminate. * Right ventricle is normal in size with normal systolic function. * There is moderate aortic valve stenosis with a peak velocity of 3.1 m/s, mean gradient of 22 mmHg, and aortic valve area of 1.10 cm2. * There is mild aortic valve regurgitation. * A device wire is seen in the right ventricle. * A device wire is seen in the right atrium. * The left atrium is mildly dilated with a left atrial volume index of 38 ml/m2 by BP MOD. Patient Info Name: Sebastian De La O Age: 79 years : 1945 Gender: Male Ht: 69 in Wt: 164 lb BSA: 1.91 m2 HR: 60 bpm BP: 128 / 72 mmHg Exam Date: 03/29/2025 12:20 PM Patient Status: O Study Site: [facility] Primary Location: [facility] Info Exam Type: ECHO COMPLETE Indications I35.0 - Moderate aortic stenosis Procedure(s) * A complete 2D, color Doppler, and spectral Doppler transthoracic echocardiogram was performed. * Strain imaging performed per cardiology department protocol to evaluate and/or monitor myocardial function. Staff Referring Physician: Ro Rodriguez Ordering Provider: Ro Rodriguez Utilization Manager: Artemio Haile Left Ventricle The left ventricular mass is normal. The left ventricle is normal in size. Left ventricular segmental wall motion is normal. Left ventricular systolic function is normal with an estimated ejection fraction of 58% by biplane method of disks. The left ventricular diastolic function is indeterminate. Right Ventricle The right ventricle is normal in size. Right ventricular systolic function is normal. A device wire is seen in the right ventricle. Left Atrium The left atrium is mildly dilated with a left atrial volume index of 38 ml/m2 by BP MOD. Right Atrium The right atrium is normal in size. A device wire is seen in the right atrium. Atrial Septum Intact interatrial septum visualized by 2D and color Doppler imaging. Aortic Valve The aortic valve is not well visualized, possibly bicuspid and moderately calcified. There is moderate aortic valve stenosis with a peak velocity of 3.1 m/s, mean gradient of 22 mmHg, and aortic valve area of 1.10 cm2. There is mild aortic valve regurgitation. Pulmonic Valve The pulmonic valve is normal. There is no pulmonic valve stenosis. There is no pulmonic regurgitation. Mitral Valve The mitral valve is normal. There is no mitral valve stenosis. There is mild mitral valve regurgitation. Tricuspid Valve The tricuspid valve is normal. There is mild tricuspid valve regurgitation. The pulmonary artery systolic pressure is normal, 31 mmHg. Inferior Vena Cava The inferior vena cava is normal in size (< 2.1 cm). There is > 50% collapse of the IVC upon inspiration with an estimated right atrial pressure of 3 mmHg. Pericardium/Pleural There is no pericardial effusion. Aorta The aortic root at the sinus of Valsalva is normal in size. The ascending aorta is normal in size. Measurements Left Ventricular Outflow Tract Name Value Normal LVOT 2D LVOT Diameter 2.0 cm LVOT Area 3.1 cm2 LVOT Doppler LVOT Peak Velocity 1.1 m/s LVOT Peak Gradient 4 mmHg LVOT Mean Velocity 66.92 cm/s LVOT Mean Gradient 2 mmHg LVOT VTI 22.5 cm LVOT VTI/AV VTI Ratio 0.3 LVOT Stroke Volume 70 ml LVOT Stroke Volume Index 37 ml/m2 35-58 LVOT CO 4.1 l/min LVOT CI 2.1 l/min/m2 Pulmonic Valve Name Value Normal RVOT Doppler RVOT Peak Velocity 0.5 m/s RVOT Peak Gradient 1 mmHg RVOT Mean Gradient 1 mmHg PV Doppler PV Peak Velocity 1.0 m/s PV Peak Gradient 3 mmHg PV Mean Gradient 2 mmHg Mitral Valve Name Value Normal MV Doppler MV Peak Gradient 4 mmHg MV Mean Gradient 1 mmHg MV DI (VTI) 1.23 MV PHT 79 ms MV Area (PHT) 2.78 cm2 4.00-5.00 MV Area (Cont Eq VTI) 2.53 cm2 MV Regurgitation Doppler MR Peak Gradient 98 mmHg MV Diastolic Function MV E Peak Velocity 0.8 m/sec MV A Peak Velocity 0.8 m/sec MV E/A 0.9 MV Decel Time (PW) 263 ms MV A Wave Duration 194 ms MV Annular TDI MV Septal e' Velocity 6 cm/s >=8 MV E/e' (Septal) 14 <=8 MV Lateral e' Velocity 9 cm/s >=10 MV E/e' (Lateral) 9 <=8 MV e' Average 7 cm/s MV E/e' (Average) 11 Tricuspid Valve Name Value Normal TV Regurgitation Doppler TR Peak Velocity 2.6 m/s TR Peak Gradient 28 mmHg Estimated PAP/RSVP RA Pressure 3 mmHg <=5 PA Systolic Pressure 31 mmHg <35 RV Systolic Pressure 31 mmHg <36 TV Annular TDI TV Lateral Marija s' Velocity 11 cm/s 10-19 Pulmonary Vessels Name Value Normal Pulmonary Veins Pulm Vein Peak Systolic Velocity 54.2 cm/s Pulm Vein Peak Diastolic Velocity 43.1 cm/s Pulm Vein S/D Velocity Ratio 1 Pulm Vein Ar Velocity 30.9 cm/s Pulm Vein Ar Dur - MV A Dur -43 ms Aorta Name Value Normal Ascending Aorta Sinus of Valsalva Diameter 3.3 cm 2.8-4.0 Sinus of Valsalva Index 1.7 cm/m2 1.3-2.1 Asc Ao Diameter 3.4 cm 2.2-3.8 Asc Ao Diameter Index 1.8 cm/m2 1.1-1.9 Venous Name Value Normal IVC/SVC IVC Diameter 1.2 cm <=2.1 Aortic Valve Name Value Normal AV Doppler AV Peak Velocity 3.13 m/s AV Peak Gradient 39 mmHg AV Mean Gradient 22 mmHg AV VTI 69 cm AV Area (Cont Eq VTI) 1.10 cm2 >=2.00 AV Area (Cont Eq Nils) 1.07 cm2 AV DI (VTI) 0.33 AV DI (Nils) 0.34 AV Regurgitation 2D LVOT Area 3.10 cm2 AV Regurgitation Doppler AR Decel Time 1,591 ms AR PHT 462 ms Ventricles Name Value Normal LV Dimensions 2D/MM IVS Diastolic Thickness (2D) 0.9 cm 0.6-1.0 LVID Diastole (2D) 4.4 cm 4.2-5.8 LVPW Diastolic Thickness (2D) 0.9 cm 0.6-1.0 LVID Systole (2D) 2.9 cm 2.5-4.0 LV Mass (2D Cubed) 134 g 88-224 LV Mass Index (2D Cubed) 70 g/m2 49-115 Relative Wall Thickness (2D) 0.40 <=0.42 LV Fractional Shortening/Ejection Fraction 2D/MM LV Fractional Shortening (2D) 36 % 25-43 LV EF (2D Teicholz) 66 % 52-72 LV Diastolic Volume (4C MOD) 64 ml LV EF (4C MOD) 61 % LV Diastolic Volume (2C MOD) 74 ml LV EF (2C MOD) 57 % LV Diastolic Volume (BP MOD) 69 ml 62-150 LV Diastolic Volume Index (BP MOD) 36 ml/m2 34-74 LV Systolic Volume (BP MOD) 29 ml 21-61 LV Systolic Volume Index (BP MOD) 15 ml/m2 11-31 LV EF (BP MOD) 58 % 52-72 LV Diastolic Length (4C) 8.3 cm LV Systolic Length (4C) 6.4 cm LV Stroke Volume (4C MOD) 39 ml RV Dimensions 2D/MM RVID Diastole (2D) 4.2 cm 2.5-3.5 TAPSE 2.5 cm >=1.7 Atria Name Value Normal LA Dimensions LA Volume (BP MOD) 73 ml LA Volume Index (BP MOD) 38 ml/m2 16-34 RA Dimensions RA Area (4C) 19 cm2 <=18 RA Area (4C) Index 10 cm2/m2 RA ESV (4C MOD) 45 ml 18-32 RA ESV Index (4C MOD) 23 ml/m2 16-34 EchoPAC Name Value Normal IMER G peak SL(Avg) (AWMA) -19.3 % Report Signatures Finalized by Cate Mandel MD on 03/29/2025 03:04 PM Procedure Note Cate Mandel MD - 03/29/2025 Summary * The left ventricle is normal in size. * Left ventricular segmental wall motion is normal. * Left ventricular systolic function is normal with an estimatedejection fraction of 58% by biplane method of disks. * The left ventricular diastolic function is indeterminate. * Right ventricle is normal in size with normal systolic function. * There is moderate aortic valve stenosis with a peak velocity of 3.1m/s, mean gradient of 22 mmHg, and aortic valve area of 1.10 cm2. * There is mild aortic valve regurgitation. * A device wire is seen in the right ventricle. * A device wire is seen in the right atrium. * The left atrium is mildly dilated with a left atrial volume index of38 ml/m2 by BP MOD. Patient Info Name: Sebastian De La O Age: 79 years : 1945 Gender: Male Ht: 69 in Wt: 164 lb BSA: 1.91 m2 HR: 60 bpm BP: 128 / 72 mmHg Exam Date: 03/29/2025 12:20 PM Patient Status: O Study Site: [facility] Primary Location: [facility] Info Exam Type: ECHO COMPLETE Indications I35.0 - Moderate aortic stenosis Procedure(s) * A complete 2D, color Doppler, and spectral Doppler transthoracic echocardiogram was performed. * Strain imaging performed per cardiology department protocol toevaluate and/or monitor myocardial function. Staff Referring Physician: Ro Rodriguez Ordering Provider: Ro Rodriguez Utilization Manager: Artemio Haile Left Ventricle The left ventricular mass is normal. The left ventricle is normal insize. Left ventricular segmental wall motion is normal. Left ventricularsystolic function is normal with an estimated ejection fraction of 58% by biplane method of disks. The left ventricular diastolic function isindeterminate. Right Ventricle The right ventricle is normal in size. Right ventricular systolicfunction is normal. A device wire is seen in the right ventricle. Left Atrium The left atrium is mildly dilated with a left atrial volume index of38 ml/m2 by BP MOD. Right Atrium The right atrium is normal in size. A device wire is seen in the right atrium. Atrial Septum Intact interatrial septum visualized by 2D and color Doppler imaging. Aortic Valve The aortic valve is not well visualized, possibly bicuspid andmoderately calcified. There is moderate aortic valve stenosis with a peak velocity of3.1 m/s, mean gradient of 22 mmHg, and aortic valve area of 1.10 cm2. Thereis mild aortic valve regurgitation. Pulmonic Valve The pulmonic valve is normal. There is no pulmonic valve stenosis. Thereis no pulmonic regurgitation. Mitral Valve The mitral valve is normal. There is no mitral valve stenosis. There ismild mitral valve regurgitation. Tricuspid Valve The tricuspid valve is normal. There is mild tricuspid valveregurgitation. The pulmonary artery systolic pressure is normal, 31 mmHg. Inferior Vena Cava The inferior vena cava is normal in size (< 2.1 cm). There is > 50%collapse of the IVC upon inspiration with an estimated right atrial pressure of 3mmHg. Pericardium/Pleural There is no pericardial effusion. Aorta The aortic root at the sinus of Valsalva is normal in size. Theascending aorta is normal in size. Measurements Left Ventricular Outflow Tract Name Value Normal LVOT 2D LVOT Diameter 2.0 cm LVOT Area 3.1 cm2 LVOT Doppler LVOT Peak Velocity 1.1 m/s LVOT Peak Gradient 4 mmHg LVOT Mean Velocity 66.92 cm/s LVOT Mean Gradient 2 mmHg LVOT VTI 22.5 cm LVOT VTI/AV VTI Ratio 0.3 LVOT Stroke Volume 70 ml LVOT Stroke Volume Index 37 ml/m2 35-58 LVOT CO 4.1 l/min LVOT CI 2.1 l/min/m2 Pulmonic Valve Name Value Normal RVOT Doppler RVOT Peak Velocity 0.5 m/s RVOT Peak Gradient 1 mmHg RVOT Mean Gradient 1 mmHg PV Doppler PV Peak Velocity 1.0 m/s PV Peak Gradient 3 mmHg PV Mean Gradient 2 mmHg Mitral Valve Name Value Normal MV Doppler MV Peak Gradient 4 mmHg MV Mean Gradient 1 mmHg MV DI (VTI) 1.23 MV PHT 79 ms MV Area (PHT) 2.78 cm2 4.00-5.00 MV Area (Cont Eq VTI) 2.53 cm2 MV Regurgitation Doppler MR Peak Gradient 98 mmHg MV Diastolic Function MV E Peak Velocity 0.8 m/sec MV A Peak Velocity 0.8 m/sec MV E/A 0.9 MV Decel Time (PW) 263 ms MV A Wave Duration 194 ms MV Annular TDI MV Septal e' Velocity 6 cm/s >=8 MV E/e' (Septal) 14 <=8 MV Lateral e' Velocity 9 cm/s >=10 MV E/e' (Lateral) 9 <=8 MV e' Average 7 cm/s MV E/e' (Average) 11 Tricuspid Valve Name Value Normal TV Regurgitation Doppler TR Peak Velocity 2.6 m/s TR Peak Gradient 28 mmHg Estimated PAP/RSVP RA Pressure 3 mmHg <=5 PA Systolic Pressure 31 mmHg <35 RV Systolic Pressure 31 mmHg <36 TV Annular TDI TV Lateral Marija s' Velocity 11 cm/s 10-19 Pulmonary Vessels Name Value Normal Pulmonary Veins Pulm Vein Peak Systolic Velocity 54.2 cm/s Pulm Vein Peak Diastolic Velocity 43.1 cm/s Pulm Vein S/D Velocity Ratio 1 Pulm Vein Ar Velocity 30.9 cm/s Pulm Vein Ar Dur - MV A Dur -43 ms Aorta Name Value Normal Ascending Aorta Sinus of Valsalva Diameter 3.3 cm 2.8-4.0 Sinus of Valsalva Index 1.7 cm/m2 1.3-2.1 Asc Ao Diameter 3.4 cm 2.2-3.8 Asc Ao Diameter Index 1.8 cm/m2 1.1-1.9 Venous Name Value Normal IVC/SVC IVC Diameter 1.2 cm <=2.1 Aortic Valve Name Value Normal AV Doppler AV Peak Velocity 3.13 m/s AV Peak Gradient 39 mmHg AV Mean Gradient 22 mmHg AV VTI 69 cm AV Area (Cont Eq VTI) 1.10 cm2 >=2.00 AV Area (Cont Eq Nils) 1.07 cm2 AV DI (VTI) 0.33 AV DI (Nils) 0.34 AV Regurgitation 2D LVOT Area 3.10 cm2 AV Regurgitation Doppler AR Decel Time 1,591 ms AR PHT 462 ms Ventricles Name Value Normal LV Dimensions 2D/MM IVS Diastolic Thickness (2D) 0.9 cm 0.6-1.0 LVID Diastole (2D) 4.4 cm 4.2-5.8 LVPW Diastolic Thickness (2D) 0.9 cm 0.6-1.0 LVID Systole (2D) 2.9 cm 2.5-4.0 LV Mass (2D Cubed) 134 g 88-224 LV Mass Index (2D Cubed) 70 g/m2 49-115 Relative Wall Thickness (2D) 0.40 <=0.42 LV Fractional Shortening/Ejection Fraction 2D/MM LV Fractional Shortening (2D) 36 % 25-43 LV EF (2D Teicholz) 66 % 52-72 LV Diastolic Volume (4C MOD) 64 ml LV EF (4C MOD) 61 % LV Diastolic Volume (2C MOD) 74 ml LV EF (2C MOD) 57 % LV Diastolic Volume (BP MOD) 69 ml 62-150 LV Diastolic Volume Index (BP MOD) 36 ml/m2 34-74 LV Systolic Volume (BP MOD) 29 ml 21-61 LV Systolic Volume Index (BP MOD) 15 ml/m2 11-31 LV EF (BP MOD) 58 % 52-72 LV Diastolic Length (4C) 8.3 cm LV Systolic Length (4C) 6.4 cm LV Stroke Volume (4C MOD) 39 ml RV Dimensions 2D/MM RVID Diastole (2D) 4.2 cm 2.5-3.5 TAPSE 2.5 cm >=1.7 Atria Name Value Normal LA Dimensions LA Volume (BP MOD) 73 ml LA Volume Index (BP MOD) 38 ml/m2 16-34 RA Dimensions RA Area (4C) 19 cm2 <=18 RA Area (4C) Index 10 cm2/m2 RA ESV (4C MOD) 45 ml 18-32 RA ESV Index (4C MOD) 23 ml/m2 16-34 EchoPAC Name Value Normal IMER G peak SL(Avg) (AWMA) -19.3 % Report Signatures Finalized by Cate Mandel MD on 03/29/2025 03:04 PM Ro Rodriugez MD ECHO CUPID Final Resul t * [place] PM DEVICE INTERROGATE REMOTE, [place] PM/ICD REMOTE TECH SERV (03/26/2025 10:17 PM CDT) Narrative Xuan Guadalupe MD - 03/26/2025 10:17 PM CDT Xuan Guadalupe MD 03/26/2025 10:20 PM Remote Interrogation: Pertinent Findings: Device function within normal limites. No significant events. NSVT. Xuan Guadalupe MD Cardiac Electrophysiology Xuan Guadalupe MD PROCEDURE/MINOR SURGICAL ORDERAB LES Final Result from Last 3 Months Insurance [facility] MANAGED MEDICARE ADV [facility] MANAGED MEDICARE ADV Advance Directives * Full Code (Latest Code Status on File) Date Activated Date Inactivated Comments 03/11/2024 7:51 PM 03/13/2024 1:57 PM * Full Code Date Activated Date Inactivated Comments 03/03/2024 8:04 PM 03/07/2024 12:02 PM * Full Code Date Activated Date Inactivated Comments 01/26/2024 11:17 PM 01/28/2024 6:00 PM Care Teams Baggage Handling Supervisor Relationship Specialty Start Date End Date Baljit Conley MD [address] [place] [address] [place] [id number] PCP - General 11/19/21
--- OUTSIDE RECORDS SUMMARY | 2025-04-10 13:30 | XMS_ITS | Clinical Summary ---
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 Gender Identity Not on file Sexual Orientation Not on file Obstetrics History Last Filed Vital Signs Vital Sign Reading Time Taken Comments Blood Pressure - - Pulse - - Temperature - - Respiratory Rate 20 04/24/2024 10:43 AM CDT Oxygen Saturation - - Inhaled Oxygen Concentration - - Weight 73.5 kg (162 lb) 04/24/2024 10:43 AM CDT Height 175.3 cm (5' 9) 04/24/2024 10:43 AM CDT Body Mass Index [...] 07/24/2022, 02/05/2022, Additional history exists Influenza Vaccine (Season Ended) 2025 08/17/2023, 07/17/2022, 08/11/2021, Additional history exists DTaP/Tdap/Td Vaccine (2 - Td or Tdap) 01/25/2034 01/26/2024 Insurance [facility] MEDICARE ADVANTAGE Care Teams Electric Crane Operator Relationship Specialty Start Date End Date Baljit Conley MD [address] [place] [address] [place] [id number] PCP - General Family Medicine 03/30/24
--- OUTSIDE RECORDS SUMMARY | 2025-04-10 13:30 | XMS_ITS | Referral Summary ---
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
--- OUTSIDE RECORDS SUMMARY | 2025-04-10 13:30 | XMS_ITS | Continuity of Care Document ---
Author Name [facility] Organization [facility] Care Team Providers Care Security Assessor Name Role Phone [facility] Unavailable Unavailable Problems Combined list of problems from [facility] and [facility] facilities. It does not include entries that were removed or entered in error. Problem Status Onset Date Problem Type Date of Resolution Comments Source Anxiety Active Condition [facility] Aortic valve stenosis Active Condition [facility] CN - Constipation Active Condition [facility] Exposure to potentially hazardous substance (SCT [id number]) Active Condition March 21 Entered By: JAMIE CAMPBELL Comment: Entered automatically through PHANI Problem List documentation program [facility] Gastro-oesophageal reflux disease without oesophagitis Active Condition [facility] History of sick sinus syndrome Active Condition March 20, 2025 Entered By: ELIZABETH JOSÉ Comment: s/p PPM [facility] HLD - Hyperlipidemia Active Condition S [facility] HPTH - Hyperparathyroidism Active Condition [facility] HTN - Hypertension Active Condition [facility] Overactive urinary bladder Active Condition [facility] PA (Psoriatic arthritis) Active Condition [facility] Psoriasis Active Condition [facility] Tinnitus Active Condition [facility] Diagnosis: ICD-10-CM I35.0 Nonrheumatic aortic (valve) stenosis Active Diagnosis [facility] Diagnosis: ICD-10-CM Z71.89 Other specified counseling Active Diagnosis [facility] Medications Combined list of outpatient medications from [facility] and [facility] facilities.Medications provided include 1) outpatient medications from the last 15 months, and 2) patient-reported medications. Medication Details Route Status Patient Instructions Prescription Expires Prescription Number Last Dispense Date Ordering Provider Order Date Order Qty Source ASPIRIN 81MG TAB,EC TAKE ONE TABLET BY MOUTH ONCE A DAY ORAL ACTIVE [facility]QUAIDE, 2024 [facility] CHOLECALCIF SHILA 25MCG (1,000UNIT) TAB TAKE ONE TABLET BY MOUTH ONCE A DAY ORAL ACTIVE [facility], 2024 [facility] CITALOPRAM HYDROBROMID E 40MG TAB TAKE ONE-HALF TABLET BY MOUTH EVERY MORNING ORAL ACTIVE [facility], 2024 [facility] EMPAGLIFLOZ IN 25MG TAB TAKE ONE-HALF TABLET BY MOUTH ONCE A DAY ORAL ACTIVE 03/21/2026 [id number] [facility], 2024 45 [facility] FAMOTIDINE 10MG TAB TAKE ONE TABLET BY MOUTH TWICE A DAY ORAL ACTIVE [facility], 2024 [facility] SIMVASTATIN 80MG TAB TAKE ONE-HALF TABLET BY MOUTH EVERY EVENING ORAL ACTIVE [facility], 2024 [facility] TROSPIUM CL 20MG TAB TAKE ONE TABLET BY MOUTH TWICE A DAY (TAKE ONE HOUR BEFORE A MEAL OR ON AN EMPTY STOMACH) ORAL ACTIVE 03/21/2026 [id number] [facility], 2024 180 [facility] WHEAT DEXTRIN (BENEFIBER) PWDR,ORAL MIX AND DRINK 1 TEASPOON FUL BY MOUTH ORAL ACTIVE [place], 2024 [facility] Allergies, Adverse Reactions, Alerts Combined list of allergies from [facility] of Defense and [facility] Affairs facilities. It does not include entries that were removed or entered in error. Substance Category Reaction Severity Reaction type Status Date Reported Comments Source BLUEBERRIES Propensity to adverse reactions to substance (finding) Anaphylaxis active [facility] GOOSEBERRIES Propensity to adverse reactions to food (finding) Anaphylaxis active [facility] MODERNA COVID-19 VACCINE (EUA) Propensity to adverse reactions to drug (finding) Anaphylaxis active 5 [facility] OXYBUTYNIN CHLORIDE Propensity to adverse reactions to drug (finding) Eruption active 5 [facility] Results Combined list of recent chemistry, hematology and other laboratory results from [facility] Defense and [facility] Affairs, ranging from 15 months to all on record, depending upon the facility. Order Name Results Value Reference Range Date Interpretation Specimen Comments Source ANTI-NUCL EAR ANTIBODY (STL-PB) NUCLEAR AB [PRESENCE] IN SERUM NEGATIVE 03/20 Specimen Type: SERUM No comment entered. Ordering Provider: Trey JOSÉ Report Released Date/Time: March 20, 2025 10:06 AM Reporting Lab: [address] [address] Performing Lab: [address] [id number] [address] CBC LEUKOCYTES [#/VOLUME] IN BLOOD BY AUTOMATED COUNT 6.5 10*3/uL 3.6 - 11.2 03/20 Specimen Type: BLOOD No comment entered. Ordering Provider: Trey JOSÉ Report Released Date/Time: March 20, 2025 07:57 AM Reporting Lab: [facility] [address] Performing Lab: [facility] [id number] [place] [address] CBC ERYTHROCYT ES [#/VOLUME] IN BLOOD BY AUTOMATED COUNT 5.60 10*6/uL 4.10 - 5.70 03/20 Specimen Type: BLOOD No comment entered. Ordering Provider: Trey JOSÉ Report Released Date/Time: March 20, 2025 07:57 AM Reporting Lab: [facility] [address] Performing Lab: [facility] [id number] [place] [address] CBC HEMOGLOBIN [MASS/VOLU ME] IN BLOOD 16.5 g/dL 13.1 - 16.8 03/20 Specimen Type: BLOOD No comment entered. Ordering Provider: Trey JOSÉ Report Released Date/Time: March 20, 2025 07:57 AM Reporting Lab: [facility] [place] [address] Performing Lab: [facility] CBC HEMATOCRIT [VOLUME FRACTION] OF BLOOD 48.3 38.2 - 48.4 03/20 Specimen Type: BLOOD No comment entered. Ordering Provider: Trey JOSÉ Report Released Date/Time: March 20, 2025 07:57 AM Reporting Lab: [facility] [place] [address] Performing Lab: [facility] CBC MCV [ENTITIC VOLUME] BY AUTOMATED COUNT 86.3 fL 80.0 - 100.0 03/20 Specimen Type: BLOOD No comment entered. Ordering Provider: Trey JOSÉ Report Released Date/Time: March 20, 2025 07:57 AM Reporting Lab: [facility] [place] [address] Performing Lab: [facility] CBC MCH [ENTITIC MASS] BY AUTOMATED COUNT 29.5 pg 27.0 - 34.0 03/20 Specimen Type: BLOOD No comment entered. Ordering Provider: Trey JOSÉ Report Released Date/Time: March 20, 2025 07:57 AM Reporting Lab: [facility] [place] [address] Performing Lab: [facility] CBC MCHC [MASS/VOLU ME] BY AUTOMATED COUNT 34.2 g/dL 33.0 - 36.0 03/20 Specimen Type: BLOOD No comment entered. Ordering Provider: Trey JOSÉ Report Released Date/Time: March 20, 2025 07:57 AM Reporting Lab: [facility] [place] [address] Performing Lab: [facility] DIVISION CBC PLATELETS [#/VOLUME] IN BLOOD BY AUTOMATED COUNT 211 10*3/uL 150 - 400 03/20 Specimen Type: BLOOD No comment entered. Ordering Provider: Trey JOSÉ Report Released Date/Time: March 20, 2025 07:57 AM Reporting Lab: [facility] [place] [address] Performing Lab: [facility] DIVISION CBC PLATELET MEAN VOLUME [ENTITIC VOLUME] IN BLOOD BY AUTOMATED COUNT 10.8 fL 7.5 - 11.2 03/20 Specimen Type: BLOOD No comment entered. Ordering Provider: Trey JOSÉ Report Released Date/Time: March 20, 2025 07:57 AM Reporting Lab: [facility] [place] [address] Performing Lab: [facility] DIVISION CBC ERYTHROCYT E DISTRIBUTI ON WIDTH [RATIO] BY AUTOMATED COUNT 13.2 11.8 - 15.1 03/20 Specimen Type: BLOOD No comment entered. Ordering Provider: Trey JOSÉ Report Released Date/Time: March 20, 2025 07:57 AM Reporting Lab: [facility] [place] [address] Performing Lab: [facility]1 [address] [place] [address] DIVISION CBC LYMPHOCYTE S/100 LEUKOCYTES IN BLOOD BY AUTOMATED COUNT 18 03/20 Specimen Type: BLOOD No comment entered. Ordering Provider: Trey JOÉS Report Released Date/Time: March 20, 2025 07:57 AM Reporting Lab: [facility] [place] [address] Performing Lab: [facility] DIVISION CBC MONOCYTES/ 100 LEUKOCYTES IN BLOOD BY AUTOMATED COUNT 9 03/20 Specimen Type: BLOOD No comment entered. Ordering Provider: Trey JOSÉ Report Released Date/Time: March 20, 2025 07:57 AM Reporting Lab: [facility] [place] [address] Performing Lab: [facility] DIVISION CBC NEUTROPHIL S/100 LEUKOCYTES IN BLOOD BY AUTOMATED COUNT 71 03/20 Specimen Type: BLOOD No comment entered. Ordering Provider: Trey JOSÉ Report Released Date/Time: March 20, 2025 07:57 AM Reporting Lab: [facility] [place] [address] Performing Lab: [facility] DIVISION CBC EOSINOPHIL S/100 LEUKOCYTES IN BLOOD BY AUTOMATED COUNT 1 03/20 Specimen Type: BLOOD No comment entered. Ordering Provider: Trey JOSÉ Report Released Date/Time: March 20, 2025 07:57 AM Reporting Lab: [facility] [place] [address] Performing Lab: [facility] DIVISION CBC BASOPHILS/ 100 LEUKOCYTES IN BLOOD BY AUTOMATED COUNT 1 03/20 Specimen Type: BLOOD No comment entered. Ordering Provider: Trey JOSÉ Report Released Date/Time: March 20, 2025 07:57 AM Reporting Lab: [facility] [place] [address] Performing Lab: [facility] DIVISION CBC LYMPHOCYTE S [#/VOLUME] IN BLOOD BY AUTOMATED COUNT 1.14 10*3/uL 0.77 - 4.50 03/20 Specimen Type: BLOOD No comment entered. Ordering Provider: Trey JOSÉ Report Released Date/Time: March 20, 2025 07:57 AM Reporting Lab: [facility] [place] [address] Performing Lab: [facility] DIVISION CBC MONOCYTES [#/VOLUME] IN BLOOD BY AUTOMATED COUNT 0.61 10*3/uL 0.19 - 0.80 03/20 Specimen Type: BLOOD No comment entered. Ordering Provider: Trey JOSÉ Report Released Date/Time: March 20, 2025 07:57 AM Reporting Lab: [facility] [place] [address] Performing Lab: [facility] DIVISION CBC NEUTROPHIL S [#/VOLUME] IN BLOOD BY AUTOMATED COUNT 4.62 10*3/uL 2.10 - 8.00 03/20 Specimen Type: BLOOD No comment entered. Ordering Provider: Trey JOSÉ Report Released Date/Time: March 20, 2025 07:57 AM Reporting Lab: [facility] [place] [address] Performing Lab: [facility] DIVISION CBC EOSINOPHIL S [#/VOLUME] IN BLOOD BY AUTOMATED COUNT 0.09 10*3/uL 0.00 - 0.60 03/20 Specimen Type: BLOOD No comment entered. Ordering Provider: Trey JOSÉ Report Released Date/Time: March 20, 2025 07:57 AM Reporting Lab: [facility] [place] [address] Performing Lab: [facility] DIVISION CBC BASOPHILS [#/VOLUME] IN BLOOD BY AUTOMATED COUNT 0.04 10*3/uL 0.00 - 0.20 03/20 Specimen Type: BLOOD No comment entered. Ordering Provider: Trey JOSÉ Report Released Date/Time: March 20, 2025 07:57 AM Reporting Lab: [facility] [place] [address] Performing Lab: [facility] DIVISION COMPREHEN SIVE METABOLIC PANEL CREATININE [MASS/VOLU ME] IN SERUM OR PLASMA 0.76 mg/dL 0.70 - 1.30 03/20 Specimen Type: PLASMA Comment: No hemolysis noted. Ordering Provider: Trey JOSÉ Report Released Date/Time: March 20, 2025 07:57 AM Reporting Lab: [facility] [place] [address] Performing Lab: [facility] DIVISION COMPREHEN SIVE METABOLIC PANEL UREA NITROGEN [MASS/VOLU ME] IN SERUM OR PLASMA 19.7 mg/dL 9.0 - 25.0 03/20 Specimen Type: PLASMA Comment: No hemolysis noted. Ordering Provider: Trey JOSÉ Report Released Date/Time: March 20, 2025 07:57 AM Reporting Lab: [facility] Performing Lab: [facility] [place] [id number] DIVISION COMPREHEN SIVE METABOLIC PANEL GLUCOSE [MASS/VOLU ME] IN SERUM OR PLASMA 84 mg/dL 72 - 99 03/20 Specimen Type: PLASMA Comment: No hemolysis noted. Ordering Provider: Trey JOSÉ Report Released Date/Time: March 20, 2025 07:57 AM Reporting Lab: [facility] [place] [address] Performing Lab: [facility] DIVISION COMPREHEN SIVE METABOLIC PANEL SODIUM [MOLES/VOL UME] IN SERUM OR PLASMA 141 meq/L 136 - 145 03/20 Specimen Type: PLASMA Comment: No hemolysis noted. Ordering Provider: Trey JOSÉ Report Released Date/Time: March 20, 2025 07:57 AM Reporting Lab: [facility] [place] [address] Performing Lab: [facility] DIVISION COMPREHEN SIVE METABOLIC PANEL POTASSIUM [MOLES/VOL UME] IN SERUM OR PLASMA 3.9 meq/L 3.5 - 5.0 03/20 Specimen Type: PLASMA Comment: No hemolysis noted. Ordering Provider: Trey JOSÉ Report Released Date/Time: March 20, 2025 07:57 AM Reporting Lab: [facility] [place] [address] Performing Lab: [facility] DIVISION COMPREHEN SIVE METABOLIC PANEL CHLORIDE [MOLES/VOL UME] IN SERUM OR PLASMA 104 meq/L 98 - 107 03/20 Specimen Type: PLASMA Comment: No hemolysis noted. Ordering Provider: Trey JOSÉ Report Released Date/Time: March 20, 2025 07:57 AM Reporting Lab: [facility] [place] [address] Performing Lab: [facility] DIVISION COMPREHEN SIVE METABOLIC PANEL CARBON DIOXIDE, TOTAL [MOLES/VOL UME] IN SERUM OR PLASMA 25 meq/L 22 - 31 03/20 Specimen Type: PLASMA Comment: No hemolysis noted. Ordering Provider: Trey JOSÉ Report Released Date/Time: March 20, 2025 07:57 AM Reporting Lab: [facility] [place] [address] Performing Lab: [facility] DIVISION COMPREHEN SIVE METABOLIC PANEL CALCIUM [MASS/VOLU ME] IN SERUM OR PLASMA 11.5 mg/dL 8.4 - 10.4 03/20 H Specimen Type: PLASMA Comment: No hemolysis noted. Ordering Provider: Trey JOSÉ Report Released Date/Time: March 20, 2025 07:57 AM Reporting Lab: [facility] [place] [address] Performing Lab: [facility] DIVISION COMPREHEN SIVE METABOLIC PANEL PROTEIN [MASS/VOLU ME] IN SERUM OR PLASMA 7.9 g/dL 6.0 - 8.6 03/20 Specimen Type: PLASMA Comment: No hemolysis noted. Ordering Provider: Trey JOSÉ Report Released Date/Time: March 20, 2025 07:57 AM Reporting Lab: [facility] [place] [address] Performing Lab: [facility] DIVISION COMPREHEN SIVE METABOLIC PANEL ALBUMIN [MASS/VOLU ME] IN SERUM OR PLASMA 4.8 g/dL 3.4 - 5.0 03/20 Specimen Type: PLASMA Comment: No hemolysis noted. Ordering Provider: Trey JOSÉ Report Released Date/Time: March 20, 2025 07:57 AM Reporting Lab: [facility] [place] [address] Performing Lab: [facility] DIVISION COMPREHEN SIVE METABOLIC PANEL BILIRUBIN. TOTAL [MASS/VOLU ME] IN SERUM OR PLASMA 0.5 mg/dL 0.2 - 1.2 03/20 Specimen Type: PLASMA Comment: No hemolysis noted. Ordering Provider: Trey JOSÉ Report Released Date/Time: March 20, 2025 07:57 AM Reporting Lab: [facility] [place] [address] Performing Lab: [facility] DIVISION COMPREHEN SIVE METABOLIC PANEL ALKALINE PHOSPHATAS E [ENZYMATIC ACTIVITY/V OLUME] IN SERUM OR PLASMA 165 U/L 40 - 150 03/20 H Specimen Type: PLASMA Comment: No hemolysis noted. Ordering Provider: Trey JOSÉ Report Released Date/Time: March 20, 2025 07:57 AM Reporting Lab: [facility] [place] [address] Performing Lab: [facility] DIVISION COMPREHEN SIVE METABOLIC PANEL ASPARTATE AMINOTRANS FERASE [ENZYMATIC ACTIVITY/V OLUME] IN SERUM OR PLASMA 23 U/L 5 - 34 03/20 Specimen Type: PLASMA Comment: No hemolysis noted. Ordering Provider: Trey JOSÉ Report Released Date/Time: March 20, 2025 07:57 AM Reporting Lab: [facility] [place] [address] Performing Lab: [facility] DIVISION COMPREHEN SIVE METABOLIC PANEL ALANINE AMINOTRANS FERASE [ENZYMATIC ACTIVITY/V OLUME] IN SERUM OR PLASMA 17 U/L 8 - 40 03/20 Specimen Type: PLASMA Comment: No hemolysis noted. Ordering Provider: Trey JOSÉ Report Released Date/Time: March 20, 2025 07:57 AM Reporting Lab: [facility] [place] [address] Performing Lab: [facility] DIVISION COMPREHEN SIVE METABOLIC PANEL GLOMERULAR FILTRATION RATE/1.73 SQ M.PREDICTE D [VOLUME RATE/AREA] IN SERUM, PLASMA OR BLOOD BY CREATININE -BASED FORMULA (CKD-EPI 2020) 92.00 60 03/20 Specimen Type: PLASMA Comment: No hemolysis noted. Ordering Provider: Trey JOSÉ Report Released Date/Time: March 20, 2025 07:57 AM Reporting Lab: [facility] [place] [address] Performing Lab: [facility] DIVISION LIPID PANEL (STL) CHOLESTERO L [MASS/VOLU ME] IN SERUM OR PLASMA 117 mg/dL 0 - 200 03/20 Specimen Type: PLASMA Comment: No hemolysis noted. Ordering Provider: Trey JOSÉ Report Released Date/Time: March 20, 2025 07:57 AM Reporting Lab: [facility] [place] [address] Performing Lab: [facility] DIVISION LIPID PANEL (STL) TRIGLYCERI DE [MASS/VOLU ME] IN SERUM OR PLASMA 117 mg/dL 0 - 150 03/20 Specimen Type: PLASMA Comment: No hemolysis noted. Ordering Provider: Trey JOSÉ Report Released Date/Time: March 20, 2025 07:57 AM Reporting Lab: [facility] [place] [address] Performing Lab: [facility] LIPID PANEL (STL) CHOLESTERO L IN LDL [MASS/VOLU ME] IN SERUM OR PLASMA BY CALCULATIO N 50 mg/dL 03/20 Specimen Type: PLASMA Comment: No hemolysis noted. Ordering Provider: Trey JOSÉ Report Released Date/Time: March 20, 2025 07:57 AM Reporting Lab: [facility] [place] [address] Performing Lab: [facility] LIPID PANEL (STL) CHOLESTERO L IN HDL [MASS/VOLU ME] IN SERUM OR PLASMA 44 mg/dL 40 03/20 Specimen Type: PLASMA Comment: No hemolysis noted. Ordering Provider: Trey JOSÉ Report Released Date/Time: March 20, 2025 07:57 AM Reporting Lab: [facility] [place] [address] Performing Lab: [facility] DIVISION HGA1C HEMOGLOBIN A1C/HEMOGL OBIN.TOTAL IN BLOOD 5.0 4.0 - 6.0 03/20 Specimen Type: BLOOD No comment entered. Ordering Provider: Trey JOSÉ Report Released Date/Time: March 20, 2025 07:57 AM Reporting Lab: [facility] [place] [address] Performing Lab: [facility] DIV[address] TSH (MA-PB) THYROTROPI N [UNITS/VOL UME] IN SERUM OR PLASMA 2.082 u[IU]/mL 0.470 - 5.000 03/20 Specimen Type: SERUM No comment entered. Ordering Provider: Trey JOSÉ Report Released Date/Time: March 20, 2025 07:57 AM Reporting Lab: [facility] [place] [address] Performing Lab: [facility] VITAMIN D, 25-HYDROX Y 25-HYDROXY VITAMIN D3 [MASS/VOLU ME] IN SERUM OR PLASMA 30.1 ng/mL 30 - 96 03/20 Specimen Type: SERUM No comment entered. Ordering Provider: Trey JOSÉ Report Released Date/Time: March 20, 2025 07:57 AM Reporting Lab: [facility] [place] [address] Performing Lab: [facility] DIVISION HEP C Ab HCV Ab (STL) HEPATITIS C VIRUS AB [PRESENCE] IN SERUM Nonreact bruce 03/20 Specimen Type: SERUM No comment entered. Ordering Provider: Trey JOSÉ Report Released Date/Time: March 20, 2025 09:46 AM Reporting Lab: [facility] [address] [place] [id number] Performing Lab: [facility] [address] [facility] [id number] [place] [address] DIVISION ESR ISED(STL) ERYTHROCYT E SEDIMENTAT ION RATE 1 mm/h 0 - 19 03/20 Specimen Type: BLOOD No comment entered. Ordering Provider: Trey JOSÉ Report Released Date/Time: March 20, 2025 10:06 AM Reporting Lab: [facility] [place] [address] Performing Lab: [facility] [address] [facility] [id number] [facility] PTH, INTACT (STL) PARATHYRIN .INTACT [MASS/VOLU ME] IN SERUM OR PLASMA 217.40 pg/mL 8.7 - 77.7 03/20 H Specimen Type: SERUM No comment entered. Ordering Provider: Trey JOSÉ Report Released Date/Time: March 20, 2025 10:06 AM Reporting Lab: [facility] [address] [facility] [address] Performing Lab: [facility] [address] [facility] [address] [facility] Vital Signs Combined list of inpatient and outpatient Vital Signs from Department of [facility] and [facility], ranging from 12 months to all on record, depending upon the facility. Vital Sign Value Date Comments Source SYSTOLIC BLOOD PRESSURE 150 03/20/2025 08:39:03 [facility] DIASTOLIC BLOOD PRESSURE 80 03/20/2025 08:39:03 [facility] PULSE OXIMETRY 99 03/20/2025 08:39:03 S [facility] WEIGHT 164.8 03/20/2025 08:39:03 [facility] BMI 24 kg/m2 03/20/2025 08:39:03 [facility] PAIN 3 03/20/2025 08:39:03 [facility] HEIGHT 69 03/20/2025 08:39:03 [facility] TEMPERATURE 99.1 03/20/2025 08:39:03 [facility] PULSE 81 03/20/2025 08:39:03 [facility] RESPIRATION 16 03/20/2025 08:39:03 [facility] Encounters Combined list of: 1) Encounters from [facility] facilities going backup to the last 18 months, not all VA inpatient encounters are included; 2) Encounters from the Department of [facility] facilities going backup to 280 months. 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 Social History Type Response Date Comment Sourc e Tobacco smoking status NHIS VA-TOBACCO USE FORMER CIGARETTES 03/20/2025 [facility] History of tobacco use VA-TOBACCO NEVER USED OTHER TYPE 03/20/2025 [facility] Plan of Care List of future care activities from Department of [facility] Affairs facilities. Additional future care activities may be listed in the Assessment and Plan section. Date/Time Care Activity Care Activity Detail Facili ty 05/14/2025 AMBULATORY - SURGERY AMBULATORY - SURGERY [facility]
--- OUTSIDE RECORDS SUMMARY | 2025-04-10 13:30 | XMS_ITS | Encounter Summary ---
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 night bedpan or commode, emptying same next morning) Transferring: (3 Points) Moves in and out of bed and in and out of chair without assistance (may be using object for support, such as cane or walker) Continence: (3 Points) Controls urination and bowel movement completely by self Feeding: (3 Points) Feeds self without assistance Total Score: 18 Points 18 = High (patient independent) 6 = Low (patient very dependent) PTSD Screening - V: PC-PTSD-5 A PTSD screening test (PC-PTSD-5) was negative (score=0). IN THE PAST MONTH, have you ever had any experience that was so frightening, horrible or traumatic. For example: A serious accident or fire a physical or sexual assault or abuse An earthquake or flood A war Seeing someone be killed or seriously injured Having a loved one through homicide or suicide 1. Have you ever experienced this kind of event? YES 2. Had nightmares about the event(s) or thought about the event(s) when you did not want to? NO 3. Tried hard not to think about the event(s) or went out of your way to avoid situations that reminded you of the event(s)? NO 4. Been constantly on guard, watchful, or easily startled? NO 5. [place] numb or detached from people, activities, or your surroundings? NO 6. [place] guilty or unable to stop blaming yourself or others for the event(s) or any problems the event(s) may have caused? NO Hepatitis C Testing - L,N,P,PH: Patient has given verbal consent for HCV antibody testing. An HCV lab test has been ordered - see orders tab. // PREMA [facility] ADULT NURSE PRACTITIONER Signed: 03/20/2025 11:46 PREMA RICHARDSON [facility] March 20, 2025 08:40 AM NURSING NOTE: LOCAL TITLE: V15 PACT FACE TO FACE NOTE ST STANDARD TITLE: NURSING NOTE DATE OF NOTE: MARCH 20, 2025@08:40 ENTRY DATE: MARCH 20, 2025@08:40:46 AUTHOR: JULIO MYERS EXP COSIGNER: URGENCY: STATUS: COMPLETED Provider Visit: Patient Identifiers : Full Name Date of Reason for visit: Other: new pt note completed by rncm Mode of Arrival: Ambulatory Allergy Review: [place]RI[place] MARCH 20, 2025 (HISTORICAL) Symptoms: ANAPHYLAXIS [place] MARCH 20, 2025 (HISTORICAL) Symptoms: ANAPHYLAXIS Allergy list reviewed and remains current. Recent Vital Signs: Temperature: 99.1 F [37.3 C] (03/20/2025 08:39) Pulse: 81 (03/20/2025 08:39) Respiration: 16 (03/20/2025 08:39) B/P: 150/80 (03/20/2025 08:39) Pain: 3 (03/20/2025 08:39) Wt: 164.8 lb [74.75 kg] (03/20/2025 08:39) Ht: 69 in [175.3 cm] (03/20/2025 08:39) BMI: 24.4 POX: 99% (03/20/2025 08:39) Would you like to discuss any personal problem, family problem, alcohol use, drug use, or a mental or emotional illness? No [facility] ([facility]), please select appointment type: Face to face: No-please briefly review benefits and direct to [facility] to get more information and register if interested. No- Are you interested in getting this done? No Contact provided Primary Care phone number and encouraged to call if any questions or concerns. Review that after hours nurse line [phone] and emergency room are available 24/05 for patient use. Contact verbalized good understanding. MST Screening - V: Patient denies experiencing sexual trauma (MST). Suicide Screen - V: C-SSRS Screening [place] Suicide Severity Rating Scale (C-SSRS) screener 1. Over the past month, have you wished you were or wished you could go to sleep and not wake up? No 2. Over the past month, have you had any actual thoughts of killing yourself? No 3. Over the past month, have you been thinking about how you might do this? Response not required due to responses to other questions. 4. Over the past month, have you had these thoughts and had some intention of acting on them? Response not required due to responses to other questions. 5. Over the past month, have you started to work out or worked out the details of how to kill yourself? Response not required due to responses to other questions. 6. If yes, at any time in the past month did you intend to carry out this plan? Response not required due to responses to other questions. 7. In your lifetime, have you ever done anything, started to do anything, or prepared to do anything to end your life (for example, collected pills, obtained a gun, gave away valuables, went to the roof but didn't jump)? No 8. If YES, was this within the past 3 months? Response not required due to responses to other questions. Toxic Exposure Screening - CP,DI,L,NS,P,PH,S,U: The /caregiver was asked if they believe the experienced any toxic exposure(s), such as Airborne Hazards and Open Burn Pit, [place] War related exposures, Agent 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 Printed information was offered and provided if desired. [place]: /caregiver was made aware of educational resources that includes information on the Registry Program, presumptive conditions and how to file a claim. Printed information was offered and provided if desired. Other exposures: Comment: dioxin Bishop/caregiver was made aware of educational resources and printed information was offered and provided if desired. Health/Medical Questions All Veterans who report a health/medical question will receive follow-up from a clinician. For urgent or emergent questions, they were advised to follow local facility policy. Benefits/Claims Questions Bishop/caregiver was informed of local point of contact. [place] Health Care Enrollment and Eligibility Questions Bishop/caregiver was informed of local point of contact. Environmental Health Registry Questions /caregiver was informed of local point of contact. No questions at this time Bishop/caregiver was informed of local points of contact. Contact information for local resources: [facility] Registry Exam Program: [phone] Eligibility: [phone] [facility] [id number] SEBASTIAN [id number] [facility] Registry Exam Program: [phone] PHANI Navigator: [id number] Environmental Health Coordinator: [id number] Juwan Morris [facility] Registry Exam Program: [phone] [id number] Eligibility: [phone] [id number] Toxic Exposure Screening Follow-Up reminder is needed. Name of person notified: prema richardson Alcohol Use Screen (AUDIT-C) - V: Alcohol Screen: SCREEN FOR ALCOHOL (AUDIT-C) An alcohol screening test (AUDIT-C) was negative (score=0). 1. How often did you have a drink containing alcohol in the past year? Consider a drink to be a 12 ounce can or bottle of regular beer, 8 ounces of malt liquor, a 5 ounce glass of table wine, or a 1.5 ounce shot of liquor (like scotch, gin, or vodka). Never 2. How many drinks containing alcohol did you have on a typical day when you were drinking in the past year? Response not required due to responses to other questions. 3. How often did you have six or more drinks on one occasion in the past year? Response not required due to responses to other questions. Depression Screening - V: Perform PHQ-2 A PHQ-2 screen was performed. The score was 0 which is a negative screen for depression. Over the past two weeks, how often have you been bothered by the following problems? 1. Little interest or pleasure in doing things Not at all 2. Feeling down, depressed, or hopeless Not at all Homelessness/Food Insecurity Screen - DI,L,N,P,PH,PS,S,U: In the past 2 months, have you been living in stable housing that you own, rent, or stay in as part of a household? Yes - Living in stable housing. Are you worried or concerned that in the next 2 months you may NOT have stable housing that you own, rent, or stay in as part of a household? No - Not worried about housing near future The reports the following: Within the past 12 months, you worried whether your food would run out before you got money to buy more. Never true Within the past 12 months, the food you bought just didn't last and you didn't have money to get more. Never true Learning Assessment: - * This patient's learning ABILITIES, BARRIERS to learning, CULTURAL and RASTAFARI beliefs, and learning PREFERENCES were assessed. Following are findings of note: Patient reads well. Patient has the following hearing/auditory barrier(s) to consider when teaching: Other Patient has the following speech barrier to consider when teaching: No speech barrier identified. LANGUAGE Patient reports that Bel[place]ian is preferred language for healthcare. Patient has the following language barrier to consider when teaching: No language barrier has been identified. Patient has the following vision barrier(s) to consider when teaching: Other Tobacco Use Screening - AT,DE,L,M,N,P,PH,PS,RT,S,U: The patient is a former cigarette smoker. Quit smoking GREATER THAN OR EQUAL to 15 years. The patient has never used other types of tobacco. PC [facility] - PHP MAP: PERSONAL HEALTH PLAN INVENTORY & MAP Bishop's Response: kids SHARED GOALS establish care /es/ Julio Myers LPN LICENSED PRACTICAL NURSE Signed: 03/20/2025 08:45 JULIO MYERS [facility]
--- OUTSIDE RECORDS SUMMARY | 2025-04-10 13:32 | XMS_ITS | Continuity of Care Document ---
Author Name [facility] Organization [facility] Care Team Providers Care Roundhouse Worker Name Role Phone [facility] Unavailable Unavailable Problems Combined list of problems from [facility] and [facility] facilities. It does not include entries that were removed or entered in error. Problem Status Onset Date Problem Type Date of Resolution Comments Source Anxiety Active Condition [facility] Aortic valve stenosis Active Condition [facility] CN - Constipation Active Condition [facility] Exposure to potentially hazardous substance (SCT [id number]) Active Condition March 21 Entered By: JAMIE CAMPBELL Comment: Entered automatically through PHANI Problem List documentation program [facility] Gastro-oesophageal reflux disease without oesophagitis Active Condition [facility] History of sick sinus syndrome Active Condition March 20, 2025 Entered By: ELIZABETH JOSÉ Comment: s/p PPM [facility] HLD - Hyperlipidemia Active Condition [facility] HPTH - Hyperparathyroidism Active Condition [facility] HTN - Hypertension Active Condition [facility] Overactive urinary bladder Active Condition [facility] PA (Psoriatic arthritis) Active Condition [facility] Psoriasis Active Condition [facility] Tinnitus Active Condition [facility] Diagnosis: ICD-10-CM I35.0 Nonrheumatic aortic (valve) stenosis Active Diagnosis [facility] Diagnosis: ICD-10-CM Z71.89 Other specified counseling Active Diagnosis [facility] Medications Combined list of outpatient medications from [facility] and [facility] facilities.Medications provided include 1) outpatient medications from the last 15 months, and 2) patient-reported medications. Medication Details Route Status Patient Instructions Prescription Expires Prescription Number Last Dispense Date Ordering Provider Order Date Order Qty Source ASPIRIN 81MG TAB,EC TAKE ONE TABLET BY MOUTH ONCE A DAY ORAL ACTIVE [facility], 2024 [facility] CHOLECALCIF SHILA 25MCG (1,000UNIT) TAB TAKE ONE TABLET BY MOUTH ONCE A DAY ORAL ACTIVE [facility], 2024 [facility] CITALOPRAM HYDROBROMID E 40MG TAB TAKE ONE-HALF TABLET BY MOUTH EVERY MORNING ORAL ACTIVE [facility], 2024 [facility] EMPAGLIFLOZ IN 25MG TAB TAKE ONE-HALF TABLET BY MOUTH ONCE A DAY ORAL ACTIVE 03/21/2026 [id number] [facility], 2024 45 [facility] FAMOTIDINE 10MG TAB TAKE ONE TABLET BY MOUTH TWICE A DAY ORAL ACTIVE [facility], 2024 [facility] SIMVASTATIN 80MG TAB TAKE ONE-HALF TABLET BY MOUTH EVERY EVENING ORAL ACTIVE [facility], 2024 [facility] TROSPIUM CL 20MG TAB TAKE ONE TABLET BY MOUTH TWICE A DAY (TAKE ONE HOUR BEFORE A MEAL OR ON AN EMPTY STOMACH) ORAL ACTIVE 03/21/2026 [id number] [facility], 2024 180 [facility] WHEAT DEXTRIN (BENEFIBER) PWDR,ORAL MIX AND DRINK 1 TEASPOON FUL BY MOUTH ORAL ACTIVE [facility], 2024 [facility] Allergies, Adverse Reactions, Alerts Combined list of allergies from Department of Defense and Veterans Affairs facilities. It does not include entries that were removed or entered in error. Substance Category Reaction Severity Reaction type Status Date Reported Comments Source [place] Propensity to adverse reactions to substance (finding) Anaphylaxis active [facility] [place] Propensity to adverse reactions to food (finding) Anaphylaxis active [facility] MODERNA COVID-19 VACCINE (EUA) Propensity to adverse reactions to drug (finding) Anaphylaxis active 5 [facility] OXYBUTYNIN CHLORIDE Propensity to adverse reactions to drug (finding) Eruption active 5 [facility] Results Combined list of recent chemistry, hematology [...] March 20, 2025 10:06 AM Reporting Lab: [address] [address] Performing Lab: [address] [id number] [address] CBC LEUKOCYTES [#/VOLUME] IN BLOOD BY AUTOMATED COUNT 6.5 10*3/uL 3.6 - 11.2 03/20 Specimen Type: BLOOD No comment entered. Ordering Provider: Trey JOSÉ Report Released Date/Time: March 20, 2025 07:57 AM Reporting Lab: [facility] [address] Performing Lab: [facility] [id number] [place] [address] CBC ERYTHROCYT ES [#/VOLUME] IN BLOOD BY AUTOMATED COUNT 5.60 10*6/uL 4.10 - 5.70 03/20 Specimen Type: BLOOD No comment entered. Ordering Provider: Trey JOSÉ Report Released Date/Time: March 20, 2025 07:57 AM Reporting Lab: [facility] [address] Performing Lab: [facility] [id number] [place] [address] CBC HEMOGLOBIN [MASS/VOLU ME] IN BLOOD 16.5 g/dL 13.1 - 16.8 03/20 Specimen Type: BLOOD No comment entered. Ordering Provider: Trey JOSÉ Report Released Date/Time: March 20, 2025 07:57 AM Reporting Lab: [facility] [place] [address] Performing Lab: [facility] CBC HEMATOCRIT [VOLUME FRACTION] OF BLOOD 48.3 38.2 - 48.4 03/20 Specimen Type: BLOOD No comment entered. Ordering Provider: Trey JOSÉ Report Released Date/Time: March 20, 2025 07:57 AM Reporting Lab: [facility] [place] [address] Performing Lab: [facility] CBC MCV [ENTITIC VOLUME] BY AUTOMATED COUNT 86.3 fL 80.0 - 100.0 03/20 Specimen Type: BLOOD No comment entered. Ordering Provider: Trey JOSÉ Report Released Date/Time: March 20, 2025 07:57 AM Reporting Lab: [facility] [place] [address] Performing Lab: [facility] CBC MCH [ENTITIC MASS] BY AUTOMATED COUNT 29.5 pg 27.0 - 34.0 03/20 Specimen Type: BLOOD No comment entered. Ordering Provider: Trey JOSÉ Report Released Date/Time: March 20, 2025 07:57 AM Reporting Lab: [facility] [place] [address] Performing Lab: [facility] CBC MCHC [MASS/VOLU ME] BY AUTOMATED COUNT 34.2 g/dL 33.0 - 36.0 03/20 Specimen Type: BLOOD No comment entered. Ordering Provider: Trey JOSÉ Report Released Date/Time: March 20, 2025 07:57 AM Reporting Lab: [facility] [place] [address] Performing Lab: [facility] DIVISION CBC PLATELETS [#/VOLUME] IN BLOOD BY AUTOMATED COUNT 211 10*3/uL 150 - 400 03/20 Specimen Type: BLOOD No comment entered. Ordering Provider: Trey JOSÉ Report Released Date/Time: March 20, 2025 07:57 AM Reporting Lab: [facility] [place] [address] Performing Lab: [facility] DIVISION CBC PLATELET MEAN VOLUME [ENTITIC VOLUME] IN BLOOD BY AUTOMATED COUNT 10.8 fL 7.5 - 11.2 03/20 Specimen Type: BLOOD No comment entered. Ordering Provider: Trey JOSÉ Report Released Date/Time: March 20, 2025 07:57 AM Reporting Lab: [facility] [place] [address] Performing Lab: [facility] DIVISION CBC ERYTHROCYT E DISTRIBUTI ON WIDTH [RATIO] BY AUTOMATED COUNT 13.2 11.8 - 15.1 03/20 Specimen Type: BLOOD No comment entered. Ordering Provider: Trey JOSÉ Report Released Date/Time: March 20, 2025 07:57 AM Reporting Lab: [facility] [place] [address] Performing Lab: [facility]1 [address] [place] [address] DIVISION CBC LYMPHOCYTE S/100 LEUKOCYTES IN BLOOD BY AUTOMATED COUNT 18 03/20 Specimen Type: BLOOD No comment entered. Ordering Provider: Trey JOSÉ Report Released Date/Time: March 20, 2025 07:57 AM Reporting Lab: [facility] [place] [address] Performing Lab: [facility] DIVISION CBC MONOCYTES/ 100 LEUKOCYTES IN BLOOD BY AUTOMATED COUNT 9 03/20 Specimen Type: BLOOD No comment entered. Ordering Provider: Trey JOSÉ Report Released Date/Time: March 20, 2025 07:57 AM Reporting Lab: [facility] [place] [address] Performing Lab: [facility] DIVISION CBC NEUTROPHIL S/100 LEUKOCYTES IN BLOOD BY AUTOMATED COUNT 71 03/20 Specimen Type: BLOOD No comment entered. Ordering Provider: Trey JOSÉ Report Released Date/Time: March 20, 2025 07:57 AM Reporting Lab: [facility] [place] [address] Performing Lab: [facility] DIVISION CBC EOSINOPHIL S/100 LEUKOCYTES IN BLOOD BY AUTOMATED COUNT 1 03/20 Specimen Type: BLOOD No comment entered. Ordering Provider: Trey JOSÉ Report Released Date/Time: March 20, 2025 07:57 AM Reporting Lab: [facility] [place] [address] Performing Lab: [facility] DIVISION CBC BASOPHILS/ 100 LEUKOCYTES IN BLOOD BY AUTOMATED COUNT 1 03/20 Specimen Type: BLOOD No comment entered. Ordering Provider: Trey JOSÉ Report Released Date/Time: March 20, 2025 07:57 AM Reporting Lab: [facility] [place] [address] Performing Lab: [facility] DIVISION CBC LYMPHOCYTE S [#/VOLUME] IN BLOOD BY AUTOMATED COUNT 1.14 10*3/uL 0.77 - 4.50 03/20 Specimen Type: BLOOD No comment entered. Ordering Provider: Trey JOSÉ Report Released Date/Time: March 20, 2025 07:57 AM Reporting Lab: [facility] [place] [address] Performing Lab: [facility] DIVISION CBC MONOCYTES [#/VOLUME] IN BLOOD BY AUTOMATED COUNT 0.61 10*3/uL 0.19 - 0.80 03/20 Specimen Type: BLOOD No comment entered. Ordering Provider: Trey JOSÉ Report Released Date/Time: March 20, 2025 07:57 AM Reporting Lab: [facility] [place] [address] Performing Lab: [facility] DIVISION CBC NEUTROPHIL S [#/VOLUME] IN BLOOD BY AUTOMATED COUNT 4.62 10*3/uL 2.10 - 8.00 03/20 Specimen Type: BLOOD No comment entered. Ordering Provider: Trey JOSÉ Report Released Date/Time: March 20, 2025 07:57 AM Reporting Lab: [facility] [place] [address] Performing Lab: [facility] DIVISION CBC EOSINOPHIL S [#/VOLUME] IN BLOOD BY AUTOMATED COUNT 0.09 10*3/uL 0.00 - 0.60 03/20 Specimen Type: BLOOD No comment entered. Ordering Provider: Trey JOSÉ Report Released Date/Time: March 20, 2025 07:57 AM Reporting Lab: [facility] [place] [address] Performing Lab: [facility] DIVISION CBC BASOPHILS [#/VOLUME] IN BLOOD BY AUTOMATED COUNT 0.04 10*3/uL 0.00 - 0.20 03/20 Specimen Type: BLOOD No comment entered. Ordering Provider: Trey JOSÉ Report Released Date/Time: March 20, 2025 07:57 AM Reporting Lab: [facility] [place] [address] Performing Lab: [facility] DIVISION COMPREHEN SIVE METABOLIC PANEL CREATININE [MASS/VOLU ME] IN SERUM OR PLASMA 0.76 mg/dL 0.70 - 1.30 03/20 Specimen Type: PLASMA Comment: No hemolysis noted. Ordering Provider: Trey JOSÉ Report Released Date/Time: March 20, 2025 07:57 AM Reporting Lab: [facility] [place] [address] Performing Lab: [facility] DIVISION COMPREHEN SIVE METABOLIC PANEL UREA NITROGEN [MASS/VOLU ME] IN SERUM OR PLASMA 19.7 mg/dL 9.0 - 25.0 03/20 Specimen Type: PLASMA Comment: No hemolysis noted. Ordering Provider: Trey JOSÉ Report Released Date/Time: March 20, 2025 07:57 AM Reporting Lab: [facility] Performing Lab: [facility] [place] [id number] DIVISION COMPREHEN SIVE METABOLIC PANEL GLUCOSE [MASS/VOLU ME] IN SERUM OR PLASMA 84 mg/dL 72 - 99 03/20 Specimen Type: PLASMA Comment: No hemolysis noted. Ordering Provider: Trey JOSÉ Report Released Date/Time: March 20, 2025 07:57 AM Reporting Lab: [facility] [place] [address] Performing Lab: [facility] DIVISION COMPREHEN SIVE METABOLIC PANEL SODIUM [MOLES/VOL UME] IN SERUM OR PLASMA 141 meq/L 136 - 145 03/20 Specimen Type: PLASMA Comment: No hemolysis noted. Ordering Provider: Trey JOSÉ Report Released Date/Time: March 20, 2025 07:57 AM Reporting Lab: [facility] [place] [address] Performing Lab: [facility] DIVISION COMPREHEN SIVE METABOLIC PANEL POTASSIUM [MOLES/VOL UME] IN SERUM OR PLASMA 3.9 meq/L 3.5 - 5.0 03/20 Specimen Type: PLASMA Comment: No hemolysis noted. Ordering Provider: Trey JOSÉ Report Released Date/Time: March 20, 2025 07:57 AM Reporting Lab: [facility] [place] [address] Performing Lab: [facility] DIVISION COMPREHEN SIVE METABOLIC PANEL CHLORIDE [MOLES/VOL UME] IN SERUM OR PLASMA 104 meq/L 98 - 107 03/20 Specimen Type: PLASMA Comment: No hemolysis noted. Ordering Provider: Trey JOSÉ Report Released Date/Time: March 20, 2025 07:57 AM Reporting Lab: [facility] [place] [address] Performing Lab: [facility] DIVISION COMPREHEN SIVE METABOLIC PANEL CARBON DIOXIDE, TOTAL [MOLES/VOL UME] IN SERUM OR PLASMA 25 meq/L 22 - 31 03/20 Specimen Type: PLASMA Comment: No hemolysis noted. Ordering Provider: Trey JOSÉ Report Released Date/Time: March 20, 2025 07:57 AM Reporting Lab: [facility] [place] [address] Performing Lab: [facility] DIVISION COMPREHEN SIVE METABOLIC PANEL CALCIUM [MASS/VOLU ME] IN SERUM OR PLASMA 11.5 mg/dL 8.4 - 10.4 03/20 H Specimen Type: PLASMA Comment: No hemolysis noted. Ordering Provider: Trey JOSÉ Report Released Date/Time: March 20, 2025 07:57 AM Reporting Lab: [facility] [place] [address] Performing Lab: [facility] DIVISION COMPREHEN SIVE METABOLIC PANEL PROTEIN [MASS/VOLU ME] IN SERUM OR PLASMA 7.9 g/dL 6.0 - 8.6 03/20 Specimen Type: PLASMA Comment: No hemolysis noted. Ordering Provider: Trey JOSÉ Report Released Date/Time: March 20, 2025 07:57 AM Reporting Lab: [facility] [place] [address] Performing Lab: [facility] DIVISION COMPREHEN SIVE METABOLIC PANEL ALBUMIN [MASS/VOLU ME] IN SERUM OR PLASMA 4.8 g/dL 3.4 - 5.0 03/20 Specimen Type: PLASMA Comment: No hemolysis noted. Ordering Provider: Trey JOSÉ Report Released Date/Time: March 20, 2025 07:57 AM Reporting Lab: [facility] [place] [address] Performing Lab: [facility] DIVISION COMPREHEN SIVE METABOLIC PANEL BILIRUBIN. TOTAL [MASS/VOLU ME] IN SERUM OR PLASMA 0.5 mg/dL 0.2 - 1.2 03/20 Specimen Type: PLASMA Comment: No hemolysis noted. Ordering Provider: Trey JOSÉ Report Released Date/Time: March 20, 2025 07:57 AM Reporting Lab: [facility] [place] [address] Performing Lab: [facility] DIVISION COMPREHEN SIVE METABOLIC PANEL ALKALINE PHOSPHATAS E [ENZYMATIC ACTIVITY/V OLUME] IN SERUM OR PLASMA 165 U/L 40 - 150 03/20 H Specimen Type: PLASMA Comment: No hemolysis noted. Ordering Provider: Trey JOSÉ Report Released Date/Time: March 20, 2025 07:57 AM Reporting Lab: [facility] [place] [address] Performing Lab: [facility] DIVISION COMPREHEN SIVE METABOLIC PANEL ASPARTATE AMINOTRANS FERASE [ENZYMATIC ACTIVITY/V OLUME] IN SERUM OR PLASMA 23 U/L 5 - 34 03/20 Specimen Type: PLASMA Comment: No hemolysis noted. Ordering Provider: Trey JOSÉ Report Released Date/Time: March 20, 2025 07:57 AM Reporting Lab: [facility] [place] [address] Performing Lab: [facility] DIVISION COMPREHEN SIVE METABOLIC PANEL ALANINE AMINOTRANS FERASE [ENZYMATIC ACTIVITY/V OLUME] IN SERUM OR PLASMA 17 U/L 8 - 40 03/20 Specimen Type: PLASMA Comment: No hemolysis noted. Ordering Provider: Trey JOSÉ Report Released Date/Time: March 20, 2025 07:57 AM Reporting Lab: [facility] [place] [address] Performing Lab: [facility] DIVISION COMPREHEN SIVE METABOLIC PANEL GLOMERULAR FILTRATION RATE/1.73 SQ M.PREDICTE D [VOLUME RATE/AREA] IN SERUM, PLASMA OR BLOOD BY CREATININE -BASED FORMULA (CKD-EPI 2020) 92.00 60 03/20 Specimen Type: PLASMA Comment: No hemolysis noted. Ordering Provider: Trey JOSÉ Report Released Date/Time: March 20, 2025 07:57 AM Reporting Lab: [facility] [place] [address] Performing Lab: [facility] DIVISION ESR ISED(STL) ERYTHROCYT E SEDIMENTAT ION RATE 1 mm/h 0 - 19 03/20 Specimen Type: BLOOD No comment entered. Ordering Provider: Trey JOSÉ Report Released Date/Time: March 20, 2025 10:06 AM Reporting Lab: [facility] [place] [address] Performing Lab: [facility] DIVISION HEP C Ab HCV Ab (STL) HEPATITIS C VIRUS AB [PRESENCE] IN SERUM Nonreact bruce 03/20 Specimen Type: SERUM No comment entered. Ordering Provider: Trey JOSÉ Report Released Date/Time: March 20, 2025 09:46 AM Reporting Lab: [facility] [address] [facility] [address] Performing Lab: [facility] [address] [facility] [address] [facility] HGA1C HEMOGLOBIN A1C/HEMOGL OBIN.TOTAL IN BLOOD 5.0 4.0 - 6.0 03/20 Specimen Type: BLOOD No comment entered. Ordering Provider: Trey JOSÉ Report Released Date/Time: March 20, 2025 07:57 AM Reporting Lab: [facility] [place] [address] Performing Lab: [facility] LIPID PANEL (STL) CHOLESTERO L [MASS/VOLU ME] IN SERUM OR PLASMA 117 mg/dL 0 - 200 03/20 Specimen Type: PLASMA Comment: No hemolysis noted. Ordering Provider: Trey JOSÉ Report Released Date/Time: March 20, 2025 07:57 AM Reporting Lab: [facility] [place] [phone] Performing Lab: [facility] [place] [id number] DIVISION LIPID PANEL (STL) TRIGLYCERI DE [MASS/VOLU ME] IN SERUM OR PLASMA 117 mg/dL 0 - 150 03/20 Specimen Type: PLASMA Comment: No hemolysis noted. Ordering Provider: Trey JOSÉ Report Released Date/Time: March 20, 2025 07:57 AM Reporting Lab: [facility] [place] [address] Performing Lab: [facility] [id number] [place] [address] DIVISION LIPID PANEL (STL) CHOLESTERO L IN LDL [MASS/VOLU ME] IN SERUM OR PLASMA BY CALCJAMIE N 50 mg/dL 03/20 Specimen Type: PLASMA Comment: No hemolysis noted. Ordering Provider: Trey JOSÉ Report Released Date/Time: March 20, 2025 07:57 AM Reporting Lab: [facility] [place] [address] Performing Lab: [facility] DIVISION LIPID PANEL (STL) CHOLESTERO L IN HDL [MASS/VOLU ME] IN SERUM OR PLASMA 44 mg/dL 40 03/20 Specimen Type: PLASMA Comment: No hemolysis noted. Ordering Provider: Trey JOSÉ Report Released Date/Time: March 20, 2025 07:57 AM Reporting Lab: [facility] [place] [address] Performing Lab: [facility] DIVISION PTH, INTACT (STL) PARATHYRIN .INTACT [MASS/VOLU ME] IN SERUM OR PLASMA 217.40 pg/mL 8.7 - 77.7 03/20 H Specimen Type: SERUM No comment entered. Ordering Provider: Trey JOSÉ Report Released Date/Time: March 20, 2025 10:06 AM Reporting Lab: [facility] [address] [place] [phone] Performing Lab: [facility] [address] [facility] TSH (MA-PB) THYROTROPI N [UNITS/VOL UME] IN SERUM OR PLASMA 2.082 u[IU]/mL 0.470 - 5.000 03/20 Specimen Type: SERUM No comment entered. Ordering Provider: Trey JOSÉ Report Released Date/Time: March 20, 2025 07:57 AM Reporting Lab: [facility] [place] [address] Performing Lab: [facility] [address] [facility] VITAMIN D, 25-HYDROX Y 25-HYDROXY VITAMIN D3 [MASS/VOLU ME] IN SERUM OR PLASMA 30.1 ng/mL 30 - 96 03/20 Specimen Type: SERUM No comment entered. Ordering Provider: Trey JOSÉ Report Released Date/Time: March 20, 2025 07:57 AM Reporting Lab: [facility] [phone] Performing Lab: [facility] [address] [facility] Vital Signs Combined list of inpatient and outpatient Vital Signs from Department of [facility] and Veterans Affairs, ranging from 12 months to all on record, depending upon the facility. Vital Sign Value Date Comments Source SYSTOLIC BLOOD PRESSURE 150 03/20/2025 08:39:03 [facility] DIASTOLIC BLOOD PRESSURE 80 03/20/2025 08:39:03 [facility] PULSE OXIMETRY 99 03/20/2025 08:39:03 [facility] WEIGHT 164.8 03/20/2025 08:39:03 [facility] BMI 24 kg/m2 03/20/2025 08:39:03 [facility] DIVISION PAIN 3 03/20/2025 08:39:03 [facility] DIVISION HEIGHT 69 03/20/2025 08:39:03 [facility] TEMPERATURE 99.1 03/20/2025 08:39:03 [facility] PULSE 81 03/20/2025 08:39:03 [facility] RESPIRATION 16 03/20/2025 08:39:03 [facility] Encounters Combined list of: 1) Encounters from Department of Veterans Affairs facilities going backup to the last 18 months, not all VA inpatient encounters are included; 2) Encounters from the Department of Defense facilities going backup to 280 months. 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 Social History Type Response Date Comment Sourc e Tobacco smoking status NHIS VA-TOBACCO USE FORMER CIGARETTES 03/20/2025 [facility] History of tobacco use VA-TOBACCO NEVER USED OTHER TYPE 03/20/2025 [facility] Plan of Care List of future care activities from Department of [facility] Affairs facilities. Additional future care activities may be listed in the Assessment and Plan section. Date/Time Care Activity Care Activity Detail Facili ty 05/14/2025 AMBULATORY - SURGERY AMBULATORY - SURGERY [facility]
--- NOTE | 2025-04-10 13:35 | ED_ITS ---
HPI - Wound/Laceration General Chief Complaint: Wound/Laceration Stated Complaint: laceration above left Time Seen by Provider: 04/10/25 12:45 Source: patient and RN notes reviewed Mode of arrival: ambulatory Limitations: no limitations History of Present Illness HPI narrative: 79-year-old male presents to [facility] complaining of laceration to left eyebrow. Patient stated earlier this morning he went to go turn off his alarm clock as he rolled over he missed the alarm clock instruct the left corner of his head into the corner of the in table and the patient stated he rolled out of bed. Patient says as he rolled out he caught himself to the ground. Patient denies hitting his head when he fell. Patient denies any loss of consciousness, neck pain, back pain, or any other injuries. Patient denies any vision changes, headaches, slurred speech, weakness, dizziness, amnesia, retrograde amnesia, nausea, vomiting, confusion or any other symptoms. Patient denies taking any anticoagulant. Patient does take a daily baby aspirin. Patient denies any significant past medical history other than cardiac history. Patient states his tetanus is up-to-date since last year. Related Data Home Medications ?Medication ?Instructions ?Recorded ?Confirmed ?Last Taken ?Type triamcinolone acetonide 0.1 % 1 applic topical BID PRN Rash 11/06/21 01/23/25 Unknown History topical cream Allergies Allergy/AdvReac Type Severity Reaction Status Date / Time blueberry Allergy Unknown Anaphylaxis Verified 04/10/25 12:57 COVID-19 (SARS-CoV-2) AdvReac Fatigued Verified 04/10/25 12:57 vaccine, taina Review of Systems Review of Systems: CONSTITUTIONAL: Denies fever, chills, or sweats. EYES: Denies visual changes, blurry vision, redness, or discharge. ENT: Denies rhinorrhea, congestion, sore throat, or otalgia. CARDIOVASCULAR: Denies chest pain, palpitations, lightheadedness, dizziness, syncope, presyncope, or edema. RESPIRATORY: Denies cough or dyspnea. GASTROINTESTINAL: Denies abdominal pain, nausea, vomiting, or diarrhea. GENITOURINARY: Denies dysuria or hematuria. SKIN: Denies rash or itching. MUSCULOSKELETAL: Denies back pain, joint pain, or myalgia. Positive for laceration. NEUROLOGIC: Denies headache, numbness, seizures, slurred speech, facial droop, amnesia, or weakness. PSYCHIATRIC: Denies anxiety or depression. All other systems reviewed are negative, except as documented in HPI. FORMERLY [facility], [facility] Past Medical History Medical History Aortic stenosis due to bicuspid aortic valve Presence of permanent cardiac pacemaker Urge incontinence of urine Hypercalcemia Paresthesia of both feet GERD (gastroesophageal reflux disease) Arthropathic psoriasis, unspecified Pure hypercholesterolemia, unspecified Other abnormal glucose Psoriasis, unspecified Major depressive disorder, recurrent, in partial remission Hyperlipidemia HTN (hypertension) Rheumatoid arthritis Surgical History Surgical History History of hernia repair left abdomen 12/06/2003 right abdomen 08/2011 History of appendectomy History of tonsillectomy and adenoidectomy Family History Family History Father Heart disease Mother Diabetes mellitus Grandparent Heart disease Social History Social History Smoking status: Former smoker Second hand tobacco smoke exposure: No Alcohol intake: former Substance use: never Substance use type: does not use Do You Feel Safe in your Home?: Yes Lack of Transportation: No Lack of Food: Never True Current Housing: I Have Housing Concerned About Future Housing: No Difficulty Paying Gas/Electric Bills: No Difficulty Paying for Meds: No Currently Unemployed: No Education: High School Diploma/GED Difficulty w/ Childcare or Family Care: No Living arrangements: with family Occupation/Education: retired Gender identity (if verbalized by the patient): Male Sexual Orientation (if Verbalized by the Patient): Straight or Heterosexual Spiritual care concerns: No Comments At the time of my signature, I reviewed and agree with the nursing past medical, surgical, social, and family history. There is no relevant family history pertinent to the patient complaint. Exam Narrative: GENERAL: This is a well-nourished, well-developed adult, in no apparent distress. They are non ill-appearing, nontoxic appearing. Patient is ambulatory with a steady gait. HEAD: normocephalic. Laceration present to the left lateral eyebrow. No Alfonso signs or raccoon eyes. No swelling or deformity to left orbit. Mild ecchymosis inferior to laceration. EYES: Sclera clear/white. Conjunctiva normal. Vision is grossly intact. Extraocular movements intact. Pupils PERRLA. No nystagmus. Upper and lower eyelids without redness, swelling, or bruising bilaterally. EARS: External ears normal, auditory canals clear and without drainage, TMs normal without perforation. Hearing grossly intact. No hemotympanum bilaterally NOSE: External nose normal with no obvious nasal discharge, nasal turbinates without redness, no rhinorrhea. THROAT: Mucous membranes moist, posterior pharynx clear, without erythema or swelling. Uvula midline. OROPHARYNX: Oropharynx clear without swelling or bleeding. Teeth are intact. No deformity or injury. NECK: Neck supple, non-tender without lymphadenopathy, masses or thyromegaly. No cervical point tenderness, crepitus, or step-offs. CARDIOVASCULAR: Regular rate and rhythm without murmurs, gallops, or rubs. RESPIRATORY: Clear to auscultation. Breath sounds equal bilaterally. No wheezes, rales, or rhonchi. SKIN: Left eyebrow: Laceration present near the corner of the left lateral eyebrow. Few air present near the laceration in the eyebrow. Lacerations measuring approximately 2 cm long. Laceration is linear. Laceration approximate well. Hemostasis achieved with direct pressure. Mild ecchymosis surrounding the inferior part a laceration. No surrounding cellulitis. NEURO: awake, alert, and oriented to person, place and time. There were no obvious focal neurologic abnormalities. No facial droop. Speech is clear and comprehensive. Mica Washer Gluer strength equal bilaterally. No pronator drift. GCS 15 EXTREMITIES: No joint tenderness, effusion, or edema noted. BACK: Nontender without deformity. No CVA tenderness. No thoracic or lumbar point tenderness, crepitus, or step-offs. Course Course Emergency Course: Portions of this record may have been created with voice recognition software Level of Care: Express Care Visit Vital Signs Vital signs: Vital Signs Temperature 99.1 F 04/10/25 12:51 Pulse Rate 94 04/10/25 12:51 Respiratory Rate 18 04/10/25 12:51 Blood Pressure 165/67 H 04/10/25 12:51 Pulse Oximetry 99 04/10/25 12:51 Oxygen Delivery Room Air 06/10/25 12:51 Temperature 99.1 F 04/10/25 12:51 Pulse Rate 94 04/10/25 12:51 Respiratory Rate 18 04/10/25 12:51 Blood Pressure 165/67 H 04/10/25 12:51 Pulse Oximetry 99 04/10/25 12:51 Oxygen Delivery Room Air 04/10/25 12:51 Reviewed Procedures Laceration Laceration 1: Date: 04/10/25 Time: 13:20 Site: face (Left lateral eyebrow area) Side (If applicable): left Size (cm): 2 Description: linear Depth: simple, single layer Local Anesthetic: lidocaine 1% and with epi Amount of anesthesia used (mL): 2 Pre-repair: wound explored, irrigated and other (A few eyebrow hairs were cut down with scissors) ====== Skin Level ====== Skin layer closed with: nylon Size (cm): 5-0 Number of sutures: 3 Technique: simple, interrupted ====== Subcutaneous Layer ====== ====== Muscle Layer ====== ====== Tendon Layer ====== Dressing: Open to air MDM - Wound/Laceration MDM Narrative Medical decision making narrative: Laceration successfully repaired. Three sutures were placed in the patient's left eyebrow. Since the patient waited almost 6 hours for evaluation will prophylactically treat with antibiotics with cephalexin for infection prevention. Low suspicion for significant head injury given mechanism of injury. Patient is exhibiting no signs of a head injury or concussion. Patient does not take any oral anticoagulants. Patient did fall out of bed but was able to catch himself and did not strike his head as he fell. Patient's neurological exam and physical exam reassuring with no evidence of significant injuries. Through shared decision making, offered patient ER transfer for further evaluation, imaging, and management and patient declined stating he feels fine. Discussed physical exam findings. Advised supportive measures and signs/symptoms to go to the ER. Pt is appropriate for outpt treatment and f/u. Differential Diagnosis Differential diagnosis: Likely laceration, abrasion and other (Head injury, intracranial hemorrhage) Critical Care Time Critical Care Time Critical Care Time: No Discharge Plan Discharge Clinical Impression: Laceration of eyebrow Qualifiers: Encounter type: initial encounter Laterality: left Qualified Code(s): S01.112A - Laceration without foreign body of left eyelid and periocular area, initial encounter Accidental fall from bed Qualifiers: Encounter type: initial encounter Qualified Code(s): W06.XXXA - Fall from bed, initial encounter Patient Disposition: Home Condition: Stable Instructions: Care For Your Stitches (ED), Facial Laceration (ED) Additional Instructions: Your sutures need to be removed 5 days. You may leave the wound open to air. Wash the wound daily with mild soap and water. Do not scrub the wound. Do NOT wash with peroxide or alcohol. ?Take tylenol or ibuprofen at home for pain, if able. Avoid dirty water until the wound has healed completely. Take the cephalexin as directed. This would include pools, lakes, hot tubs, or baths tubs. Follow up with your PCP in 3-5 days. if you develop any any signs of infection such as redness, swelling, increased pain, or drainage or you developed severe headaches, vision changes, blurry vision, dizziness, loss of consciousness, seizures, confusion, or any other concerns please go to the ER immediately. Patient Language: Slovak Prescriptions: New cephalexin 500 mg capsule 500 mg PO Q6H 7 Days Qty: 28 0RF No Action citalopram 20 mg tablet 20 mg PO DAILY Qty: 90 1RF simvastatin 40 mg tablet 40 mg PO DAILY Qty: 90 1RF Jardiance 10 mg tablet 10 mg PO DAILY Qty: 100 1RF triamcinolone acetonide 0.1 % cream 1 applic TOPICAL BID PRN (Reason: Rash) Patient Comments: for psoriasis aspirin 81 mg capsule 81 mg PO DAILY Qty: 60 0RF Follow-up/Referrals: Baljit Conley MD [Primary Care Provider] - Time of Disposition: 13:40
== END 2025-04-10 13:45 | disposition home or self-care (01) ==
PROVIDERS: PCP Family Medicine
DX: S01.112A Laceration without foreign body of left eyelid and periocular area, initial encounter (principal); W06.XXXA Fall from bed, initial encounter; Z87.891 Personal history of nicotine dependence; I10 Essential (primary) hypertension; M06.9 Rheumatoid arthritis, unspecified; L40.9 Psoriasis, unspecified; E78.00 Pure hypercholesterolemia, unspecified; Z95.0 Presence of cardiac pacemaker; I35.0 Nonrheumatic aortic (valve) stenosis; F33.41 Major depressive disorder, recurrent, in partial remission; Z79.82 Long term (current) use of aspirin
CPT/HCPCS: 12011; 99213; G0463; J2004

== ENCOUNTER 2025-06-04 08:13 | Outpatient (CLI) | payer MEDICARE, SELFPAY ==
--- OUTSIDE RECORDS SUMMARY | 2025-06-04 08:26 | XMS_ITS | Encounter Summary ---
Author Organization [facility] Health Address [address] [place] [address] Care Team Providers Care Structural Steel Equipment Erector Name Role Phone Baljit Conley MD Primary Care Provider [phone] Encounter Details Date Type Department Care Team (Late st Contact Info) Description 05/29/2025 Telephone [facility] - Cardiology [address] [facility] [address] [place] [address] Vidya Espinosa RN Social History Tobacco Use Types Packs/Day Years Used Date Smoking Tobacco: Former Cigarettes 1 7 Smokeless Tobacco: Never Alcohol Use Standard Drinks/Week Comments Not Currently 0 (1 standard drink = 0.6 oz pur e alcohol) AUDIT-C Answer Date Recorded Q1: How often do you have a drink containing alcohol? Never 05/09/2025 Q2: How many drinks containi ng alcohol do you have on a typical day when you are drinking? Patient does not drink Q3: How often do you have si x or more drinks on one occasion? Never 05/09/2025 Overall Financial Resource Strain (CARDIA) Answe r Date Recorded How hard is it for you to pa y for the very basics like food, housing, medical care, and heating? Not hard at all 03/11/2024 [facility] of Occupat ional Health - Occupational Stress [...] place to sleep or slept in a mcc (including now)? No 03/11/2024 Sex and Gender Information Value Date Recorded Sex Assigned at Not on file Legal Sex Male 9:35 AM TICKET PRINTER Gender Identity Not on file Sexual Orientation Not on file documented as of this encounter Functional Status * Is person deaf or have serious hearing difficulty? Answer Date of Assessment Author No 05/09/2025 11:59 AM Miranda Samuel RN * Is person blind or have serious difficulty seeing? Answer Date of Assessment Author No 05/09/2025 11:59 AM Miranda Samuel RN * Does person have serious difficulty walking/climbing stairs? Answer Date of Assessment Author Yes 05/09/2025 11:59 AM Miranda Samuel RN * Does person have difficulty dressing/bathing? Answer Date of Assessment Author No 05/09/2025 11:59 AM Miranda Samuel RN * Does person have difficulty doing errands alone? Answer Date of Assessment Author No 05/09/2025 11:59 AM Miranda Samuel RN documented as of this encounter Mental Status * Does person have difficulty concentrating/remembering/making decisions? Answer Entry Date Author No 05/09/2025 11:59 AM Miranda Samuel RN documented in this encounter Miscellaneous Notes * Telephone Encounter - Vidya Espinosa RN - 05/29/2025 9:39 AM CDT Study Name: EXPAND TAVR II IRB Number: [id number] [facility]/Division of Cardiology PI Name: Kerry Rodriguez M.D. Sanitation Associate Name: Vidya Espinosa Re: Subject [id number] - [id number] / EXPAND TAVR LHVT Discussion Local Heart Valve Team discussion of subject's screening / baseline medical history and test results as per EXPAND TAVR II protocol. Subject received [place] approval (including CTS, Interventionalist and Echo Datacap Developer) for submission to the EXPAND TAVR Eligibility Review Committee. Per [place] recommendation, subject will go forward in the Expand TAVR study. Site completed submission to sponsor ERC (Eligibility Review Committee) on 05/11/25 via [employer]. This documentation serves as [place] determination of subject eligibility prior to ERC submission & final subject eligibility & approval. ERC approval was on 05/25/25 and patient randomized to TAVR+GDMT on 05/29/25. Patient notified and TAVR is scheduled for 06/12/25. Devices ordered. documented in this encounter Plan of Treatment Upcoming Encounters Date Type Department Care Team (Latest Contact Info) Description 06/12/2025 1:10 AM CDT Clinical Support [facility] - Cardiology [address] [facility], [facility] [address] [place] [address] 06/12/2025 7:15 AM CDT Hospital Encounter [facility] [address] [place] [address] Ro Rodriguez MD [address] [place] [address] Cardiac Catheterization 06/12/2025 7:15 AM CDT - 06/12/2025 9:41 AM CDT Surgery [facility] - Cardiac Adventure Education Teacher [address] [place] [address] Ro Rodriguez MD [address] [facility] [place] [address] Transcatheter Aortic Valve Replacement (TAVR) 07/13/2025 8:00 AM CDT Appointment [facility] ECHO [address] [place] [address] Ro Rodriguez MD [address] [place] [id number] 09/04/2025 1:00 AM TICKET PRINTER Clinical Support [facility] - Cardiology [address] [facility], [address] [address] 12/04/2025 1:00 AM TICKET PRINTER Clinical Support [facility] - Cardiology [address] [facility], [address] [address] 03/05/2026 1:00 AM CDT Clinical Support [facility] - Cardiology [address] [facility], [address] [address] 04/04/2026 11:00 AM CDT Office Visit [facility] - Cardiology [address], [address] [address] Omid May MD [address], [address] [address] documented as of this encounter Visit Diagnoses Not on filedocumented in this encounter Care Teams Structural Steel Equipment Erector Relationship Specialty Start Date End Date Baljit Conley MD [address] [place] [id number] PCP - General 11/19/21 documented as of this encounter
--- OUTSIDE RECORDS SUMMARY | 2025-06-04 08:26 | XMS_ITS | Encounter Summary ---
Author Organization [facility] Health Address [address] [place] [address] Care Team Providers Care Textiles And Clothing Teacher Name Role Phone Baljit Conley MD Primary Care Provider [phone] Encounter Details Date Type Department Care Team (Late st Contact Info) Description 05/23/2025 Telephone [facility] - Cardiology [address] [facility] [address] [place] [address] Vidya Espinosa RN Social History [...] and heating? Not hard at all 03/11/2024 [facility] of Occupat ional Health - Occupational Stress [...] to sleep or slept in a senior living (including now)? No 03/11/2024 Sex and Gender Information Value Date Recorded Sex Assigned at Not on file Legal Sex Male 9:35 AM CONTROLS PROJECT ENGINEER Gender Identity Not on file Sexual Orientation [...] Telephone Encounter - Vidya Espinosa RN - 05/23/2025 11:57 AM CDT Study Name: EXPAND TAVR II IRB Number: [id number] [facility]/Division of Cardiology PI Name: Kerry Rodriguez M.D. Mechanic/Welder Name: Vidya Espinosa Re: Subject [id number] - [id number] / EXPAND TAVR LHVT Discussion Local Heart Valve Team discussion of subject's screening / baseline medical history and test results as per EXPAND TAVR II protocol. Subject received [place] approval (including CTS, Interventionalist and Echo Mechanic/Welder) for submission to the EXPAND TAVR Eligibility Review Committee on 05/11. Dr. Fletcher had to step off of meeting prior to agreement, but Dr. Rodriguez showed slides and discussed with him later in the day. Dr Fletcher is also in agreement to go forward with submission to the ERC review.Per [place] recommendation, subject will be submitted to the ERC. Site to complete submission to (Eligibility Review Committee) on 05/23/25 via [employer]. This documentation serves as [facility] determination of subject eligibility prior to ERC submission & final subject eligibility & approval. We had issues with lack of ability to submit images of CT to the CT corelab but with the help of the [employer] IT department this issue was addressed and images were submitted on 05/22/25. documented in this encounter Plan of Treatment Upcoming Encounters Date Type Department Care Team (Latest Contact Info) Description 06/12/2025 1:10 AM CDT Clinical Support [facility] - Cardiology [address] [facility], [facility] [address] [place] [address] 06/12/2025 7:15 AM CDT Hospital Encounter [facility] [address] [place] [address] Ro Rodriguez MD [facility] [address] [place] [address] Cardiac Catheterization 06/12/2025 7:15 AM CDT - 06/12/2025 9:41 AM CDT Surgery [facility] - Cardiac Barrer And Tacker [address] [place] [address] Ro Rodriguez MD [address] [address] Transcatheter Aortic Valve Replacement (TAVR) 07/13/2025 8:00 AM CDT Appointment [facility] ECHO [address] [place] [address] Ro Rodriguez MD [address] [address] 09/04/2025 1:00 AM CONTROLS PROJECT ENGINEER Clinical Support [facility] - Cardiology [facility] [address] [facility], [address] [address] 12/04/2025 1:00 AM CONTROLS PROJECT ENGINEER Clinical Support [facility] - Cardiology [address] [facility], [address] [address] 03/05/2026 1:00 AM CDT Clinical Support [facility] - Cardiology [address] [facility], [address] [address] 04/04/2026 11:00 AM CDT Office Visit [facility] - Cardiology [facility] [address] [facility], [address] [address] Omid May MD [address] [facility], [address] [address] documented as of this encounter Visit Diagnoses Not on filedocumented in this encounter Care Teams Textiles And Clothing Teacher Relationship Specialty Start Date End Date Baljit Conley MD [address] [place] [address] PCP - General 11/19/21 documented as of this encounter
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
--- OUTSIDE RECORDS SUMMARY | 2025-06-04 08:26 | XMS_ITS | Continuity of Care Document ---
Author Name [facility] Organization [facility] Care Team Providers Care Cloth Classer Name Role Phone [facility] Unavailable Unavailable Problems Combined list of problems from Department of [facility] and [facility] facilities. It does not include entries that were removed or entered in error. Problem Status Onset Date Problem Type Date of Resolution Comments Source Anxiety Active Condition [facility] Aortic valve stenosis Active Condition [facility] CN - Constipation Active Condition [facility] Exposure to potentially hazardous substance (SCT [id number]) Active Condition March 21 Entered By: JAMIE CAMPBELL Comment: Entered automatically through PHANI Problem List documentation program [facility] Gastro-oesophageal reflux disease without oesophagitis Active Condition [facility] History of sick sinus syndrome Active Condition March 20, 2025 Entered By: ELIZABETH JOSÉ Comment: s/p PPM [facility] HLD - Hyperlipidemia Active Condition [facility] HPTH - Hyperparathyroidism Active Condition [facility] HTN - Hypertension Active Condition [facility] Overactive urinary bladder Active Condition [facility] PA (Psoriatic arthritis) Active Condition [facility] Psoriasis Active Condition [facility] Tinnitus Active Condition [facility] Diagnosis: ICD-10-CM H90.3 Sensorineural hearing loss, bilateral Active Diagnosis [facility] Diagnosis: ICD-10-CM H91.8X3 Other specified hearing loss, bilateral Active Diagnosis [facility] Diagnosis: ICD-10-CM I35.0 Nonrheumatic aortic (valve) stenosis Active Diagnosis [facility] Diagnosis: ICD-10-CM Z71.89 Other specified counseling Active Diagnosis [facility] Medications Combined list of outpatient medications from Department of Defense and Veterans Affairs facilities.Medications provided include 1) outpatient medications from the last 15 months, and 2) patient-reported medications. Medication Details Route Status Patient Instructions Prescription Expires Prescription Number Last Dispense Date Ordering Provider Order Date Order Qty Source ASPIRIN 81MG TAB,EC TAKE ONE TABLET BY MOUTH ONCE A DAY ORAL ACTIVE [facility], 2024 [facility] CHOLECALCIF SHILA 25MCG (1,000UNIT) TAB TAKE ONE TABLET BY MOUTH ONCE A DAY ORAL ACTIVE [facility], 2024 [facility] CITALOPRAM HYDROBROMID E 40MG TAB TAKE ONE-HALF TABLET BY MOUTH EVERY MORNING ORAL ACTIVE [facility], 2024 [facility] EMPAGLIFLOZ IN 25MG TAB TAKE ONE-HALF TABLET BY MOUTH ONCE A DAY ORAL ACTIVE 03/21/2026 [id number] [facility], 2024 45 [facility] EMPAGLIFLOZ IN 25MG TAB TAKE ONE-HALF TABLET BY MOUTH ONCE A DAY ORAL DISCONT INUED 03/21/2026 [id number] [facility], 2024 45 [facility] FAMOTIDINE 10MG TAB TAKE ONE TABLET BY MOUTH TWICE A DAY ORAL ACTIVE [facility], 2024 [facility] SIMVASTATIN 80MG TAB TAKE ONE-HALF TABLET BY MOUTH EVERY EVENING ORAL ACTIVE [facility], 2024 [facility] TROSPIUM CL 20MG TAB TAKE ONE TABLET BY MOUTH TWICE A DAY (TAKE ONE HOUR BEFORE A MEAL OR ON AN EMPTY STOMACH) ORAL ACTIVE 03/21/2026 [id number] [facility], 2024 180 [facility] WHEAT DEXTRIN (BENEFIBER) PWDR,ORAL MIX AND DRINK 1 TEASPOON FUL BY MOUTH ORAL ACTIVE [facility], 5 [facility] Allergies, Adverse Reactions, Alerts Combined list of allergies from Department [facility] and [facility] facilities. It does not include entries that were removed or entered in error. Substance Category Reaction Severity Reaction type Status Date Reported Comments Source [place]UE[place]RIES Propensity to adverse reactions to substance (finding) Anaphylaxis active [facility] GOOSEBERRIES Propensity to adverse reactions to food (finding) Anaphylaxis active [facility] MODERNA COVID-19 VACCINE (EUA) Propensity to adverse reactions to drug (finding) Anaphylaxis active [facility] OXYBUTYNIN CHLORIDE Propensity to adverse reactions to drug (finding) Eruption active [facility] Results Combined list of recent chemistry, hematology and other laboratory results from [facility] and [facility], ranging from 15 months to all on record, depending upon the facility. Order Name Results Value Reference Range Date Interpretation Specimen Comments Source ANTI-NUCL EAR ANTIBODY (STL-PB) NUCLEAR AB [PRESENCE] IN SERUM NEGATIVE 03/20 Specimen Type: SERUM No comment entered. Ordering Provider: Trey JOSÉ Report Released Date/Time: March 20, 2025 10:06 AM Reporting Lab: [address] [address] Performing Lab: [address] [address] [facility] CBC LEUKOCYTES [#/VOLUME] IN BLOOD BY AUTOMATED COUNT 6.5 10*3/uL 3.6 - 11.2 03/20 Specimen Type: BLOOD No comment entered. Ordering Provider: Trey JOSÉ Report Released Date/Time: March 20, 2025 07:57 AM Reporting Lab: [facility] [address] Performing Lab: [facility] [address] [facility] CBC ERYTHROCYT ES [#/VOLUME] IN BLOOD BY AUTOMATED COUNT 5.60 10*6/uL 4.10 - 5.70 03/20 Specimen Type: BLOOD No comment entered. Ordering Provider: Trey JOSÉ Report Released Date/Time: March 20, 2025 07:57 AM Reporting Lab: [facility] [place] [address] Performing Lab: [facility] CBC HEMOGLOBIN [MASS/VOLU ME] IN BLOOD 16.5 g/dL 13.1 - 16.8 03/20 Specimen Type: BLOOD No comment entered. Ordering Provider: Trey JOSÉ Report Released Date/Time: March 20, 2025 07:57 AM Reporting Lab: [facility] [place] [address] Performing Lab: [facility] CBC HEMATOCRIT [VOLUME FRACTION] OF BLOOD 48.3 38.2 - 48.4 03/20 Specimen Type: BLOOD No comment entered. Ordering Provider: Trey JOSÉ Report Released Date/Time: March 20, 2025 07:57 AM Reporting Lab: [facility] [place] [address] Performing Lab: [facility] CBC MCV [ENTITIC VOLUME] BY AUTOMATED COUNT 86.3 fL 80.0 - 100.0 03/20 Specimen Type: BLOOD No comment entered. Ordering Provider: Trey JOSÉ Report Released Date/Time: March 20, 2025 07:57 AM Reporting Lab: [facility] [place] [address] Performing Lab: [facility] CBC MCH [ENTITIC MASS] BY AUTOMATED COUNT 29.5 pg 27.0 - 34.0 03/20 Specimen Type: BLOOD No comment entered. Ordering Provider: Trey JOSÉ Report Released Date/Time: March 20, 2025 07:57 AM Reporting Lab: [facility] [place] [address] Performing Lab: [facility] DIVISION CBC MCHC [MASS/VOLU ME] BY AUTOMATED COUNT 34.2 g/dL 33.0 - 36.0 03/20 Specimen Type: BLOOD No comment entered. Ordering Provider: Trey JOSÉ Report Released Date/Time: March 20, 2025 07:57 AM Reporting Lab: [facility] [place] [address] Performing Lab: [facility] DIVISION CBC PLATELETS [#/VOLUME] IN BLOOD BY AUTOMATED COUNT 211 10*3/uL 150 - 400 03/20 Specimen Type: BLOOD No comment entered. Ordering Provider: Trey JOSÉ Report Released Date/Time: March 20, 2025 07:57 AM Reporting Lab: [facility] [place] [address] Performing Lab: [facility] DIVISION CBC PLATELET MEAN VOLUME [ENTITIC VOLUME] IN BLOOD BY AUTOMATED COUNT 10.8 fL 7.5 - 11.2 03/20 Specimen Type: BLOOD No comment entered. Ordering Provider: Trey JOSÉ Report Released Date/Time: March 20, 2025 07:57 AM Reporting Lab: [facility] [place] [address] Performing Lab: [id number] DIVISION CBC ERYTHROCYT E DISTRIBUTI ON WIDTH [RATIO] BY AUTOMATED COUNT 13.2 11.8 - 15.1 03/20 Specimen Type: BLOOD No comment entered. Ordering Provider: Trey JOSÉ Report Released Date/Time: March 20, 2025 07:57 AM Reporting Lab: [facility] [place] [address] Performing Lab: [facility] DIVISION CBC LYMPHOCYTE S/100 LEUKOCYTES IN BLOOD BY AUTOMATED COUNT 18 03/20 Specimen Type: BLOOD No comment entered. Ordering Provider: Trey JOSÉ Report Released Date/Time: March 20, 2025 07:57 AM Reporting Lab: [facility] [place] [address] Performing Lab: [facility] DIVISION CBC MONOCYTES/ 100 LEUKOCYTES IN BLOOD BY AUTOMATED COUNT 9 03/20 Specimen Type: BLOOD No comment entered. Ordering Provider: Trey JOSÉ Report Released Date/Time: March 20, 2025 07:57 AM Reporting Lab: [facility] [place] [address] Performing Lab: [facility] DIVISION CBC NEUTROPHIL S/100 LEUKOCYTES IN BLOOD BY AUTOMATED COUNT 71 03/20 Specimen Type: BLOOD No comment entered. Ordering Provider: Trey JOSÉ Report Released Date/Time: March 20, 2025 07:57 AM Reporting Lab: [facility] [place] [address] Performing Lab: [facility] DIVISION CBC EOSINOPHIL S/100 LEUKOCYTES IN BLOOD BY AUTOMATED COUNT 1 03/20 Specimen Type: BLOOD No comment entered. Ordering Provider: Trey JOSÉ Report Released Date/Time: March 20, 2025 07:57 AM Reporting Lab: [facility] [place] [address] Performing Lab: [facility] DIVISION CBC BASOPHILS/ 100 LEUKOCYTES IN BLOOD BY AUTOMATED COUNT 1 03/20 Specimen Type: BLOOD No comment entered. Ordering Provider: Trey JOSÉ Report Released Date/Time: March 20, 2025 07:57 AM Reporting Lab: [facility] [place] [address] Performing Lab: [facility] DIVISION CBC LYMPHOCYTE S [#/VOLUME] IN BLOOD BY AUTOMATED COUNT 1.14 10*3/uL 0.77 - 4.50 03/20 Specimen Type: BLOOD No comment entered. Ordering Provider: Trey JOSÉ Report Released Date/Time: March 20, 2025 07:57 AM Reporting Lab: [facility] [place] [address] Performing Lab: [facility] DIVISION CBC MONOCYTES [#/VOLUME] IN BLOOD BY AUTOMATED COUNT 0.61 10*3/uL 0.19 - 0.80 03/20 Specimen Type: BLOOD No comment entered. Ordering Provider: Trey JOSÉ Report Released Date/Time: March 20, 2025 07:57 AM Reporting Lab: [facility] [place] [address] Performing Lab: [facility] DIVISION CBC NEUTROPHIL S [#/VOLUME] IN BLOOD BY AUTOMATED COUNT 4.62 10*3/uL 2.10 - 8.00 03/20 Specimen Type: BLOOD No comment entered. Ordering Provider: Trey JOSÉ Report Released Date/Time: March 20, 2025 07:57 AM Reporting Lab: [facility] [place] [address] Performing Lab: [facility] DIVISION CBC EOSINOPHIL S [#/VOLUME] IN BLOOD BY AUTOMATED COUNT 0.09 10*3/uL 0.00 - 0.60 03/20 Specimen Type: BLOOD No comment entered. Ordering Provider: Trey JOSÉ Report Released Date/Time: March 20, 2025 07:57 AM Reporting Lab: [facility] [place] [address] Performing Lab: [facility] DIVISION CBC BASOPHILS [#/VOLUME] IN BLOOD BY AUTOMATED COUNT 0.04 10*3/uL 0.00 - 0.20 03/20 Specimen Type: BLOOD No comment entered. Ordering Provider: Trey JOSÉ Report Released Date/Time: March 20, 2025 07:57 AM Reporting Lab: [facility] [place] [address] Performing Lab: [facility] DIVISION COMPREHEN SIVE METABOLIC PANEL CREATININE [MASS/VOLU ME] IN SERUM OR PLASMA 0.76 mg/dL 0.70 - 1.30 03/20 Specimen Type: PLASMA Comment: No hemolysis noted. Ordering Provider: Trey JOSÉ Report Released Date/Time: March 20, 2025 07:57 AM Reporting Lab: [facility] [place] [address] Performing Lab: [facility] [place] [id number] DIVISION COMPREHEN SIVE METABOLIC PANEL UREA NITROGEN [MASS/VOLU ME] IN SERUM OR PLASMA 19.7 mg/dL 9.0 - 25.0 03/20 Specimen Type: PLASMA Comment: No hemolysis noted. Ordering Provider: Trey JOSÉ Report Released Date/Time: March 20, 2025 07:57 AM Reporting Lab: [facility] [place] [address] Performing Lab: [facility] DIVISION COMPREHEN SIVE METABOLIC PANEL GLUCOSE [MASS/VOLU ME] IN SERUM OR PLASMA 84 mg/dL 72 - 99 03/20 Specimen Type: PLASMA Comment: No hemolysis noted. Ordering Provider: Trey JOSÉ Report Released Date/Time: March 20, 2025 07:57 AM Reporting Lab: [facility] [place] [address] Performing Lab: [facility] DIVISION COMPREHEN SIVE METABOLIC PANEL SODIUM [MOLES/VOL UME] IN SERUM OR PLASMA 141 meq/L 136 - 145 03/20 Specimen Type: PLASMA Comment: No hemolysis noted. Ordering Provider: Trey JOSÉ Report Released Date/Time: March 20, 2025 07:57 AM Reporting Lab: [facility] [place] [address] Performing Lab: [facility] DIVISION COMPREHEN SIVE METABOLIC PANEL POTASSIUM [MOLES/VOL UME] IN SERUM OR PLASMA 3.9 meq/L 3.5 - 5.0 03/20 Specimen Type: PLASMA Comment: No hemolysis noted. Ordering Provider: Trey JOSÉ Report Released Date/Time: March 20, 2025 07:57 AM Reporting Lab: [facility] [place] [address] Performing Lab: [facility] DIVISION COMPREHEN SIVE METABOLIC PANEL CHLORIDE [MOLES/VOL UME] IN SERUM OR PLASMA 104 meq/L 98 - 107 03/20 Specimen Type: PLASMA Comment: No hemolysis noted. Ordering Provider: Trey JOSÉ Report Released Date/Time: March 20, 2025 07:57 AM Reporting Lab: [facility] [place] [address] Performing Lab: [facility] DIVISION COMPREHEN SIVE METABOLIC PANEL CARBON DIOXIDE, TOTAL [MOLES/VOL UME] IN SERUM OR PLASMA 25 meq/L 22 - 31 03/20 Specimen Type: PLASMA Comment: No hemolysis noted. Ordering Provider: Trey JOSÉ Report Released Date/Time: March 20, 2025 07:57 AM Reporting Lab: [facility] [place] [address] Performing Lab: [facility] DIVISION COMPREHEN SIVE METABOLIC PANEL CALCIUM [MASS/VOLU ME] IN SERUM OR PLASMA 11.5 mg/dL 8.4 - 10.4 03/20 H Specimen Type: PLASMA Comment: No hemolysis noted. Ordering Provider: Trey JOSÉ Report Released Date/Time: March 20, 2025 07:57 AM Reporting Lab: [facility] [place] [address] Performing Lab: [facility] DIVISION COMPREHEN SIVE METABOLIC PANEL PROTEIN [MASS/VOLU ME] IN SERUM OR PLASMA 7.9 g/dL 6.0 - 8.6 03/20 Specimen Type: PLASMA Comment: No hemolysis noted. Ordering Provider: Trey JOSÉ Report Released Date/Time: March 20, 2025 07:57 AM Reporting Lab: [facility] [place] [address] Performing Lab: [facility] DIVISION COMPREHEN SIVE METABOLIC PANEL ALBUMIN [MASS/VOLU ME] IN SERUM OR PLASMA 4.8 g/dL 3.4 - 5.0 03/20 Specimen Type: PLASMA Comment: No hemolysis noted. Ordering Provider: Trey JOSÉ Report Released Date/Time: March 20, 2025 07:57 AM Reporting Lab: [facility] [place] [address] Performing Lab: [facility] DIVISION COMPREHEN SIVE METABOLIC PANEL BILIRUBIN. TOTAL [MASS/VOLU ME] IN SERUM OR PLASMA 0.5 mg/dL 0.2 - 1.2 03/20 Specimen Type: PLASMA Comment: No hemolysis noted. Ordering Provider: Trey JOSÉ Report Released Date/Time: March 20, 2025 07:57 AM Reporting Lab: [facility] [place] [address] Performing Lab: [facility] DIVISION COMPREHEN SIVE METABOLIC PANEL ALKALINE PHOSPHATAS E [ENZYMATIC ACTIVITY/V OLUME] IN SERUM OR PLASMA 165 U/L 40 - 150 03/20 H Specimen Type: PLASMA Comment: No hemolysis noted. Ordering Provider: Trey JOSÉ Report Released Date/Time: March 20, 2025 07:57 AM Reporting Lab: [facility] [place] [address] Performing Lab: [facility] [id number] DIVISION COMPREHEN SIVE METABOLIC PANEL ASPARTATE AMINOTRANS FERASE [ENZYMATIC ACTIVITY/V OLUME] IN SERUM OR PLASMA 23 U/L 5 - 34 03/20 Specimen Type: PLASMA Comment: No hemolysis noted. Ordering Provider: Trey JOSÉ Report Released Date/Time: March 20, 2025 07:57 AM Reporting Lab: [facility] [place] [address] Performing Lab: [facility] COMPREHEN SIVE METABOLIC PANEL ALANINE AMINOTRANS FERASE [ENZYMATIC ACTIVITY/V OLUME] IN SERUM OR PLASMA 17 U/L 8 - 40 03/20 Specimen Type: PLASMA Comment: No hemolysis noted. Ordering Provider: Trey JOSÉ Report Released Date/Time: March 20, 2025 07:57 AM Reporting Lab: [facility] [place] [address] Performing Lab: [facility] COMPREHEN SIVE METABOLIC PANEL GLOMERULAR FILTRATION RATE/1.73 SQ M.PREDICTE D [VOLUME RATE/AREA] IN SERUM, PLASMA OR BLOOD BY CREATININE -BASED FORMULA (CKD-EPI 2020) 92.00 60 03/20 Specimen Type: PLASMA Comment: No hemolysis noted. Ordering Provider: Trey JOSÉ Report Released Date/Time: March 20, 2025 07:57 AM Reporting Lab: [facility] [place] [address] Performing Lab: [facility] DIVISION LIPID PANEL (STL) CHOLESTERO L [MASS/VOLU ME] IN SERUM OR PLASMA 117 mg/dL 0 - 200 03/20 Specimen Type: PLASMA Comment: No hemolysis noted. Ordering Provider: Trey JOSÉ Report Released Date/Time: March 20, 2025 07:57 AM Reporting Lab: [facility] [place] [address] Performing Lab: [facility] DIVISION LIPID PANEL (STL) TRIGLYCERI DE [MASS/VOLU ME] IN SERUM OR PLASMA 117 mg/dL 0 - 150 03/20 Specimen Type: PLASMA Comment: No hemolysis noted. Ordering Provider: Trey JOSÉ Report Released Date/Time: March 20, 2025 07:57 AM Reporting Lab: [facility] [place] [address] Performing Lab: [facility] LIPID PANEL (STL) CHOLESTERO L IN LDL [MASS/VOLU ME] IN SERUM OR PLASMA BY CALCULAJOHNO N 50 mg/dL 03/20 Specimen Type: PLASMA Comment: No hemolysis noted. Ordering Provider: Trey JOSÉ Report Released Date/Time: March 20, 2025 07:57 AM Reporting Lab: [facility] [place] [address] Performing Lab: [facility] LIPID PANEL (STL) CHOLESTERO L IN HDL [MASS/VOLU ME] IN SERUM OR PLASMA 44 mg/dL 40 03/20 Specimen Type: PLASMA Comment: No hemolysis noted. Ordering Provider: Trey JOSÉ Report Released Date/Time: March 20, 2025 07:57 AM Reporting Lab: [facility] [place] [address] Performing Lab: [facility] DIVISION HGA1C HEMOGLOBIN A1C/HEMOGL OBIN.TOTAL IN BLOOD 5.0 4.0 - 6.0 03/20 Specimen Type: BLOOD No comment entered. Ordering Provider: Trey JOSÉ Report Released Date/Time: March 20, 2025 07:57 AM Reporting Lab: [facility] [place] [phone] Performing Lab: [facility] DIVISION TSH (MA-PB) THYROTROPI N [UNITS/VOL UME] IN SERUM OR PLASMA 2.082 u[IU]/mL 0.470 - 5.000 03/20 Specimen Type: SERUM No comment entered. Ordering Provider: Trey JOSÉ Report Released Date/Time: March 20, 2025 07:57 AM Reporting Lab: [facility] [place] [address] Performing Lab: [facility] [id number] [place] [address] DIVISION VITAMIN D, 25-HYDROX Y 25-HYDROXY VITAMIN D3 [MASS/VOLU ME] IN SERUM OR PLASMA 30.1 ng/mL 30 - 96 03/20 Specimen Type: SERUM No comment entered. Ordering Provider: Trey JOSÉ Report Released Date/Time: March 20, 2025 07:57 AM Reporting Lab: [facility] [place] [address] Performing Lab: [facility] [place] [id number] DIVISION HEP C Ab HCV Ab (STL) HEPATITIS C VIRUS AB [PRESENCE] IN SERUM Nonreact bruce 03/20 Specimen Type: SERUM No comment entered. Ordering Provider: Trey JOSÉ Report Released Date/Time: March 20, 2025 09:46 AM Reporting Lab: [facility] [address] [facility] [address] Performing Lab: [facility] [address] [address] [facility] ESR ISED(STL) ERYTHROCYT E SEDIMENTAT ION RATE 1 mm/h 0 - 19 03/20 Specimen Type: BLOOD No comment entered. Ordering Provider: Trey JOSÉ Report Released Date/Time: March 20, 2025 10:06 AM Reporting Lab: [facility] [address] Performing Lab: [facility] [id number] [place] [address] PTH, INTACT (STL) PARATHYRIN .INTACT [MASS/VOLU ME] IN SERUM OR PLASMA 217.40 pg/mL 8.7 - 77.7 03/20 H Specimen Type: SERUM No comment entered. Ordering Provider: Trey JOSÉ Report Released Date/Time: March 20, 2025 10:06 AM Reporting Lab: [place] [id number] [facility] [address] Performing Lab: [address] [address] [facility] Vital Signs Combined list of inpatient and outpatient Vital Signs from Department of Defense and Veterans Affairs, ranging from 12 months to all on record, depending upon the facility. Vital Sign Value Date Comments Source SYSTOLIC BLOOD PRESSURE 150 03/20/2025 08:39:03 [facility] DIASTOLIC BLOOD PRESSURE 80 03/20/2025 08:39:03 [facility] PULSE OXIMETRY 99 03/20/2025 08:39:03 [facility] WEIGHT 164.8 03/20/2025 08:39:03 [facility] BMI 24 kg/m2 03/20/2025 08:39:03 [facility] DIVISION PAIN 3 03/20/2025 08:39:03 [facility] HEIGHT 69 03/20/2025 08:39:03 [facility] TEMPERATURE 99.1 03/20/2025 08:39:03 [facility] PULSE 81 03/20/2025 08:39:03 [facility] RESPIRATION 16 03/20/2025 08:39:03 [facility] Encounters Combined list of: 1) Encounters from Department of [facility] Affairs facilities going backup to the last 18 months, not all [place] inpatient encounters are included; 2) Encounters from the Department of [facility] facilities going backup to 280 months. Location Location Details Encounter Type Encounter Number Reason For Visit Attending Provider ADM Date DC Date Status Disposition Source 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 thuy ESCAMILLA,THANH ANY N 03/14 [facility] OFFICE O/P [place] 60 MIN [id number] Diagnos is: ICD-10- CM I35.0 Nonrheu matic aortic (valve) stenosi Trey Etienne 03/20 [facility] TYMPANOMET RY & REFLEX THRESH [id number] Diagnos is: ICD-10- CM H90.3 Sensori neural hearing loss, SKIP Quiles 05/14 [facility] Outpatient Encounter [id number] 05/23 [facility] OFF/OP CONSLTJ NEW/EST SF 20 [id number] Diagnos is: ICD-10- CM H91.8X3 Other specifi ed hearing loss, sallie MANOLO Post 05/28 [facility] XM&SLCTN BINAURL [id number] Diagnos is: ICD-10- CM H90.3 Sensori neural hearing loss, steveEmma Garcia 05/28 [facility] Social History Combined list of available smoking, tobacco, and other social history from [facility] of Defense and [facility] facilities. Social History Type Response Date Comment Sour e Tobacco smoking status NHIS VA-TOBACCO USE FORMER CIGARETTES 03/20/2025 [facility] History of tobacco use VA-TOBACCO NEVER USED OTHER TYPE 03/20/2025 [facility] Plan of Care List of future care activities from Department of [facility] Affairs facilities. Additional future care activities may be listed in the Assessment and Plan section. Date/Time Care Activity Care Activity Detail Facili ty 07/23/2025 AMBULATORY - SURGERY AM[facility] - SUR[facility]ERY [facility]
--- OUTSIDE RECORDS SUMMARY | 2025-06-04 08:26 | XMS_ITS | Encounter Summary ---
Author Name [facility] [facility] [place] Address [address] [place] [id number] Care Team Providers Care Sueding Machine Tender Name Role Phone KELLIEEVERARDO Scott Primary Care Provider Unavaila ble Insurance Providers: [...] Batista's Name Patient's Relationship to Policy Batista [facility] (WNR) MEDICARE ADVANTAGE [facility] (WNR) Nov 01, 2024 [id number] ANGELINE GARCIA UR PATIENT Selected Encounter This section includes the information on [place] at [place] for the Encounter. Date/Time Encounter Type Encounter Description Reason Provider Source May 14, 2025 12:45 PM TYMPANOMETRY & REFLEX THRESH AUDIOLOGY ICD-10-CM H90.3 Sensorineural hearing loss, bilateral BETZY SAVAGE [place] Encounter Template Text not used by [place] Assessments - Encounter Diagnoses This section includes the primary and secondary diagnoses documented for the Encounter. Date/Time Primary/Secondary Diagnosis Diagnosis Name Provider Source May 14, 2025 01:31 PM PRIMARY Sensorineural hearing loss, bilateral MAMIE SAVAGE [facility] Plan of Treatment: Future Appointments (+ 6 months) and Future Tests (+/- 45 days) The Plan of Treatment section includes future care activities for the patient from all [place] treatmentfacilities. This section includes future appointments and future orders which are active, pending or scheduled. Future Appointments This section includes appointments that were scheduled to occur 6 months from the date of the Encounter, up to a maximum of 20 appointments. The data comes from all [place] treatment facilities. Appointment Date/Time Appointment Type Appointme nt Facility Name May 28, 2025 10:00 AM AMBULATORY - SURGERY [facility] May 28, 2025 11:00 AM AMBULATORY - SURGERY [facility] Jul 23, 2025 08:45 AM AMBULATORY - SURGERY [facility] Oct 01, 2025 10:30 AM AMBULATORY - MEDICINE [facility] Social History: Smoking Status (Most current) and Tobacco Use (All prior to encounter date) This section includes the most current, and the historical, smoking and tobacco- related health factors from the [place] facility where the Encounter took place. Current Smoking Status This section includes the most current smoking, or tobacco-related health factor, from the [place] facility where the Encounter took place. Date/Time Current Smoking Status Comment Facil ity March 20, 2025 09:00 AM VA-TOBACCO USE FOR KIAH CIGARETTES [facility] Tobacco Use History This section includes a history of the smoking, or tobacco-related health factors, that were collected on or before the date of the Encounter. The data comes from the [place] facility where the Encounter took place. Date/Time Smoking Status/Tobacco Use Comment F acsri March 20, 2025 09:00 AM VA-TOBACCO USE FOR [place] CIGARETTES [facility] Encounter Notes: All associated encounter notes This section contains the clinical notes associated to the Encounter. Date/Time Encounter Note(s) Provider Source May 14, 2025 12:46 PM AUDIOLOGY E & M NO TE: LOCAL TITLE: AUDIO EVALS ST STANDARD TITLE: AUDIOLOGY E & M NOTE DATE OF NOTE: MAY 14, 2025@12:46 ENTRY DATE: MAY 14, 2025@12:46:26 AUTHOR: SKIP SAVAGE EXP COSIGNER: URGENCY: STATUS: COMPLETED SUBJECT: audio Purpose of appt: audio [x] initiated visit [] provider initiated visit Case history: Otoscopic evaluation unremarkable AU. Seen today for evaluation of hearing loss. Crosby is new to this clinic. He denied previous MEJIA usage. He reports long-standing loss, right ear hearing perceived as poorer than left. Right ear only tinnitus. Need to confirm hearing. Pt denied pain, pressure, otosurgery or recent ear infections. reported recurrent dizziness which he stated he has discussed with his PCP. Further, he stated he was seen by a private ENT clinic for evaluation of dizziness with limited improvement. Encouraged him to continue f/u with PCP for dizziness complaints. RESULTS: Right Ear- Audiometry (air and/or bone [...] negative pressure Reflexes: absent ipsi and contra Sensorineural hearing loss, very poor WRS in the right ear. Good WRS in the left ear. While moy is a candidate for amplification, medical clearance is required prior to HAE. He stated that he has seen a private ENT within the last year, however he stated he preferred to obtain medical clearance with [place] ENT. Too much loss for ABR. Consult placed. HAE pending medical clearance. Recommendations: 1. ENT consult for eval of asymmetry /es/ Clement RODARTE Staff Meteorological Observer, Surgery Service Signed: 05/14/2025 13:31 SKIP SAVAGE [facility]
--- OUTSIDE RECORDS SUMMARY | 2025-06-04 08:26 | XMS_ITS | Clinical Summary ---
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
--- OUTSIDE RECORDS SUMMARY | 2025-06-04 08:26 | XMS_ITS | Referral Summary ---
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
--- OUTSIDE RECORDS SUMMARY | 2025-06-04 08:26 | XMS_ITS | Clinical Summary ---
Author Organization [facility] Address [address] [place] [address] Care Team Providers Care Parts Driver Name Role Phone Baljit Conley MD Primary Care Provider [phone] Source Comments [facility],non-owned Affiliates and Associated Physician Practices is amultiple site organization consisting of ambulatory clinics and hospital sitesin [place], [place], [place] and [place]. This disclosure is being madepursuant to the Care Everywhere program and may not contain all information available regarding this patient. Last updated 18.[facility] Allergies Active Allergy Reactions Criticality Noted Date Comments Covid-19 Mrna Vacc (Moderna) Anaphylaxis High 03/20/2025 Blueberry Flavor Other,Anaphylaxis High [...] 1 (one) tablet by mouth 5 Active Vitamin E 100 units TABS Active pantoprazole EC (Protonix) 40 MG tablet Take 1 (one) tablet by mouth once daily for 30 days 30 tablet 4 06/15/20 24 Discontinu ed(No Pharm No AVS) Active Problems Problem Noted Date Diagnosed Date Nonrheumatic aortic valve stenosis 04/20/2025 SSS (sick sinus syndrome) 04/02/2024 Bicuspid aortic [...] Encounters Date Type Department Care Team Description 06/01/2025 Travel 05/29/2025 Orders Only [facility] - Cardiology [address] [facility], [address] [place] [address] Vidya Espinosa RN Severe aortic stenosis ; Primary hypertension 05/29/2025 Telephone [facility] - Cardiology [address] [facility], [address] [place] [address] Vidya Espinosa RN 05/23/2025 Telephone [facility] - Cardiology [address] [facility], [facility] [address] [place] [address] Vidya Espinosa RN 05/10/2025 1:00 PM CDT Office Visit [facility] - Cardiothoracic Surgery [address] [facility], [place] [address] Cruz Rodriguez MD Onyemkpa, Chibueze, MD Moderate aortic stenosis (Primary Dx) 05/10/2025 10:52 AM CDT - 05/10/2025 11:59 PM CDT Hospital Encounter [facility] CAT SCAN [address] [place] [address] Cruz Rodriguez MD Discharge Disposition: Home or Self Care 05/10/2025 Travel 05/09/2025 10:35 AM CDT - 05/09/2025 12:25 PM CDT Surgery [facility] - Cardiac Senior System Operator [address] [place] [address] Matt Rice MD Left and right heart cath 05/09/2025 8:03 AM CDT - 05/10/2025 10:57 AM CDT Hospital Encounter [facility] SHORT STAY UNIT [address] [place] [address] Matt Rice MD Cardiac Catheterization Discharge Disposition: Home or Self Care 05/09/2025 Travel 04/27/2025 Telephone [facility] - Cardiology [address] [facility], [facility] [address] [place] [phone] Amado Smith, RN Appointment 04/27/2025 Orders Only [facility] - Cardiac Senior System Operator [address] [place] [address] Cruz Rodriguez MD 04/23/[address] [facility] - Cardiology [address] [facility], [address] [address] Vidya Espinosa RN Moderate aortic stenosis ; Primary hypertension 04/20/2025 Travel 04/18/[address] [facility] - Cardiology [address] [facility], [address] [phone] Vidya Espinosa RN Research Study 03/29/2025 12:00 PM CDT Ancillary Procedure [facility] - Echosonography [address] [place] [address], [address] [phone] Moderate aortic stenosis 03/29/2025 11:00 AM CDT Office [facility] - Cardiology [address] [place] [address], [address] [phone] Omid May MD SSS (sick sinus syndrome) (HCC) (Primary Dx) 03/29/2025 Travel 03/13/2025 1:10 AM CDT Clinical Support [facility] - Cardiology [address] [place] [address], [address] [phone] SSS (sick sinus syndrome) (HCC) ; S/P placement of cardiac pacemaker 03/09/2025 11:20 AM CDT Office Visit [facility] - Cardiology [address] [place] [address], [address] [address] Cruz Rodriguez MD Moderate aortic stenosis (Primary Dx) 03/09/2025 Travel from Last 3 Months Family History Medical History Relation Name Comments CAD (Coronary Artery Disease) Father Diabetes - Type 1 Mother Relation Name Status Comments Father Mother Social History Tobacco Use Types Packs/Day Years Used Date Smoking Tobacco: Former Cigarettes 1 7 Q uit: 11/01/1972 Smokeless Tobacco: Never Tobacco Cessation:Counseling Given: No Alcohol Use Standard Drinks/Week Comments Not Currently [...] and heating? Not hard at all 03/11/2024 [facility] - Occupational [...] place to sleep or slept in a fdc (including now)? No 03/11/2024 Sex and Gender Information Value Date Recorded Sex Assigned at Not on file Legal Sex Male 9:35 AM [employer] Gender Identity Not on file Sexual Orientation Not on file Last Filed Vital Signs Vital Sign Reading Time Taken Comments Blood Pressure 101/58 05/10/2025 12:55 PM CDT Pulse 87 05/10/2025 12:55 PM CDT Temperature 36.2 C (97.2 F) 05/10/2025 12:55 PM CDT Respiratory Rate 15 05/10/2025 7:24 AM CDT Oxygen Saturation 94% 05/10/2025 12:55 PM CDT Inhaled Oxygen Concentration - - Weight 72.6 kg (160 lb) 06/01/2025 9:55 AM CDT Height 175.3 cm (5' 9) 06/01/2025 9:55 AM CDT Body Mass Index 23.63 06/01/2025 9:55 AM CDT Plan of Treatment Upcoming Encounters Date Type Department Care Team (Latest Contact Info) Description 06/12/2025 1:10 AM CDT Clinical Support [facility] - Cardiology [address] [phone] 06/12/2025 7:15 AM CDT Hospital Encounter [facility] MICKEY OP [address] [place] [address] Cruz Rodriguez MD [address] [place] [address] Cardiac Catheterization 06/12/2025 7:15 AM CDT - 06/12/2025 9:41 AM CDT Surgery [facility] - Cardiac Senior System Operator [address] [place] [address] Cruz Rodriguez MD [address] [place] [address] Transcatheter Aortic Valve Replacement (TAVR) 07/13/2025 8:00 AM CDT Appointment [facility] ECHO [address] [place] [address] Cruz Rodriguez MD [facility] [address] [address] 09/04/2025 1:00 AM [employer] Clinical Support [facility] - Cardiology [address] [facility], [address] [address] 12/04/2025 1:00 AM [employer] Clinical Support [facility] - Cardiology [address] [facility], [address] [address] 03/05/2026 1:00 AM CDT Clinical Support [facility] - Cardiology [address] [facility], [address] [address] 04/04/2026 11:00 AM CDT Office Visit [facility] - Cardiology [address] [facility], [address] [address] Omid May MD [address] [facility], [address] [address] Health Maintenance Due Date Last Done Comments [...] MEDICARE AWV CALENDAR YEAR 2024 INFLUENZA VACCINE (#1) 2025 , 07/17/2022, 08/11/2021, Additional history exists HEPATITIS B [...] this topic Medical Devices Implanted Type Area Streetcar Conductor Device Identifier Shelf Expiration Date Model / Serial / Lot Lead Cp Nv Pace 52cm Strd Elut Pltn Nina - [id number] Implanted:Qty: 1 on 03/06/2024 by Omid May MD at [facility] [employer] [id number] 10/21/2025 5076-52 / [id number] / NA Lead Cp Nv Pace 45cm Strd Elut Pltn Nina - [id number] Implanted:Qty: 1 on 03/06/2024 by Omid May MD at [facility] [employer] [id number] 11/29/2025 5076-45 / [id number] / NA Pacemkr Ced[employer] Crd - [id number] Implanted:Qty: 1 on 03/06/2024 by Omid May MD at [facility] Right: Chest [employer] [id number] 07/29/2025 [id number] / [id number] / NA Procedures Procedure Name Priority Date/Time Associated Diagnosis Comments CARDIAC PROCEDURE ORDER 05/11/2025 CT ANGIO TAVR CHEST ABD PEL Routine 05/10/2025 11:16 AM CDT Nonrheumatic aortic valve stenosis SIX MINUTE WALK Routine 05/10/2025 10:57 AM CDT Moderate aortic stenosis Primary hypertension B-TYPE NATRIURETIC PEPTIDE AM Draw 05/10/2025 12:25 AM CDT Moderate aortic stenosis Primary hypertension BASIC METABOLIC PANEL (CALCIUM TOTAL) AM Draw 05/10/2025 12:25 AM CDT Moderate aortic stenosis CBC W/O DIFFERENTIAL AM Draw 05/10/2025 12:25 AM CDT Moderate aortic stenosis EKG 12-LEAD Routine 05/09/2025 8:09 PM CDT Nonrheumatic aortic valve stenosis CORONARY ANGIOGRAPHY Routine 05/09/2025 11:24 AM CDT Nonrheumatic aortic valve stenosis CCL LEFT AND RIGHT HEART CATH Routine 05/09/2025 11:24 AM CDT Nonrheumatic aortic valve stenosis LIPID PROFILE Routine 05/09/2025 9:17 AM CDT Nonrheumatic aortic valve stenosis BASIC METABOLIC PANEL (CALCIUM TOTAL) STAT 05/09/2025 9:17 AM CDT Nonrheumatic aortic valve stenosis CBC W AUTO DIFFERENTIAL STAT 05/09/2025 9:17 AM CDT Nonrheumatic aortic valve stenosis CARDIAC PROCEDURE ORDER 04/03/2025 ECHO COMPLETE Routine 03/29/2025 12:42 PM CDT Moderate aortic stenosis CARDIAC PROCEDURE ORDER 03/29/2025 [place] PM/ICD REMOTE TECH SERV Routine 03/26/2025 10:17 PM CDT SSS (sick sinus syndrome) (HCC) S/P placement of cardiac pacemaker [place] PM DEVICE INTERROGATE REMOTE Routine 03/26/2025 10:17 PM CDT SSS (sick sinus syndrome) (HCC) S/P placement of cardiac pacemaker CARDIAC PROCEDURE ORDER 03/10/2025 from Last 3 Months Results * CARDIAC PROCEDURE ORDER (05/11/2025) Only the most recent of4 resultswithin the time period is included. Narrative 05/11/2025 Ordered by an unspecified provider. us Scanned Document CARDIAC SERVICES ORDERABLES Fin al Result * CT Angio Tavr Chest Abd Pel (05/10/2025 11:16 AM CDT) Anatomical Region Laterality Modality Chest, Abdomen, Pelvis Computed Tomography 05/10/2025 1:32 PM CDT Impressions 05/11/2025 2:14 AM CDT IMPRESSION: 1.Severe aortic valvular stenosis. 2.Aortic annulus, and abdominal aortic, common iliac, external iliac and femoral artery measurements in preparation for TAVR procedure as described above according the TAVR EXPAND protocol. 3.Redemonstration of multiple heterogenous appearing bilateral thyroid lesions. The right hemithyroid lesions are not well evaluated on this examination secondary to streak artifact from the injected contrast. 4.Trabecular thickening is seen within the pelvis which may suggest Paget's disease. There is flowing syndesmophytes as well as sacroiliac joints ankylosis bilaterally likely reflecting seronegative inflammatory arthropathy, most likely ankylosing spondylitis. 5.Prostamegaly. Recommend clinical correlation with PSA values. > Dictated by Donaldo Subramanian DO (president sales and marketing). I, Goyo Day MD have personally reviewed and interpreted this examination/study. > Interpreting Provider: Goyo Day MD on 05/11/2025 2:14 AM Narrative 05/11/2025 2:14 AM CDT PROCEDURE: CT ANGIO TAVR CHEST ABD PEL, DATE/TIME OF EXAM: 05/10/2025 11:17 AM, LOCATION [facility] INDICATION: I35.0: Nonrheumatic aortic valve stenosis COMPARISON: CT chest on pelvis from 01/26/2024 Technique: Heart CT and CT angiogram of the abdomen and pelvis performed during administration of 100 mL of Isovue-370, intravenously per TAVR Protocol. Images were transferred to an independent workstation for additional 3D post-processing. FINDINGS: Annulus and Thoracic Aortic Measurements (in systole): Aortic valve annulus: Area 479.6 mm2: circumference 79.8 mm; 28.4 mm maximum diameter x 21.4 mm minimum diameter. Sinuses of Valsalva: 33.8 mm x 33.2 mm x 30.9 mm, average 22.6. Sinuses of Valsalva heights: Right cusp: 21 mm. Left cusp: 27.3 mm. Noncoronary cusp: 21.7 Average: 23.3 mm Sinotubular junction: 31 mm x 29 mm. Aortic valve calcium score: Agatston 1639, Volume 1318. There is no left ventricular outflow tract calcification. There is no mitral annular calcification. Distance to RCA ostium from aortic valve annulus: 10 mm Distance to left main ostium from annulus: 16 mm Deployment angle: 17 STEWART, 9 Caudal Abdominal Aortic and Pelvic Arterial Smallest Diameter Measurements (made from centerline curved MPRs): Infrarenal aorta: 10 mm x 12 mm Right common iliac artery: 5 mm x 9 mm. There is moderate calcification. Left common iliac artery: 6 mm x 11 mm . There is moderate calcification. There is minimal tortuosity of the bilateral common iliac arteries. This is equal in distribution. Right external iliac artery: 7 mm x 8 mm. There is minimal calcification. Left external iliac artery: 7 mm x 9 mm. There is minimal calcification. There is minimal tortuosity of the bilateral external iliac arteries. This is equal in distribution. Right common femoral artery: 6 mm x 8 mm. There is mild calcification. Left common femoral artery: 4 mm x 12 mm. There is moderate calcification. There is minimal tortuosity of the bilateral femoral arteries. This is equal in distribution. There is multifocal calcification of the coronary arteries without significant stenosis. However, this study is not optimized to evaluate the coronary stenosis. Other findings: Head and neck: The left vertebral artery is dominant. There is mild sinus disease within the right maxillary sinus. There is a 1.5 cm heterogenous appearing right hemithyroid lesion. The right hemithyroid lobe nodules are not well evaluated secondary to streak artifact. There is a 1.4 cm heterogenous left hemithyroid lesion. Several other scattered subcentimeter thyroid hypodense lesions are noted. The carotid bulbs are mildly atherosclerotic. Chest: There is an implanted cardiac device within the upper right chest with right internal jugular directed leads terminating within the right atrium and right ventricle. Prominence mediastinal lymph nodes are seen a few which are partially calcified and may represent sequelae of chronic granulomatous disease. A few calcified lymph nodes are noted within the bilateral neida. The coronary arteries are extensively atherosclerotic. The thoracic aorta and the proximal aspects of the great vessels appear mildly atherosclerotic. Debris is seen within the proximal and midesophagus either representing retained ingested products versus retained secretions. Calcific granuloma seen within the right upper lobe. There is a 3 mm subpleural pulmonary nodule within the right lower lobe (series 14 image 82).' Abdomen and pelvis: A few hypodensities are seen in the bilateral kidneys with the largest measuring 1 cm on the left. This hypodensity within the left kidney attenuates above simple fluid and may represent a proteinaceous/hemorrhagic cyst. The small and large bowel appear of normal caliber without evidence of obstruction. The appendix is not seen. Hernia tacks are seen bilaterally likely indicating bilateral inguinal hernia repair. The bladder is normal. The prostate is enlarged measuring up to 6.0 cm. There is increased and thickened trabeculae of the bilateral iliac bones suggestive of Paget's disease with bilateral ankylosis of the synovial portions of the sacroiliac joints which may be related to a combination of sequelae of Paget's disease plus severe degenerative change or may also suggest a concurrent underlying seronegative inflammatory arthropathy such as ankylosing spondylitis given the presence of flowing syndesmophytes along the anterior margin of the spinal column. Procedure Note Goyo Day MD - 05/11/2025 PROCEDURE: CT ANGIO TAVR CHEST ABD PEL, DATE/TIME OF EXAM: 05/10/2025 11:17 AM, LOCATION [facility] INDICATION: I35.0: Nonrheumatic aortic valve stenosis COMPARISON: CT chest on pelvis from 01/26/2024 Technique: Heart CT and CT angiogram of the abdomen and pelvis performed during administration of 100 mL of Isovue-370, intravenously per TAVR Protocol. Images were transferred to an independent workstation for additional 3D post-processing. FINDINGS: Annulus and Thoracic Aortic Measurements (in systole): Aortic valve annulus: Area 479.6 mm2: circumference 79.8 mm; 28.4 mm maximum diameter x 21.4 mm minimum diameter. Sinuses of Valsalva: 33.8 mm x 33.2 mm x 30.9 mm, average 22.6. Sinuses of Valsalva heights: Right cusp: 21 mm. Left cusp: 27.3 mm. Noncoronary cusp: 21.7 Average: 23.3 mm Sinotubular junction: 31 mm x 29 mm. Aortic valve calcium score: Agatston 1639, Volume 1318. There is no left ventricular outflow tract calcification. There is no mitral annular calcification. Distance to RCA ostium from aortic valve annulus: 10 mm Distance to left main ostium from annulus: 16 mm Deployment angle: 17 STEWART, 9 Caudal Abdominal Aortic and Pelvic Arterial Smallest Diameter Measurements(made from centerline curved MPRs): Infrarenal aorta: 10 mm x 12 mm Right common iliac artery: 5 mm x 9 mm. There is moderate calcification. Left common iliac artery: 6 mm x 11 mm . There is moderate calcification. There is minimal tortuosity of the bilateral common iliac arteries.This is equal in distribution. Right external iliac artery: 7 mm x 8 mm. There is minimal calcification. Left external iliac artery: 7 mm x 9 mm. There is minimal calcification. There is minimal tortuosity of the bilateral external iliac arteries. This is equal in distribution. Right common femoral artery: 6 mm x 8 mm. There is mild calcification. Left common femoral artery: 4 mm x 12 mm. There is moderate calcification. There is minimal tortuosity of the bilateral femoral arteries. This is equal in distribution. There is multifocal calcification of the coronary arteries without significant stenosis. However, this study is not optimized to evaluatethe coronary stenosis. Other findings: Head and neck: The left vertebral artery is dominant. There is mildsinus disease within the right maxillary sinus. There is a 1.5 cm heterogenous appearing right hemithyroid lesion. The right hemithyroid lobe nodulesare not well evaluated secondary to streak artifact. There is a 1.4 cm heterogenous left hemithyroid lesion. Several other scatteredsubcentimeter thyroid hypodense lesions are noted. The carotid bulbs are mildly atherosclerotic. Chest: There is an implanted cardiac device within the upper right chest with right internal jugular directed leads terminating within the right atrium and right ventricle. Prominence mediastinal lymph nodes are gianfranco few which are partially calcified and may represent sequelae of chronic granulomatous disease. A few calcified lymph nodes are noted within the bilateral neida. The coronary arteries are extensively atherosclerotic.The thoracic aorta and the proximal aspects of the great vessels appearmildly atherosclerotic. Debris is seen within the proximal and midesophaguseither representing retained ingested products versus retained secretions. Calcific granuloma seen within the right upper lobe. There is a 3 mm subpleural pulmonary nodule within the right lower lobe (series 14 image 82).' Abdomen and pelvis: A few hypodensities are seen in the bilateralkidneys with the largest measuring 1 cm on the left. This hypodensity within the left kidney attenuates above simple fluid and may represent a proteinaceous/hemorrhagic cyst. The small and large bowel appear ofnormal caliber without evidence of obstruction. The appendix is not seen.Hernia tacks are seen bilaterally likely indicating bilateral inguinal hernia repair. The bladder is normal. The prostate is enlarged measuring up to6.0 cm. There is increased and thickened trabeculae of the bilateral iliac bones suggestive of Paget's disease with bilateral ankylosis of the synovial portions of the sacroiliac joints which may be related to a combination of sequelae of Paget's disease plus severe degenerativechange or may also suggest a concurrent underlying seronegative inflammatory arthropathy such as ankylosing spondylitis given the presence of flowing syndesmophytes along the anterior margin of the spinal column. IMPRESSION: 1.Severe aortic valvular stenosis. 2.Aortic annulus, and abdominal aortic, common iliac, external iliac and femoral artery measurements in preparation for TAVR procedure asdescribed above according the TAVR EXPAND protocol. 3.Redemonstration of multiple heterogenous appearing bilateral thyroid lesions. The right hemithyroid lesions are not well evaluated on this examination secondary to streak artifact from the injected contrast. 4.Trabecular thickening is seen within the pelvis which may suggestPaget's disease. There is flowing syndesmophytes as well as sacroiliac joints ankylosis bilaterally likely reflecting seronegative inflammatory arthropathy, most likely ankylosing spondylitis. 5.Prostamegaly. Recommend clinical correlation with PSA values. > Dictated by Donaldo Subramanian DO (president sales and marketing). I, Goyo Day MD have personally reviewed and interpreted this examination/study. > Interpreting Provider: Goyo Day MD on 05/11/2025 2:14 AM us Cruz Rodriguez MD CT ORDERABLES Final Resul t * (ABNORMAL) Six Minute Walk (05/10/2025 10:57 AM CDT) Impressions Armani Hawthorne MD - 05/10/2025 10:57 AM CDT [facility] DEPARTMENT OF PULMONARY, CRITICAL CARE, AND SLEEP MEDICINE SIX MINUTE WALK TEST Sebastian De La O 05/10/2025 Interpretation: The patient walked for 6 minutes on room air and covered total distance of 330 meters. On the Jet scale at baseline, reported dyspnea was 0 and fatigue was 2. At the end of the study, the Jet reported dyspnea was 2 and fatigue was 2. There were additional symptoms such as pain in both calves reported and oxygen saturation remained above 99% throughout the test. IMPRESSION: 1. Total 6 minute walk distance is 330 meters, which is below the lower limit of normal of 342 meters for this patient. 2. There is no available study for comparison. Tony Avelar MD Pulmonary and Critical Care Fellow [facility] Pager Number [phone] I have personally reviewed and agree with the fellow's interpretation. Armani Hawthorne MD Narrative Armani Hawthorne MD - 05/10/2025 10:57 AM CDT Armani Hawthorne MD 05/11/2025 9:03 AM Procedure Note Tony Avelar MD - 05/10/2025 10:57 AM CDT Images from the original note were not included. us Cruz Rodriguez MD RESPIRATORY THERAPY ORDERAB LES Edited Result - Final * CBC W/O DIFFERENTIAL (05/10/2025 12:25 AM CDT) WBC 4.2 4.0 - 10.7 x10E9/L 05/10/2025 12:58 AM [facility] RBC Count 5.07 4.30 - 5.80 x10E12/L 05/10/2025 12:58 AM [facility] Hemoglobin 14.5 13.3 - 17.5 g/dL 05/10/2025 12:58 AM [facility] Hematocrit 43.9 38.7 - 51.1 % 05/10/2025 12:58 AM [facility] MCV 86.6 80.0 - 98.0 fL 05/10/2025 12:58 AM [facility] MCH 28.6 26.7 - 33.6 pg 05/10/2025 12:58 AM [facility] MCHC 33.0 31.7 - 36.3 g/dL 05/10/2025 12:58 AM [facility] RDW-CV 13.3 11.3 - 14.8 % 05/10/2025 12:58 AM [facility] Platelet Count 181 150 - 420 x10E9/L 05/10/2025 12:58 AM [facility] MPV 10.8 7.8 - 11.4 fL 05/10/2025 12:58 AM [facility] Blood BLOOD SPECIMEN / Unknown Lab Venipuncture / Unknown 05/10/2025 12:25 AM CDT 05/10/2025 12:51 AM CDT us Gabi Tramaine [employer] [facility] - HEMATOLOGY ORDERABLE S Final Result [facility] [address] [place] [address], [facility] [phone] * (ABNORMAL) BASIC METABOLIC PANEL (CALCIUM TOTAL) (05/10/2025 12:25 AM CDT) Only the most recent of2 resultswithin the time period is included. BUN 14 7 - 26 mg/dL 05/10/2025 1:27 AM [facility] Creatinine 0.75 0.71 - 1.16 mg/dL 05/10/2025 1:27 AM [facility] Sodium 141 136 - 145 mmol/L 05/10/2025 1:27 AM [facility] Potassium 3.8 3.5 - 4.5 mmol/L 05/10/2025 1:27 AM [facility] Chloride 110(H) 98 - 107 mmol/L 05/10/2025 1:27 AM [facility] CO2 29 22 - 29 mmol/L 05/10/2025 1:27 AM [facility] Glucose 89 70 - 99 mg/dL 05/10/2025 1:27 AM [facility] Calcium 10.0 8.4 - 10.2 mg/dL 05/10/2025 1:27 AM [facility] Anion Gap 2(L) 6 - 16 05/10/2025 1:27 AM [facility] BUN/Creatinine Ratio 19 7 - 23 05/10/2025 1:27 AM [facility] Osmolality Calculated 292 275 - 295 mOsm/kg 05/10/2025 1:27 AM [facility] eGFR by CKD-EPI >90 >=90 mL/min/1.7 3 m2 05/10/2025 1:27 AM [facility] Comment:Estimated Glomerular Filtration Rate (eGFR) calculated using the CKD-EPI Creatinine Equation (2020), per the National Kidney Foundation and [employer] Neph[employer] recommendations. Blood BLOOD SPECIMEN / Unknown Lab Venipuncture / Unknown 05/10/2025 12:25 AM CDT 05/10/2025 12:51 AM CDT us Gabi Redd APRN-SUBWAY GUARD LAB - CHEMISTRY ORDERABLES Final Result Performing Organization Address [facility]/ZIP Co de Phone Number [address] [address], [facility] [phone] * B-TYPE NATRIURETIC PEPTIDE (05/10/2025 12:25 AM CDT) BNP 70 <100 pg/mL 05/10/2025 1:31 AM [facility] Comment: A decision threshold of 100 pg/mL [...] SPECIMEN / Unknown Lab Venipuncture / Unknown 05/10/2025 12:25 AM CDT 05/10/2025 12:51 AM CDT us Cruz Rodriguez MD LAB - CHEMISTRY ORDERABLES Final Result Performing Organization Address City/[facility]/ZIP Co de Phone Number [address] [address], [place] [phone] * EKG 12-LEAD (05/09/2025 8:09 PM CDT) Ventricular Rate 66 BPM [facility] Atrial Rate 66 BPM [facility] P-R Interval 296 ms [facility] QRS Duration ms 130 ms [facility] Q-T Interval ms 414 ms [facility] MUSE QTC Calculation (Bezet) 434 ms [facility] Calculated R [place] 66 degrees [facility] MUSE Calculated T [place] 56 degrees [facility] MUSE Interpretation EKG Atrial-paced rhythm with prolonged AV conduction RIGHT BUNDLE BRANCH BLOCK ABNORMAL ECG WHEN COMPARED WITH ECG OF 12-MAR-2024 08:20, ELECTRONIC ATRIAL PACEMAKER HAS REPLACED SINUS RHYTHM Confirmed by ANN SOLER, CRUZ GAXIOLA ([id number]) on 05/12/2025 4:02:09 PM [facility] MUSE 05/09/2025 8:09 PM CDT 05/12/2025 4:02 PM CDT us Gabi Redd AUTOMOTIVE W[employer]OW TINTER-SUBWAY GUARD ECG ORDERABLES Edited Res ult - Final [facility] MUSE * CCL LEFT AND RIGHT HEART CATH, CORONARY ANGIOGRAPHY (05/09/2025 11:24 AM CDT) Anatomical Region Laterality Modality X-Ray Angiograph y Narrative 05/09/2025 12:14 PM CDT Nonobstructive coronary artery disease Normal filling pressures Right radial access with TR band hemostasis Normal cardiac output and index Pressures: Aorta: 106 mmHg with MAP of 67 mmHg RA: 3 mmHg RV: 23/3 mmHg RVEDP: 5 mmHg PA: 29/8 mmHg Mean PA: 16 mmHg PCWP: 7 mmHg Hb: 15.4 g/dl O2 saturation: PA O2 sauration: 68% on room air Arterial O2 saturation: 93% on room air Cardiac output: 4.62 L/min Cardiac index: 2.45 L/min/m2 Pulmonary vascular resistance: 1.95 Alc[place]ara units Reason for Procedure Mr Sebastian De La O is a 79 year old with past medical history of HLD, anxiety, depression, HTN, moderate aortic stenosis who presents today for R/LHC as part of TAVR evaluation with Dr Rice Procedure Details Estimated Blood Loss: 5 mL Coronary Findings Diagnostic Dominance: Right Left Anterior Descending: The vessel exhibits minimal luminal irregularities. Left Circumflex: The vessel exhibits minimal luminal irregularities. Second Obtuse Marginal Branch: The vessel is small in size. Third Obtuse Marginal Branch: The vessel is large in size. Right Coronary Artery: The vessel is large in size. The vessel exhibits minimal luminal irregularities. Mid RCA lesion is 30% stenosed. FELIPE flow is 3. Intervention No interventions have been documented. Recommendations -The patient should take 81 mg of aspirin daily for life. us Cruz Rodriguez MD CV CARDIAC CATH CUPMN PROCS Final Result * CBC W AUTO DIFFERENTIAL (05/09/2025 9:17 AM [facility]) WBC 5.0 4.0 - 10.7 x10E9/L 05/09/2025 10:33 AM [facility] RBC Count 5.29 4.30 - 5.80 x10E12/L 05/09/2025 10:33 AM [facility] Hemoglobin 15.1 13.3 - 17.5 g/dL 05/09/2025 10:33 AM [facility] Hematocrit 44.5 38.7 - 51.1 % 05/09/2025 10:33 AM [facility] MCV 84.1 80.0 - 98.0 fL 05/09/2025 10:33 AM [facility] MCH 28.5 26.7 - 33.6 pg 05/09/2025 10:33 AM [facility] MCHC 33.9 31.7 - 36.3 g/dL 05/09/2025 10:33 AM [facility] RDW-CV 13.5 11.3 - 14.8 % 05/09/2025 10:33 AM [facility] Platelet Count 212 150 - 420 x10E9/L 05/09/2025 10:33 AM [facility] MPV 11.1 7.8 - 11.4 fL 05/09/2025 10:33 AM [facility] Neutrophil % 65.1 41.0 - 74.0 % 05/09/2025 10:33 AM [facility] Lymphocyte % 22.2 17.0 - 47.0 % 05/09/2025 10:33 AM [facility] Monocyte % 9.3 3.0 - 11.0 % 05/09/2025 10:33 AM [facility] Eosinophil % 2.4 0.0 - 7.0 % 05/09/2025 10:33 AM [facility] Basophil % 0.8 0.0 - 1.6 % 05/09/2025 10:33 AM [facility] Immature Granulocytes % 0.2 0.0 - 1.0 % 05/09/2025 10:33 AM [facility] Neutrophil Absolute 3.23 1.60 - 7.50 x10E9/L 05/09/2025 10:33 AM [facility] Lymphocyte Absolute 1.10 1.00 - 4.40 x10E9/L 05/09/2025 10:33 AM [facility] Monocyte Absolute 0.46 0.15 - 1.00 x10E9/L 05/09/2025 10:33 AM [facility] Eosinophil Absolute 0.12 0.00 - 0.60 x10E9/L 05/09/2025 10:33 AM [facility] Basophil Absolute 0.04 0.00 - 0.13 x10E9/L 05/09/2025 10:33 AM [facility] Blood BLOOD SPECIMEN / Unknown Venipuncture / Unknown 05/09/2025 9:17 AM CDT 05/09/2025 9:36 AM CDT us Gabi Redd [employer] T[employer] GUARD LAB - HEMATOLOGY ORDERABLE S Final Result [address] [address], [facility] [phone] * (ABNORMAL) LIPID PROFILE (05/09/2025 9:17 AM CDT) [facility] Cholesterol Total 135 <200 mg/dL 05/09/2025 10:39 AM [facility] HDL 36(L) >40 mg/dL 05/09/2025 10:39 AM CDT [facility] Comment: ATP III Classification of HDL Cholesterol: <40 mg/dL: Considered a major risk factor. >60 mg/dL: Considered a negative risk factor. LDL Calculated 64 <100 mg/dL 05/09/2025 10:39 AM CDT [facility] Comment: ATP III Classification of LDL Cholesterol: <100 mg/dL: Optimal 100 - 129 mg/dL: Near Optimal/Above Optimal 130 - 159 mg/dL: Borderline High 160 - 189 mg/dL: High >190 mg/dL: Very High LDL is calculated using the Friedewald equation. Triglycerides 173(H) <150 mg/dL 05/09/2025 10:39 AM T [facility] Comment: ATP III Classification of Triglycerides: <150 mg/dL: Normal 150 - 199 mg/dL: Borderline High 200 - 400 mg/dL: High >500 mg/dL: Very High Blood BLOOD SPECIMEN / Unknown Venipuncture / Unknown 05/09/2025 9:17 AM CDT 05/09/2025 9:36 AM CDT Gabi Redd AUTOMOT[employer] T[employer] GUARD LAB - CHEMISTRY ORDERABLES Final Result [facility] [address] [place] [phone], [facility] [phone] * ECHO COMPLETE (03/29/2025 12:42 PM CDT) [...] I PACS RVIDd 4.221 cm [facility] I PACS RVOT pk nils 54.273 cm/s [facility] CV F [facility]JI PACS RVOT VTI 12.152 cm [facility] I PACS LA vol BP 72.942 ml [facility] I PACS RA area 19.396 cm [facility] PACS AV area pk nils 1.068 [facility] area cont VTI 1.1 [facility] AR DECEL TIME 1.591 s [facility] CV [facility]I PACS AV PHT 0.462 s [facility] I PACS AV pk nils regurg 394.977 cm/s [facility] AV pk grad 39.073 mmHg [facility] CV FU JI PACS AV mn grad 21.736 mmHg [facility] CV FU JI PACS AV pk nils 312.543 cm/s [facility] I PACS AV VTI 69.284 cm [facility] I PACS MV A pk nils 84.589 cm/s [facility] CV F U PACS MV E pk nils 77.026 cm/s [facility] CV F UJI PACS MV E' lateral nils 9.005 cm/s [facility] MV pk nisl regurg 495.291 cm/s [facility] MR VTI 157.982 cm [facility] I PACS MV mn grad 1.199 mmHg [facility] CV FU PACS MV VTI 27.657 cm [facility] I PACS PV pk nils 102.46 cm/s [facility] I PACS TAPSE 2.497 cm [facility] I PACS TR pk nils 264.666 cm/s [facility] I PACS Ascending aorta 3.441 [facility] IVC Diam Expiration 1.239 [facility] Sinus of Valsalva 3.297 cm [facility] AV area index 0.576 cm /m [facility] LA vol index 0.038 l/m [facility] CV [facility] PACS Dimensionless Index 0.325 unitless [facility] Myocardial strain charge 1 unitless [facility] [...] 12:20 PM Patient Status: O Study [facility] Exam Type: ECHO COMPLETE Indications I35.0 - Moderate aortic stenosis Procedure(s) * A complete 2D, color Doppler, and spectral Doppler transthoracic echocardiogram was performed. * Strain imaging performed per cardiology department protocol to evaluate and/or monitor myocardial function. Staff Referring Physician: Cruz Rodriguez Ordering Provider: Cruz Rodriguez [employer]ing [employer] Composite Fabricator: Artemio Haile Left Ventricle The left ventricular [...] LA Volume Index (BP MOD) 38 ml/m2 1634 RA Dimensions RA Area (4C) 19 cm2 <=18 RA Area (4C) Index 10 cm2/m2 RA ESV (4C MOD) 45 ml 1832 RA ESV Index (4C MOD) 23 ml/m2 1634 EchoPAC Name Value Normal IMER G peak [...] 12:20 PM Patient Status: O Study Site: [facility] Primary Location: [facility] EStudy Info Exam Type: ECHO COMPLETE Indications I35.0 - Moderate aortic stenosis Procedure(s) * A complete 2D, color Doppler, and spectral Doppler transthoracic echocardiogram was performed. * Strain imaging performed per cardiology department protocol toevaluate and/or monitor myocardial function. Staff Referring Physician: Cruz Rodriguez Ordering Provider: Cruz Rodriguez [employer] Fabricator: Artemio Haile Left Ventricle The left ventricular [...] Cate Mandel MD on 03/29/2025 03:04 PM us Cruz Rodriguez MD ECHO CUPID Final Resul t * [place] PM DEVICE INTERROGATE REMOTE, [place] PM/ICD REMOTE TECH SERV (03/26/2025 10:17 PM CDT) Narrative Xuan Guadalupe MD - 03/26/2025 10:17 PM CDT Xuan Guadalupe MD 03/26/2025 10:20 PM Remote Interrogation: Pertinent Findings: Device function within normal limites. No significant events. NSVT. Xuan Guadalupe MD Cardiac Electrophysiology us Xuan Guadalupe MD PROCEDURE/MINOR SURGICAL ORDERAB LES Final Result from Last 3 Months Insurance [facility] MANAGED MEDICARE ADV [facility] [place] [address] Advance Directives * Full Code (Latest Code Status on File) Date Activated Date Inactivated Comments 05/09/2025 11:43 AM 05/10/2025 12:03 PM * Full Code Date Activated Date Inactivated Comments 03/11/2024 7:51 PM 03/13/2024 1:57 PM * Full Code Date Activated Date Inactivated Comments 03/03/2024 8:04 PM 03/07/2024 12:02 PM * Full Code Date Activated Date Inactivated Comments 01/26/2024 11:17 PM 01/28/2024 6:00 PM [employer] Teams Parts Driver Relationship Specialty Start Date End Date Baljit Conley MD [address] [place] [address] PCP - General 11/19/21
[2025-06-04 08:50] LABS: Hematocrit 47.2 % (42.0-52.0); Hemoglobin 15.6 g/dL (14.0-18.0); Immature Granulocyte Percent A 0.2 % (0-0.5); Lymphocytes Absolute Auto 0.89 K/mm3 (0.9-3.2); Mean Corpuscular HGB Conc 33.1 g/dl (32-36); Mean Corpuscular Hemoglobin 29.2 pg (26-34); Mean Corpuscular Volume 88.4 fl (80-100); Nucleated Red Blood Cells Absolute Auto 0.000 K/mm3 (0.0-0.012); Nucleated Red Blood Cells Perc 0.0 % (0.0-0.2); Platelet Count Result 171 k/mm3 (150-375); Red Blood Count 5.34 M/mm3 (4.6-6.20); White Blood Count 4.6 K/mm3 (4.5-10.0)
[2025-06-04 09:18] LABS: Anion Gap 5 mmol/L (4-12); Blood Urea Nitrogen 17 mg/dL (9-20); Calcium 10.5 mg/dL (8.4-10.2); Carbon Dioxide 30 mmol/L (22-30); Chloride 102 mmol/L (98-107); Estimated Glomerular Filt Rate > 60; Glucose 91 mg/dL (65-110); Potassium 3.9 mmol/L (3.4-5.0); Sodium 137 mmol/L (137-145)
== END 2025-06-04 08:14 | disposition home or self-care (01) ==
PROVIDERS: PCP Family Medicine
DX: I35.0 Nonrheumatic aortic (valve) stenosis (principal)
CPT/HCPCS: 36415; 80048; 85025; 86850; 86900; 86901

== ENCOUNTER 2025-06-22 10:34 | Outpatient (CLI) | payer MEDICARE, SELFPAY ==
--- OUTSIDE RECORDS SUMMARY | 2025-06-21 06:08 | XMS_ITS | Continuity of Care Document ---
Author Name [facility] Organization [facility] Care Team Providers Care Nurse Esthetician Name Role Phone [facility] Unavailable Unavailable Problems Combined list of problems from Department of [facility] and [facility] facilities. It does not include entries that were removed or entered in error. Problem Status Onset Date Problem Type Date of Resolution Comments Source Anxiety Active Condition [facility] Aortic valve stenosis Active Condition [facility] CN - Constipation Active Condition [facility] Exposure to potentially hazardous substance (SCT [id number]) Active Condition March 21 Entered By: JAMIE CAMPBELL Comment: Entered automatically through PHANI Problem List documentation program [facility] Gastro-oesophageal reflux disease without oesophagitis Active Condition [facility] History of sick sinus syndrome Active Condition March 20, 2025 Entered By: ELIZABETH JOSÉ Comment: s/p PPM [facility] HLD - Hyperlipidemia Active Condition [facility] - Hyperparathyroidism Active Condition [facility] HTN - Hypertension Active Condition [facility] Overactive urinary bladder Active Condition [facility] PA (Psoriatic arthritis) Active Condition [facility] Psoriasis Active Condition [facility] Tinnitus Active Condition [facility] Diagnosis: ICD-10-CM H90.3 Sensorineural hearing loss, bilateral Active Diagnosis [facility] Diagnosis: ICD-10-CM H91.8X3 Other specified hearing loss, bilateral Active Diagnosis [facility] Diagnosis: ICD-10-CM I35.0 Nonrheumatic aortic (valve) stenosis Active Diagnosis [facility] Diagnosis: ICD-10-CM Z71.89 Other specified counseling Active Diagnosis [facility] Medications Combined list of outpatient medications from [...] A DAY ORAL ACTIVE [place], 2024 [facility] CHOLECALCIF SHILA 25MCG (1,000UNIT) TAB TAKE ONE TABLET BY MOUTH ONCE A DAY ORAL ACTIVE [place], 2024 [facility] CITALOPRAM HYDROBROMID E 40MG TAB TAKE ONE-HALF TABLET BY MOUTH EVERY MORNING ORAL ACTIVE [place], 2024 [facility] EMPAGLIFLOZ IN 25MG TAB TAKE ONE-HALF TABLET BY MOUTH ONCE A DAY ORAL ACTIVE 03/21/2026 [id number] [place], 2024 45 [facility] EMPAGLIFLOZ IN 25MG TAB TAKE ONE-HALF TABLET BY MOUTH ONCE A DAY ORAL DISCONT INUED 03/21/2026 [id number] [place], 2024 45 [facility] FAMOTIDINE 10MG TAB TAKE ONE TABLET BY MOUTH TWICE A DAY ORAL ACTIVE [place], 2024 [facility] SIMVASTATIN 80MG TAB TAKE ONE-HALF TABLET BY MOUTH EVERY EVENING ORAL ACTIVE [place], 2024 [facility] TROSPIUM CL 20MG TAB TAKE ONE TABLET BY MOUTH TWICE A DAY (TAKE ONE HOUR BEFORE A MEAL OR ON AN EMPTY STOMACH) ORAL ACTIVE 03/21/2026 [id number] [place], 2024 180 [facility] WHEAT DEXTRIN (BENEFIBER) PWDR,ORAL MIX AND DRINK 1 TEASPOON FUL BY MOUTH ORAL ACTIVE [place], 5 [facility] Allergies, Adverse Reactions, Alerts Combined list of allergies from Department [facility] and [facility] facilities. It does not include entries that were removed or entered in error. Substance Category Reaction Severity Reaction type Status Date Reported Comments Source BLUEBERRIES Propensity to adverse reactions to substance (finding) Anaphylaxis active [facility] GOOSEBERRIES Propensity to adverse reactions to food (finding) Anaphylaxis active [facility] MODERNA COVID-19 VACCINE (EUA) Propensity to adverse reactions to drug (finding) Anaphylaxis active [facility] OXYBUTYNIN CHLORIDE Propensity to adverse reactions to drug (finding) Eruption active [facility] Results Combined list of recent chemistry, hematology and other laboratory results from [facility] and [facility], ranging from 15 months to all on record, depending upon the facility. Order Name Results Value Reference Range Date Interpretation Specimen Comments Source ANTI-NUCL EAR ANTIBODY (STL-PB) NUCLEAR AB [PRESENCE] IN SERUM NEGATIVE 03/20 Specimen Type: SERUM No comment entered. Ordering Provider: Trey JOSÉ Report Released Date/Time: March 20, 2025 10:06 AM Reporting Lab: [address] [address] Performing Lab: [address] [address] [facility] CBC LEUKOCYTES [#/VOLUME] IN BLOOD BY AUTOMATED COUNT 6.5 10*3/uL 3.6 - 11.2 03/20 Specimen Type: BLOOD No comment entered. Ordering Provider: Trey JOSÉ Report Released Date/Time: March 20, 2025 07:57 AM Reporting Lab: [facility] [address] Performing Lab: [facility] [address] [facility] CBC ERYTHROCYT ES [#/VOLUME] IN BLOOD BY AUTOMATED COUNT 5.60 10*6/uL 4.10 - 5.70 03/20 Specimen Type: BLOOD No comment entered. Ordering Provider: Trey JOSÉ Report Released Date/Time: March 20, 2025 07:57 AM Reporting Lab: [facility] [place] [address] Performing Lab: [facility] CBC HEMOGLOBIN [MASS/VOLU ME] IN BLOOD 16.5 g/dL 13.1 - 16.8 03/20 Specimen Type: BLOOD No comment entered. Ordering Provider: Trey JOSÉ Report Released Date/Time: March 20, 2025 07:57 AM Reporting Lab: [facility] [place] [address] Performing Lab: [facility] CBC HEMATOCRIT [VOLUME FRACTION] OF BLOOD 48.3 38.2 - 48.4 03/20 Specimen Type: BLOOD No comment entered. Ordering Provider: Trey JOSÉ Report Released Date/Time: March 20, 2025 07:57 AM Reporting Lab: [facility] [place] [address] Performing Lab: [facility] CBC MCV [ENTITIC VOLUME] BY AUTOMATED COUNT 86.3 fL 80.0 - 100.0 03/20 Specimen Type: BLOOD No comment entered. Ordering Provider: Trey JOSÉ Report Released Date/Time: March 20, 2025 07:57 AM Reporting Lab: [facility] [place] [address] Performing Lab: [facility] [address] CBC MCH [ENTITIC MASS] BY AUTOMATED COUNT 29.5 pg 27.0 - 34.0 03/20 Specimen Type: BLOOD No comment entered. Ordering Provider: Trey JOSÉ Report Released Date/Time: March 20, 2025 07:57 AM Reporting Lab: [facility] [place] [address] Performing Lab: [facility] DIVISION CBC MCHC [MASS/VOLU ME] BY AUTOMATED COUNT 34.2 g/dL 33.0 - 36.0 03/20 Specimen Type: BLOOD No comment entered. Ordering Provider: Trey JOSÉ Report Released Date/Time: March 20, 2025 07:57 AM Reporting Lab: [facility] [place] [address] Performing Lab: [facility] DIVISION CBC PLATELETS [#/VOLUME] IN BLOOD BY AUTOMATED COUNT 211 10*3/uL 150 - 400 03/20 Specimen Type: BLOOD No comment entered. Ordering Provider: Trey JOSÉ Report Released Date/Time: March 20, 2025 07:57 AM Reporting Lab: [facility] [place] [address] Performing Lab: [facility] DIVISION CBC PLATELET MEAN VOLUME [ENTITIC VOLUME] IN BLOOD BY AUTOMATED COUNT 10.8 fL 7.5 - 11.2 03/20 Specimen Type: BLOOD No comment entered. Ordering Provider: Trey JOSÉ Report Released Date/Time: March 20, 2025 07:57 AM Reporting Lab: [facility] [place] [address] Performing Lab: [facility] DIVISION CBC ERYTHROCYT E DISTRIBUTI ON WIDTH [RATIO] BY AUTOMATED COUNT 13.2 11.8 - 15.1 03/20 Specimen Type: BLOOD No comment entered. Ordering Provider: Trey JOSÉ Report Released Date/Time: March 20, 2025 07:57 AM Reporting Lab: [facility] [place] [address] Performing Lab: [facility] DIVISION CBC LYMPHOCYTE S/100 LEUKOCYTES IN BLOOD BY AUTOMATED COUNT 18 03/20 Specimen Type: BLOOD No comment entered. Ordering Provider: Trey JOSÉ Report Released Date/Time: March 20, 2025 07:57 AM Reporting Lab: [facility] [place] [address] Performing Lab: [facility] DIVISION CBC MONOCYTES/ 100 LEUKOCYTES IN BLOOD BY AUTOMATED COUNT 9 03/20 Specimen Type: BLOOD No comment entered. Ordering Provider: Trey JOSÉ Report Released Date/Time: March 20, 2025 07:57 AM Reporting Lab: [facility] [place] [address] Performing Lab: [facility] DIVISION CBC NEUTROPHIL S/100 LEUKOCYTES IN BLOOD BY AUTOMATED COUNT 71 03/20 Specimen Type: BLOOD No comment entered. Ordering Provider: Trey JOSÉ Report Released Date/Time: March 20, 2025 07:57 AM Reporting Lab: [facility] [place] [address] Performing Lab: [facility] DIVISION CBC EOSINOPHIL S/100 LEUKOCYTES IN BLOOD BY AUTOMATED COUNT 1 03/20 Specimen Type: BLOOD No comment entered. Ordering Provider: Trey JOSÉ Report Released Date/Time: March 20, 2025 07:57 AM Reporting Lab: [facility] [place] [address] Performing Lab: [facility] DIVISION CBC BASOPHILS/ 100 LEUKOCYTES IN BLOOD BY AUTOMATED COUNT 1 03/20 Specimen Type: BLOOD No comment entered. Ordering Provider: Trey JOSÉ Report Released Date/Time: March 20, 2025 07:57 AM Reporting Lab: [facility] [place] [address] Performing Lab: [facility] DIVISION CBC LYMPHOCYTE S [#/VOLUME] IN BLOOD BY AUTOMATED COUNT 1.14 10*3/uL 0.77 - 4.50 03/20 Specimen Type: BLOOD No comment entered. Ordering Provider: Trey JOSÉ Report Released Date/Time: March 20, 2025 07:57 AM Reporting Lab: [facility] [place] [address] Performing Lab: [facility] DIVISION CBC MONOCYTES [#/VOLUME] IN BLOOD BY AUTOMATED COUNT 0.61 10*3/uL 0.19 - 0.80 03/20 Specimen Type: BLOOD No comment entered. Ordering Provider: Trey JOSÉ Report Released Date/Time: March 20, 2025 07:57 AM Reporting Lab: [facility] [place] [address] Performing Lab: [facility] DIVISION CBC NEUTROPHIL S [#/VOLUME] IN BLOOD BY AUTOMATED COUNT 4.62 10*3/uL 2.10 - 8.00 03/20 Specimen Type: BLOOD No comment entered. Ordering Provider: Trey JOSÉ Report Released Date/Time: March 20, 2025 07:57 AM Reporting Lab: [facility] [place] [address] Performing Lab: [facility] DIVISION CBC EOSINOPHIL S [#/VOLUME] IN BLOOD BY AUTOMATED COUNT 0.09 10*3/uL 0.00 - 0.60 03/20 Specimen Type: BLOOD No comment entered. Ordering Provider: Trey JOSÉ Report Released Date/Time: March 20, 2025 07:57 AM Reporting Lab: [facility] [place] [address] Performing Lab: [facility] DIVISION CBC BASOPHILS [#/VOLUME] IN BLOOD BY AUTOMATED COUNT 0.04 10*3/uL 0.00 - 0.20 03/20 Specimen Type: BLOOD No comment entered. Ordering Provider: Trey JOSÉ Report Released Date/Time: March 20, 2025 07:57 AM Reporting Lab: [facility] [place] [address] Performing Lab: [facility] DIVISION COMPREHEN SIVE METABOLIC PANEL CREATININE [MASS/VOLU ME] IN SERUM OR PLASMA 0.76 mg/dL 0.70 - 1.30 03/20 Specimen Type: PLASMA Comment: No hemolysis noted. Ordering Provider: Trey JOSÉ Report Released Date/Time: March 20, 2025 07:57 AM Reporting Lab: [facility] [place] [address] Performing Lab: [facility] [place] [phone] DIVISION COMPREHEN SIVE METABOLIC PANEL UREA NITROGEN [MASS/VOLU ME] IN SERUM OR PLASMA 19.7 mg/dL 9.0 - 25.0 03/20 Specimen Type: PLASMA Comment: No hemolysis noted. Ordering Provider: Trey JOSÉ Report Released Date/Time: March 20, 2025 07:57 AM Reporting Lab: [facility] [place] [address] Performing Lab: [facility] DIVISION COMPREHEN SIVE METABOLIC PANEL GLUCOSE [MASS/VOLU ME] IN SERUM OR PLASMA 84 mg/dL 72 - 99 03/20 Specimen Type: PLASMA Comment: No hemolysis noted. Ordering Provider: Trey JOSÉ Report Released Date/Time: March 20, 2025 07:57 AM Reporting Lab: [facility] [place] [address] Performing Lab: [facility] DIVISION COMPREHEN SIVE METABOLIC PANEL SODIUM [MOLES/VOL UME] IN SERUM OR PLASMA 141 meq/L 136 - 145 03/20 Specimen Type: PLASMA Comment: No hemolysis noted. Ordering Provider: Trey JOSÉ Report Released Date/Time: March 20, 2025 07:57 AM Reporting Lab: [facility] [place] [address] Performing Lab: [facility] DIVISION COMPREHEN SIVE METABOLIC PANEL POTASSIUM [MOLES/VOL UME] IN SERUM OR PLASMA 3.9 meq/L 3.5 - 5.0 03/20 Specimen Type: PLASMA Comment: No hemolysis noted. Ordering Provider: Trey JOSÉ Report Released Date/Time: March 20, 2025 07:57 AM Reporting Lab: [facility] [place] [address] Performing Lab: [facility] DIVISION COMPREHEN SIVE METABOLIC PANEL CHLORIDE [MOLES/VOL UME] IN SERUM OR PLASMA 104 meq/L 98 - 107 03/20 Specimen Type: PLASMA Comment: No hemolysis noted. Ordering Provider: Trey JOSÉ Report Released Date/Time: March 20, 2025 07:57 AM Reporting Lab: [facility] [place] [address] Performing Lab: [facility] DIVISION COMPREHEN SIVE METABOLIC PANEL CARBON DIOXIDE, TOTAL [MOLES/VOL UME] IN SERUM OR PLASMA 25 meq/L 22 - 31 03/20 Specimen Type: PLASMA Comment: No hemolysis noted. Ordering Provider: Trey JOSÉ Report Released Date/Time: March 20, 2025 07:57 AM Reporting Lab: [facility] [place] [address] Performing Lab: [facility] DIVISION COMPREHEN SIVE METABOLIC PANEL CALCIUM [MASS/VOLU ME] IN SERUM OR PLASMA 11.5 mg/dL 8.4 - 10.4 03/20 H Specimen Type: PLASMA Comment: No hemolysis noted. Ordering Provider: Trey JOSÉ Report Released Date/Time: March 20, 2025 07:57 AM Reporting Lab: [facility] [place] [address] Performing Lab: [facility] DIVISION COMPREHEN SIVE METABOLIC PANEL PROTEIN [MASS/VOLU ME] IN SERUM OR PLASMA 7.9 g/dL 6.0 - 8.6 03/20 Specimen Type: PLASMA Comment: No hemolysis noted. Ordering Provider: Trey JOSÉ Report Released Date/Time: March 20, 2025 07:57 AM Reporting Lab: [facility] [place] [address] Performing Lab: [facility] DIVISION COMPREHEN SIVE METABOLIC PANEL ALBUMIN [MASS/VOLU ME] IN SERUM OR PLASMA 4.8 g/dL 3.4 - 5.0 03/20 Specimen Type: PLASMA Comment: No hemolysis noted. Ordering Provider: Trey JOSÉ Report Released Date/Time: March 20, 2025 07:57 AM Reporting Lab: [facility] [place] [address] Performing Lab: [facility] DIVISION COMPREHEN SIVE METABOLIC PANEL BILIRUBIN. TOTAL [MASS/VOLU ME] IN SERUM OR PLASMA 0.5 mg/dL 0.2 - 1.2 03/20 Specimen Type: PLASMA Comment: No hemolysis noted. Ordering Provider: Trey JOSÉ Report Released Date/Time: March 20, 2025 07:57 AM Reporting Lab: [facility] [place] [address] Performing Lab: [facility] DIVISION COMPREHEN SIVE METABOLIC PANEL ALKALINE PHOSPHATAS E [ENZYMATIC ACTIVITY/V OLUME] IN SERUM OR PLASMA 165 U/L 40 - 150 03/20 H Specimen Type: PLASMA Comment: No hemolysis noted. Ordering Provider: Trey JOSÉ Report Released Date/Time: March 20, 2025 07:57 AM Reporting Lab: [facility] [place] [address] Performing Lab: [facility] [id number] DIVISION COMPREHEN SIVE METABOLIC PANEL ASPARTATE AMINOTRANS FERASE [ENZYMATIC ACTIVITY/V OLUME] IN SERUM OR PLASMA 23 U/L 5 - 34 03/20 Specimen Type: PLASMA Comment: No hemolysis noted. Ordering Provider: Trey JOSÉ Report Released Date/Time: March 20, 2025 07:57 AM Reporting Lab: [facility] [place] [address] Performing Lab: [facility] COMPREHEN SIVE METABOLIC PANEL ALANINE AMINOTRANS FERASE [ENZYMATIC ACTIVITY/V OLUME] IN SERUM OR PLASMA 17 U/L 8 - 40 03/20 Specimen Type: PLASMA Comment: No hemolysis noted. Ordering Provider: Trey JOSÉ Report Released Date/Time: March 20, 2025 07:57 AM Reporting Lab: [facility] [place] [address] Performing Lab: [facility] COMPREHEN SIVE METABOLIC PANEL GLOMERULAR FILTRATION RATE/1.73 SQ M.PREDICTE D [VOLUME RATE/AREA] IN SERUM, PLASMA OR BLOOD BY CREATININE -BASED FORMULA (CKD-EPI 2020) 92.00 60 03/20 Specimen Type: PLASMA Comment: No hemolysis noted. Ordering Provider: Trey JOSÉ Report Released Date/Time: March 20, 2025 07:57 AM Reporting Lab: [facility] [place] [address] Performing Lab: [facility] DIVISION ESR ISED(STL) ERYTHROCYT E SEDIMENTAT ION RATE 1 mm/h 0 - 19 03/20 Specimen Type: BLOOD No comment entered. Ordering Provider: Trey JOSÉ Report Released Date/Time: March 20, 2025 10:06 AM Reporting Lab: [facility] [place] [address] Performing Lab: [facility] [place] [phone] DIVISION HEP C Ab HCV Ab (STL) HEPATITIS C VIRUS AB [PRESENCE] IN SERUM Nonreact bruce 03/20 Specimen Type: SERUM No comment entered. Ordering Provider: Trey JOSÉ Report Released Date/Time: March 20, 2025 09:46 AM Reporting Lab: [facility] [address] [place] [address] Performing Lab: [place] [id number] DIVISION HGA1C HEMOGLOBIN A1C/HEMOGL OBIN.TOTAL IN BLOOD 5.0 4.0 - 6.0 03/20 Specimen Type: BLOOD No comment entered. Ordering Provider: Trey JOSÉ Report Released Date/Time: March 20, 2025 07:57 AM Reporting Lab: [facility] [place] [address] Performing Lab: [facility] DIVISION LIPID PANEL (STL) CHOLESTERO L [MASS/VOLU ME] IN SERUM OR PLASMA 117 mg/dL 0 - 200 03/20 Specimen Type: PLASMA Comment: No hemolysis noted. Ordering Provider: Trey JOSÉ Report Released Date/Time: March 20, 2025 07:57 AM Reporting Lab: [facility] [place] [address] Performing Lab: [facility] [place] [phone] DIVISION LIPID PANEL (STL) TRIGLYCERI DE [MASS/VOLU ME] IN SERUM OR PLASMA 117 mg/dL 0 - 150 03/20 Specimen Type: PLASMA Comment: No hemolysis noted. Ordering Provider: Trey JOSÉ Report Released Date/Time: March 20, 2025 07:57 AM Reporting Lab: [facility] [place] [address] Performing Lab: [facility] LIPID PANEL (STL) CHOLESTERO L IN LDL [MASS/VOLU ME] IN SERUM OR PLASMA BY CALCULATIO N 50 mg/dL 03/20 Specimen Type: PLASMA Comment: No hemolysis noted. Ordering Provider: Trey JOSÉ Report Released Date/Time: March 20, 2025 07:57 AM Reporting Lab: [facility] [place] [address] Performing Lab: [facility] [place] [phone] LIPID PANEL (STL) CHOLESTERO L IN HDL [MASS/VOLU ME] IN SERUM OR PLASMA 44 mg/dL 40 03/20 Specimen Type: PLASMA Comment: No hemolysis noted. Ordering Provider: Trey JOSÉ Report Released Date/Time: March 20, 2025 07:57 AM Reporting Lab: [facility] [place] [address] Performing Lab: [facility] PTH, INTACT (STL) PARATHYRIN .INTACT [MASS/VOLU ME] IN SERUM OR PLASMA 217.40 pg/mL 8.7 - 77.7 03/20 H Specimen Type: SERUM No comment entered. Ordering Provider: Trey JOSÉ Report Released Date/Time: March 20, 2025 10:06 AM Reporting Lab: [address] [address] Performing Lab: [address] [place] [address] [facility] TSH (MA-PB) THYROTROPI N [UNITS/VOL UME] IN SERUM OR PLASMA 2.082 u[IU]/mL 0.470 - 5.000 03/20 Specimen Type: SERUM No comment entered. Ordering Provider: Trey JOSÉ Report Released Date/Time: March 20, 2025 07:57 AM Reporting Lab: [facility] [address] Performing Lab: [facility] [id number] DIVISION VITAMIN D, 25-HYDROX Y 25-HYDROXY VITAMIN D3 [MASS/VOLU ME] IN SERUM OR PLASMA 30.1 ng/mL 30 - 96 03/20 Specimen Type: SERUM No comment entered. Ordering Provider: Trey JOSÉ Report Released Date/Time: March 20, 2025 07:57 AM Reporting Lab: [facility] [address] Performing Lab: [facility] [place] [id number] [place] [address] Vital Signs Combined list of inpatient and outpatient Vital Signs from Department of Defense and Veterans Affairs, ranging from 12 months to all on record, depending upon the facility. Vital Sign Value Date Comments Source SYSTOLIC BLOOD PRESSURE 150 03/20/2025 08:39:03 [facility] DIASTOLIC BLOOD PRESSURE 80 03/20/2025 08:39:03 [facility] PULSE OXIMETRY 99 03/20/2025 08:39:03 [facility] WEIGHT 164.8 03/20/2025 08:39:03 [facility] BMI 24 kg/m2 03/20/2025 08:39:03 [facility] PAIN 3 03/20/2025 08:39:03 [facility] HEIGHT 69 03/20/2025 08:39:03 [facility] TEMPERATURE 99.1 03/20/2025 08:39:03 [facility] PULSE 81 03/20/2025 08:39:03 [facility] RESPIRATION 16 03/20/2025 08:39:03 [facility] Encounters Combined list of: 1) Encounters from Department of [facility] Affairs facilities going backup to the last 18 months, not all [place] inpatient encounters are included; 2) Encounters from the Department of [facility] facilities going backup to 280 months. Location Location Details Encounter Type Encounter Number Reason For Visit Attending Provider ADM Date DC Date Status Disposition Source [facility] Outpatient Encounter [id number] Anthony GENTILE 03/12 [facility] PH1 ASSMT&MGMT NQHP 11-20 [id number] Diagnos is: ICD-10- CM Z71.89 Other specifi ed tariff counsel thuy ESCAMILLA,THANH ANY N 03/14 [facility] OFFICE O/P NEW [place] 60 MIN [id number] Diagnos is: ICD-10- CM I35.0 Nonrheu matic aortic (valve) stenosi Trey Etienne 03/20 [facility] TYMPANOMET RY & REFLEX THRESH [id number] Diagnos is: ICD-10- CM H90.3 Sensori neural hearing loss, SKIP Quiles 05/14 [facility] Outpatient Encounter [id number] 05/23 [facility] OFF/OP CONSLTJ NEW/EST SF 20 [id number] Diagnos is: ICD-10- CM H91.8X3 Other specifi ed hearing loss, MANOLO Romano 05/28 [facility] XM&SLCTN BINAURL [id number] Diagnos is: ICD-10- CM H90.3 Sensori neural hearing loss, Emma Farias 05/28 [facility] Outpatient Encounter [id number] 06/04 [facility] N Social History Combined list of available smoking, tobacco, and other social history from Department of Defense and Veterans Affairs facilities. Social History Type Response Date Comment Sour e Tobacco smoking status NHIS VA-TOBACCO USE FORMER CIGARETTES 03/20/2025 [facility] History of tobacco use VA-TOBACCO NEVER USED OTHER TYPE 03/20/2025 [facility] Plan of Care List of future care activities from Department of [facility] Affairs facilities. Additional future care activities may be listed in the Assessment and Plan section. Date/Time Care Activity Care Activity Detail Facili ty 07/23/2025 AMBULATORY - SURGERY AMBULATORY - SURGERY [facility]
--- OUTSIDE RECORDS SUMMARY | 2025-06-21 11:00 | XMS_ITS | Encounter Summary ---
Author Organization [facility] Health Address [address] [place] [address] Care Team Providers Care Gericare Aide Name Role Phone Baljit Conley MD Primary Care Provider [phone] Encounter Details Date Type Department Care Team (Latest Contact Info) Description 06/21/2025 11:00 AM CDT Clinical Support [facility] - Cardiology [address] [facility] [address] [place] [address] SSS (sick sinus syndrome) (HCC) ; S/P placement of cardiac pacemaker Social History Tobacco Use Types Packs/Day Years Used Date Smoking Tobacco: Former Cigarettes 1 7 Q uit: 11/01/1972 Smokeless Tobacco: Never Alcohol Use Standard Drinks/Week Comments Not Currently 0 (1 standard drink = 0.6 oz pur e alcohol) AUDIT-C Answer Date Recorded Q1: How often do you have a drink containing alcohol? Never 06/12/2025 Q2: How many drinks containi ng alcohol do you have on a typical day when you are drinking? Patient does not drink Q3: How often do you have si x or more drinks on one occasion? Never 06/12/2025 Overall Financial Resource Strain (CARDIA) Answe r Date Recorded How hard is it for you to pa y for the very basics like food, housing, medical care, and heating? Not hard at all 06/12/2025 [place] [facility] - Occupational Stress Questionnaire Answer Date Recorded Do you feel stress - tense, restless, nervous, or anxious, or unable to sleep at night because your mind is troubled all the time - these days? Not at all 06/12/2025 Hunger Vital Sign Answer Date Recorded Within the past 12 months, y ou worried that your food would run out before you got the money to buy more. Never true 06/12/20 25 Within the past 12 months, t he food you bought just didn't last and you didn't have money to get more. Never true 06/12/2025 PRAPARE - Transportation Answer Date Re corded In the past 12 months, has l ack of transportation kept you from medical appointments or from getting medications? No 06/01 In the past 12 months, has l ack of transportation kept you from meetings, work, or from getting things needed for daily living? No 06/12/2025 Housing Stability Vital Sign Answer Michele e [...] in a fdc (including now)? No 03/11/2024 Housing Stability Vital Sign Answer Michele e Recorded In the last 12 months, was t here a time when you were not able to pay the mortgage or rent on time? No 06/12/2025 In the past 12 months, how m any times have you moved where you were living? 1 06/12/2025 At any time in the past 12 m [facility], were you homeless or living in a fdc (including now)? No 06/12/2025 Sex and Gender Information Value Date Recorded Sex Assigned at Not on file Legal Sex Male 9:35 AM COUNTER WEIGHER Gender Identity Not on file Sexual Orientation Not on file documented as of this encounter Functional Status * Is person deaf or have serious hearing difficulty? Answer Date of Assessment Author No 06/13/2025 12:33 PM CDT Maureen Gunter, RN * Is person blind or have serious difficulty seeing? Answer Date of Assessment Author Yes 06/13/2025 12:33 PM CDT Maureen Gunter, RN * Does person have serious difficulty walking/climbing stairs? Answer Date of Assessment Author No 06/13/2025 12:33 PM CDT Maureen Gunter, RN * Does person have difficulty dressing/bathing? Answer Date of Assessment Author No 06/13/2025 12:33 PM CDT Maureen Gunter RN * Does person have difficulty doing errands alone? Answer Date of Assessment Author No 06/13/2025 12:33 PM CDT Maureen Gunter RN documented as of this encounter Mental Status * Does person have difficulty concentrating/remembering/making decisions? Answer Entry Date Author No 06/13/2025 12:33 PM CDT Maureen Gunter RN documented in this encounter Progress Notes * Kelly Sarmiento RN - 06/21/2025 1:27 PM CDT CLINICAL DEVICE CHECK In clinic dual chamber pacemaker programming performed by device RN Device: Medtronic Kiara implanted 03/06/[address] May for sick sinus syndrome Serial Number: [id number] Battery: 12 years remaining. Indication: Seeing Ely Smith NP in clinic today. Last device check: in office 03/30/35 Presenting rhythm: AP/VS @ 64 bpm Underlying rhythm: Junctional @ 60 bpm A-Paced: 99.2% V-Paced: 7% Testing performed: Sensing, Impedance, and Threshold tests performed. All test results within appropriate values. AT/F: None VTVF: None. VT episodes seen suspected to have occurred during TAVR procedure. Permanent programming changes made: None Patient verbalizes understanding of information presented. Plan: Remotes every 3 months and yearly checks in office. PDF of device check attached. Kelly Sarmiento RN Cosigned by Omid May MD at 06/22/2025 9:23 AM CDT Associated attestation - Omid May MD - 06/22/2025 9:23 AM CDT I reviewed and agree with the interrogation and note by device nurse. documented in this encounter Plan of Treatment Upcoming Encounters Date Type Department Care Team (Late st Contact Info) Description 06/28/2025 2:00 PM CDT Appointment [facility] VASCULAR [address] [address] Ely Smith, RV REPAIRER-SERVICE AND REPAIR SUPERVISOR [address] [place] [phone] 07/13/2025 8:00 AM CDT Appointment [facility] ECHO [address] [place] [address] Ro Rodriguez MD [address] [place] [address] 07/27/2025 10:00 AM CDT Office Visit [facility] - Cardiology [address] [place] [address], [address] [address] Ro Rodriguez MD [address] [place] [address] 09/04/2025 1:00 AM COUNTER WEIGHER Clinical Support [facility] - Cardiology [address] [place] [address], [address] [address] 12/04/2025 1:00 AM COUNTER WEIGHER Clinical Support [facility] - Cardiology [address] [place] [address], [address] [address] 03/05/2026 1:00 AM CDT Clinical Support [facility] - Cardiology [address] [place] [address], [address] [address] 04/04/2026 11:00 AM CDT Office Visit [facility] - Cardiology [address] [place] [address], [address] [phone] Omid May MD [address] [place] [address] Scheduled Orders Name Type Priority Associated Diagnoses Orde r Schedule Implant Device Check (Office) Procedures Routine SSS (sick sinus syndrome) (HCC) S/P placement of cardiac pacemaker Ordered: 06/21/2025 documented as of this encounter Visit Diagnoses Diagnosis SSS (sick sinus syndrome) ([facility])- Primary Sinoatrial node dysfunction S/P placement of cardiac pacemaker Cardiac pacemaker in situ documented in this encounter Care Teams Gericare Aide Relationship Specialty Start Date End Date Baljit Conley MD [address] [place] [address] PCP - General 11/19/21 documented as of this encounter
--- OUTSIDE RECORDS SUMMARY | 2025-06-21 11:30 | XMS_ITS | Encounter Summary ---
Author Organization [facility] Health Address [address] [facility] [place] [address] Care Team Providers Care Inseamer Name Role Phone Baljit Conley MD Primary Care Provider Reason for Visit * Reason Comments Wound/Incision Check Encounter Details Date Type Department Care Team (Late st Contact Info) Description 06/21/2025 11:30 AM CDT Office Visit [facility] - Cardiology [address] [facility], [address] [address] Ely Smith, MUSIC LEADER-PELT GRADER [address] [address] S/P TAVR (transcatheter aortic valve replacement) (Primary Dx); Hematoma Social History Tobacco Use Types Packs/Day Years Used Date Smoking Tobacco: Former Cigarettes 1 7 Q uit: 11/01/1972 Smokeless Tobacco: Never Tobacco Cessation:Counseling Given: Not [...] and heating? Not hard at all 06/12/2025 [place] [facility] - Occupational Stress [...] place to sleep or slept in a halfway (including now)? No 03/11/2024 Housing Stability Vital Sign Answer Michele e Recorded In the last 12 months, was t here a time when you were not able to pay the mortgage or rent on time? No 06/12/2025 In the past 12 months, how m any times have you moved where you were living? 1 06/12/2025 At any time in the past 12 m [facility], were you homeless or living in a halfway (including now)? No 06/12/2025 Sex and Gender Information Value Date Recorded Sex Assigned at Not on file Legal Sex Male 9:35 AM SPLITTER TENDER Gender Identity Not on file Sexual Orientation Not on file documented as of this encounter Last Filed Vital Signs Vital Sign Reading Time Taken Comments Blood Pressure 130/60 06/21/2025 11:13 AM CDT Pulse 77 06/21/2025 11:13 AM CDT Temperature - - Respiratory Rate - - Oxygen Saturation 98% 06/21/2025 11:13 AM CDT Inhaled Oxygen Concentration - - Weight 73.9 kg (163 lb) 06/21/2025 11:13 AM CDT Height 175.3 cm (5' 9) 06/21/2025 11:13 AM CDT Body Mass Index 24.07 06/21/2025 11:13 AM CDT documented in this encounter Functional Status * Is person deaf or have serious hearing difficulty? Answer Date of Assessment Author No 06/13/2025 12:33 PM CDT Maureen Gunter RN * Is person blind or have serious difficulty seeing? Answer Date of Assessment Author Yes 06/13/2025 12:33 PM CDT Maureen Gunter RN * Does person have serious difficulty walking/climbing stairs? Answer Date of Assessment Author No 06/13/2025 12:33 PM CDT Maureen Gunter RN * Does person have difficulty dressing/bathing? [...] Maureen Gunter RN documented in this encounter Patient Instructions * Patient Instructions* Ely Smith APRN-CNP - 06/21/2025 11:42 AM CDT Please obtain ultrasound of right groin at [facility], tomorrow arrive at 9:30, at [facility]. Bring photo ID and insurance card. Recommend doing cardiac rehab, referral previously sent to [facility]. Also speak with your PCP about PT/OT for vertigo as well as for meclizine (Antivert) medication Please obtain blood work in clinic today Follow up in one month with same day echocardiogram documented in this encounter Progress Notes * Ely Smith APRN-CNP - 06/21/2025 11:30 AM CDT Images from the original note were not included. [facility] Cardiology Outpatient Clinic Note Assessment and Plan: #Moderate aortic stenosis s/p TAVR with 29 mm Evolut Fx valve 06/12/25 POD1 TTE demonstrated EF 69%, well seated Evolut valve, no regurgitation, significant paravalvular regurgitation, mean gradient 4mm Hg. -Small hematoma to right femoral access site, will evaluate further for pseudoaneurysm, RP bleed, AV fistula, etc with arterial duplex, assisted with scheduling tomorrow at [facility] -Requested patient to obtain BMP/CBC in building today -Cardiac rehab referral was placed to [facility] in [place] prior to discharge, will request referral to be faxed -Continue ASA 81 mg qd -Edentulous, requires antibiotic prophylaxis prior to any oral procedures #SSS s/p DC PPM -Device interrogated in clinic, functioning appropriately. Had episode of VT 06/12 around time patient was likely intra procedure for TAVR -Continue remote checks q3 mo and annual in person device check #HTN -BP at goal <140/90 in clinic today -Not currently taking any antihypertensives #Nonobstructive CAD #HLD -Chest pain sounds pleuritic in nature, discussed that he had minimal CAD on cath in May and likely noncardiac -LDL 64 05/2025, goal <70 -Continue jardiance 10, ASA 81, simvastatin 40 RTC in [address] Rodriguez and same day TTE Chief Complaint: 1 week TAVR follow up History of Present Illness: Sebastian De La O is a 79 year old male with PMH significant for non obstructive CAD, HTN, HLD, Hyperparathyroidism, Psoriatic arthritis, SSS s/p dual chamber PM 03/2024, Depression, Anxiety, and moderate Aortic Stenosis, who presented for TAVR with Dr. Rodriguez 06/12 as part of Expand II Study. Procedure wassuccessful with 29 mm Evolut Fx valve implanted via LFV, RFA, and right radial artery. He was discharged home 06/13/25. He has noticed since his TAVR he has had chest pains intermittently lasting about 5 minutes that occur when he takes deep breaths. Denies exertional chest pain. He also has ongoing issues with balance and dizziness/vertigo. Has longstanding vertigo that he previously took meclizine for, but has nottaken this lately and will be discussing with his PCP regarding possible PT/OT eval. He has small bump on right groin that occurred with bruising after he left the hospital and having pain with bending over. ROS is negative except for stated in the HPI. Past Medical History[1] PHYSICAL EXAM: BP 130/60 Pulse 77 Ht 1.753 m (5' 9) Wt 73.9 kg (163 lb) SpO2 98% Body mass index is 24.07 kg/m??. Gen: A&Ox4, NAD, Appears stated age. HEENT: NCAT Neck: supple, no bruits Resp: CTAB, no wheezes or crackles CV: RRR, no murmur, no JVD Abd: soft, no TTP Ext: no LE edema Pulses: 2+ radial BL Skin: no rashes/lesions on exposed skin Psych: appropriate mood/affect Medications[2] DATA: LABS: CBC: Recent Labs Component Name 06/13/25 0129 06/12/25 0605 05/10/25 0025 WBC 6.1 4.4 4.2 HGB 13.6 15.5 14.5 HCT 40.4 46.1 43.9 MCV 86.3 85.8 86.6 BMP: Recent Labs Component Name 06/13/25 0129 06/12/25 0605 05/10/25 0025 NA 139 140 141 CL 110* 107 110* CO2 26 26 29 BUN 15 18 14 CREATININE 0.62* 0.64* 0.75 CALCIUM 9.7 10.6* 10.0 Lipid Panel: Recent Labs Component Name 05/09/25 0917 LDLCALC 64 HDL 36* ECHO: 06/13/25 Summary * The left ventricle is normal in size. * Left ventricular segmental wall motion is normal. * Left ventricular systolic function is normal with an estimated ejection fraction of 69% by biplane method of disks. * The left ventricular diastolic function is consistent with grade I diastolic dysfunction and normal left atrial filling pressure. * Right ventricle is normal in size with normal systolic function. * The left atrium is moderately dilated with a left atrial volume index of 47 ml/m2 by BP MOD. * The right atrium is mildly dilated. * By history there is a 29mm Corvalve Evolut Pro TAVR in the aortic position. The valve is well seated, the leaflets are well visualized, with no regurgitation, and no significant paravalvular regurgitation. The mean gradient is 4 mmHg, which is within normal limits. * The pulmonary artery systolic pressure is normal, 32 mmHg. CATH/STRESS TESTIN05/09/25 Conclusion Nonobstructive coronary artery disease Normal filling pressures [...] L/min/m2 Pulmonary vascular resistance: 1.95 Alcantara units Recommendations -The patient should take 81 mg of aspirin daily for life. DEVICE: CARDIAC PROCEDURE ORDER (04/03/2025) EKG: Ely Smith MSN, MUSIC LEADER, AGNP-C [facility] [1] Past Medical History: Diagnosis Date Anxiety disorder Aortic stenosis CAD (coronary artery disease) Depression HLD (hyperlipidemia) HTN (hypertension) Hyperparathyroidism (HCC) Moderate aortic stenosis 03/11/2024 Psoriatic arthritis (HCC) RBBB SSS (sick sinus syndrome) ([facility]) [2] Current Outpatient Medications Medication Sig Dispense Refill aspirin EC (Ecotrin) 81 MG tablet Take 1 (one) tablet by mouth once daily citalopram (CeleXA) 20 MG tablet TAKE ONE TABLET BY MOUTH ONCE DAILY 30 tablet 0 empagliflozin (Jardiance) 10 MG tablet Take 1 (one) tablet by mouth once daily 90 tablet 3 famotidine (Pepcid) 10 MG tablet Take 1 (one) tablet by mouth 2 times daily (Patient not taking: Reported on 06/21/2025) lisinopril-hydroCHLOROthiazide (Prinzide; Zestoretic) 20-25 MG tablet Take 1 (one) tablet by mouth once daily (Patient not taking: Reported on 06/21/2025) meclizine (Antivert) 25 MG tablet TAKE ONE TABLET BY MOUTH 2 TIMES A DAY NEEDED FOR DIZZINESS 60tablet 0 simvastatin (Zocor) 40 MG tablet TAKE ONE TABLET BY MOUTH AT BEDTIME 30 tablet 0 triamcinolone acetonide (Kenalog) 0.1 % cream Apply to affected area 2 times daily as needed for Other (psoriasis rash) trospium (Sanctura) 20 MG tablet Take 1 (one) tablet by mouth Vitamin E 100 units TABS No current facility-administered medications for this visit. documented in this encounter Plan of Treatment Upcoming Encounters Date Type Department Care Team (Late st Contact Info) Description 06/28/2025 2:[address] [facility] VASCULAR US [address] [place] [phone] Ely Smith APRN-CNP [address] [phone] 07/13/2025 8:[address] [facility] ECHO [address] [place] [phone] Ro Rodriguez MD [address] [place] [address] 07/27/2025 10:00 AM CDT Office Visit [facility] - Cardiology [address], [place] [address] [place] [phone] Ro Rodriguez MD [address] [place] [address] 09/04/2025 1:00 AM SPLITTER TENDER Clinical Support [facility] - Cardiology [address], [address] [address] 12/04/2025 1:00 AM SPLITTER TENDER Clinical Support [facility] - Cardiology [address], [address] [address] 03/05/2026 1:00 AM CDT Clinical Support [facility] - Cardiology [address], [address] [address] 04/04/2026 11:00 AM CDT Office Visit [facility] - Cardiology [address], [address] [address] Omid May MD [address], [address] [address] Scheduled Orders Name Type Priority Associated Diagnoses Orde r Schedule CBC W AUTO DIFFERENTIAL Lab Routine Hematoma S/P TAVR (transcatheter aortic valve replacement) Ordered: 06/21/2025 BASIC METABOLIC PANEL (CALCIUM TOTAL) Lab Routine Hematoma S/P TAVR (transcatheter aortic valve replacement) Ordered: 06/21/2025 documented as of this encounter Visit Diagnoses Diagnosis S/P TAVR (transcatheter aortic valve replacement)- Primary Hematoma Contusion of unspecified site documented in this encounter Care Teams Inseamer Relationship Specialty Start Date End Date Baljit Conley MD [address] [place] [address] PCP - General 11/19/21 documented as of this encounter
--- NOTE | ~2025-06-22 | US_ITS ---
EXAM: Focused ultrasound examination of the soft tissues of the right groin HISTORY: PVD , 10 days following percutaneous aortic valve repair with right groin access with palpable abnormality TECHNIQUE: Sonographic evaluation of the soft tissues of the right groin were performed assessing grayscale appearance and color Doppler flow. COMPARISON: None. FINDINGS: Tenting is identified of the right common femoral artery directed towards the closure device tract within the overlying soft tissues, an expected finding. No pseudoaneurysm formation is appreciated. Given the appearance of the internal portion of the common femoral artery at the level of the closure device it was likely an Angio-Seal with a foot plate, visualized sonographically. No pseudoaneurysm is appreciated. IMPRESSION: No pseudoaneurysm appreciated on right groin ultrasound interrogation, within the area of palpable concern. Reviewed, dictated and finalized at location A. IMPRESSION: No pseudoaneurysm appreciated on right groin ultrasound interrogation, within t he area of palpable concern.
--- OUTSIDE RECORDS SUMMARY | 2025-06-22 10:38 | XMS_ITS | Encounter Summary ---
Author Organization [facility] Address [facility] [place] [address] Care Team Providers Care Limnology Teacher Name Role Phone Baljit Conley MD Primary Care Provider [phone] Reason for Referral * Radiology Services (Routine) - Open Specialty Diagnoses / Procedures Referred By Contgudelia t Referred To Contact Diagnoses Swelling of surgical site, initial encounter S/P TAVR (transcatheter aortic valve replacement) Vascular complication Hematoma Peripheral artery disease Procedures VAS Right Arterial Duplex Le Sil Rojas APRN-CNP [address] [facility] [address] [place] [phone] Phone: tel: fax: Referral ID Status Reason Start Date Expiration Date Visits Re quested Visits Authorized [id number] Open 06/22/2025 06/22/2026 1 1 Encounter Details Date Type Department Care Team (Late st Contact Info) Description 06/22/2025 Orders Only [facility] - Cardiology [address] [facility], [address] [phone] Sil Rojas APRN-CNP [address] [facility] [address] [place] [phone] Swelling of surgical site, initial encounter ; S/P TAVR (transcatheter aortic valve replacement); Vascular complication; Hematoma; Peripheral artery disease Social History Tobacco Use Types Packs/Day Years [...] and heating? Not hard at all 06/12/2025 [facility] of Occupat ional Health - Occupational Stress [...] in a [facility]cc (including now)? No 03/11/2024 Housing Stability Vital Sign Answer Michele e Recorded In the last 12 months, was t here a time when you were not able to pay the mortgage or rent on time? No 06/12/2025 In the past 12 months, how m any times have you moved where you were living? 1 06/12/2025 At any time in the past 12 m [facility], were you homeless or living in a mcc (including now)? No 06/12/2025 Sex and Gender Information Value Date Recorded Sex Assigned at Not on file Legal Sex Male 9:35 AM DRY CLEANER Gender Identity Not on file Sexual Orientation [...] Entry Date Author No 06/13/2025 12:33 PM JACKSONT Maureen Gunter RN documented in this encounter Plan of Treatment Upcoming Encounters Date Type Department Care Team (Late st Contact Info) Description 06/28/2025 2:00 PM CDT Appointment [facility] [address] [place] [phone] Ely Smith, POLISHING MACHINE OPERATOR-MANAGER OF SUPPLY CHAIN [address] [phone] 07/13/2025 8:00 AM CDT Appointment [facility] [address] [place] [address] Ro Rodriguez MD [address] [phone] 07/27/2025 10:00 AM CDT Office Visit [facility] - Cardiology [address], [address] [place] [phone] Ro Rodriguez MD [address] [place] [phone] 09/04/2025 1:00 AM DRY CLEANER Clinical Support [facility] - Cardiology [address], [address] [phone] 12/04/2025 1:00 AM DRY CLEANER Clinical Support [facility] - Cardiology [address], [address] [place] [phone] 03/05/2026 1:00 AM CDT [facility] Support [facility] [address], [address] [phone] 04/04/2026 11:00 AM CDT Office Visit [facility] - Cardiology [address], [address] [phone] Omid May MD [address], [address] [address] Scheduled Orders Name Type Priority Associated Diagnoses Orde r Schedule VAS Right Arterial Duplex Le Vascular Routine Swelling of surgical site, initial encounter S/P TAVR (transcatheter aortic valve replacement) Vascular complication Hematoma Peripheral artery disease 1 Occurrences starting 06/22/2025 until 06/22/2026 documented as of this encounter Visit Diagnoses Diagnosis Swelling of surgical site, initial encounter- Primary S/P TAVR (transcatheter aortic valve replacement) Vascular complication Other vascular complications of medical care, not elsewhere classified Hematoma Contusion of unspecified site Peripheral artery disease Unspecified disorders of arteries and arterioles documented in this encounter Care Teams Limnology Teacher Relationship Specialty Start Date End Date Baljit Conley MD [address] [place] [address] PCP - General 11/19/21 documented as of this encounter
--- OUTSIDE RECORDS SUMMARY | 2025-06-22 10:38 | XMS_ITS | Clinical Summary ---
Author Organization [facility] Address [address] [place] [address] Care Team Providers Care Pilates Instructor Name Role Phone Baljit Conley MD Primary Care Provider [phone] Source Comments [facility],non-owned Affiliates and Associated Physician Practices is amultiple site organization consisting of ambulatory clinics and hospital sitesin [place], [place], [place] and [place]. This disclosure is being madepursuant to the Care Everywhere program and may not contain all information available regarding this patient. Last updated 18.[facility] Allergies Active Allergy Reactions Criticality Noted Date [...] Encounters Date Type Department Care Team Description 06/22/2025 Orders Only [facility] - Cardiology [address] [facility], [place] [address] [place] [phone] Sil Rojas APRN-SLEEVE MACHINE TENDER Swelling of surgical site, initial encounter ; S/P TAVR (transcatheter aortic valve replacement); Vascular complication; Hematoma; Peripheral artery disease 06/21/2025 11:30 AM CDT Office Visit [facility] - Cardiology [address] [facility], [address] [address] Ely Smith SUGAR COATING HAND-SLEEVE MACHINE TENDER S/P TAVR (transcatheter aortic valve replacement) (Primary Dx); Hematoma 06/21/2025 11:00 AM CDT Clinical Support [facility] - Cardiology [address] [facility], [address] [address] SSS (sick sinus syndrome) (HCC) ; S/P placement of cardiac pacemaker 06/21/2025 Travel 06/18/2025 Travel 06/15/2025 Telephone [facility] - Cardiology [address] [facility], [address] [address] Ro Rodriguez MD Question 06/12/2025 7:35 AM CDT Anesthesia Event [facility] - Cardiac Coater Brake Linings [facility] [place] [address] Rey Choudhury DO Osterloh, Joan Frances, SUGAR COATING HAND-FILTER CHANGER 06/12/2025 7:15 AM CDT - 06/12/2025 9:41 AM CDT Surgery [facility] - Cardiac Coater Brake Linings [facility] [place] [address] Ro Rodriguez MD Transcatheter Aortic Valve Replacement (TAVR) 06/12/2025 5:06 AM CDT - 06/13/2025 4:12 PM CDT Hospital Encounter [facility] 8N ACUTE [address] [place] [address] Ro Rodriguez MD Cardiac Catheterization Discharge Disposition: Home or Self Care 06/12/2025 Travel 06/01/2025 Travel 05/29/2025 Orders Only [facility] - Cardiology [address] [facility], [address] [place] [address] Vidya Espinosa RN Severe aortic stenosis ; Primary hypertension 05/29/2025 Telephone [facility] - Cardiology [address] [facility], [address] [place] [address] Vidya Espinosa RN 05/23/2025 Telephone [facility] - Cardiology [address] [facility], [address] [place] [address] Vidya Espinosa RN 05/10/2025 1:00 PM CDT Office Visit [facility] - Cardiothoracic Surgery [address] [facility], [place] [address] Ro Rodriguez MD OnyePranav quach MD Moderate aortic stenosis (Primary Dx) 05/10/2025 10:52 AM CDT - 05/10/2025 11:59 PM CDT Hospital Encounter [facility] CAT SCAN [address] [place] [address] Ro Rodriguez MD Discharge Disposition: Home or Self Care 05/10/2025 Travel 05/09/2025 10:35 AM CDT - 05/09/2025 12:25 PM CDT Surgery [facility] - Cardiac Coater [employer]ings [address] [place] [address] Matt Rice MD Left and right heart cath 05/09/2025 8:03 AM CDT - 05/10/2025 10:57 AM CDT Hospital Encounter [facility] SHORT STAY UNIT [address] [place] [address] Matt Rice MD Cardiac Catheterization Discharge Disposition: Home or Self Care 05/09/2025 Travel 04/27/2025 Telephone [facility] - Cardiology [address] [facility], [facility] [address] [place] [phone] Amado Smith, RN Appointment 04/27/2025 Orders Only [facility] - Cardiac Coater [employer]ings [address] [place] [phone] Ro Rodriguez MD 04/23/2025 Orders Only [facility] - Cardiology [address] [facility], [address] [place] [address] Vidya Espinosa RN Moderate aortic stenosis ; Primary hypertension 04/20/2025 Travel 04/18/2025 Telephone [facility] - Cardiology [address] [facility], [address] [place] [address] Vidya Espinosa RN Research Study 03/29/2025 12:00 PM CDT Ancillary Procedure [facility] - Echosonography [address] [facility], [facility] [address] [place] [address] Moderate aortic stenosis 03/29/2025 11:00 AM CDT Office Visit [facility] - Cardiology [address] [facility], [address] [place] [phone] Arsen May MD SSS (sick sinus syndrome) (HCC) (Primary Dx) 03/29/2025 Travel from Last 3 Months Family History [...] and heating? Not hard at all 06/12/2025 [facility] [place] [facility] Occupat ional Health - Occupational Stress [...] place to sleep or slept in a [place] health care facility (including now)? No 03/11/2024 Housing Stability Vital Sign Answer Michele e Recorded In the last 12 months, was t here a time when you were not able to pay the mortgage or rent on time? No 06/12/2025 In the past 12 months, how m any times have you moved where you were living? 1 06/12/2025 At any time in the past 12 m [facility], were you homeless or living in a [place] health care facility (including now)? No 06/12/2025 Sex and Gender Information Value Date Recorded Sex Assigned at Not on file Legal Sex Male 9:35 AM SPEECH THERAPIST Gender Identity Not on file Sexual Orientation Not on file Last Filed Vital Signs Vital Sign Reading Time Taken Comments Blood Pressure 130/60 06/21/2025 11:13 AM CDT Pulse 77 06/21/2025 11:13 AM CDT Temperature 36.6 C (97.9 F) 06/13/2025 12:19 PM CDT Respiratory Rate 16 06/13/2025 12:19 PM CDT Oxygen Saturation 98% 06/21/2025 11:13 AM CDT Inhaled Oxygen Concentration - - Weight 73.9 kg (163 lb) 06/21/2025 11:13 AM CDT Height 175.3 cm (5' 9) 06/21/2025 11:13 AM CDT Body Mass Index 24.07 06/21/2025 11:13 AM CDT Plan of Treatment Upcoming Encounters Date Type Department Care Team (Late st Contact Info) Description 06/28/2025 2:00 PM CDT Appointment [facility] VASCULAR US [address] [place] [address] Ely Smith, SUGAR COATING HAND-SLEEVE MACHINE TENDER [address] [place] [phone] 07/13/2025 8:00 AM CDT Appointment [facility] ECHO [address] [place] [address] Ro Rodriguez MD [address] [place] [address] 07/27/2025 10:00 AM CDT Office Visit [facility] - Cardiology [address] [place] [phone] Ro Rodriguez MD [address] [place] [address] 09/04/2025 1:00 AM SPEECH THERAPIST Clinical Support [facility] - Cardiology [address] [place] [address] 12/04/2025 1:00 AM SPEECH THERAPIST Clinical Support [facility] - Cardiology [address] [place] [address] 03/05/2026 1:00 AM CDT Clinical Support [facility] - Cardiology [address] [facility], [address] [address] 04/04/2026 11:00 AM CDT Office Visit [facility] - Cardiology [address] [facility], [address] [address] Arsen May MD [facility] [address] [facility], [address] [address] Health Maintenance Due Date Last Done Comments [...] this topic Medical Devices Implanted Type Area Weight Control Lecturer Device Identifier Shelf Expiration Date Model / Serial / Lot Vlv Aor Evolut Fx+ 29mm 23-26mm - [id number] Implanted:Qty: 1 on 06/12/2025 by Ro Rodriguez MD at [facility] Tissue [employer] [id number] 03/22/2027 [id number] S- / [id number] / [id number] Lead Cp Nv Pace 52cm Strd Elut Pltn Nina - [id number] Implanted:Qty: 1 on 03/06/2024 by Arsen May MD at [facility] [employer] [id number] 10/21/2025 5076-52 / [id number] / NA Lead Cp Nv Pace 45cm Strd Elut Pltn Nina - [id number] Implanted:Qty: 1 on 03/06/2024 by Arsen May MD at [facility] [employer] [id number] 11/29/2025 5076-45 / [id number] / NA Pacemkr [place] [employer] Crd - [id number] Implanted:Qty: 1 on 03/06/2024 by Arsen May MD at [facility] Right: Chest [employer] [id number] 07/29/2025 [id number] / [id number] / NA Explanted Type Area Weight Control Lecturer Device Identifier Shelf Expiration Date Model / Serial / Lot Cath Pace Eltrd Biplr Dist Tip Balln Flw - [id number] Explanted:Qty: 1 on 06/12/2025 by Ro Rodriguez MD at [facility] CR [employer] [id number] 02/26/2027 [id number] / [id number] / [id number] Procedures Procedure Name Priority Date/Time Associated Diagnosis Comments CARDIAC PROCEDURE ORDER 06/21/2025 ECHO COMPLETE PENDING DISCHARGE 06/13/2025 1:16 PM CDT Moderate aortic stenosis Nonrheumatic aortic valve stenosis Bicuspid aortic valve (HCC) S/P TAVR (transcatheter aortic valve replacement) EKG 12-LEAD Timed 06/13/2025 5:04 AM CDT Moderate aortic stenosis Nonrheumatic aortic valve stenosis Bicuspid aortic valve (HCC) S/P TAVR (transcatheter aortic valve replacement) BASIC METABOLIC PANEL (CALCIUM TOTAL) AM Draw 06/13/2025 1:29 AM CDT Moderate aortic stenosis Nonrheumatic aortic valve stenosis Bicuspid aortic valve (HCC) S/P TAVR (transcatheter aortic valve replacement) CBC W AUTO DIFFERENTIAL AM Draw 06/13/2025 1:29 AM CDT Moderate aortic stenosis Nonrheumatic aortic valve stenosis Bicuspid aortic valve (HCC) S/P TAVR (transcatheter aortic valve replacement) MAGNESIUM BLOOD AM Draw 06/13/2025 1:29 AM CDT Moderate aortic stenosis Nonrheumatic aortic valve stenosis Bicuspid aortic valve (HCC) S/P TAVR (transcatheter aortic valve replacement) EKG 12-LEAD Routine 06/12/2025 9:10 AM CDT Moderate aortic stenosis Nonrheumatic aortic valve stenosis Bicuspid aortic valve (HCC) S/P TAVR (transcatheter aortic valve replacement) ECHO LIMITED TAVR Routine 06/12/2025 9:0 6 AM CDT Nonrheumatic aortic valve stenosis CCL TRANSCATH AORTIC VALVE REPLACEMENT Routine 06/12/2025 9:05 AM CDT Nonrheumatic aortic valve stenosis ACT LR - POCT ([facility]) Routine 06/12/2025 8:50 AM CDT ACT LR - POCT ([facility]) Routine 06/12/2025 8:22 AM CDT EKG 12-LEAD Routine 06/12/2025 7:25 AM CDT Moderate aortic stenosis TYPE + SCREEN PANEL STAT 06/12/2025 6 :05 AM CDT PREPARE RBC LEUKOREDUCED UNIT Routine 06/12/2025 6:05 AM CDT CBC W/O DIFFERENTIAL FREDERICK 06/12/2025 6:05 AM CDT Nonrheumatic aortic valve stenosis BASIC METABOLIC PANEL (CALCIUM TOTAL) FREDERICK 06/12/2025 6:05 AM CDT Nonrheumatic aortic valve stenosis CARDIAC PROCEDURE ORDER 05/11/2025 CT ANGIO TAVR [...] Moderate aortic stenosis CARDIAC PROCEDURE ORDER 03/29/2025 NM PM/ICD REMOTE TECH SERV Routine 03/26/2025 10:17 PM CDT SSS (sick sinus syndrome) (HCC) S/P placement of cardiac pacemaker NM PM DEVICE INTERROGATE REMOTE Routine 03/26/2025 10:17 PM CDT SSS (sick sinus syndrome) (HCC) S/P placement of cardiac pacemaker from Last 3 Months Results * CARDIAC PROCEDURE ORDER (06/21/2025) Only the most recent of4 resultswithin the time period is included. Narrative 06/21/2025 Ordered by an unspecified provider. us Scanned Document CARDIAC SERVICES ORDERABLES Fin al Result * ECHO COMPLETE (06/13/2025 1:16 PM CDT) Only the most recent of3 resultswithin the time period is included. LVOT diam 1.979 cm SSM CV FUJ I PACS AV pk nils 132.489 cm/s SSM CV FUJ I PACS LVPWd 1.006 cm SSM CV FUJ I PACS LVOT pk grad 4.804 mmHg SSM CV FUJI PACS Ascending aorta 3.287 cm SSM CV FUJI PACS MV E pk nils 105.525 cm/s SSM CV F UJI PACS AV pk grad 6.816 mmHg SSM CV FU JI PACS LV A2C EF 74.039 % SSM CV FUJ I PACS MV E' lateral nils 8.497 cm/s SS M CV FUJI PACS LV ESV A4C 45.3 ml SSM CV FU JI PACS LVIDd 4.787 cm SSM CV FUJ I PACS LV ESV A2C 45.811 ml SSM CV FU JI PACS PV VTI 19.768 cm SSM CV FUJ I PACS NM VTI 96.935 cm SSM CV FUJ I PACS LV biplane EF 69.424 % SSM CV FUJI PACS MV A pk nils 86.765 cm/s SSM CV F UJI PACS LVOT pk nils 110.032 cm/s SSM CV F UJI PACS LVIDs 2.138 cm SSM CV FUJ I PACS AV area pk nils 2.554 cm SSM CV FUJI PACS RVOT diam Doppler 3.832 cm SS M CV FUJI PACS AV VTI 26.425 cm SSM CV FUJ I PACS TR pk nils 270.097 cm/s SSM CV FUJ I PACS LV A4C EF 64.706 % SSM CV FUJ I PACS AV area cont VTI 2.599 cm SSM CV FUJI PACS IVC Diam Expiration 1.374 cm SSM CV FUJI PACS RVIDd 3.364 cm SSM CV FUJ I PACS RV-ramirez basal diam 4.[address] [facility] LA size 4.727 cm SSM CV [facility] I PACS RA area 23.102 cm SSM CV FUJI PACS TAPSE 2.335 cm SSM CV FUJ I PACS LVOT VTI 22.329 cm SSM CV [facility] I PACS LV EDV A4C 128.351 ml SSM CV FU JI PACS LV EDV A2C 176.463 ml SSM CV FU JI PACS LA vol BP 89.097 ml SSM CV FUJ I PACS AV mn grad 3.821 mmHg SSM CV FU JI PACS RVOT VTI 18.28 cm SSM CV [facility] I PACS RVOT pk nils 95.002 cm/s SSM CV F UJI PACS PV pk nils 97.271 cm/s SSM CV FUJ I PACS IVSd 2D 1.011 cm SSM CV [facility] I PACS AV area index 1.357 cm /m SSM CV FUJI PACS LA vol index 0.047 l/m SSM CV FUJI PACS Dimensionless Index 0.845 unitless SSM CV FUJI PACS Myocardial strain charge 2 unitless SSM CV FUJI PACS Anatomical Region Laterality Modality Ultrasound 06/13/2025 11:5 1 AM CDT Narrative 06/13/2025 2:25 PM CDT Summary * The left ventricle [...] artery systolic pressure is normal, 32 mmHg. Patient Info Name: Sebastian De La O Age: 79 years : 1945 Gender: Male Ht: 69 in Wt: 165 lb BSA: 1.92 m2 HR: 62 bpm BP: 128 / 72 mmHg Exam Date: 06/13/2025 11:51 AM Patient Status: I/P Study Site: [facility] Primary Location: [facility] Info Exam Type: ECHO COMPLETE Indications I35.0 - Severe aortic stenosis Z95.2 - S/P TAVR (transcatheter aortic valve replacement) Q23.81 - Bicuspid aortic valve (HCC) I35.0 - Nonrheumatic aortic valve stenosis Procedure(s) * A complete 2D, color Doppler, spectral Doppler, and M-Mode transthoracic echocardiogram was performed. Staff Referring Physician: Sil Rojas Ordering Provider: Sil Rojas Attending Physician: Sil Rojas Welder Gas Automatic: Viridiana Alanis Left Ventricle The left ventricular mass is normal. The left ventricle is normal in size. Left ventricular segmental wall motion is normal. Left ventricular systolic function is normal with an estimated ejection fraction of 69% by biplane method of disks. The left ventricular diastolic function is consistent with grade I diastolic dysfunction and normal left atrial filling pressure. Right Ventricle The right ventricle is normal in size. Right ventricular systolic function is normal. A device wire is seen in the right ventricle. Left Atrium The left atrium is moderately dilated with a left atrial volume index of 47 ml/m2 by BP MOD. Right Atrium The right atrium is mildly dilated. Atrial Septum Intact interatrial septum visualized by 2D and color Doppler imaging. Aortic Valve By history there is a 29mm Corvalve Evolut Pro TAVR in the aortic position. The valve is well seated, the leaflets are well visualized, with no regurgitation, and no significant paravalvular regurgitation. The mean gradient is 4 mmHg, which is within normal limits. Pulmonic Valve The pulmonic valve is normal. There is no pulmonic valve stenosis. There is mild pulmonic regurgitation. Mitral Valve The mitral valve is normal. There is no mitral valve stenosis. There is mild mitral valve regurgitation. Tricuspid Valve The tricuspid valve is normal. There is mild tricuspid valve regurgitation. The pulmonary artery systolic pressure is normal, 32 mmHg. Inferior Vena Cava The inferior vena [...] Peak Gradient 5 mmHg LVOT Mean Velocity 71.55 cm/s LVOT Mean Gradient 2 mmHg LVOT VTI 22.3 cm LVOT VTI/AV VTI Ratio 0.8 LVOT Stroke Volume 69 ml LVOT Stroke Volume Index 36 ml/m2 35-58 LVOT CO 4.2 l/min LVOT CI 2.2 l/min/m2 Pulmonic Valve Name Value Normal PV 2D RVOT Diameter (2D) 3.8 cm 1.7-2.7 RVOT Doppler RVOT Peak Velocity 1.0 m/s RVOT Peak Gradient 4 mmHg RVOT Mean Gradient 2 mmHg PV Doppler PV Peak Velocity 1.0 m/s PV Peak Gradient 4 mmHg PV Mean Gradient 2 mmHg PV Area (Cont Eq VTI) 10.66 cm2 PV Area Index (Cont Eq VTI) 5.57 cm2/m2 PV Area (Cont Eq Nils) 11.3 cm2 PV Area Index (Cont Eq Nils) 5.88 cm2/m2 PV Regurgitation Doppler NM End Diastolic Gradient 27 mmHg Mitral Valve Name Value Normal MV Diastolic Function MV E Peak Velocity 1.1 m/sec MV A Peak Velocity 0.9 m/sec MV E/A 1.2 MV Decel Time (PW) 220 ms MV A Wave Duration 154 ms MV Annular TDI MV Septal e' Velocity 6 cm/s >=8 MV E/e' (Septal) 18 <=8 MV Lateral e' Velocity 8 cm/s >=10 MV E/e' (Lateral) 12 <=8 MV e' Average 7 cm/s MV E/e' (Average) 15 Tricuspid Valve Name Value Normal TV 2D TV Annulus Diameter (4C) 3.9 cm TV Regurgitation Doppler TR Peak Velocity 2.7 m/s TR Peak Gradient 29 mmHg Estimated PAP/RSVP RA Pressure 3 mmHg <=5 PA Systolic Pressure 32 mmHg <35 RV Systolic Pressure 32 mmHg <36 Pulmonary Vessels Name Value Normal Pulmonary Artery Doppler PA End Diastolic Pressure for NM 30 mmHg Pulmonary Veins Pulm Vein Peak Systolic Velocity 31.3 cm/s Aorta Name Value Normal Ascending Aorta Asc Ao Diameter 3.3 cm 2.2-3.8 Asc Ao Diameter Index 1.7 cm/m2 1.1-1.9 Septae/Shunt/Generic Name Value Normal Qp/Qs Qp/Qs 3.1 Venous Name Value Normal IVC/SVC IVC Diameter 1.4 cm <=2.1 Aortic Valve Name Value Normal AV Doppler AV Peak Velocity 1.32 m/s AV Peak Gradient 7 mmHg AV Mean Gradient 4 mmHg AV VTI 26 cm AV Area (Cont Eq VTI) 2.60 cm2 >=2.00 AV Area (Cont Eq Nils) 2.55 cm2 AV DI (VTI) 0.84 AV DI (Nils) 0.83 AV Regurgitation 2D LVOT Area 3.07 cm2 Ventricles Name Value Normal LV Dimensions 2D/MM IVS Diastolic Thickness (2D) 1.0 cm 0.6-1.0 LVID Diastole (2D) 4.8 cm 4.2-5.8 LVPW Diastolic Thickness (2D) 1.0 cm 0.6-1.0 IVS Systolic Thickness (2D) 1.1 cm LVID Systole (2D) 2.1 cm 2.5-4.0 LVPW Systolic Thickness (2D) 1.1 cm LV Mass (2D Cubed) 85 g 88-224 LV Mass Index (2D Cubed) 44 g/m2 49-115 Relative Wall Thickness (2D) 0.42 <=0.42 LV Fractional Shortening/Ejection Fraction 2D/MM LV Fractional Shortening (2D) 55 % 25-43 LV EF (2D Teichdayannaz) 86 % 52-72 LV Diastolic Volume (4C MOD) 128 ml LV EF (4C MOD) 65 % LV Diastolic Volume (2C MOD) 176 ml LV EF (2C MOD) 74 % LV Diastolic Volume (BP MOD) 154 ml 62-150 LV Diastolic Volume Index (BP MOD) 80 ml/m2 34-74 LV Systolic Volume (BP MOD) 47 ml 21-61 LV Systolic Volume Index (BP MOD) 25 ml/m2 11-31 LV EF (BP MOD) 69 % 52-72 LV Diastolic Length (4C) 8.4 cm LV Systolic Length (4C) 6.4 cm LV Stroke Volume (4C MOD) 83 ml RV Dimensions 2D/MM RVID Diastole (2D) 3.4 cm 2.5-3.5 RVID Systole (2D) 3.5 cm RV Basal Diastolic Dimension 4.1 cm 2.5-4.1 RV Diastolic Length (4C) 6.7 cm 5.9-8.3 TAPSE 2.3 cm >=1.7 Atria Name Value Normal LA Dimensions LA Dimension (2D) 4.7 cm 3.0-4.1 LA Dimen Index (2D) 2.5 cm/m2 LA Volume (BP MOD) 89 ml LA Volume Index (BP MOD) 47 ml/m2 16-34 RA Dimensions RA Area (4C) 23 cm2 <=18 RA Area (4C) Index 12 cm2/m2 EchoPAC Name Value Normal IMER G peak SL(Avg) (AWMA) -19.4 % Report Signatures Finalized by Cate Mandel MD on 06/13/2025 02:24 PM Procedure Note Cate Mandel MD - 06/13/2025 Summary * The left ventricle is normal in size. * Left ventricular segmental wall motion is normal. * Left ventricular systolic function is normal with an estimatedejection fraction of 69% by biplane method of disks. * The left ventricular diastolic function is consistent with grade I diastolic dysfunction and normal left atrial filling pressure. * Right ventricle is normal in size with normal systolic function. * The left atrium is moderately dilated with a left atrial volume indexof 47 ml/m2 by BP MOD. * The right atrium is mildly dilated. * By history there is a 29mm Corvalve Evolut Pro TAVR in the aortic position. The valve is well seated, the leaflets are well visualized, withno regurgitation, and no significant paravalvular regurgitation. The mean gradient is 4 mmHg, which is within normal limits. * The pulmonary artery systolic pressure is normal, 32 mmHg. Patient Info Name: Sebastian De La O Age: 79 years : 1945 Gender: Male Ht: 69 in Wt: 165 lb BSA: 1.92 m2 HR: 62 bpm BP: 128 / 72 mmHg Exam Date: 06/13/2025 11:51 AM Patient Status: I/P Study Site: [facility] Primary Location: [facility] Info Exam Type: ECHO COMPLETE Indications I35.0 - Severe aortic stenosis Z95.2 - S/P TAVR (transcatheter aortic valve replacement) Q23.81 - Bicuspid aortic valve (HCC) I35.0 - Nonrheumatic aortic valve stenosis Procedure(s) * A complete 2D, color Doppler, spectral Doppler, and M-Modetransthoracic echocardiogram was performed. Staff Referring Physician: Sil Rojas Ordering Provider: Sil Rojas Attending Physician: Sil Rojas Welder [employer] Automatic: Viridiana Alanis Left Ventricle The left ventricular mass is normal. The left ventricle is normal insize. Left ventricular segmental wall motion is normal. Left ventricularsystolic function is normal with an estimated ejection fraction of 69% by biplane method of disks. The left ventricular diastolic function is consistentwith grade I diastolic dysfunction and normal left atrial filling pressure. Right Ventricle The right ventricle is normal in size. Right ventricular systolicfunction is normal. A device wire is seen in the right ventricle. Left Atrium The left atrium is moderately dilated with a left atrial volume index of47 ml/m2 by BP MOD. Right Atrium The right atrium is mildly dilated. Atrial Septum Intact interatrial septum visualized by 2D and color Doppler imaging. Aortic Valve By history there is a 29mm Corvalve Evolut Pro TAVR in the aorticposition. The valve is well seated, the leaflets are well visualized, with no regurgitation, and no significant paravalvular regurgitation. The mean gradient is 4 mmHg, which is within normal limits. Pulmonic Valve The pulmonic valve is normal. There is no pulmonic valve stenosis. Thereis mild pulmonic regurgitation. Mitral Valve The mitral valve is normal. There is no mitral valve stenosis. There ismild mitral valve regurgitation. Tricuspid Valve The tricuspid valve is normal. There is mild tricuspid valveregurgitation. The pulmonary artery systolic pressure is normal, 32 mmHg. Inferior Vena Cava The inferior vena [...] Peak Gradient 5 mmHg LVOT Mean Velocity 71.55 cm/s LVOT Mean Gradient 2 mmHg LVOT VTI 22.3 cm LVOT VTI/AV VTI Ratio 0.8 LVOT Stroke Volume 69 ml LVOT Stroke Volume Index 36 ml/m2 35-58 LVOT CO 4.2 l/min LVOT CI 2.2 l/min/m2 Pulmonic Valve Name Value Normal PV 2D RVOT Diameter (2D) 3.8 cm 1.7-2.7 RVOT Doppler RVOT Peak Velocity 1.0 m/s RVOT Peak Gradient 4 mmHg RVOT Mean Gradient 2 mmHg PV Doppler PV Peak Velocity 1.0 m/s PV Peak Gradient 4 mmHg PV Mean Gradient 2 mmHg PV Area (Cont Eq VTI) 10.66 cm2 PV Area Index (Cont Eq VTI) 5.57 cm2/m2 PV Area (Cont Eq Nils) 11.3 cm2 PV Area Index (Cont Eq Nils) 5.88 cm2/m2 PV Regurgitation Doppler NM End Diastolic Gradient 27 mmHg Mitral Valve Name Value Normal MV Diastolic Function MV E Peak Velocity 1.1 m/sec MV A Peak Velocity 0.9 m/sec MV E/A 1.2 MV Decel Time (PW) 220 ms MV A Wave Duration 154 ms MV Annular TDI MV Septal e' Velocity 6 cm/s >=8 MV E/e' (Septal) 18 <=8 MV Lateral e' Velocity 8 cm/s >=10 MV E/e' (Lateral) 12 <=8 MV e' Average 7 cm/s MV E/e' (Average) 15 Tricuspid Valve Name Value Normal TV 2D TV Annulus Diameter (4C) 3.9 cm TV Regurgitation Doppler TR Peak Velocity 2.7 m/s TR Peak Gradient 29 mmHg Estimated PAP/RSVP RA Pressure 3 mmHg <=5 PA Systolic Pressure 32 mmHg <35 RV Systolic Pressure 32 mmHg <36 Pulmonary Vessels Name Value Normal Pulmonary Artery Doppler PA End Diastolic Pressure for NM 30 mmHg Pulmonary Veins Pulm Vein Peak Systolic Velocity 31.3 cm/s Aorta Name Value Normal Ascending Aorta Asc Ao Diameter 3.3 cm 2.2-3.8 Asc Ao Diameter Index 1.7 cm/m2 1.1-1.9 Septae/Shunt/Generic Name Value Normal Qp/Qs Qp/Qs 3.1 Venous Name Value Normal IVC/SVC IVC Diameter 1.4 cm <=2.1 Aortic Valve Name Value Normal AV Doppler AV Peak Velocity 1.32 m/s AV Peak Gradient 7 mmHg AV Mean Gradient 4 mmHg AV VTI 26 cm AV Area (Cont Eq VTI) 2.60 cm2 >=2.00 AV Area (Cont Eq Nils) 2.55 cm2 AV DI (VTI) 0.84 AV DI (Nils) 0.83 AV Regurgitation 2D LVOT Area 3.07 cm2 Ventricles Name Value Normal LV Dimensions 2D/MM IVS Diastolic Thickness (2D) 1.0 cm 0.6-1.0 LVID Diastole (2D) 4.8 cm 4.2-5.8 LVPW Diastolic Thickness (2D) 1.0 cm 0.6-1.0 IVS Systolic Thickness (2D) 1.1 cm LVID Systole (2D) 2.1 cm 2.5-4.0 LVPW Systolic Thickness (2D) 1.1 cm LV Mass (2D Cubed) 85 g 88-224 LV Mass Index (2D Cubed) 44 g/m2 49-115 Relative Wall Thickness (2D) 0.42 <=0.42 LV Fractional Shortening/Ejection Fraction 2D/MM LV Fractional Shortening (2D) 55 % 25-43 LV EF (2D Teicholz) 86 % 52-72 LV Diastolic Volume (4C MOD) 128 ml LV EF (4C MOD) 65 % LV Diastolic Volume (2C MOD) 176 ml LV EF (2C MOD) 74 % LV Diastolic Volume (BP MOD) 154 ml 62-150 LV Diastolic Volume Index (BP MOD) 80 ml/m2 34-74 LV Systolic Volume (BP MOD) 47 ml 21-61 LV Systolic Volume Index (BP MOD) 25 ml/m2 11-31 LV EF (BP MOD) 69 % 52-72 LV Diastolic Length (4C) 8.4 cm LV Systolic Length (4C) 6.4 cm LV Stroke Volume (4C MOD) 83 ml RV Dimensions 2D/MM RVID Diastole (2D) 3.4 cm 2.5-3.5 RVID Systole (2D) 3.5 cm RV Basal Diastolic Dimension 4.1 cm 2.5-4.1 RV Diastolic Length (4C) 6.7 cm 5.9-8.3 TAPSE 2.3 cm >=1.7 Atria Name Value Normal LA Dimensions LA Dimension (2D) 4.7 cm 3.0-4.1 LA Dimen Index (2D) 2.5 cm/m2 LA Volume (BP MOD) 89 ml LA Volume Index (BP MOD) 47 ml/m2 16-34 RA Dimensions RA Area (4C) 23 cm2 <=18 RA Area (4C) Index 12 cm2/m2 EchoPAC Name Value Normal IMER G peak SL(Avg) (AWMA) -19.4 % Report Signatures Finalized by Cate Mandel MD on 06/13/2025 02:24 PM Sil Rojas APRNBOBY ECHO CUPID Final Result * EKG 12-Lead (06/13/2025 5:04 AM CDT) Only the most recent of4 resultswithin the time period is included. Pathologist [facility] Ventricular Rate 60 BPM SL MUSE Atrial Rate 60 BPM SL MUSE P-R Interval 318 ms [facility] MUSE QRS Duration ms 128 ms [facility] MUSE Q-T Interval ms 426 ms [facility] MUSE QTC Calculation (Bezet) 426 ms SL MUSE Calculated P [place] 6 degrees [facility] MUSE Calculated R [place] 44 degrees SL MUSE Calculated T [place] 48 degrees SL MUSE Interpretation EKG Atrial-paced rhythm with prolonged AV conduction RIGHT BUNDLE BRANCH BLOCK ABNORMAL ECG WHEN COMPARED WITH ECG OF 12-JUN-2025 09:10, NO SIGNIFICANT CHANGE WAS FOUND Confirmed by ARSEN MAY MD ([id number]) on 06/17/2025 7:11:10 AM [facility] MUSE 06/13/2025 5:04 AM CDT 06/17/2025 7:11 AM CDT [facility] ECG ORDERABLES Edited Result - Final [facility] MUSE * (ABNORMAL) CBC W AUTO DIFFERENTIAL (06/13/2025 1:29 AM CDT) Only the most recent of2 resultswithin the time period is included. Pathologist [facility] WBC 6.1 4.0 - 10.7 x10E9/L 06/13/2025 2:34 AM CDT [facility] RBC Count 4.68 4.30 - 5.80 x10E12/L 06/13/2025 2:34 AM CDT [facility] Hemoglobin 13.6 13.3 - 17.5 g/dL 06/13/2025 2:34 AM CDT [facility] Hematocrit 40.4 38.7 - 51.1 % 06/13/2025 2:34 AM CDT [facility] MCV 86.3 80.0 - 98.0 fL 06/13/2025 2:34 AM [facility] MCH 29.1 26.7 - 33.6 pg 06/13/2025 2:34 AM [facility] MCHC 33.7 31.7 - 36.3 g/dL 06/13/2025 2:34 AM [facility] RDW-CV 13.5 11.3 - 14.8 % 06/13/2025 2:34 AM [facility] Platelet Count 129(L) 150 - 420 x10E9/L 06/13/2025 2:34 AM [facility] MPV 11.5(H) 7.8 - 11.4 fL 06/13/2025 2:34 AM [facility] Neutrophil % 75.0(H) 41.0 - 74.0 % 06/13/2025 2:34 AM [facility] Lymphocyte % 10.5(L) 17.0 - 47.0 % 06/13/2025 2:34 AM [facility] Monocyte % 11.5(H) 3.0 - 11.0 % 06/13/2025 2:34 AM [facility] Eosinophil % 2.5 0.0 - 7.0 % 06/13/2025 2:34 AM [facility] Basophil % 0.3 0.0 - 1.6 % 06/13/2025 2:34 AM [facility] Immature Granulocytes % 0.2 0.0 - 1.0 % 06/13/2025 2:34 AM [facility] Neutrophil Absolute 4.55 1.60 - 7.50 x10E9/L 06/13/2025 2:34 AM [facility] Lymphocyte Absolute 0.64(L) 1.00 - 4.40 x10E9/L 06/13/2025 2:34 AM [facility] Monocyte Absolute 0.70 0.15 - 1.00 x10E9/L 06/13/2025 2:34 AM [facility] Eosinophil Absolute 0.15 0.00 - 0.60 x10E9/L 06/13/2025 2:34 AM [facility] Basophil Absolute 0.02 0.00 - 0.13 x10E9/L 06/13/2025 2:34 AM [facility] Blood BLOOD SPECIMEN / Unknown Lab Venipuncture / Unknown 06/13/2025 1:29 AM CDT 06/13/2025 2:16 AM CDT us Sil Rojas [employer]SLEEV[employer] MACHINE TENDER LAB - HEMATOLOGY ORDER GUZMAN Final Result [facility] [address] [place] [address], [facility] [phone] * (ABNORMAL) BASIC METABOLIC PANEL (CALCIUM TOTAL) (06/13/2025 1:29 AM CDT) Only the most recent of4 resultswithin the time period is included. BUN 15 7 - 26 mg/dL 06/13/2025 2:44 AM [facility] Creatinine 0.62(L) 0.71 - 1.16 mg/dL 06/13/2025 2:44 AM [facility] Sodium 139 136 - 145 mmol/L 06/13/2025 2:44 AM [facility] Potassium 3.8 3.5 - 4.5 mmol/L 06/13/2025 2:44 AM [facility] Chloride 110(H) 98 - 107 mmol/L 06/13/2025 2:44 AM [facility] CO2 26 22 - 29 mmol/L 06/13/2025 2:44 AM [facility] Glucose 89 70 - 99 mg/dL 06/13/2025 2:44 AM [facility] Calcium 9.7 8.4 - 10.2 mg/dL 06/13/2025 2:44 AM [facility] Anion Gap 3(L) 6 - 16 06/13/2025 2:44 AM [facility] BUN/Creatinine Ratio 24(H) 7 - 23 06/13/2025 2:44 AM [facility] Osmolality Calculated 288 275 - 295 mOsm/kg 06/13/2025 2:44 AM [facility] eGFR by CKD-EPI >90 >=90 mL/min/1.7 3 m2 06/13/2025 2:44 AM CDT [facility] Comment:Estimated Glomerular Filtration Rate (eGFR) calculated using the CKD-EPI Creatinine Equation (2020), per the National Kidney Foundation and [place] Society of Nephrology recommendations. Blood BLOOD SPECIMEN / Unknown Lab Venipuncture / Unknown 06/13/2025 1:29 AM CDT 06/13/2025 2:15 AM CDT [facility] - [facility]MISTRY ORDERA BLES Final Result Performing Organization Address [facility] Co de Phone Number [address] [address], [facility] [phone] * MAGNESIUM BLOOD (06/13/2025 1:29 AM CDT) Magnesium 2.1 1.6 - 2.6 mg/dL 06/13/2025 2:44 AM CDT [facility] Blood BLOOD SPECIMEN / Unknown Lab Venipuncture / Unknown 06/13/2025 1:29 AM CDT 06/13/2025 2:15 AM CDT [facility] LAB - CHEMISTRY ORDERA BLES Final Result Performing Organization Address [facility] de Phone Number [address] [address], [place] [phone] * CCL TRANSCATH AORTIC VALVE REPLACEMENT (06/12/2025 9:05 AM CDT) Only the most recent of2 resultswithin the time period is included. Anatomical Region Laterality Modality X-Ray Angiograph y Narrative 06/12/2025 11:21 AM CDT Successful TAVR using #29 Evolut Fx+ bioprosthetic valve . Reason for Procedure 79 Y/O with moderate aortic stenosis, participating in EXPAND II trial. He was randomized to TAVR. Procedure Details Estimated Blood Loss: 15 mL Procedure Indications Primary procedure indication: Moderate , participating in EXPAND II trial. NYHA class III (symptoms of heart failure with minimal exertion). Patient Prep Informed consent was obtained after a detailed discussion with the patient about the procedure's risks, benefits, and alternatives. The patient consented to open heart surgery should the device placement fail. The patient was brought to the ear mold laboratory technician in a fasting state. A timeout was performed. The patient was prepped and draped in the usual sterile fashion. MAC was administered by the anesthesia department. Access 1 Access was obtained via the right femoral artery with a micropuncture kit. A 10 Fr sheath sheath was inserted. Fluoroscopic guidance and US guidance was used for access. 2 Perclosure sutures were deployed at the access site for closure, using a preclosure technique. Access 2 Access was obtained via the right radial artery with a micropuncture kit. A 6 Fr sheath sheath was inserted. US guidance was used for access. Delivery Sheath The right femoral arteryA delivery sheath Sys Cath Evolut Fx 14Fr 23-29Mm (14- Fr) was inserted into the right femoral artery. Delivery Device A 29 mm Evolut Pro valve was carefully prepped and inspected. Predilatation was performed under rapid ventricular pacing. The device was introduced into the delivery sheath and inserted into the right common femoral artery. An implant time out was called. The device was advanced across the aortic arch under fluoroscopic guidance and positioned across the aortic annulus. The valve Vlv Aor Evolut Fx+ 29Mm 23- 26Mm was deployed slowly at a pacing rate of 150 bpm and valve positioning was adjusted as needed under the guidance of fluoroscopy and aortography. Postdilatation was performed under rapid ventricular pacing. The delivery system was then walked back into the descending thoracic aorta. Diagnostic imaging was performed using transthoracic echocardiography to evaluate aortic regurgitation, paravalvular regurgitation and transvalvular valve gradient (see echo report for details). Echo findings: no aortic regurgitation and no paravalvular regurgitation. Transvalvular gradient: 3. The delivery device was removed and valve deployment was successful. Wire/Catheter A pigtail catheter was advanced over a J-wire to the non-coronary cusp. Aortic root aortography was obtained to confirm the pigtail placement. A 5-Fr catheter was advanced into the aortic root. The aortic valve was crossed using a 035 cm Gw Vasc Confida .035In 260Cm Strl Lf. The catheter was advanced into the left ventricular chamber. An exchange length J-wire was placed through the catheter at the left ventricular apex, and the catheter was exchanged for a 5-Fr pigtail catheter. Simultaneous LV and aortic pressures were measured. A Gw Vasc Confida .035In 260Cm Strl Lf wire was placed in the LV apex. Vascular Access Management The right femoral artery sheath was removed. 1 Perclose and Angio-Seal device(s) were placed at the access site. Hemostasis was achieved. Transvenuos Pacemaker A temporary pacemaker was placed. Placement was necessary because of a valve replacement. Left femoral vein access was obtained using a 7-Fr introducer sheath. A Cath Pace Eltrd Biplr Dist Tip Balln Flw 5-Fr balloon tip transvenous pacemaker was placed at the right ventricular apex under fluoroscopic guidance. Adequate pacing thresholds and stable capture were confirmed. Recommendations - - Aspirin monotherapy us Ro Rodriguez MD CV CARDIAC CATH CUPID PROCS Final Result * ACT LR - POCT ([facility]) (06/12/2025 8:50 AM CDT) Only the most recent of2 resultswithin the time period is included. [facility] ACT LR 381 See result comments sec 06/14/2025 5:31 PM CDT [facility] Blood BLOOD SPECIMEN / Unknown 06/12/2025 8:50 AM CDT 06/14/2025 5:31 PM CDT Narrative [facility] - 06/14/2025 5:31 PM CDT ACT-LR Therapeutics ranges are: Cardiac microbiology lab manager = 200-300 seconds Sheath pull = ACT less than 170 seconds EPS lab = 200-240 seconds Sheath pull = ACT less than 140 seconds Radiology : CT/Angio lab = 200-300 seconds Sheath pull = ACT less than 200 seconds Expected range of normal volunteers: ACT-LR = 113-149 seconds Expected range of a Non-heparin patients: ACT-LR = 89-169 seconds From established ranges from the company manual us Ro Rodriguez MD LAB - COAGULATION ORDERABLE S Final Result [facility] [address] [place] [address], [place] [phone] * PREPARE (CROSSMATCH) RBC UNIT(S), 4 Units (06/12/2025 6:05 AM CDT) Unit Description AS1 LR PRBC [facility] BLOOD BANK LAB Unit ABO O [facility] BLOOD BANK LAB Unit NEG [facility] BLOOD BANK LAB Product Number R02 [facility] B LOOD BANK LAB Unit Donor # [id number] [facility] BLOOD BANK LAB Unit Status released [facility] BLOO D BANK LAB Product Code [id number] [facility] BLO OD BANK LAB Blood Type Barcode 9500 [facility] BLOOD BANK LAB Expiration Date S BLOOD BANK LAB Unit Description AS1 LR PRBC [facility] BLOOD BANK LAB Unit ABO O [facility] BLOOD BANK LAB Unit NEG [facility] BLOOD BANK LAB Product Number R02 [facility] B LOOD BANK LAB Unit Donor # [id number] [facility] BLOOD BANK LAB Unit Status released [facility] BLOO D BANK LAB Product Code [id number] [facility] BLO OD BANK LAB Blood Type Barcode 9500 [facility] BLOOD BANK LAB Expiration Date S BLOOD BANK LAB Unit Description AS1 LR PRBC [facility] BLOOD [facility]ANK LAB Unit ABO O [facility] BLOOD BANK LAB Unit NEG [facility] BLOOD BANK LAB Product Number R02 [facility] B LOOD BANK LAB Unit Donor # [id number] [facility] BLOOD BANK LAB Unit Status released [facility] BLOO D BANK LAB Product Code [id number] [facility] BLO OD BANK LAB Blood Type Barcode 9500 [facility] BLOOD BANK LAB Expiration Date [facility] BLOOD BANK LAB Unit Description AS1 LR PRBC [facility] BLOOD BANK LAB Unit ABO O [facility] BLOOD BANK LAB Unit NEG [facility] BLOOD BANK LAB Product Number R02 [facility] B LOOD BANK LAB Unit Donor # [id number] [facility] BLOOD BANK LAB Unit Status released [facility] BLOO D BANK LAB Product Code [id number] [facility] BLO OD BANK LAB Blood Type Barcode 9500 [facility] BLOOD BANK LAB Expiration Date S BLOOD BANK LAB Blood Bank BLOOD SPECIMEN / Unknown 06/12/2025 6:05 AM CDT 06/12/2025 6:10 AM CDT Sil Rojas [employer]SLEEV[employer] MACHINE TENDER LAB - BLOOD BANK ORDER GUZMAN Final Result [facility] BLOOD BANK LAB [address] [place] [address], [place] [phone] * TYPE + SCREEN PANEL (06/12/2025 6:05 AM CDT) Pathologist [facility] Antibody Screen NEG 6:55 AM CDT [facility] BLOOD BANK LAB ABO Rh O NEG 06/12/2025 6:55 AM CDT [facility] BLOOD BANK LAB Blood Bank BLOOD SPECIMEN / Unknown Venipuncture / Unknown 06/12/2025 6:05 AM CDT 06/12/2025 6:10 AM CDT Sil Rojas [employer]SLEEV[employer] MACHINE TENDER LAB - BLOOD BANK ORDER GUZMAN Final Result [facility] BLOOD BANK LAB [address] [place] [address], [place] [phone] * CBC W/O DIFFERENTIAL (06/12/2025 6:05 AM CDT) Only the most recent of2 resultswithin the time period is included. [facility] WBC 4.4 4.0 - 10.7 x10E9/L 06/12/2025 6:25 AM [facility] RBC Count 5.37 4.30 - 5.80 x10E12/L 06/12/2025 6:25 AM [facility] Hemoglobin 15.5 13.3 - 17.5 g/dL 06/12/2025 6:25 AM [facility] Hematocrit 46.1 38.7 - 51.1 % 06/12/2025 6:25 AM [facility] MCV 85.8 80.0 - 98.0 fL 06/12/2025 6:25 AM [facility] MCH 28.9 26.7 - 33.6 pg 06/12/2025 6:25 AM [facility] MCHC 33.6 31.7 - 36.3 g/dL 06/12/2025 6:25 AM [facility] RDW-CV 13.3 11.3 - 14.8 % 06/12/2025 6:25 AM CDT [facility] Platelet Count 168 150 - 420 x10E9/L 06/12/2025 6:25 AM CDT [facility] LABORATORY [facility] MPV 11.3 7.8 - 11.4 fL 06/12/2025 6:25 AM CDT [facility] Blood BLOOD SPECIMEN / Unknown Venipuncture / Unknown 06/12/2025 6:05 AM CDT 06/12/2025 6:11 AM CDT Sil Bob [employer]SLEEVE MACHINE TENDER LAB - HEMATOLOGY ORDER GUZMAN Final Result [facility] [address] [place] [address], [facility] [phone] * CT Angio Tavr Chest Abd Pel [...] values. > Dictated by Donaldo Subramanian DO (senior vice president and chief information officer). I, Goyo Day MD have personally reviewed and interpreted this examination/study. > Interpreting Provider: Goyo Day MD on 05/11/2025 2:14 AM Narrative 05/11/2025 2:14 AM CDT PROCEDURE: CT ANGIO TAVR CHEST ABD PEL, DATE/TIME OF EXAM: 05/10/2025 11:17 AM, LOCATION [facility] INDICATION: I35.0: Nonrheumatic aortic valve stenosis COMPARISON: [...] DATE/TIME OF EXAM: 05/10/2025 11:17 AM, LOCATION [facility] INDICATION: I35.0: Nonrheumatic aortic valve stenosis COMPARISON: [...] values. > Dictated by Donaldo Subramanian DO (senior vice president and chief information officer). I, Goyo Day MD have personally reviewed and interpreted this examination/study. > Interpreting Provider: Goyo Day MD on 05/11/2025 2:14 AM Ro Rodriguez MD CT ORDERABLES Final Resul t * (ABNORMAL) Six Minute Walk (05/10/2025 10:57 AM CDT) Impressions Armani Hawthorne MD - 05/10/2025 10:57 AM CDT [facility] DEPARTMENT OF PULMONARY, CRITICAL CARE, AND SLEEP [...] Avelar MD Pulmonary and Critical Care Fellow [facility] Pager Number [phone] I have personally reviewed and agree with the fellow's interpretation. Armani Hawthorne MD Narrative Armani Hawthorne MD - 05/10/2025 10:57 AM CDT Armani Hawthorne MD 05/11/2025 9:03 AM Procedure Note Tony Avelar MD - 05/10/2025 10:57 AM CDT Images from the original note were not included. us Ro Rodriguez MD RESPIRATORY THERAPY ORDERAB LES Edited Result - Final * B-TYPE NATRIURETIC PEPTIDE (05/10/2025 12:25 AM CDT) BNP 70 <100 pg/mL 05/10/2025 1:31 AM CDT [facility] Comment: A decision threshold of [...] AM CDT 05/10/2025 12:51 AM CDT us Ro Rodriguez MD LAB - CHEMISTRY ORDERABLES Final Result [facility] [address] [place] [phone], [facility] [phone] * (ABNORMAL) LIPID PROFILE (05/09/2025 9:17 AM CDT) Cholesterol Total 135 <200 mg/dL 05/09/2025 10:39 AM [facility] HDL 36(L) >40 mg/dL 05/09/2025 10:39 AM [facility] Comment: ATP III Classification of HDL Cholesterol: <40 mg/dL: Considered a major risk factor. >60 mg/dL: Considered a negative risk factor. LDL Calculated 64 <100 mg/dL 05/09/2025 10:39 AM [facility] Comment: ATP III Classification of LDL Cholesterol: <100 mg/dL: Optimal 100 - 129 mg/dL: Near Optimal/Above Optimal 130 - 159 mg/dL: Borderline High 160 - 189 mg/dL: High >190 mg/dL: Very High LDL is calculated using the Friedewald equation. Triglycerides 173(H) <150 mg/dL 05/09/2025 10:39 AM [facility] Comment: ATP III Classification of Triglycerides: <150 mg/dL: Normal 150 - 199 mg/dL: Borderline High 200 - 400 mg/dL: High >500 mg/dL: Very High Blood BLOOD SPECIMEN / Unknown Venipuncture / Unknown 05/09/2025 9:17 AM CDT 05/09/2025 9:36 AM CDT us Gabi Redd [employer]LEEV[employer] MACHINE TENDER LAB - CHEMISTRY ORDERABLES Final Result [facility] [address] [place] [address], [facility] [phone] * NM PM DEVICE INTERROGATE REMOTE, NM PM/ICD REMOTE TECH SERV (03/26/2025 10:17 PM CDT) Narrative Xuan Guadalupe MD - 03/26/2025 10:17 PM CDT Xuan Guadalupe MD 03/26/2025 10:20 PM Remote Interrogation: Pertinent Findings: Device function within normal limites. No significant events. NSVT. Xuan Guadalupe MD Cardiac Electrophysiology Xuan Guadalupe MD PROCEDURE/MINOR SURGICAL ORDERAB LES Final Result from Last 3 Months Insurance [facility] MANAGED MEDICARE ADV [facility] MANAGED MEDICARE ADV Advance Directives * Full Code (Latest Code Status on File) Date Activated Date Inactivated Comments 06/12/2025 9:30 AM 06/13/2025 5:12 PM * Full Code Date Activated Date Inactivated Comments 06/12/2025 9:30 AM 06/12/2025 9:30 AM * Full Code Date Activated Date Inactivated Comments 05/09/2025 11:43 AM 05/10/2025 12:03 PM * Full Code Date Activated Date Inactivated Comments 03/11/2024 7:51 PM 03/13/2024 1:57 PM * Full Code Date Activated Date Inactivated Comments 03/03/2024 8:04 PM 03/07/2024 12:02 PM Care Teams Pilates Instructor Relationship Specialty Start Date End Date Baljit Conley MD [address] [place] [id number] PCP - General 11/19/21
--- OUTSIDE RECORDS SUMMARY | 2025-06-22 10:38 | XMS_ITS | Encounter Summary ---
Author Organization [facility] Health Address [address] [facility] [place] [address] Care Team Providers Care Websphere Message Broker Developer Name Role Phone Baljit Conley MD Primary Care Provider [phone] Encounter Details Date Type Department Care Team (Latest Contact Info) Description 06/21/2025 Travel Social History Tobacco Use Types Packs/Day Years [...] and heating? Not hard at all 06/12/2025 [facility] of Occupat ional Health - Occupational Stress [...] place to sleep or slept in a skilled nursing (including now)? No 03/11/2024 Housing Stability Vital Sign Answer Michele e Recorded In the last 12 months, was t here a time when you were not able to pay the mortgage or rent on time? No 06/12/2025 In the past 12 months, how m any times have you moved where you were living? 1 06/12/2025 At any time in the past [address] [facility], were you homeless or living in a skilled nursing (including now)? No 06/12/2025 Sex and Gender Information Value Date Recorded Sex Assigned at Not on file Legal Sex Male 9:35 AM HONING MACHINE SET UP OPERATOR TOOL Gender Identity Not on file Sexual Orientation Not on file documented as of this encounter Functional Status * Is person deaf or have serious hearing difficulty? Answer Date of Assessment Author No 06/13/2025 12:33 PM JACKSONT Maureen Gunter RN * Is person blind or have serious difficulty seeing? Answer Date of Assessment Author Yes 06/13/2025 12:33 PM JACKSONT Maureen Gunter RN * Does person have serious difficulty walking/climbing stairs? Answer Date of Assessment Author No 06/13/2025 12:33 PM JACKSONT Maureen Gunter RN * Does person have difficulty dressing/bathing? Answer Date of Assessment Author No 06/13/2025 12:33 PM JACKSONT Maureen Gunter RN * Does person have difficulty doing errands alone? Answer Date of Assessment Author No 06/13/2025 12:33 PM JACKSONT Jani , Maureen R, RN documented as of this encounter Mental Status * Does person have difficulty concentrating/remembering/making decisions? Answer Entry Date Author No 06/13/2025 12:33 PM CDT Maureen Gunter, RN documented in this encounter Plan of Treatment Upcoming Encounters Date Type Department Care Team (Late st Contact Info) Description 06/28/2025 2:00 PM CDT Appointment [facility]ULAR US [address] [place] [address] Ely Smith, REVERSE LOGISTICS ANALYST-DESK MANAGER [address] [address] 07/13/2025 8:00 AM CDT Appointment [facility] ECHO [address] [place] [address] Ro Rodriguez MD [address] [address] 07/27/2025 10:00 AM CDT Office Visit [facility] - Cardiology [address], [address] [address] Ro Rodriguez MD [address] [address] 09/04/2025 1:00 AM HONING MACHINE SET UP OPERATOR TOOL Clinical Support [facility] [address], [address] [address] 12/04/2025 1:00 AM HONING MACHINE SET UP OPERATOR TOOL Clinical Support [facility] [address], [address] [address] 03/05/2026 1:00 AM CDT Clinical Support [facility] [address], [address] [address] 04/04/2026 11:00 AM CDT Office Visit [facility] [address], [phone] [place] [address] Omid May MD [address] [facility], [address] [place] [address] documented as of this encounter Visit Diagnoses Not on filedocumented in this encounter Care Teams Websphere Message Broker Developer Relationship Specialty Start Date End Date Baljit Conley MD [address] [place] [phone] PCP - General 11/19/21 documented as of this encounter
--- OUTSIDE RECORDS SUMMARY | 2025-06-22 10:38 | XMS_ITS | Encounter Summary ---
Author Organization [facility] Health Address [address] [facility] [place] [place] [address] Care Team Providers Care J2Ee Developer Name Role Phone Baljit Conley MD Primary Care Provider [phone] Encounter Details Date Type Department Care Team (Late st Contact Info) Description 05/23/2025 Telephone [facility] [address] [facility] [address] [place] [address] Vidya Espinosa RN Social History [...] and heating? Not hard at all 03/11/2024 [facility] [place] of Occupat ional Health - Occupational Stress [...] place to sleep or slept in a fci (including now)? No 03/11/2024 Sex and Gender Information Value Date Recorded Sex Assigned at Not on file Legal Sex Male 9:35 AM RIGGER THIRD Gender Identity Not on file Sexual Orientation [...] Study Name: EXPAND TAVR II IRB Number: [id number] [facility]/Division of Cardiology PI Name: Kerry Rodriguez M.D. Scrap Metal Collector Name: Vidya Espinosa Re: Subject [id number] - [id number] / EXPAND TAVR LHVT Discussion Local Heart Valve Team discussion of subject's screening / baseline medical history and test results as per EXPAND TAVR II protocol. Subject received [place] approval (including CTS, Interventionalist and Echo Specialist Icu) for submission to the EXPAND TAVR Eligibility [...] to (Eligibility Review Committee) on 05/23/25 via [employer]. This documentation serves as [facility] determination of subject eligibility prior to ERC submission & final subject eligibility & approval. We had issues with lack of ability to submit images of CT to the CT corelab but with the help of the [employer] IT department this issue was addressed and images were submitted on 05/22/25. documented in this encounter Plan of Treatment Upcoming Encounters Date Type Department Care Team (Late st Contact Info) Description 06/28/2025 2:00 PM CDT Appointment [facility] VASCULAR US [address] [place] [phone] Ely Smith, CAR RETARDER OPERATOR-UNDERWRITING SALES REPRESENTATIVE [address] [place] [phone] 07/13/2025 8:00 AM CDT Appointment [facility] ECHO [address] [place] [address] Ro Rodriguez MD [address] [address] 07/27/2025 10:00 AM CDT Office Visit [facility] [address], [address] [address] Ro Rodriguez MD [address] [address] 09/04/2025 1:00 AM RIGGER THIRD [facility] [address], [address] [address] 12/04/2025 1:00 AM RIGGER THIRD Clinical Support [facility] [address], [address] [address] 03/05/2026 1:00 AM CDT Clinical Support [facility] - Cardiology [address], [address] [address] 04/04/2026 11:00 AM CDT Office Visit [facility] Cardiology [address], [address] [address] Omid May MD [address], [address] [address] documented as of this encounter Visit Diagnoses Not on filedocumented in this encounter Care Teams J2Ee Developer Relationship Specialty Start Date End Date Baljit Conley MD [address] [place] [address] PCP - General 11/19/21 documented as of this encounter
--- OUTSIDE RECORDS SUMMARY | 2025-06-22 10:38 | XMS_ITS | Clinical Summary ---
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 Gender Identity Not on file Sexual Orientation [...] Pneumococcal vaccine 65+ (2 of 2 - PCV20 or PCV21) 05/14/2017 05/14/2016, 10/22/2015, 10/17/2015 Covid-19 Vaccine (2023-2 5 season) 2024 08/19/2023, 07/24/2022, 02/05/2022, Additional history exists Influenza Vaccine (#1) 2025 3, 07/17/2022, 08/11/2021, Additional history exists DTaP/Tdap/Td Vaccine (2 - Td or Tdap) 01/25/2034 01/26/2024 Insurance [facility] MED[facility] Address: [address] [address] Care Teams Print Line Inspector Relationship Specialty Start Date End Date Baljit Conley MD [address] [place] [address] BLAKE ARAIZA [phone] PCP - General Family Medicine 03/30/24
--- OUTSIDE RECORDS SUMMARY | 2025-06-22 10:38 | XMS_ITS | Encounter Summary ---
Author Organization [facility] Health Address [address] [facility] [place] [address] Care Team Providers Care Supervisor Tree Trimming Name Role Phone Baljit Conley MD Primary Care Provider [phone] Encounter Details Date Type Department Care Team (Late st Contact Info) Description 05/29/2025 Telephone [facility] [address] [facility] [address] [place] [address] Vidya Espinosa RN Social History [...] and heating? Not hard at all 03/11/2024 [facility] [place] of Occupat ional Health - Occupational Stress [...] place to sleep or slept in a group home (including now)? 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/Division of Cardiology PI Name: Kerry Rodriguez M.D. Picture Hanger Name: Vidya Espinosa Re: Subject [id number] - [id number] / EXPAND TAVR LHVT Discussion Local Heart Valve Team discussion of subject's screening / baseline medical history and test results as per EXPAND TAVR II protocol. Subject received [place] approval (including CTS, Interventionalist and Echo Hemodialysis Technician) for submission to the EXPAND TAVR Eligibility Review Committee. Per LHVT recommendation, subject will go forward in the Expand TAVR study. Site completed submission to sponsor ERC (Eligibility Review Committee) on 05/11/25 via [employer] Yellow Pages. This documentation serves as [place] determination of [...] Info) Description 06/28/2025 2:00 PM CDT Appointment [facility] VASCULAR US [address] [place] [address] Ely Smith, WATCHGUARD-STUDY ABROAD COORDINATOR [address] [place] [address] 07/13/2025 8:00 AM CDT Appointment [facility] ECHO [address] [place] [address] Ro Rodriguez MD [address] [place] [address] 07/27/2025 10:00 AM CDT Office Visit [facility] [address] [facility], [address] [address] Ro Rodriguez MD [address] [place] [address] 09/04/2025 1:00 AM NEEDLEWORKER Clinical Support [facility] - Cardiology [address], [address] [address] 12/04/2025 1:00 AM NEEDLEWORKER Clinical Support [facility] - Cardiology [address], [address] [address] 03/05/2026 1:00 AM CDT Clinical Support [facility] - Cardiology [address], [address] [address] 04/04/2026 11:00 AM CDT Office Visit [facility] - Cardiology [address], [address] [address] Omid May MD [address], [address] [address] documented as of this encounter Visit Diagnoses Not on filedocumented in this encounter Care Teams Supervisor Tree Trimming Relationship Specialty Start Date End Date Baljit Conley MD [address] [place] [address] PCP - General 11/19/21 documented as of this encounter
== END 2025-06-22 10:35 | disposition home or self-care (01) ==
PROVIDERS: PCP Family Medicine
DX: I73.9 Peripheral vascular disease, unspecified (principal)
CPT/HCPCS: 93926